=== PATIENT | female | born 1945 | race Asian ===

== ENCOUNTER → 2017-12-29 08:22 | Outpatient (CLI) | payer MEDICARE, OTHER, SELFPAY ==
--- NOTE | 2017-12-29 | DI.RAD.S_ITS ---
PROCEDURE: FL UPPER GI W AIR INDICATIONS: DYSPHAGIA/COUGH COMPARISON: None. FINDINGS: KUB: Preprocedural top lift nailer film demonstrates a normal bowel gas pattern. No suspicious abdominal calcifications. Visualized solid organ contours appear normal. Bony structures appear unremarkable. Esophagus: Esophageal mucosa is normal on air-contrast views. On single-contrast views, there is severely decreased esophageal peristalsis. No strictures, extrinsic mass effects, or diverticula. No hiatal hernia or elicited gastroesophageal reflux. Stomach: The stomach is normally distensible, with normal rugal fold thickness. No mucosal masses or ulcers. Pylorus and duodenal bulb appear normal in morphology. Duodenal folds are normal in thickness as well. IMPRESSION: Severe esophageal dysmotility Dictated by: Gordo Adkins M.D. on 12/29/2017 at 17:00 Approved by: Gordo Adkins M.D. on 12/29/2017 at 17:01
== END ==
PROVIDERS: PCP Family Medicine; Visit Provider Family Medicine
DX: K22.4 Dyskinesia of esophagus (principal); R05 Cough; R13.10 Dysphagia, unspecified
CPT/HCPCS: 74247

== ENCOUNTER → 2018-01-25 09:26 | Outpatient (CLI) | payer MEDICARE, OTHER, SELFPAY ==
--- NOTE | 2018-01-25 | DI.MG.S_ITS ---
BILATERAL DIGITAL SCREENING MAMMOGRAM 3D/2D WITH CAD: 01/25/2018 CLINICAL: Routine screening. Family history of breast cancer. Comparison is made to exams dated: 01/24/2017 mammogram, 01/18/2016 mammogram, and 01/15/2015 mammogram - [facility]. There are scattered fibroglandular elements in both breasts. Current study was also evaluated with a Computer Aided Detection (CAD) system. No significant masses, calcifications, or other findings are seen in either breast. There has been no significant interval change. IMPRESSION: NEGATIVE There is no mammographic evidence of malignancy. A 1 year screening mammogram is recommended. This exam was interpreted at Station ID: [id number]. NOTE: For mammograms, a report in lay terms will be sent to the patient. Approximately 15% of breast malignancies will not be visualized mammographically. In the management of a palpable breast mass, a negative mammogram must not discourage biopsy of a clinically suspicious lesion. Electronically Signed By: Lilly perez/ryan:01/25/2018 11:32:34 letter sent: Normal Exam ACR BI-RADS Category 1: Negative 3341F
== END ==
PROVIDERS: PCP Family Medicine; Visit Provider Family Medicine
DX: Z12.31 Encounter for screening mammogram for malignant neoplasm of breast (principal); Z80.3 Family history of malignant neoplasm of breast
CPT/HCPCS: 77063; 77067

== ENCOUNTER → 2018-11-16 12:05 | Outpatient (CLI) | payer MEDICARE, OTHER, SELFPAY ==
--- NOTE | 2018-11-16 | DI.RAD.S_ITS ---
PROCEDURE: XR FOOT LT MIN 3V INDICATIONS: Left foot pain (focal at 5th digit) TECHNIQUE: 3 views of the foot were acquired. COMPARISON: None. FINDINGS: Bones: No fractures or dislocations. No suspicious bony lesions. Soft tissues: No tibiotalar joint effusion. Achilles tendon appears normal. IMPRESSION: No trauma found. Source of pain is not seen. Dictated by: Jeffrey Israel M.D. on 11/16/2018 at 13:19 Approved by: Jeffrey Israel M.D. on 11/16/2018 at 13:19
== END ==
PROVIDERS: PCP Family Medicine; Visit Provider Family Medicine
DX: M79.672 Pain in left foot (principal)
CPT/HCPCS: 73630

== ENCOUNTER → 2019-01-29 09:00 | Outpatient (CLI) | payer MEDICARE, OTHER, SELFPAY ==
--- NOTE | 2019-01-29 | DI.MG.S_ITS ---
BILATERAL DIGITAL SCREENING MAMMOGRAM 3D/2D WITH CAD: 01/29/2019 CLINICAL: Routine screening. Family history of breast cancer. Comparison is made to exams dated: 01/25/2018 mammogram, 01/24/2017 mammogram, and 01/18/2016 mammogram - [facility]. There are scattered fibroglandular elements in both breasts. Current study was also evaluated with a Computer Aided Detection (CAD) system. No significant masses, calcifications, or other findings are seen in either breast. There has been no significant interval change. IMPRESSION: NEGATIVE There is no mammographic evidence of malignancy. A 1 year screening mammogram is recommended. This exam was interpreted at Station ID: [id number]. NOTE: For mammograms, a report in lay terms will be sent to the patient. Approximately 15% of breast malignancies will not be visualized mammographically. In the management of a palpable breast mass, a negative mammogram must not discourage biopsy of a clinically suspicious lesion. Electronically Signed By: Efrain sanon/ryan:01/29/2019 10:28:27 letter sent: Normal Exam ACR BI-RADS Category 1: Negative [id number]
== END ==
PROVIDERS: PCP Family Medicine; Visit Provider Family Medicine
DX: Z12.31 Encounter for screening mammogram for malignant neoplasm of breast (principal); Z80.3 Family history of malignant neoplasm of breast
CPT/HCPCS: 77063; 77067

== ENCOUNTER → 2019-04-18 11:16 | Outpatient (CLI) | payer MEDICARE, OTHER, SELFPAY | PROVIDERS: PCP Family Medicine; Visit Provider Family Medicine | DX: R20.2 Paresthesia of skin (principal); E11.43 Type 2 diabetes mellitus with diabetic autonomic (poly)neuropathy | CPT/HCPCS: 95885; 95886; 95909 ==

== ENCOUNTER → 2020-01-02 12:56 | Outpatient (CLI) | payer MEDICARE, OTHER, SELFPAY ==
[2020-01-02 15:20] LABS: Folate > 20.0 ng/mL (2.76-20.0); Vitamin B12 Reflex MMA if <400 936 pg/mL (239-931)
[2020-01-03 22:34] LABS: Thyroid Stimulating Hormone 1.36 uIU/mL (0.47-4.68)
[2020-01-06 15:36] LABS: Alpha-1-Globulin 0.2 g/dL (0.0-0.4); Alpha-2-Globulin 0.8 g/dL (0.4-1.0); Gamma Globulin 1.1 g/dL (0.4-1.8); Globulin Total 2.9 g/dL (2.2-3.9); Protein, Total 6.9 g/dL (6.0-8.5)
== END ==
PROVIDERS: PCP Family Medicine; Referring Provider Specialist; Visit Provider Specialist
DX: R20.0 Anesthesia of skin (principal)
CPT/HCPCS: 36415; 82607; 82746; 84155; 84165; 84443

== ENCOUNTER 2020-01-23 11:23 | Outpatient (CLI) | payer MEDICARE, OTHER, SELFPAY | END 2020-01-23 16:42 | disposition home or self-care (01) | LOC: PHYS 11:24 | PROVIDERS: PCP Family Medicine; Referring Provider Family Medicine; Visit Provider Family Medicine | DX: M79.643 Pain in unspecified hand (principal) | CPT/HCPCS: 95886; 95911 ==

== ENCOUNTER → 2020-03-03 11:11 | Outpatient (CLI) | payer MEDICARE, OTHER, SELFPAY ==
--- NOTE | 2020-03-03 11:35 | DI.MG.S_ITS ---
Patient Name: PACO TIMMONS date: 1945 Sex: F Attending Physician: Cristobal Indications: Date: 03/03/2020 11:28 At the request of: [facility] Procedure: MM screening mammo BI BILATERAL DIGITAL SCREENING MAMMOGRAM 3D/2D WITH CAD: 03/03/2020 CLINICAL: Routine screening. Family history of breast cancer. Comparison is made to exams dated: 01/29/2019 mammogram, 01/25/2018 mammogram, 01/24/2017 mammogram, 01/18/2016 mammogram, 01/15/2015 mammogram, and 01/14/2014 mammogram - [facility]. There are scattered fibroglandular elements in both breasts. Current study was also evaluated with a Computer Aided Detection (CAD) system. No significant masses, calcifications, or other findings are seen in either breast. There has been no significant interval change. IMPRESSION: NEGATIVE There is no mammographic evidence of malignancy. A 1 year screening mammogram is recommended. This exam was interpreted at Station ID: [id number]. NOTE: For mammograms, a report in lay terms will be sent to the patient. Approximately 15% of breast malignancies will not be visualized mammographically. In the management of a palpable breast mass, a negative mammogram must not discourage biopsy of a clinically suspicious lesion. Electronically Signed By: Tunde finley/ryna:03/03/2020 17:54:29 letter sent: Normal Exam ACR BI-RADS Category 1: Negative [id number]
== END ==
PROVIDERS: PCP Family Medicine; Referring Provider Family Medicine; Visit Provider Family Medicine
DX: Z12.31 Encounter for screening mammogram for malignant neoplasm of breast (principal); Z80.3 Family history of malignant neoplasm of breast
CPT/HCPCS: 77063; 77067

== ENCOUNTER → 2020-03-20 10:21 | Outpatient (CLI) | payer MEDICARE, OTHER, SELFPAY | PROVIDERS: PCP Family Medicine; Referring Provider Specialist; Visit Provider Specialist | DX: R56.9 Unspecified convulsions (principal) | CPT/HCPCS: 36415; 80175 ==

== ENCOUNTER → 2020-04-20 08:29 | Outpatient (CLI) | payer MEDICARE, OTHER, SELFPAY ==
[2020-04-23 12:08] LABS: Lamotrigine Lamictal 2.4 ug/mL (2.0-20.0)
== END ==
PROVIDERS: PCP Family Medicine; Referring Provider Specialist; Visit Provider Specialist
DX: R56.9 Unspecified convulsions (principal); R20.0 Anesthesia of skin; R20.2 Paresthesia of skin
CPT/HCPCS: 36415; 80175

== ENCOUNTER → 2020-05-18 08:49 | Outpatient (CLI) | payer MEDICARE, OTHER, SELFPAY ==
[2020-05-20 14:13] LABS: Lamotrigine Lamictal 3.8 ug/mL (2.0-20.0)
== END ==
PROVIDERS: PCP Family Medicine; Referring Provider Specialist; Visit Provider Specialist
DX: R56.9 Unspecified convulsions (principal)
CPT/HCPCS: 36415; 80175

== ENCOUNTER 2020-10-12 18:53 | Inpatient (IN) | payer MEDICARE, OTHER, SELFPAY ==
--- NOTE | 2020-10-12 18:57 | ED_ITS ---
HPI - Ear Problem General Chief complaint: Dizziness Stated complaint: UNABLE TO HEAR FROM RT EAR DIZZY Time Seen by Provider: 10/12/20 18:56 Source: patient Mode of arrival: Wheelchair Limitations: no limitations History of Present Illness HPI Narrative: 74-year-old female nonsmoker presents with family in the chief complaint of a vague dizziness that has been present for the past few days. She denies any blurred vision, trouble speech or obvious numbness, tingling or weakness of her extremities. She denies recent trauma or injury. She has had no fever or chills. She denies any head pain but does state that she feels a fullness in her ear that may be new or may have been there for quite some time she is unclear. She denies any recent travel, exposure to persons with COVID, change in medications or diet. She has had no chest pain or shortness of breath. She denies nausea, vomiting or diarrhea. She states that she is dizzy all the time though it seems to maybe get a bit worse when she is trying to walk. Related Data Home Medications Medication Instructions Recorded Confirmed Phenytoin Sodium, Extended 100 mg PO Q DAY #0 10/08/09 (Dilantimagan Ballard) Previous Rx's Medication Instructions Recorded cefuroxime axetil 500 mg PO BID #14 tab 10/12/20 meclizine 25 mg PO BID-TID PRN #14 tab 10/12/20 Allergies Allergy/AdvReac Type Severity Reaction Status Date / Time amoxicillin [From Augmentin] Allergy Verified 10/12/20 21:20 clavulanic acid Allergy Verified 10/12/20 21:20 [From Augmentin] ABX Allergy Unknown Uncoded 09/27/17 13:08 Review of Systems Constitutional Constitutional: Denies chills, Denies fatigue, Denies fever(s), Denies frequent falls, Denies lethargy and Denies weakness Eyes Eyes: Denies change in vision, Denies eye discharge, Denies irritation and Denies loss of vision ENT Ears, Nose, Mouth, and Throat: Denies change in voice, Reports dizziness, Denies neck pain, Denies sore throat and Denies throat swelling Cardiovascular Cardiovascular: Denies chest pain, Denies irregular heart rhythm, Denies lightheadedness, Denies palpitations, Denies dyspnea, Denies dyspnea on exertion and Denies orthopnea Respiratory Respiratory: Denies cough, Denies dyspnea, Denies dyspnea on exertion and Denies wheezing Gastrointestinal Gastrointestinal: Denies abdominal pain, Denies change in bowel habits, Denies diarrhea, Denies nausea and Denies vomiting Musculoskeletal Musculoskeletal: Denies neck pain and Denies numbness Integumentary/Breasts Skin/Breast: Denies pruritus, Denies erythema, Denies rash and Denies wounds Neurologic Neurologic: Denies behavioral changes, Denies confusion, Reports dizziness, Denies frequent falls, Denies loss of vision, Denies numbness and Denies weakness Psychiatric Psychiatric: Denies anxiety, Denies behavioral changes, Denies confusion, Denies depression, Denies homicidal ideation and Denies suicidal ideation Endocrine Endocrine: Denies fatigue, Denies flushing and Denies palpitations Hematologic/Lymphatic Hematologic/Lymphatic: Denies easy bruising Allergic/Immunologic Allergic/Immunologic: Denies urticaria, Denies throat swelling and Denies wheezing Patient History alcohol intake frequency: 0-2 drinks per day Substance Use Type: does not use Exam Narrative Exam Narrative: GENERAL: [74] year old patient appears stated age. Well- nourished, well-developed patient, in mild distress. HEAD: Atraumatic. Normocephalic. EYES: Pupils equal round and reactive. Extraocular motions intact. No scleral icterus. No injection or drainage. ENT: Nose without bleeding, purulent drainage. Throat without erythema, tonsillar hypertrophy or exudate. Airway patent. Tympanic membranes are clear bilaterally with no obvious effusion or swelling. No reproducible nystagmus NECK: Trachea midline. Non tender CARDIOVASCULAR: Regular rate and rhythm without murmurs, gallops, or rubs. RESPIRATORY: Clear to auscultation. Breath sounds equal bilaterally. No wheezes, rales, or rhonchi. GASTROINTESTINAL: Abdomen soft, non-tender, nondistended. EXTREMITIES: No edema or joint tenderness. BACK: Nontender without deformity or crepitance. No flank tenderness. NEURO: AOx3. SKIN: No rash or erythema of visible areas NIH Stroke Scale 1a. LOC: Patient is alert and keenly responsive (0) 1b. LOC Questions: Patient answers both LOC questions accurately (0) 1c. LOC Commands: Patient performs both tasks correctly (0) 2. Best Gaze: Normal (0) 3. Visual: No visual loss (0) 4. Facial palsy: Normal symmetrical movements (0) 5. Motor arm: No drift (0) 6. Motor leg: No drift (0) 7. Limb ataxia: Absent (0) 8. Sensory: Normal (0) 9. Best language: No aphasia; normal (0) 10. Dysarthria: Normal (0) 11. Extinction and inattention: No abnormality (0) NIHSS: 0 Initial Vital Signs Initial Vital Signs: Vital Signs Temperature 97.3 F L 10/12/20 19:05 Pulse Rate 88 10/12/20 19:05 Respiratory Rate 16 10/12/20 19:05 Blood Pressure 180/87 H 10/12/20 19:05 Pulse Oximetry 97 10/12/20 19:05 Course Orders Ordered: ED Orders 10/12/20 19:03 CT head/brain wo con Stat EKG-12 Lead Stat 10/12/20 19:05 Urinalysis and Microscopic Stat Urine Culture Stat 10/12/20 19:33 Complete Blood Count AUTO DIFF Stat Comprehensive Metabolic Panel Stat Prothrombin Time INR Stat TSH w/ Reflex to FT4 Stat Troponin & CK Cardiac Panel Stat 10/12/20 20:55 COVID19 - ADMIT ([employer] swab/PCR) Stat Gabapentin (Gabapentin 100 Mg Capsule) 200 mg PO BEDTIME VIVIANA Last Admin: 10/12/20 21:32 Dose: 200 mg Documented by: NATALIA Discontinued Medications Aspirin (Aspirin 81 Mg Chew Tab) 324 mg PO NOW ONE Stop: 10/12/20 21:08 Last Admin: 10/12/20 21:28 Dose: 324 mg Documented by: NATALIA Sodium Chloride (Normal Saline 0.9%) 1,000 mls @ 1,000 mls/hr IV BOLUS ONE Stop: 10/12/20 20:01 Last Admin: 10/12/20 19:42 Dose: 1,000 mls/hr Documented by: NATALIA Ceftriaxone Sodium/Dextrose (Rocephin) 1 gm in 50 mls @ 100 mls/hr IV NOW ONE Stop: 10/12/20 21:36 Last Admin: 10/12/20 21:25 Dose: 100 mls/hr Documented by: NATALIA Meclizine HCl (Meclizine Hcl 12.5 Mg Tablet) 50 mg PO NOW ONE Stop: 10/12/20 19:03 Last Admin: 10/12/20 19:42 Dose: 50 mg Documented by: NATALIA Vital Signs Vital signs: Vital Signs - 8 hr 10/12/20 19:05 10/12/20 20:08 Temperature 97.3 F L Pulse Rate 88 74 Respiratory Rate 16 Blood Pressure 180/87 H Pulse Oximetry 97 97 Medical Decision Making Lab Data Result diagrams: 10/12/20 19:33 10/12/20 19:33 Labs: Lab Results 10/12/20 10/12/20 10/12/20 Range/Units 19:05 19:33 19:33 WBC 7.0 (4.5-11.0) X10^3/uL RBC 4.43 (4.0-5.2) X10^6/uL Hgb 13.1 (12.0-16.0) g/dL Hct 39.0 (36-46) % MCV 88.0 (80-100) fL MCH 29.6 (26-34) PG MCHC 33.6 (30-36) % RDW 13.1 (11.6-14.8) % Plt Count 192 (150-400) X10^3/uL Neut % (Auto) 66.7 (50-75) % Lymph % (Auto) 23.5 L (25-40) % Rapides % (Auto) 7.0 (3-14) % Eos % (Auto) 2.0 (2-4) % Baso % (Auto) 0.8 (0-2) % Neut # (Auto) 4700 (0174-4373) /uL Lymph # (Auto) 1700 (8383-7670) /uL Rapides # (Auto) 500 (0-900) /uL Eos # (Auto) 100 (0-450) /uL Baso # (Auto) 100 (0-100) /uL PT 11.6 (10.1-12.7) SECONDS INR 1.0 (0.9-1.3) Sodium (137-145) mmol/L Potassium (3.4-5.1) mmol/L Chloride (98-107) mmol/L Carbon Dioxide (22-32) mmol/L BUN (7-17) mg/dL Creatinine (0.52-1.04) mg/dL Estimated GFR (>60) mL/min BUN/Creatinine Ratio (6-22) Glucose (80-110) mg/dL Calcium (8.4-10.2) mg/dL Total Bilirubin (0.2-1.3) mg/dL AST (14-36) IU/L ALT (<35) IU/L Alkaline Phosphatase (38-126) U/L Total Creatine Kinase (30-135) U/L CK-MB (CK-2) (<2.37) ng/mL CK-MB (CK-2) Rel Index (1.5-5.0) % Troponin I (0.01-0.034) ng/mL Total Protein (6.3-8.2) g/dL Albumin (3.5-5.0) g/dL Globulin (1.7-4.1) g/dL Albumin/Globulin Ratio (1.0-2.8) TSH (0.47-4.68) uIU/mL Urine Color Yellow Urine Appearance Clear Urine pH 7.0 (4.5-8.0) Ur Specific Wayne 1.010 (1.000-1.035) Urine Protein Negative (Negative) Urine Glucose (UA) Negative (Negative) g/dL Urine Ketones Negative (NEGATIVE) Urine Occult Blood Negative (Negative) Urine Nitrate Negative (Negative) Urine Bilirubin Negative (NEGATIVE) Urine Urobilinogen 0.2 (0.2) E.U./dL Ur Leukocyte Esterase Trace H (NEGATIVE) Urine RBC 0-1/hpf (0-5/HPF) Urine WBC 5-10/hpf H (0-5/HPF) Ur Squamous Epith Cells 1-5 /hpf (0-5/HPF) Ur Transition Epith Cell 1-5/hpf (0-5/HPF) Urine Bacteria Few (2-10) H (None) Ur Culture Indicated? Specimen cultured 10/12/20 10/12/20 Range/Units 19:33 19:33 WBC (4.5-11.0) X10^3/uL RBC (4.0-5.2) X10^6/uL Hgb (12.0-16.0) g/dL Hct (36-46) % MCV (80-100) fL MCH (26-34) PG MCHC (30-36) % RDW (11.6-14.8) % Plt Count (150-400) X10^3/uL Neut % (Auto) (50-75) % Lymph % (Auto) (25-40) % Rapides % (Auto) (3-14) % Eos % (Auto) (2-4) % Baso % (Auto) (0-2) % Neut # (Auto) (6044-5648) /uL Lymph # (Auto) (9893-9695) /uL Rapides # (Auto) (0-900) /uL Eos # (Auto) (0-450) /uL Baso # (Auto) (0-100) /uL PT (10.1-12.7) SECONDS INR (0.9-1.3) Sodium 141 (137-145) mmol/L Potassium 3.9 (3.4-5.1) mmol/L Chloride 105 (98-107) mmol/L Carbon Dioxide 26 (22-32) mmol/L BUN 16 (7-17) mg/dL Creatinine 0.85 (0.52-1.04) mg/dL Estimated GFR > 60.0 (>60) mL/min BUN/Creatinine Ratio 18.8 (6-22) Glucose 121 H (80-110) mg/dL Calcium 9.7 (8.4-10.2) mg/dL Total Bilirubin 0.3 (0.2-1.3) mg/dL AST 27 (14-36) IU/L ALT 21 (<35) IU/L Alkaline Phosphatase 63 (38-126) U/L Total Creatine Kinase 135 (30-135) U/L CK-MB (CK-2) 1.13 (<2.37) ng/mL CK-MB (CK-2) Rel Index 0.8 L (1.5-5.0) % Troponin I < 0.012 (0.01-0.034) ng/mL Total Protein 8.0 (6.3-8.2) g/dL Albumin 4.7 (3.5-5.0) g/dL Globulin 3.3 (1.7-4.1) g/dL Albumin/Globulin Ratio 1.4 (1.0-2.8) TSH 1.46 (0.47-4.68) uIU/mL Urine Color Urine Appearance Urine pH (4.5-8.0) Ur Specific Wayne (1.000-1.035) Urine Protein (Negative) Urine Glucose (UA) (Negative) g/dL Urine Ketones (NEGATIVE) Urine Occult Blood (Negative) Urine Nitrate (Negative) Urine Bilirubin (NEGATIVE) Urine Urobilinogen (0.2) E.U./dL Ur Leukocyte Esterase (NEGATIVE) Urine RBC (0-5/HPF) Urine WBC (0-5/HPF) Ur Squamous Epith Cells (0-5/HPF) Ur Transition Epith Cell (0-5/HPF) Urine Bacteria (None) Ur Culture Indicated? Point of Care Testing Glucose POC 116 Urine Dip Bedside Urine Glucose Negative Bedside Urine Bilirubin - Negative Bedside Urine Ketone - Negative Urine Specific Wayne 1.015 Bedside Urine Occult Blood - Negative Bedside Urine pH 6.5 Bedside Urine Protein - Negative Bedside Urine Urobilinogen - Negative Bedside Urine Nitrite - Negative Bedside Urine Leukocytes +/- 15 Esterase Point of care testing: Point of Care Testing Glucose POC 116 Urine Dip Bedside Urine Glucose Negative Bedside Urine Bilirubin - Negative Bedside Urine Ketone - Negative Urine Specific Wayne 1.015 Bedside Urine Occult Blood - Negative Bedside Urine pH 6.5 Bedside Urine Protein - Negative Bedside Urine Urobilinogen - Negative Bedside Urine Nitrite - Negative Bedside Urine Leukocytes +/- 15 Esterase MDM Narrative Medical decision making narrative: Patient still unsteady on her feet and dizzy after the above-stated therapies. She denies any recent trauma or fever. Exam is not classic for a peripheral vertigo as she does not have a reproducible dizziness, does not have any provoked nystagmus. No obvious abnormalities on ENT exam such as fluid or bulging of her tympanic membranes. There are no focal neurologic findings on her stroke scale and CT is unremarkable. Patient has leuks in her urine suggesting UTI but there is concern for possibility of a posterior circulation stroke and patient will require hospitalization for further characterization, valuation and stabilization. Discharge Plan Departure Patient Disposition: Admitted as Observation Clinical Impression: Vertigo, Acute UTI Admit Date/Time: 10/12/20 21:10 Admit Provider: [place]
--- NOTE | 2020-10-12 19:03 | DI.CT.S_ITS ---
PROCEDURE: CT HEAD/BRAIN WO CON INDICATIONS: dizzy for days, no injury TECHNIQUE: Noncontrast 4.5 mm thick angled axial sections acquired from the foramen magnum to the vertex, with coronal and sagittal reformats. For radiation dose reduction, the following was used: automated exposure control, adjustment of mA and/or kV according to patient size. COMPARISON: [facility], CT, HEAD WITHOUT CONTRAST, 05/27/2013, 11:51. FINDINGS: Image quality: Excellent. CSF spaces: Basal cisterns are patent. No extra-axial fluid collections. The ventricles are symmetric in size and shape. Brain: No intracranial bleeds or masses. There is cerebral volume loss for age, with resultant ventricular and sulcal prominence. There are periventricular and deep white matter chronic small vessel ischemic changes. There is intracranial internal carotid artery atherosclerosis. Skull and face: Calvarium and visualized facial bones appear intact, without suspicious lesions. Sinuses: Visualized sinuses and mastoids are clear. IMPRESSION: 1. CT head without acute intracranial abnormalities or acute calvarial fractures. 2. Age-related senescent changes and sequela of chronic small vessel ischemic disease. Dictated by: Efrain Koch M.D. on 10/12/2020 at 20:05 Approved by: Efrain Koch M.D. on 10/12/2020 at 20:06
[2020-10-12 19:05] VITALS: BP 180/87; PULSE 88; RESP 16; TEMP 36.3; O2SAT 97; BMI 30.1
[2020-10-12] MEDS: MECLIZINE HCL 12.5 MG TABLET 50 MG PO (19:42)
[2020-10-12] MEDS: SODIUM CHLORIDE 0.9% 1,000 ML 1000 ML IV (19:42)
[2020-10-12 19:46] LABS: Add Manual Diff / Slide Review NO; Basophils Absolute Auto 100 /uL (0-100); Basophils Percent Auto 0.8 % (0-2); Eosinophils Absolute Auto 100 /uL (0-450); Hemoglobin 13.1 g/dL (12.0-16.0); Lymphocytes Absolute Auto 1700 /uL (1100-4500); Lymphocytes Percent Auto 23.5 % (25-40); Mean Corpuscular HGB Conc 33.6 % (30-36); Mean Corpuscular Hemoglobin 29.6 PG (26-34); Monocytes Absolute Auto 500 /uL (0-900); Neutrophils Absolute Auto 4700 /uL (1500-7000); Neutrophils Percent Auto 66.7 % (50-75); Platelet Count 192 X10^3/uL (150-400); Red Blood Cell Count 4.43 X10^6/uL (4.0-5.2); Red Cell Distribution Width 13.1 % (11.6-14.8)
[2020-10-12 19:57] LABS: Appearance Urine UA CLEAR; Bilirubin Urine UA NEGATIVE (NEGATIVE); Color Urine UA YELLOW; Glucose Urine UA NEGATIVE (Negative); Ketones Urine UA NEGATIVE (NEGATIVE); Leukocyte Esterase Urine UA TRACE (NEGATIVE); Nitrite Urine UA NEGATIVE (Negative); Occult Blood Urine UA NEGATIVE (Negative); Protein Urine UA NEGATIVE (Negative); Urobilinogen Urine UA 0.2 E.U./dL (0.2)
[2020-10-12 20:05] LABS: Prothrombin Time 11.6 SECONDS (10.1-12.7)
[2020-10-12 20:07] LABS: Bacteria Urine Few (2-10); Culture Indicated Urine Specimen Cultured; RBC Urine 0-1/HPF (0-5/HPF); Squamous Epithelial Cell Urine 1-5 /HPF (0-5/HPF); Transitional Epi Cells Urine 1-5/HPF (0-5/HPF); WBC Urine 5-10/HPF (0-5/HPF)
[2020-10-12 20:08] VITALS: PULSE 74; O2SAT 97
[2020-10-12 20:10] LABS: Alanine Aminotransferase 21 IU/L (<35); Albumin 4.7 g/dL (3.5-5.0); Albumin Globulin Ratio 1.4 (1.0-2.8); Alkaline Phosphatase 63 U/L (38-126); Aspartate Aminotransferase 27 IU/L (14-36); BUN Creatinine Ratio 18.8 (6-22); Bilirubin Total 0.3 mg/dL (0.2-1.3); Blood Urea Nitrogen 16 mg/dL (7-17); Calcium 9.7 mg/dL (8.4-10.2); Carbon Dioxide 26 mmol/L (22-32); Chloride 105 mmol/L (98-107); Creatine Kinase 135 U/L (30-135); Estimated Glomerular Filt Rate > 60.0 mL/min (>60); Globulin 3.3 g/dL (1.7-4.1); Glucose 121 mg/dL (80-110); HEMOLYSIS < 15 (0-50); Potassium 3.9 mmol/L (3.4-5.1); Sodium 141 mmol/L (137-145)
[2020-10-12 20:21] LABS: Troponin I < 0.012 ng/mL (0.01-0.034)
[2020-10-12 20:25] LABS: CKMB % Relative Index 0.8 % (1.5-5.0); Creatine Kinase MB 1.13 ng/mL (<2.37)
[2020-10-12] MEDS: CEFTRIAXONE 1 GM/50 ML FROZ.PIGGY IV (21:25)
[2020-10-12] MEDS: ASPIRIN 81 MG CHEW TAB 324 MG PO (21:28)
[2020-10-12] MEDS: GABAPENTIN 100 MG CAPSULE 200 MG PO (21:32)
[2020-10-12 21:33] VITALS: BMI 26.9
[2020-10-12 21:53] LABS: TSH w/ Reflex to FT4 1.46 uIU/mL (0.47-4.68)
--- NOTE | 2020-10-12 22:06 | DI.MRI.S_ITS ---
PROCEDURE: MR STROKE Pre- and post-contrast brain MRI, non-contrast brain MR angiogram, pre- and postcontrast neck MR angiogram INDICATIONS: central dizziness TECHNIQUE: Brain: Noncontrast axial T1 spin echo, axial T2 fast spin echo, sagittal and axial FLAIR, coronal T2 fast spin echo, axial gradient echo, axial diffusion and ADC through the brain. After the administration of contrast, axial 3D VIBE of the cranial vasculature and brain. Brain MRA: Non-contrast 3-D time of flight MR angiogram, with multiple zusnxcs-onqupcnba-yapotqiakf (MIP) reformats performed. Neck MRA: Axial and sagittal TruFISP through the neck. Coronal dynamic MR angiogram during administration of contrast in the arterial and venous phases, with 3-dimenstional azlubkw-wzzfqhihu-izkdydhblx (MIP) reformats constructed from subtraction images. COMPARISON: [facility], CT, CT HEAD/BRAIN WO CON, 10/12/2020, 19:33. FINDINGS: Image quality: Excellent. BRAIN: CSF spaces: Ventricles are normal in size and shape. Basal cisterns are patent. No extra-axial fluid collections. Brain: No intracranial bleeds or mass effects. There is mild diffuse cerebral volume loss. Lee-white matter interface is normal. Diffusion weighted images show no acute ischemic insults. Brainstem appears normal. Normal intravascular flow voids are present. No abnormal intracranial enhancement. Skull and face: Calvarial marrow signal is normal. Orbits appear normal. Sinuses: Sinuses and mastoids are clear. BRAIN MR ANGIOGRAM: Anterior circulation: Intracranial internal carotid arteries are normal in size and enhancement. The flow within the paired anterior cerebral arteries is normal and symmetric. The flow within the middle cerebral arteries is normal and symmetric. The anterior communicating artery is seen. No stenoses, occlusions, or aneurysms. Posterior circulation: The visualized portions of the vertebral arteries demonstrate normal caliber, and join to form a normal appearing basilar artery. Near origins of the bilateral posterior cerebral arteries. The flow within the posterior cerebral arteries is normal and symmetric. No stenoses, occlusions, or aneurysms. NECK MR ANGIOGRAM: Carotids: Great vessels demonstrate a conventional anatomy as they arise from the aortic arch. The origins of the common carotid arteries appear patent. The calibers and courses of both common carotid arteries are normal. The bifurcation regions appear normal bilaterally. The internal carotid arteries demonstrate normal course and caliber. Posterior circulation: The origins of the vertebral arteries appear patent. More superior portions of both vertebral arteries demonstrate normal course and caliber, and join to form a normal appearing basilar artery. Miscellaneous: Subclavian arteries appear patent. Pre-contrast images through the neck show no soft tissue abnormalities. IMPRESSION: BRAIN MRI: 1. No acute process. No recent infarct. 2. Mild volume loss. BRAIN MR ANGIOGRAM: Negative cerebral MR angiography. NECK MR ANGIOGRAM: 1. No internal carotid artery stenosis bilaterally. 2. Patent bilateral vertebral arteries. Dictated by: Chica Duarte M.D. on 10/13/2020 at 9:45 Approved by: Chica Duarte M.D. on 10/13/2020 at 9:49
[2020-10-12 22:15] LABS: COVID19 - ADMIT (NP swab/PCR) Negative (Negative)
[2020-10-12 22:18] VITALS: BP 190/72; PULSE 82; RESP 18; TEMP 36.7; O2SAT 100
[2020-10-12] MEDS: INSULIN GLARGINE 100 UNIT/ML 3ML PEN 40 UNIT SUBCUT (22:42)
[2020-10-12] MEDS: SODIUM CHLORIDE 0.45% 1,000 ML 100 ML IV (22:46)
[2020-10-12] MEDS: lamoTRIgine 100 MG TABLET 50 MG PO (23:01)
[2020-10-12] MEDS: SIMVASTATIN 20 MG TABLET PO (23:01)
[2020-10-12] MEDS: PANTOPRAZOLE 20 MG TABLET PO (23:01)
[2020-10-13 00:02] VITALS: BP 133/74; PULSE 66; RESP 18; TEMP 36.4; O2SAT 97
[2020-10-13 05:01] VITALS: BP 151/74; PULSE 77; RESP 18; TEMP 36.5; O2SAT 97
[2020-10-13 05:33] LABS: Blood Urea Nitrogen 16 mg/dL (7-17); Calcium 8.8 mg/dL (8.4-10.2); Carbon Dioxide 27 mmol/L (22-32); Chloride 108 mmol/L (98-107); Estimated Glomerular Filt Rate > 60.0 mL/min (>60); Glucose 108 mg/dL (80-110); HEMOLYSIS < 15 (0-50); Sodium 141 mmol/L (137-145)
[2020-10-13 05:37] LABS: Add Manual Diff / Slide Review NO; Basophils Absolute Auto 0 /uL (0-100); Basophils Percent Auto 0.4 % (0-2); Eosinophils Absolute Auto 100 /uL (0-450); Eosinophils Percent Auto 2.1 % (2-4); Hematocrit 36.6 % (36-46); Hemoglobin 12.4 g/dL (12.0-16.0); Lymphocytes Absolute Auto 1500 /uL (1100-4500); Mean Corpuscular HGB Conc 33.8 % (30-36); Mean Corpuscular Hemoglobin 29.9 PG (26-34); Mean Corpuscular Volume 88.4 fL (80-100); Monocytes Absolute Auto 400 /uL (0-900); Monocytes Percent Auto 6.7 % (3-14); Neutrophils Absolute Auto 4600 /uL (1500-7000); Neutrophils Percent Auto 68.8 % (50-75); Platelet Count 173 X10^3/uL (150-400); Red Blood Cell Count 4.15 X10^6/uL (4.0-5.2); Red Cell Distribution Width 13.1 % (11.6-14.8); White Blood Cell Count 6.6 X10^3/uL (4.5-11.0)
--- NOTE | 2020-10-13 07:13 | DI.ECHO.S_ITS ---
:Reason For Study: TIA WORKUP : :Ordering Physician: WILLIAM, : :CARIE Performed By: Adriana Sheridan : :Referring: CARIE THOMAS : + + Interpretation Summary The left ventricle is normal in size and wall thickness. Left ventricular systolic function appears normal without focal wall motion abnormalities. The ejection fraction is estimated to be 60-65%. Diastolic parameters suggest probable normal left ventricular diastolic function and normal filling pressures. The right ventricle is normal in size and function. The right ventricular systolic pressure is estimated to be at least 25 mmHg based on an estimated right atrial pressure of 3 mm Hg. Both atria are normal in size. There is no significant valvular heart disease. The aortic root is normal size. No cardioembolic source for TIA. Procedure: A two-dimensional transthoracic echocardiogram with color flow and Doppler was performed. The study quality was technically adequate. There is no prior echocardiogram noted for this patient. The patient was in sinus rhythm with heart rates between 60-72 bpm during the exam. Left Ventricle: The left ventricle is normal in size and wall thickness. Left ventricular systolic function appears normal without focal wall motion abnormalities. The ejection fraction is estimated to be 60-65%. Diastolic parameters suggest probable normal left ventricular diastolic function and normal filling pressures. Right Ventricle: The right ventricle is normal in size and function. Atria: Both atria are normal in size. There is no Doppler evidence for an interatrial shunt. Mitral Valve: The mitral valve is normal in structure and function. There is mild mitral annular calcification. There is trace mitral regurgitation. Aortic Valve: The aortic valve is trileaflet. The aortic valve opens well. There is no aortic valve stenosis. No aortic regurgitation is present. Tricuspid Valve: The tricuspid valve is normal in structure and function. There is mild tricuspid regurgitation. The right ventricular systolic pressure is estimated to be at least 25 mmHg based on an estimated right atrial pressure of 3 mm Hg. Pulmonic Valve: The pulmonic valve leaflets are thin and pliable; valve motion is normal. There is no pulmonic valvular regurgitation. There is no significant valvular heart disease. Great Vessels: The aortic root is normal size. The dimensions of the ascending aorta are normal. The IVC is of normal diameter and collapses greater than 50% with a sniff. This suggests a low right atrial pressure of 3 mm Hg. Pericardium/ Pleura There is no pericardial effusion. There is no pleural effusion. MMode/2D Measurements & Calculations LVIDd: 4.0 cm LVOT diam: 2.0 cm LVIDs: 2.6 cm Ao root diam: 3.0 cm FS: 36.0 % asc Aorta Diam: 3.3 cm EPSS: 1.1 cm Ao Arch Diam (Prox Trans): 2.4 cm IVSd: 0.94 cm LVPWd: 1.0 cm LV dang. diameter/BSA (cm/m^2): 2.2 LV sys. diameter/BSA (cm/m^2): 1.4 LA A2 area: 14.9 cm2 RA long axis: 4.4 cm LA A4 area: 12.2 cm2 RA area: 12.2 cm2 LA length (vol): 4.9 cm RA vol: 28.7 ml LA vol: 31.3 ml RA : 15.9 ml/m2 LA vol index: 17.3 ml/m2 IVC diam: 1.6 cm RVD1 (basal): 3.3 cm TAPSE: 1.7 cm Doppler Measurements & Calculations Ao V2 max: 118.1 cm/sec LVOT Max Doc: 88.4 cm/sec Ao V2 mean: 79.1 cm/sec LV V1 max P.1 mmHg Ao max P.6 mmHg LV V1 VTI: 22.0 cm Ao mean P.9 mmHg CECILY(I,D): 2.6 cm2 Ao V2 VTI: 25.9 cm CECILY(V,D): 2.3 cm2 sev ratio: 0.85 CECILY indexed to BSA (cm^2/m^2): 1.4 MV E max doc: 87.2 cm/sec TR max doc: 231.8 cm/sec MV A max doc: 88.1 cm/sec TR max P.5 mmHg MV E/A: 0.99 PA V2 max: 81.6 cm/sec Med Peak E' Doc: 6.4 cm/sec PA V2 mean: 61.0 cm/sec E/E' med: 13.7 PA mean P.6 mmHg Lat Peak E' Doc: 8.5 cm/sec PA pr(Accel): 12.2 mmHg E/E' lat: 10.3 E/e' average: 12.0 MV dec time: 0.21 sec SV(LVOT): 67.5 ml Reading Physician:04:00 PM
[2020-10-13 07:48] VITALS: BP 153/76; PULSE 69; RESP 16; TEMP 36.3; O2SAT 99
--- NOTE | 2020-10-13 08:39 | PC.NURSE ---
Assess- Patient is alert and oriented x3. She is more steady on her feet this morning and less dizzy when getting up to the bathroom. No visual deficits noted, and patient is reading sentences correctly. She is able to lift both of her arms and legs up without any difficulty. Down to MRI now and patient will be heplocked.
[2020-10-13] MEDS: PANTOPRAZOLE 20 MG TABLET PO ×2 (09:23→21:08)
[2020-10-13] MEDS: lisinopriL 5 MG TABLET PO (09:23)
[2020-10-13] MEDS: MECLIZINE HCL 12.5 MG TABLET 25 MG PO (09:23)
[2020-10-13] MEDS: GABAPENTIN 100 MG CAPSULE 200 MG PO (09:24)
[2020-10-13] MEDS: GLIMEPIRIDE 2 MG TABLET 4 MG PO (09:24)
[2020-10-13] MEDS: lamoTRIgine 25 MG CHEW TABLET PO (09:58)
[2020-10-13] MEDS: BRIMONIDINE 0.15% OPHTH 5 ML 1 DROPS EYE-BOTH ×2 (09:58→21:10)
[2020-10-13 11:40] VITALS: BP 131/74; PULSE 66; RESP 16; TEMP 36.3; O2SAT 100
[2020-10-13] MEDS: INSULIN LISPRO 100 UNIT/ML 3ML VIAL SUBCUT (11:52)
--- NOTE | 2020-10-13 13:35 | P.HP_ITS ---
History of Present Illness History of Present Illness Date Patient Seen: 10/13/20 Time Patient Seen: 08:20 Date of Onset of Symptoms: 10/10/20 Chief complaint: UNABLE TO HEAR FROM RT EAR DIZZY Narrative: 74-year-old female with insulin-dependent diabetes who previously was a patient of Dr. Jain and is new to me. Patient presents to emergency department with complaints of dizziness that started on this past MondayOctober 06. It has progressed. Patient was seen emergency department CT scan was negative. Urine was suspicious for infection but patient had significant ataxia and unsteadiness with ambulation that we were unable to send her home. She was treated with meclizine with some minimal improvement. She has been so dizzy over the last few days that she has not been taking her medications. There has been no change in her health other than in beginning of August she was started on metformin 500 mg daily. She otherwise has been feeling well. Past medical history: 1. 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 Seizure disorder, followed by Dr. Coleman of Neurology 3. Small fiber neuropathy, followed by Dr. Coleman 4. Glaucoma 5. Bronchiectasis, sees pulmonology in [place] I believe 6. Anxiety 7. Osteopenia 8. Carpal tunnel syndrome 9. Wolfe's palsy 10. Hyperlipidemia Past surgical history: Unremarkable Family history: Father at age 92 unclear etiology Mother at 86 of unclear etiology A known history of siblings Social history Patient is a . She is originally from the [facility]. Slovak is a 2nd language. Patient lives in [facility] with 1 of her daughters. Another daughter is a nurse who lives in [place]. Patient had COVID vaccine x2, Pfizer Patient History Family & Social History Social History: household members children Prior Living Arrangements House Safety & Behavioral: Feels Safe in Current Yes Environment Been Physically Hurt or No Threatened By a Person Suicidal Ideation Description None Suicide Plan Description No Plan Tobacco & Substance use: Smoking Status Never smoker alcohol intake never alcohol intake frequency 0-2 drinks per day Substance Use Type does not use Meds Home Medications and Allergies Home Medications Medication Instructions Recorded Confirmed Type meclizine 25 mg PO BID-TID PRN #14 tab 10/12/20 Rx azithromycin [Zithromax] 250 mg PO 3XW 10/13/20 10/13/20 History brimonidine 1 drp EYE-BOTH BID 10/13/20 10/13/20 History cetirizine 10 mg PO DAILY 10/13/20 10/13/20 History fluticasone propion-salmeterol 2 puff INHALATION BID 10/13/20 10/13/20 History [Advair HFA] gabapentin [Neurontin] 200 mg PO BID 10/13/20 10/13/20 History glimepiride [Amaryl] 4 mg PO QACBREAK 10/13/20 10/13/20 History insulin aspart U-100 [Novolog 10 unit SUBCUT TID 10/13/20 10/13/20 History Flexpen U-100 Insulin] insulin glargine [Lantus Solostar 40 unit SUBCUT DAILY 10/13/20 10/13/20 History U-100 Insulin] lamotrigine [Lamictal] 25 mg PO DAILY 10/13/20 10/13/20 History latanoprost [Xalatan] 1 drp EYE-BOTH BEDTIME 10/13/20 10/13/20 History lisinopril [Zestril] 5 mg PO DAILY 10/13/20 10/13/20 History metformin [Glucophage] 500 mg PO DAILY 10/13/20 10/13/20 History omeprazole magnesium [Acid [employer] Public [employer] 40 mg PO BID 10/13/20 10/13/20 History (omeprazole)] simvastatin [Zocor] 20 mg PO BEDTIME 10/13/20 10/13/20 History Allergies Allergy/AdvReac Type Severity Reaction Status Date / Time amoxicillin [From Augmentin] Allergy Verified 10/12/20 21:20 clavulanic acid Allergy Verified 10/12/20 21:20 [From Augmentin] ABX Allergy Unknown Uncoded 09/27/17 13:08 Review of Systems Review of Systems Narrative: Get no change in cognition No fevers or chills No chest pain or lightheadedness or dizziness No dyspnea on exertion No PND orthopnea No rashes No change in bowels. No constipation or diarrhea No change in Wolfe's palsy symptom that have been present for 30 years ROS: Yes All systems reviewed with the patient and are negative except as otherwise documented Exam Vital Signs (past 8 hours): - 10/13/20 07:48 10/13/20 11:40 Temperature 97.4 F L 97.4 F L Pulse Rate 69 66 Respiratory Rate 16 16 Blood Pressure 153/76 H 131/74 Pulse Oximetry 99 100 Oxygen Delivery Method Room Air Oxygen Flow Rate 0 Narrative Exam Narrative: Afebrile vital signs are stable. Blood pressure initially elevated but has normalized HEENT: Is remarkable for twitching above right upper lobe left laterally. Patient with Wolfe's palsy on the right side with facial asymmetry and difficulty opening right eye completely and right-sided motor affected of the obicularisr ivory muscles Oropharynx unremarkable mucous membranes moist and pink cerumen right external auditory canal but no other abnormalities Neck is supple without adenopathy or thyromegaly. No jugular venous distention or bruits Chest: Clear to auscultation without wheezes rhonchi or crackles Cor: Regular rate and rhythm without a murmur Abdomen: Positive bowel sounds, soft, nontender, obese Extremities: No edema, pulses intact Skin no rashes Neurologic exam shows evidence of right-sided Wolfe's palsy causing facial asymmetry and right side droop with smile. Also strength right eyelid decreased. Hallpike maneuver negative but patient with some dizziness, vertigo when she sits up at bedside. Otherwise cranial nerves 2-12 are grossly intact Strength is symmetric bilateral upper and lower extremities and sensations intact to light touch Romberg is negative Some unsteadiness ataxia with standing Objective Labs Result Diagrams: 10/13/20 05:10 10/13/20 05:10 Labs: Laboratory Results - last 24 hr 10/12/20 10/12/20 10/12/20 19:05 19:33 19:33 WBC 7.0 RBC 4.43 Hgb 13.1 Hct 39.0 MCV 88.0 MCH 29.6 MCHC 33.6 RDW 13.1 Plt Count 192 Neut % (Auto) 66.7 Lymph % (Auto) 23.[address] [facility] % (Auto) 7.0 Eos % (Auto) 2.0 Baso % (Auto) 0.8 Neut # (Auto) 4700 Lymph # (Auto) 1700 [facility] # (Auto) 500 Eos # (Auto) 100 Baso # (Auto) 100 PT 11.6 INR 1.0 Sodium Potassium Chloride Carbon Dioxide BUN Creatinine Estimated GFR BUN/Creatinine Ratio Glucose Calcium Total Bilirubin AST ALT Alkaline Phosphatase Total Creatine Kinase CK-MB (CK-2) CK-MB (CK-2) Rel Index Troponin I Total Protein Albumin Globulin Albumin/Globulin Ratio TSH Urine Color Yellow Urine Appearance Clear Urine pH 7.0 Ur Specific [place] 1.010 Urine Protein Negative Urine Glucose (UA) Negative Urine Ketones Negative Urine Occult Blood Negative Urine Nitrate Negative Urine Bilirubin Negative Urine Urobilinogen 0.2 Ur Leukocyte Esterase Trace H Urine RBC 0-1/hpf Urine WBC 5-10/hpf H Ur Squamous Epith Cells 1-5 /hpf Ur Transition Epith Cell 1-5/hpf Urine Bacteria Few (2-10) H Ur Culture Indicated? Specimen cultured SARS-CoV-2 (PCR) 10/12/20 10/12/20 10/12/20 19:33 19:33 20:55 WBC RBC Hgb Hct MCV MCH MCHC RDW Plt Count Neut % (Auto) Lymph % (Auto) [facility] % (Auto) Eos % (Auto) Baso % (Auto) Neut # (Auto) Lymph # (Auto) [facility] # (Auto) Eos # (Auto) Baso # (Auto) PT INR Sodium 141 Potassium 3.9 Chloride 105 Carbon Dioxide 26 BUN 16 Creatinine 0.85 Estimated GFR > 60.0 BUN/Creatinine Ratio 18.8 Glucose 121 H Calcium 9.7 Total Bilirubin 0.3 AST 27 ALT 21 Alkaline Phosphatase 63 Total Creatine Kinase 135 CK-MB (CK-2) 1.13 CK-MB (CK-2) Rel Index 0.8 L Troponin I < 0.012 Total Protein 8.0 Albumin 4.7 Globulin 3.3 Albumin/Globulin Ratio 1.4 TSH 1.46 Urine Color Urine Appearance Urine pH Ur Specific [place] Urine Protein Urine Glucose (UA) Urine Ketones Urine Occult Blood Urine Nitrate Urine Bilirubin Urine Urobilinogen Ur Leukocyte Esterase Urine RBC Urine WBC Ur Squamous Epith Cells Ur Transition Epith Cell Urine Bacteria Ur Culture Indicated? SARS-CoV-2 (PCR) Negative 10/13/20 10/13/20 05:10 05:10 WBC 6.6 RBC 4.15 Hgb 12.4 Hct 36.6 MCV 88.4 MCH 29.9 MCHC 33.8 RDW 13.1 Plt Count 173 Neut % (Auto) 68.8 Lymph % (Auto) 22.[address] % (Auto) 6.7 Eos % (Auto) 2.1 Baso % (Auto) 0.4 Neut # (Auto) 4600 Lymph # (Auto) 1500 [facility] # (Auto) 400 Eos # (Auto) 100 Baso # (Auto) 0 PT INR Sodium 141 Potassium 4.0 Chloride 108 H Carbon Dioxide 27 BUN 16 Creatinine 0.89 Estimated GFR > 60.0 BUN/Creatinine Ratio 18.0 Glucose 108 Calcium 8.8 Total Bilirubin AST ALT Alkaline Phosphatase Total Creatine Kinase CK-MB (CK-2) CK-MB (CK-2) Rel Index Troponin I Total Protein Albumin Globulin Albumin/Globulin Ratio TSH Urine Color Urine Appearance Urine pH Ur Specific [place] Urine Protein Urine Glucose (UA) Urine Ketones Urine Occult Blood Urine Nitrate Urine Bilirubin Urine Urobilinogen Ur Leukocyte Esterase Urine RBC Urine WBC Ur Squamous Epith Cells Ur Transition Epith Cell Urine Bacteria Ur Culture Indicated? SARS-CoV-2 (PCR) Assessment & Plan Assessment & Plan narrative: 74-year-old female with severe dizziness and gait ataxia of unclear etiology with negative head CT in the ER admitted for further workup to rule out posterior side cerebellar CVA or cardiac etiology. Assessment 1. Dizziness. At this point echo was pending. Telemetry overnight did not show arrhythmia. MRI MRA did not show any evidence of vascular ab normality, CVA, intracranial abnormality. Patient is being treated for a UTI. I suspect given these negative tests that this represents a viral labyrinthitis but patient is currently still unstable and at risk for complication if we send her home. We will continue hospitalization for at least 24 hours for continued monitoring and physical therapy. We will continue with antibiotics but give ora l antibiotic starting today. We will continue meclizine as needed. The hope is that she will be more steady and improved condition tomorrow and will be able to discharge home with her daughter to [place]. Assessment 2. Type 2 diabetes on insulin with poor control Plan: Will continue her outpatient regimen. Will check sugars q.a.c. and q.h.s. and give additional insulin and adjust as indicated. This might be part of her problem but I think is secondary to her PT feeling so poorly that she developed more hyperglycemia more fluctuations in her blood sugars. She was having vomiting and difficulty eating. Assessment 3. Hypertension does not appear well controlled. She is only on lisinopril 5 mg daily. I will increase this. We will continue to monitor Assessment 4. Seizure disorder stable no acute issues Plan: Continue to monitor. Continue on same gabapentin and lamotrigine Assessment 5. 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 Bronchiectasis Plan: Continue outpatient azithromycin 250 mg 3 times a week and fluticasone and cetirizine Assessment 7. Hyperlipidemia Plan: Continue on simvastatin Assessment 8. GERD stable Plan: Continue omeprazole Assessment 9. Small fiber neuropathy Plan: Continue gabapentin Assessment 10. Glaucoma Plan: Continue glaucoma drops Code status is full code 65 minutes spent with patient Quality VTE Deep Vein Thrombosis/Pulmonary Embolism Present on Admission: No
--- NOTE | 2020-10-13 14:00 | PT.IIE ---
Physical Therapy Inpatient Evaluation/Re-Eval M1 PT/OT-IP Prior Functional Status Start: 10/13/20 15:34 Freq: NEEDED Status: Active Protocol: Document 10/13/20 14:00 AB (Rec: 10/13/20 15:52 AB [email or web address]) Medical Review Prior Functional Status Medical History Reviewed Yes Communication able to make needs known Mobility and Gait pt stated that she is independent with all mobilities and ambulation without AD Social History Household Members children Living Arrangements House Number of Floors (Floors) Two Floors Number of Stairs To Enter/Railing? 5 steps with R rail to enter 4 steps R rail to get to bedroom level Home Environment Standard Height Toilet,Tub/ Shower Additional Social History Comment pt lives with her daughter and can assist when needed stated that she has a regular be but HOB is inclined up M2 PT-IP Current Condition Start: 10/13/20 15:34 Freq: NEEDED Status: Active Protocol: Document 10/13/20 14:00 AB (Rec: 10/13/20 15:52 [facility] Physical Therapy Current Condition Current Condition Evaluation Date 10/13/20 Treatment Diagnosis vertigo; acute UTI; difficulty in walking Onset Date 10/12/20 Precautions Other Precautions falls M3 PT-IP Subjective Start: 10/13/20 15:34 Freq: NEEDED Status: Active Protocol: Document 10/13/20 14:00 AB (Rec: 10/13/20 15:52 AB [email or web address]) Subjective Physical Therapy Visit Type Type Initial Evaluation Visit Start Time 14:00 Visit Stop Time 14:45 Total Visit Minutes 45 Number of CEMENTER Visits 0 Physical Therapy Visit Comments Patient Comments pt is agreeable to do PT M4 PT-IP Mobility and Gait Start: 10/13/20 15:34 Freq: NEEDED Status: Active Protocol: Document 10/13/20 14:00 AB (Rec: 10/13/20 15:52 AB [email or web address]) PT-Bed Mobility Assessment Supine to Sit Supine to Sit Standby Assistance PT-Transfer Assessment Sit to and From Stand Sit to and from Stand Contact Guard Assistance Equipment Transfer Assistive Device None,Gait Belt Orthotic/Prosthetic Devices or Brace: No Transfers Transfer Destination Chair Transfer Technique ambulated Transfer Ability Level of Assist Minimal Assistance,1 Person Assistance,Use of Upper Extremities Comments Mobility Comments pt c/o slight dizzines but no lightheadedness or nausea. stated dizziness but no spinning sensation. BP: 141/ 76. completed supine to sit SBA. was able to sit on EOB SBA. continues to have slight dizziness but is stable. completed sit to stand CGA. ambulated in room without AD 20 ft min A with (+) LOB requiring min A for steadiness . educated on safety and use of FWW. completed ambulation using FWW CGA and cues ~ 25 ft . pt requested to use the toilet and ambulated using FWW CGA. pt was able to maintain standing using FWW for support while managing brief. ambulated towards the sink CGA using FWW. agreed to stay up on chair and ambulated towards the chair using FWW CGA. pt is slightly impulsive and cued to slow down. pt also stated that she feels weak. positioned on chair. call light and table placed within reach. BP sitting on chair: 161/82 daughter in room with pt. informed pt and daughter regarding mobility needs ans assistance and recommendation of using FWW at this time and 09/01 assist available due to unsteadiness and safety needs. DME facility list provided to daughter to acquire FWW. Gait Assessment Gait Gait Assistance Required: Contact Guard Assist,Minimum Assistance Distance (Feet) 25 Able to Maintain Weight Bearing Status Yes During Gait Assistive Devices Assistive Device None,Gait Belt,Front Wheeled Walker Orthotic/Prosthetic Devices or Brace: No Gait Deviations General Gait Pattern Ataxic Factors Limiting Gait Function Factors Limiting Gait Function Decreased Activity Tolerance, Decreased Strength Comments Gait Comments pls refer to mobility section for details PT-Balance Assessment Sitting Balance and Reactions Static Sitting Balance Ability Good Dynamic Sitting Balance Ability Good Standing Balance and Reactions Static Standing Balance Ability Fair Dynamic Standing Balance Ability Fair Device Used without AD M5 PT-IP Objective Assessments Start: 10/13/20 15:34 Freq: NEEDED Status: Active Protocol: Document 10/13/20 14:00 AB (Rec: 10/13/20 15:52 AB [id number]) Orientation Orientation/Cognition Level of Alertness Alert Orientation Name,Place,Situation Safety Awareness Decreased Safety Awareness Comments pt is able to answer questions and follow directions but requires increase time to respond Gross Range of Motion Lower Extremity ROM Assessment Within Functional Limits Strength Lower Extremity Strength Assessment Within Functional Limits Coordination Assessment Gross Coordination Gross Coordination WNL Sensation Assessment Sensation Sensation Description Numbness,Pain Comments Sensation Comments stated that she has neuropathy and has pain from the lower leg down to feet and B feet had numbness Muscle Tone Muscle Tone WNL Yes M6 PT-IP Treatment Start: 10/13/20 15:34 Freq: NEEDED Status: Active Protocol: Document 10/13/20 14:00 AB (Rec: 10/13/20 15:52 AB [email or web address]) Physical Therapy Treatment Education Education Provided Safety M7 PT-IP Assessment and Plan Start: 10/13/20 15:34 Freq: NEEDED Status: Active Protocol: Document 10/13/20 14:00 AB (Rec: 10/13/20 15:52 AB [email or web address]) PT Summary Assessment and Plan Potential Rehabilitation Potential Good Status of Condition at Evaluation Evolving Summary Impairments Pain,ROM,Strength,Balance, Coordination,Sensation,Tone, Cognition,Bed Mobility, Transfers,Gait,Activity Tolerance Assessment Summary pt requiring CGA with ambulation using FWW and min A without AD with (+) LOB. pt is unable to tolerate much activity at this time and stated that she feels weak. pt will need 24/7 assistance available at this time and will need HHPT. will continue to assess progress. Goals Bed Mobility Goal Independent Transfer Goal Independent,Front Wheeled Walker Gait Goal Independent,Front Wheel Walker Gait Distance 200 Other Goals ambulation without AD 200 SBA up/down 5 steps R rail SBA Days to Meet Goals 5 Frequency of Treatment Frequency Of Treatment Once a Day Treatment Plan Physical Therapy Treatment Plan Bed Mobility Training,Transfer Training,Gait Training, Therapeutic Exercise,Balance Retraining,Discharge Planning, Hot or Cold Pack,Neuromuscular Re-ed,Coordination Retraining Recommendations To Nursing Amount of Assist Needed 1 Person Assist Discharge Recommendations PT Discharge Recommendations Home with 24/7 Assist Available,Home Health Equipment Needed for Home Before FWW if not safe without AD Discharge Transportation Needs at Discharge Private Vehicle
[2020-10-13] MEDS: ENOXAPARIN 40 MG/0.4 ML SYRINGE SUBCUT (14:52)
--- NOTE | 2020-10-13 16:13 | CM.DANOTE ---
DCP/Assessment: Reviewed chart. Patient is a 74yr old female admitted to [facility] with dizziness. PCP is Dr. Mills. Primary payor is 1)Medicare 2)[employer]. Met with patient this afternoon explained CM/SW role. Patient alert and oriented, sitting in recliner at time of visit. Patient reports that she resides with family in [place] At this time d/c needs unknown. PT evaluation, MRI and ECHO pending. MOBILE PHONE SALESPERSON met briefly with patient's daughter/Narcisa, she reports that provider is planning to discharge her on 10-14-20 if stable. Daughter reports that family attempting to get patient a FWW for home use. If unable to obtain in community may need order? P: Current plan is for patient to d/c home with family when stable. Patient may need FWW and could benefit from OT evaluation at [facility] or as outpatient. Provider to determine if necessary during hospitalization. CM team to continue to follow for needs. Patient reports independence at baseline and has very good family support. QUETA Salazar Discharge Planning/Care Management CM Discharge Assessment Start: 10/13/20 16:09 Freq: Status: Active Protocol: Document 10/13/20 16:09 KJS (Rec: 10/13/20 16:12 KJS [id number]) Discharge Planning Assessment Assigned Railroader QUETA Salazar Contact Information Narcisa Garcia (daughter) # [phone] Advance Directives? No History Provided By Patient,Family Member,Medical Record Prior Living Arrangements House Household Members children Type of transporation used prior to Drives own vehicle admit Independent with ADL's Yes Is patient alert and oriented? Yes Caregiver for Another No Comment Daughter attempting to get patient a walker for home use. Barriers to Discharge No Comment Patient resides with family in [place]. Discharge Plan Home Transportation Arrangement Family to provide transport. Whiteboard Updated in Patient Room with Yes name and ext. # of Railroader Review Status In Process Next Review Type Continued Stay Review Document 10/13/20 16:13 KJS (Rec: 10/13/20 16:13 KJS [id number]) Discharge Planning Assessment Assigned Railroader QUETA Salazar Contact Information Narcisa Garcia (daughter) # [phone] Advance Directives? No History Provided By Patient,Family Member,Medical Record Prior Living Arrangements House Household Members children Type of transporation used prior to Drives own vehicle admit Independent with ADL's Yes Is patient alert and oriented? Yes Caregiver for Another No Comment Daughter attempting to get patient a walker for home use. Barriers to Discharge No Comment Patient resides with family in [place]. Discharge Plan Home Transportation Arrangement Family to provide transport. Whiteboard Updated in Patient Room with Yes name and ext. # of Railroader Review Status In Process Next Review Type Continued Stay Review
[2020-10-13] MEDS: METFORMIN HCL 500 MG TABLET PO (17:14)
[2020-10-13 17:45] VITALS: BP 130/89; PULSE 69; RESP 18; TEMP 36.8; O2SAT 99
[2020-10-13] MEDS: cefUROXime 250 MG TABLET 500 MG PO (21:09)
[2020-10-13] MEDS: SIMVASTATIN 20 MG TABLET PO (21:09)
[2020-10-13] MEDS: lamoTRIgine 100 MG TABLET 50 MG PO (21:18)
[2020-10-13] MEDS: INSULIN GLARGINE 100 UNIT/ML 3ML PEN 40 UNIT SUBCUT (21:25)
--- NOTE | 2020-10-13 22:11 | PC.NURSE ---
pt denied any dizziness this evening. denied any pain. voiding without difficulty. call light in reach. bed alarm active.
[2020-10-13 23:44] VITALS: BP 121/65; PULSE 65; RESP 16; TEMP 36.2; O2SAT 95
[2020-10-14 05:35] LABS: Add Manual Diff / Slide Review NO; Basophils Absolute Auto 0 /uL (0-100); Basophils Percent Auto 0.4 % (0-2); Eosinophils Absolute Auto 200 /uL (0-450); Eosinophils Percent Auto 2.6 % (2-4); Hematocrit 37.2 % (36-46); Hemoglobin 12.8 g/dL (12.0-16.0); Lymphocytes Absolute Auto 1300 /uL (1100-4500); Lymphocytes Percent Auto 22.7 % (25-40); Mean Corpuscular HGB Conc 34.3 % (30-36); Mean Corpuscular Hemoglobin 29.9 PG (26-34); Mean Corpuscular Volume 87.1 fL (80-100); Monocytes Absolute Auto 500 /uL (0-900); Monocytes Percent Auto 8.2 % (3-14); Neutrophils Absolute Auto 3800 /uL (1500-7000); Neutrophils Percent Auto 66.1 % (50-75); Platelet Count 177 X10^3/uL (150-400); Red Blood Cell Count 4.27 X10^6/uL (4.0-5.2); Red Cell Distribution Width 13.1 % (11.6-14.8); White Blood Cell Count 5.8 X10^3/uL (4.5-11.0)
[2020-10-14 05:40] LABS: Alanine Aminotransferase 18 IU/L (<35); Albumin 4.1 g/dL (3.5-5.0); Albumin Globulin Ratio 1.4 (1.0-2.8); Alkaline Phosphatase 54 U/L (38-126); Aspartate Aminotransferase 22 IU/L (14-36); BUN Creatinine Ratio 18.3 (6-22); Bilirubin Total 0.3 mg/dL (0.2-1.3); Blood Urea Nitrogen 19 mg/dL (7-17); Calcium 9.2 mg/dL (8.4-10.2); Carbon Dioxide 30 mmol/L (22-32); Chloride 105 mmol/L (98-107); Estimated Glomerular Filt Rate 52.1 mL/min (>60); Globulin 2.9 g/dL (1.7-4.1); Glucose 87 mg/dL (80-110); HEMOLYSIS < 15 (0-50); Sodium 141 mmol/L (137-145)
[2020-10-14 05:48] VITALS: BP 130/66; PULSE 65; RESP 16; TEMP 36.1; O2SAT 96
[2020-10-14 08:00] VITALS: BP 120/63; PULSE 62; RESP 15; TEMP 36.6; O2SAT 98
[2020-10-14 08:20] VITALS: BP 120/63; PULSE 62
[2020-10-14] MEDS: ENOXAPARIN 40 MG/0.4 ML SYRINGE SUBCUT (08:20)
[2020-10-14] MEDS: lisinopriL 5 MG TABLET PO (08:20)
[2020-10-14] MEDS: cefUROXime 250 MG TABLET 500 MG PO (08:20)
[2020-10-14] MEDS: PANTOPRAZOLE 20 MG TABLET PO (08:20)
[2020-10-14] MEDS: lamoTRIgine 25 MG CHEW TABLET PO (08:28)
[2020-10-14] MEDS: GLIMEPIRIDE 2 MG TABLET 4 MG PO (08:29)
[2020-10-14] MEDS: BRIMONIDINE 0.15% OPHTH 5 ML 1 DROPS EYE-BOTH (08:32)
[2020-10-14 08:33] VITALS: BP 120/63; PULSE 62
[2020-10-14] MEDS: lisinopriL 10 MG TABLET PO (08:33)
--- NOTE | 2020-10-14 09:58 | PT.IPTN ---
Current Diagnoses Labyrinthitis, unspecified ear (10/13/20) Physical Therapy Treatment Note M2 PT-IP Current Condition Start: 10/13/20 15:34 Freq: NEEDED Status: Active Protocol: Document 10/13/20 14:00 AB (Rec: 10/13/20 15:52 AB [id number]) Physical Therapy Current Condition Current Condition Evaluation Date 10/13/20 Treatment Diagnosis vertigo; acute UTI; difficulty in walking Onset Date 10/12/20 Precautions Other Precautions falls M3 PT-IP Subjective Start: 10/13/20 15:34 Freq: NEEDED Status: Active Protocol: Document 10/14/20 09:38 SP (Rec: 10/14/20 13:45 SP [id number]) Subjective Physical Therapy Visit Type Type Treatment Note Visit Start Time 09:38 Visit Stop Time 09:58 Total Visit Minutes 20 Notes Vital taken during tx: seated 110/69 HR 74 SaO2 97% on RA, standing 117/69 w/ HR 79, post activity 125/70 w/ HR 79. Number of MANAGER SOURCING Visits 1 Physical Therapy Visit Comments Patient Comments pt agreeable to working with therapy. M4 PT-IP Mobility and Gait Start: 10/13/20 15:34 Freq: NEEDED Status: Active Protocol: Document 10/14/20 09:38 SP (Rec: 10/14/20 13:45 SP [id number]) PT-Transfer Assessment Sit to and From Stand Sit to and from Stand Standby Assistance,Use of Upper Extremities Equipment Transfer Assistive Device None,Gait Belt Orthotic/Prosthetic Devices or Brace: No Transfers Transfer Destination Chair Transfer Technique ambulated using FWW SBA, no AD Min A. Transfer Ability Level of Assist Standby Assistance,1 Person Assistance,Use of Upper Extremities Comments Mobility Comments Pt was seated in chair when arrived. Assessed vitals see details above, no report of dizziness during am tx. Sit> stand sBA w/ use of fWW. Pt ambulated further distance gait usign fWW SBA, ascended / descended 6 stairs BUE on R HR and returned to room approx 514 ft. Assessed 10 ft gait without AD and pt unsteady requiring Min A, not at baseline. MANAGER SOURCING recommending referral for OT, will required HHPT and 24/7 assist available when medically cleared. Will continue to assess progress pm tx. Gait Assessment Gait Gait Assistance Required: Standby Assistance,1 Person Assist Distance (Feet) 514 Able to Maintain Weight Bearing Status Yes During Gait Assistive Devices Assistive Device None,Gait Belt,Front Wheeled Walker Orthotic/Prosthetic Devices or Brace: No Gait Deviations General Gait Pattern Antalgic,Decreased Stride Length,Decreased Feet Clearance Factors Limiting Gait Function Factors Limiting Gait Function Decreased Activity Tolerance, Decreased Strength,Poor Balance,Poor Safety Awareness Comments Gait Comments Gait stable using FWW SBA, receiprocal patterning room<> stairs and back, w/c follow but not required. Assessed short distance approx 10 ft gait in hallway no AD, required CG-15 % A unsteady and BLE almost scissor stepping. Pt agreed use of FWW at this time. Stair Climbing Assessment Evaluation Level of Assist On Stairs Contact Guard Assistance,1 Person Assistance Devices Stair Climbing Assistive Devices Right Railing Technique/Endurance Stair Climbing Direction Ascend and Descend Stair Climbing Technique Step to Step Number of Steps Climbed 3 Stair Climbing Set # Repetitions (reps) 2 Comments Stair Climbing Comments Ascend/descend 3 stairs BUE usign RHR CGA step to patterning. PT-Balance Assessment Sitting Balance and Reactions Static Sitting Balance Ability Good Dynamic Sitting Balance Ability Good Standing Balance and Reactions Static Standing Balance Ability Fair Dynamic Standing Balance Ability Fair Device Used FWW M5 PT-IP Objective Assessments Start: 10/13/20 15:34 Freq: NEEDED Status: Active Protocol: Document 10/13/20 14:00 AB (Rec: 10/13/20 15:52 AB [id number]) Orientation Orientation/Cognition Level of Alertness Alert Orientation Name,Place,Situation Safety Awareness Decreased Safety Awareness Comments pt is able to answer questions and follow directions but requires increase time to respond Gross Range of Motion Lower Extremity ROM Assessment Within Functional Limits Strength Lower Extremity Strength Assessment Within Functional Limits Coordination Assessment Gross Coordination Gross Coordination WNL Sensation Assessment Sensation Sensation Description Numbness,Pain Comments Sensation Comments stated that she has neuropathy and has pain from the lower leg down to feet and B feet had numbness Muscle Tone Muscle Tone WNL Yes M6 PT-IP Treatment Start: 10/13/20 15:34 Freq: NEEDED Status: Active Protocol: Document 10/14/20 09:38 SP (Rec: 10/14/20 13:45 SP [id number]) Physical Therapy Treatment Education Education Provided Safety M7 PT-IP Assessment and Plan Start: 10/13/20 15:34 Freq: NEEDED Status: Active Protocol: Document 10/14/20 09:38 SP (Rec: 10/14/20 13:45 SP [id number]) PT Summary Assessment and Plan Potential Rehabilitation Potential Good Status of Condition at Evaluation Evolving Summary Impairments Pain,ROM,Strength,Balance, Coordination,Sensation,Tone, Cognition,Bed Mobility, Transfers,Gait,Activity Tolerance Progress Towards Goals Progressing Toward Goals,Slow Progress due to Activity Tolerance Assessment Summary Pt requires sBA mobility use of FWW due to unsteady Min A without AD. CGA during stair mgt. MANAGER SOURCING recommending 24/7 assist available when medically cleared and OT referral at this time to assist in increase functional ADLs and functional mobility. Goals Bed Mobility Goal Independent Transfer Goal Independent,Front Wheeled Walker Gait Goal Independent,Front Wheel Walker Gait Distance 200 Other Goals ambulation without AD 200 SBA up/down 5 steps R rail SBA Days to Meet Goals 5 Frequency of Treatment Frequency Of Treatment Once a Day Treatment Plan Physical Therapy Treatment Plan Bed Mobility Training,Transfer Training,Gait Training, Therapeutic Exercise,Balance Retraining,Discharge Planning, Hot or Cold Pack,Neuromuscular Re-ed,Coordination Retraining Other Recommendations and Next Treatment Gait FWW/LRAD, bed mobility, Focus caregiver training. Recommendations To Nursing Amount of Assist Needed 1 Person Assist Discharge Recommendations PT Discharge Recommendations Home with 24/7 Assist Available,Home Health Other Discharge Recommendations Daughter is planning on acquiring FWW, DME paperwork given by PT last tx to assist her. Equipment Needed for Home Before FWW. Discharge Transportation Needs at Discharge Private Vehicle
[2020-10-14 11:12] VITALS: BP 128/72; PULSE 74; RESP 15; TEMP 36.5; O2SAT 97
[2020-10-14] MEDS: INSULIN LISPRO 100 UNIT/ML 3ML VIAL SUBCUT (11:51)
--- NOTE | 2020-10-14 12:58 | P.DS_ITS ---
History of Present Illness History of Present Illness Chief complaint: UNABLE TO HEAR FROM RT EAR DIZZY Narrative: 74-year-old female with insulin-dependent diabetes who previously was a patient of Dr. Jain and is new to me. Patient presents to emergency department with complaints of dizziness that started on this past MondayOctober 06. It has progressed. Patient was seen emergency department CT scan was negative. Urine was suspicious for infection but patient had significant ataxia and unsteadiness with ambulation that we were unable to send her home. She was treated with meclizine with some minimal improvement. She has been so dizzy over the last few days that she has not been taking her medications. There has been no change in her health other than in beginning of August she was started on metformin 500 mg daily. She otherwise has been feeling well. Past medical history: 1. 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 Seizure disorder, followed by Dr. Coleman of Neurology 3. Small fiber neuropathy, followed by Dr. Coleman 4. Glaucoma 5. Bronchiectasis, sees pulmonology in [place] I believe 6. Anxiety 7. Osteopenia 8. Carpal tunnel syndrome 9. Wolfe's palsy 10. Hyperlipidemia Past surgical history: Unremarkable Family history: Father at age 92 unclear etiology Mother at 86 of unclear etiology A known history of siblings Social history Patient is a . She is originally from the [facility]. Austrian is a 2nd language. Patient lives in [facility] with 1 of her daughters. Another daughter is a nurse who lives in [place]. Patient had COVID vaccine x2, Pfizer Discharge Providers Provider Date of admission: 10/13/20 14:32 Discharge Date: 10/14/20 Primary care physician: Apple Mills MD Consults: 10/13/20 11:04 Consult to Physical Therapy Evaluate & Treat Comment: Physician Instructions: Evaluate and Treat Discharge provider: Apple Mills MD Summary Hospital Course Discharge Diagnosis: Dizziness of unclear etiology, suspect labyrinthitis MRI MRA of head and neck negative Normal echo Normal CT scan No arrhythmia on telemetry Symptoms improved Diabetes type 2 on insulin Peripheral neuropathy Wolfe's palsy Hypertension Hospital Course: Patient admitted to the hospital for dizziness. Patient very unsteady on feet. Etiology was not determined but suspected after excluding other potential diagnoses that this is probably labyrinthitis. Patient improved. Patient did well with physical therapy and was discharged home with a walker with home health for physical therapy and meclizine to use as needed. Patient had telemetry while she was admitted and no a arrhythmias. Blood pressures initially high. Lisinopril was increased but patient developed cough with some vomiting and so lisinopril was stopped and she was started on losartan 25 mg daily. She was treated for suspected UTI better culture was negative so antibiotics were stopped. She received 2 doses of Ceftin and 1 dose of ceftriaxone. Her blood sugars were well controlled right in the hospital. She was discharged home with home health She will follow-up with me next week. I will refer her to Ear Nose Throat doct or Status at Discharge Cognitive/behavioral status at discharge: oriented Functional status at discharge: uses cane/walker Overall status at discharge: patient is progressing back to baseline Exam Vital Signs (past 8 hours): - 10/14/20 05:48 10/14/20 08:00 10/14/20 08:20 Temperature 97.0 F L 97.8 F Pulse Rate 65 62 62 Respiratory Rate 16 15 Blood Pressure 130/66 120/63 120/63 Pulse Oximetry 96 98 10/14/20 08:33 10/14/20 11:12 Temperature 97.7 F Pulse Rate 62 74 Respiratory Rate 15 Blood Pressure 120/63 128/72 Pulse Oximetry 97 Oxygen Delivery Method Room Air Oxygen Flow Rate 0 Narrative Exam Narrative: Afebrile vital signs are stable Asymmetry of face is unchanged from Wolfe's palsy Neck: Supple without adenopathy Chest: Clear to auscultation without wheezes rhonchi or crackles Cor: Regular rate and rhythm without murmur Abdomen: Positive bowel sounds, soft, nontender, nondistended Extremities: No edema, pulses intact Gait is more steady with walker she is stable. Neurologic exam nonfocal other than findings from Wolfe's palsy Objective Labs Result Diagrams: 10/14/20 05:15 10/14/20 05:15 Labs: Laboratory Results - last 24 hr 10/14/20 10/14/20 05:15 05:15 WBC 5.8 RBC 4.27 Hgb 12.8 Hct 37.2 MCV 87.1 MCH 29.9 MCHC 34.3 RDW 13.1 Plt Count 177 Neut % (Auto) 66.1 Lymph % (Auto) 22.7 L [place] % (Auto) 8.2 Eos % (Auto) 2.6 Baso % (Auto) 0.4 Neut # (Auto) 3800 Lymph # (Auto) 1300 [place] # (Auto) 500 Eos # (Auto) 200 Baso # (Auto) 0 Sodium 141 Potassium 4.0 Chloride 105 Carbon Dioxide 30 BUN 19 H Creatinine 1.04 Estimated GFR 52.1 L BUN/Creatinine Ratio 18.3 Glucose 87 Calcium 9.2 Total Bilirubin 0.3 AST 22 ALT 18 Alkaline Phosphatase 54 Total Protein 7.0 Albumin 4.1 Globulin 2.9 Albumin/Globulin Ratio 1.4 [facility], [facility] Social History household members: children Smoking Status: Never smoker alcohol intake: never Discharge Assessment & Plan Assessment and Plan Assessment: Dizziness of unclear etiology. Suspect labyrinthitis. Workup negative Type 2 diabetes on insulin, stable Hypertension stable Peripheral neuropathy stable Seizure disorder stable Plan of Treatment: Discharge to home on usual medications except we will stop lisinopril and start her on losartan 25 mg daily. We will send in a prescription to use meclizine as he needed and Zofran as needed. She will continue her same insulin as an outpatient. She will follow-up with me next week and I will refer her to Ear Nose Throat doctor. She will go home with physical therapy and home health. Discharge Plan Discharge Plan Patient Disposition: Home Health Service Discharge orders & Medications Prescriptions: New meclizine 25 mg tablet 25 mg PO BID-TID PRN (Reason: dizziness) Qty: 14 RF: 0 meclizine 12.5 mg Tablet 25 mg PO Q6HR PRN (Reason: Vertigo) Qty: 30 RF: 0 losartan 25 mg Tablet 25 mg PO DAILY Qty: 90 RF: 0 ondansetron 4 mg Tablet,Disintegrating 4 mg sublingual Q6HR PRN (Reason: Nausea) Qty: 30 RF: 0 Continued Advair HFA 230-21 mcg/actuation HFA aerosol inhaler 2 puff INHALATION BID RF: 0 azithromycin [Zithromax] 250 mg tablet 250 mg PO 3XW RF: 0 cetirizine 10 mg Tablet 10 mg PO DAILY RF: 0 gabapentin [Neurontin] 100 mg capsule 200 mg PO BID RF: 0 glimepiride [Amaryl] 4 mg tablet 4 mg PO QACBREAK RF: 0 lamotrigine [Lamictal] 25 mg tablet 25 mg PO DAILY RF: 0 Lantus Solostar U-100 Insulin 100 unit/mL (3 mL) insulin pen 40 unit SUBCUT DAILY RF: 0 latanoprost [Xalatan] 0.005 % drops 1 drp EYE-BOTH BEDTIME RF: 0 insulin aspart U-100 [Novolog Flexpen U-100 Insulin] 100 unit/mL (3 mL) insulin pen 10 unit SUBCUT TID RF: 0 omeprazole magnesium [Acid Industrial Engineering Intern (omeprazole)] 20 mg Capsule,Delayed Release(Dr/Ec) 40 mg PO BID RF: 0 metformin [Glucophage] 500 mg tablet 500 mg PO DAILY RF: 0 brimonidine 0.15 % drops 1 drp EYE-BOTH BID RF: 0 simvastatin [Zocor] 20 mg tablet 20 mg PO BEDTIME RF: 0 Discontinued lisinopril [Zestril] 5 mg tablet 5 mg PO DAILY RF: 0 Follow up/Referrals: Apple Mills MD [Primary Care Provider] - Discharge Data Primary Care Provider: Apple Mills VTE Deep Vein Thrombosis/Pulmonary Embolism Present on Admission: No
--- NOTE | 2020-10-14 13:32 | CM.DPC ---
DCP Cont: Patient is being discharged home with daughter. Dr. Mills is suggesting home health. Will have nursing, P.T, and O.T. Asked daughter and patient if they have any preferences on agencies. Stated, they have used [facility] before, but thinks that they are closing. [facility], and confirmed that they are closing November 17, and not accepting anymore patients. They are continuing with their palliative care and hospice. Patient and daughter have no other preference upon agencies. [place] is on weekly calender. Called [facility] and confirmed that they can accept patient, and faxed over referral. Ordered nursing, P.T, O.T. Face to face, orders, face sheet, H&P, P.T. note and DC Summary included. Let them know she is discharging today. P: Patient is discharging home today with [facility]. Kemi Perez RN/Spot Cleaner
--- NOTE | 2020-10-14 14:20 | PC.NURSE ---
Pt A&Ox3. Pt with BLE weakness. Denies dizziness today. Noted BP 120's /70's without drops with standing, while working with therapy. Patient denies Headache. She eats 100% of breakfast and tolerates well. At about 11 a.m. after working with therapy patient with nausea and spitting up clear sputum. Denies dizziness throughout the morning. Pt reports the nausea passes quicly but has a 2nd episode. MD notified. Pt able to tolerate lunch. MD at bedside evaluating patient and clears her for discharge. OT/PT recommending FWW and home health. Pt and daughter verbalize understanding of instructions, medications, and follow up appointment. Pt escorted with PRESCRIPTION EYEGLASS MAKER and daughter to private vehicle this afternoon via wheelchair with all of her belongings.
--- NOTE | 2020-10-16 19:25 | PC.NURSE ---
late entry: Iv fluid stopped at 21:46. Rocephin and Saline, both stopped.
== END 2020-10-14 14:25 | disposition home or self-care (01) | DRG 149 ==
LOC: ED 20:50 → AC 21:11
PROVIDERS: Admitting Provider Family Medicine; Emergency Provider Emergency Medicine; PCP Family Medicine; Referring Provider Emergency Medicine; Visit Provider Family Medicine
DX: H83.09 Labyrinthitis, unspecified ear (principal); G62.89 Other specified polyneuropathies; J47.9 Bronchiectasis, uncomplicated; Z79.4 Long term (current) use of insulin; G40.909 Epilepsy, unspecified, not intractable, without status epilepticus; E78.5 Hyperlipidemia, unspecified; E11.65 Type 2 diabetes mellitus with hyperglycemia; G51.0 Bell's palsy; K21.9 Gastro-esophageal reflux disease without esophagitis; H40.9 Unspecified glaucoma; Z20.822 Contact with and (suspected) exposure to COVID-19
CPT/HCPCS: 36415; 70450; 70548; 70553; 80048; 80053; 81001; 81003; 82550; 82553; 82962; 84443; 84484; 85025; 85610; 87086; 87635; 93005; 93306; 96361; 96365; 97116; 97161; 97530; 99284; C9803; G0378; J1650; J1815; J7050

== ENCOUNTER 2020-12-11 21:09 | Emergency (ER) | payer MEDICARE, OTHER, SELFPAY ==
[2020-12-11 21:18] VITALS: BP 225/104; PULSE 86; RESP 15; TEMP 36.6; O2SAT 99; BMI 26.9
--- NOTE | 2020-12-11 21:24 | DI.RAD.S_ITS ---
PROCEDURE: XR SHOULDER LT MIN 2V INDICATIONS: fall off stepstool TECHNIQUE: 3 views of the shoulder were acquired. COMPARISON: None. FINDINGS: Bones: No fractures or dislocations. No suspicious bony lesions. Visualized ribs appear intact. Soft tissues: No suspicious soft tissue calcifications. IMPRESSION: No visualized acute fracture or dislocation. However, if clinical concern and/or pain persist, short interval imaging followup in 7-10 days is recommended, as occult injury cannot be definitively excluded. Dictated by: Tiny Caldera M.D. on 12/11/2020 at 22:17 Approved by: Tiny Caldera M.D. on 12/11/2020 at 22:17
--- NOTE | 2020-12-11 21:25 | DI.RAD.S_ITS ---
PROCEDURE: XR RIBS LT MIN 3V W CXR1V INDICATIONS: fall TECHNIQUE: 3 views of the left ribs were acquired, along with a single view chest. COMPARISON: None. FINDINGS: Surgical changes and devices: None. Bones and chest wall: No fractures or dislocations. No suspicious bony lesions. Overlying soft tissues appear unremarkable. Lungs and pleura: No pleural effusions or pneumothorax. Lungs appear clear. Mediastinum: Mediastinal contours appear normal. Heart size is normal. IMPRESSION: No visualized acute fracture or dislocation. However, if clinical concern and/or pain persist, short interval imaging followup in 7-10 days is recommended, as occult injury cannot be definitively excluded. Dictated by: Tiny Caldera M.D. on 12/11/2020 at 22:16 Approved by: Tiny Caldera M.D. on 12/11/2020 at 22:16
== END 2020-12-11 23:32 | disposition left against medical advice (07) ==
PROVIDERS: Emergency Provider Emergency Medicine; PCP Family Medicine
DX: M25.512 Pain in left shoulder (principal); S50.312A Abrasion of left elbow, initial encounter; R07.81 Pleurodynia; W19.XXXA Unspecified fall, initial encounter
CPT/HCPCS: 71101; 73030; 99281

== ENCOUNTER 2020-12-26 07:53 | Emergency (ER) | payer MEDICARE, OTHER, SELFPAY ==
--- NOTE | 2020-12-26 | DI.RAD.S_ITS ---
PROCEDURE: XR LUMBAR SPINE 2-3V INDICATIONS: FALL TECHNIQUE: 2 views of the lumbar spine were acquired. COMPARISON: [facility], CR, XR HIP W PEL IF DONE RT 2V, 12/26/2020, 8:44. [facility], CR, XR RIBS LT MIN 3V W CXR1V, 12/26/2020, 8:44. [facility], ANABELL, L-SPINE 2-3 VIEWS, 05/16/2013, 11:00. FINDINGS: Bones: 5 nonrib-bearing, lumbar type vertebral bodies are seen. Mild T12 anterior wedge deformity is seen, which is stable compared to 2013. Mild disc space narrowing is seen at L1-L2. Throughout the lumbar spine, the disc heights are otherwise well preserved. Age-appropriate lower thoracic spine degenerative changes are seen. Lower lumbar spine facet arthropathy is seen. Soft tissues: Overlying bowel gas pattern is normal. No suspicious soft tissue calcifications. Atherosclerotic calcification is noted. IMPRESSION: Degenerative change, without an acute abnormality. Stable T12 anterior wedge deformity. If there is point tenderness (or other clinical suspicion for a fracture not seen on these images) please consider a dedicated CT for further evaluation. Dictated by: Deep Mercado M.D. on 12/26/2020 at 8:20 Approved by: Deep Mercado M.D. on 12/26/2020 at 8:21
[2020-12-26 08:05] VITALS: BP 175/80; PULSE 80; RESP 18; TEMP 36.9; O2SAT 99; BMI 28.3
--- NOTE | 2020-12-26 08:29 | ED.LOWEXIN ---
HPI - Extremity Injury (Lower) General Chief Complaint: Extremity Injury, Lower Stated Complaint: FELL AND HURT HIPS Time Seen by Provider: 12/26/20 08:21 Source: patient and family Mode of arrival: Family Vehicle Limitations: no limitations History of Present Illness HPI Narrative: Patient is a 75-year-old diabetes, vertigo, seizure disorder presenting with a fall this morning. She lives by herself it is unclear exactly how she fell she says that she stumbled backwards landing on her back. she does have contusion on her right rib and complaining of right iliac crest pain. Legs are of equal length. She is not sure if she hit her head but there is no obvious effusion she is not on any antiplatelet or anticoagulation medication. He denies any neck pain numbness tingling or weakness. She currently is denying any chest pain or palpitations. Related Data Home Medications Medication Instructions Recorded Confirmed azithromycin 250 mg tablet 250 mg PO 3XW 10/13/20 10/13/20 (Zithromax) brimonidine 0.15 % eye drops 1 drp EYE-BOTH BID 10/13/20 10/13/20 cetirizine 10 mg tablet 10 mg PO DAILY 10/13/20 10/13/20 fluticasone propionate 230 2 puff INHALATION BID 10/13/20 10/13/20 mcg-salmeterol 21 mcg/actuation HFA inhaler (Advair HFA) gabapentin 100 mg capsule 200 mg PO BID 10/13/20 10/13/20 (Neurontin) glimepiride 4 mg tablet (Amaryl) 4 mg PO QACBREAK 10/13/20 10/13/20 insulin aspart U-100 100 unit/mL 10 unit SUBCUT TID 10/13/20 10/13/20 (3 mL) subcutaneous pen (Novolog Flexpen U-100 Insulin aspart) insulin glargine 100 unit/mL (3 40 unit SUBCUT DAILY 10/13/20 10/13/20 mL) subcutaneous pen (Lantus Solostar U-100 Insulin) lamotrigine 25 mg tablet (Lamictal) 25 mg PO DAILY 10/13/20 10/13/20 latanoprost 0.005 % eye drops 1 drp EYE-BOTH BEDTIME 10/13/20 10/13/20 (Xalatan) metformin 500 mg tablet 500 mg PO DAILY 10/13/20 10/13/20 (Glucophage) omeprazole magnesium 20 mg 40 mg PO BID 10/13/20 10/13/20 capsule,delayed release (Acid Program Counselor (omeprazole)) simvastatin 20 mg tablet (Zocor) 20 mg PO BEDTIME 10/13/20 10/13/20 Previous Rx's Medication Instructions Recorded meclizine 25 mg tablet 25 mg PO BID-TID PRN #14 tab 10/12/20 losartan 25 mg tablet 25 mg PO DAILY #90 tab 10/14/20 meclizine 12.5 mg tablet 25 mg PO Q6HR PRN #30 tab 10/14/20 ondansetron 4 mg disintegrating 4 mg SUBLINGUAL Q6HR PRN #30 tab 10/14/20 tablet Allergies Allergy/AdvReac Type Severity Reaction Status Date / Time amoxicillin [From Augmentin] Allergy Verified 12/11/20 21:18 clavulanic acid Allergy Verified 12/11/20 21:18 [From Augmentin] ABX Allergy Unknown Uncoded 09/27/17 13:08 Review of Systems Review of Systems Narrative: GENERAL: Denies chills, fatigue, malaise, fever, sweats, travel HEENT: Denies sinus pain, ear pain, sore throat, difficulty swallowing, neck pain RESPIRATORY: Denies dyspnea, cough, wheezing, hemoptysis, sputum. CARDIOVASCULAR: Denies chest pain, palpitations, orthopnea, edema GASTROINTESTINAL: Denies nausea, vomiting, abdominal pain, diarrhea, constipation, melena. : Denies dysuria, frequency, incontinence, hematuria, urinary retention, flank pain. MUSCULOSKELETAL: Ribs back and hip pain SKIN: No rash, no erythema, no pruritus NEUROLOGIC: Denies weakness, dizziness, headache, numbness, change in speech, confusion PSYCHIATRIC: No concerning psychosocial issues. 12 point review of systems is negative except for those stated above and HPI Patient History Social History household members: children Smoking Status: Never smoker alcohol intake: never Smoking Status: Never smoker alcohol intake frequency: holidays/special occasions only Substance Use Type: does not use Exam Initial Vital Signs Initial Vital Signs: Vital Signs Temperature 98.4 F 12/26/20 08:05 Pulse Rate 80 12/26/20 08:05 Respiratory Rate 18 12/26/20 08:05 Blood Pressure 175/80 H 12/26/20 08:05 Pulse Oximetry 99 12/26/20 08:05 GENERAL: Alert pleasant 75-year-old female HEENT: Head atraumatic,EOMI, pupils reactive, face symmetric, moist mucous membranes NECK: No vertebral tenderness no step-off and full flexion extension and rotation CARDIOVASCULAR: Regular rate and rhythm without murmurs, rubs or gallops. RESPIRATORY: Breath sounds equal bilaterally, no wheezes rales or rhonchi. Contusion noted right posterior lower ribs. No paradoxical movement no respiratory distress ABDOMEN: Soft, nontender. Normoactive bowel sounds all 4 quadrants. No guarding or rebound. EXTREMITIES: Normal range of motion, no clubbing or edema. Neurovascularly intact Legs are of equal length is complaining of his right posterior iliac crest pain no contusion is seen. Able to move hip. NEUROLOGICAL: Alert and oriented x4. Engineering Design Manager strength equal bilaterally SKIN: Warm, dry, no laceration, no petechiae, no rashes or lesions. Course Orders Ordered: ED Orders 12/26/20 08:30 XR hip w pel if done RT 2V Stat EKG-12 Lead Stat 12/26/20 08:41 XR ribs LT min 3V w CXR1V Stat 12/26/20 08:45 Complete Blood Count AUTO DIFF Stat Comprehensive Metabolic Panel Stat Discontinued Medications Ketorolac Tromethamine (Ketorolac 30 Mg/Ml Vial) 15 mg IV NOW ONE Stop: 12/26/20 08:31 Last Admin: 12/26/20 09:16 Dose: Not Given Documented by: VENECIA Ketorolac Tromethamine (Ketorolac 30 Mg/Ml Vial) 30 mg IM NOW ONE Stop: 12/26/20 08:46 Last Admin: 12/26/20 09:10 Dose: 30 mg Documented by: VENECIA Vital Signs Vital signs: Vital Signs - 8 hr 12/26/20 08:05 Temperature 98.4 F Pulse Rate 80 Respiratory Rate 18 Blood Pressure 175/80 H Pulse Oximetry 99 MDM - Extremity Injury (Lower) Lab Data Result diagrams: 12/26/20 08:45 12/26/20 08:45 Labs: Lab Results 12/26/20 12/26/20 Range/Units 08:45 08:45 WBC 5.6 (4.5-11.0) X10^3/uL RBC 4.17 (4.0-5.2) X10^6/uL Hgb 12.5 (12.0-16.0) g/dL Hct 36.9 (36-46) % MCV 88.4 (80-100) fL MCH 29.9 (26-34) PG MCHC 33.8 (30-36) % RDW 13.2 (11.6-14.8) % Plt Count 155 (150-400) X10^3/uL Neut % (Auto) 74.5 (50-75) % Lymph % (Auto) 16.5 L (25-40) % [place] % (Auto) 4.5 (3-14) % Eos % (Auto) 2.2 (2-4) % Baso % (Auto) 2.3 H (0-2) % Neut # (Auto) 4200 (6673-9750) /uL Lymph # (Auto) 900 L (1737-3570) /uL [place] # (Auto) 300 (0-900) /uL Eos # (Auto) 100 (0-450) /uL Baso # (Auto) 100 (0-100) /uL Sodium 137 (137-145) mmol/L Potassium 4.9 (3.4-5.1) mmol/L Chloride 104 (98-107) mmol/L Carbon Dioxide 25 (22-32) mmol/L BUN 19 H (7-17) mg/dL Creatinine 0.82 (0.52-1.04) mg/dL Estimated GFR > 60.0 (>60) mL/min BUN/Creatinine Ratio 23.2 H (6-22) Glucose 254 H (80-110) mg/dL Calcium 9.5 (8.4-10.2) mg/dL Total Bilirubin 0.4 (0.2-1.3) mg/dL AST 25 (14-36) IU/L ALT 24 (<35) IU/L Alkaline Phosphatase 60 (38-126) U/L Total Protein 7.4 (6.3-8.2) g/dL Albumin 4.5 (3.5-5.0) g/dL Globulin 2.9 (1.7-4.1) g/dL Albumin/Globulin Ratio 1.6 (1.0-2.8) Imaging Data Extremity x-ray #1: Radiologist's Impression: PROCEDURE: XR LUMBAR SPINE 2-3V INDICATIONS: FALL TECHNIQUE: 2 views of the lumbar spine were acquired. COMPARISON: [facility], CR, XR HIP W PEL IF DONE RT 2V, 12/26/2020, 8:44. [facility], XR RIBS LT MIN 3V W CXR1V, 12/26/2020, 8:44. [facility], , L-SPINE 2-3 VIEWS, 05/16/2013, 11:00. FINDINGS: Bones: 5 nonrib-bearing, lumbar type vertebral bodies are seen. Mild T12 anterior wedge deformity is seen, which is stable compared to 2013. Mild disc space narrowing is seen at L1-L2. Throughout the lumbar spine, the disc heights are otherwise well preserved. Age-appropriate lower thoracic spine degenerative changes are seen. Lower lumbar spine facet arthropathy is seen. Soft tissues: Overlying bowel gas pattern is normal. No suspicious soft tissue calcifications. Atherosclerotic calcification is noted. IMPRESSION: Degenerative change, without an acute abnormality. Stable T12 anterior wedge deformity. If there is point tenderness (or other clinical suspicion for a fracture not seen on these images) please consider a dedicated CT for further evaluation. Dictated by: Deep Mercado M.D. on 12/26/2020 at 8:20 Approved by: Deep Mercado M.D. on 12/26/2020 at 8:21 Extremity x-ray #2: Radiologist's Impression: PROCEDURE: XR HIP W PEL IF DONE RT 2V INDICATIONS: fall TECHNIQUE: AP pelvis with lateral view(s) of the right hip(s). COMPARISON: [facility], CR, XR LUMBAR SPINE 2-3V, 12/26/2020, 8:54. [facility], XR RIBS LT MIN 3V W CXR1V, 12/26/2020, 8:44. FINDINGS: Bones: No fractures or dislocations. Pelvic ring appears intact. No suspicious bony lesions. There is mild superior joint space narrowing seen of both hips, with associated remodeling changes with subchondral sclerosis and osteophyte formation. Age-appropriate lower lumbar spine degenerative changes are noted. Soft tissues: The visualized bowel gas pattern is normal. No suspicious soft tissue calcifications. IMPRESSION: No displaced fracture can be seen. If there is point tenderness (or other clinical suspicion for a fracture not seen on these images) then a dedicated CT could be considered for further evaluation, if clinically appropriate. Dictated by: Deep Mercado M.D. on 12/26/2020 at 8:19 Approved by: Deep Mercado M.D. on 12/26/2020 at 8:20 Extremity x-ray #3: Radiologist's Impression: PROCEDURE: XR RIBS LT MIN 3V W CXR1V INDICATIONS: fall TECHNIQUE: 2 views of the left ribs were acquired, along with a single view chest. COMPARISON: [facility], CR, XR LUMBAR SPINE 2-3V, 12/26/2020, 8:54. [facility], CR, XR HIP W PEL IF DONE RT 2V, 12/26/2020, 8:44. [facility], CR, XR RIBS LT MIN 3V W CXR1V, 12/11/2020, 21:23. FINDINGS: Surgical changes and devices: None. Bones and chest wall: A marker is placed upon the area of clinical concern. Within this region, no displaced rib fracture or other significant rib abnormality can be seen. No rib fractures are seen elsewhere. No suspicious bony lesions. Age-appropriate bony degenerative changes are seen. Overlying soft tissues appear unremarkable. Lungs and pleura: No pleural effusions or pneumothorax. Lungs appear clear. Mediastinum: Mediastinal contours appear normal. Heart size is normal. IMPRESSION: No displaced fractures can be seen. No pneumothorax is seen. Dictated by: Deep Mercado M.D. on 12/26/2020 at 8:18 Approved by: Deep Mercado M.D. on 12/26/2020 at 8:18 ECG Data Interpretation: Normal sinus rhythm rate 77 p.r. interval 170 QRS 78 QTC 420 similar to previous EKG no ST changes or T-wave no ST changes no T-wave inversions MDM Narrative Medical decision making narrative: Patient's daughter will be staying with her. At this time there is no head injury. She has some mild contusions and bruises but no fractures. Blood work is overall reassuring. Discharge Plan Departure Patient Disposition: Home Clinical Impression: Fall, Contusion Instructions: Contusion Activity Restrictions/Additional Instructions: *You have been diagnosed with contusion, fall *What to do: at this time blood work is overall reassuring no broken bones are seen. increase activity as tolerated *Continue to take medications as directed Tylenol 650 mg every 4-6 hours if needed for pain *Follow up with your primary care provider in 2-3 days *Return to ER if you should have increasing dizziness lightheadedness, increasing pain, confusion [or] any new, worsening or concerning symptom Prescriptions: No Action meclizine 25 mg tablet 25 mg PO BID-TID PRN (Reason: dizziness) Qty: 14 RF: 0 Advair HFA 230-21 mcg/actuation HFA aerosol inhaler 2 puff INHALATION BID RF: 0 azithromycin [Zithromax] 250 mg tablet 250 mg PO 3XW RF: 0 cetirizine 10 mg Tablet 10 mg PO DAILY RF: 0 gabapentin [Neurontin] 100 mg capsule 200 mg PO BID RF: 0 glimepiride [Amaryl] 4 mg tablet 4 mg PO QACBREAK RF: 0 lamotrigine [Lamictal] 25 mg tablet 25 mg PO DAILY RF: 0 Lantus Solostar U-100 Insulin 100 unit/mL (3 mL) insulin pen 40 unit SUBCUT DAILY RF: 0 latanoprost [Xalatan] 0.005 % drops 1 drp EYE-BOTH BEDTIME RF: 0 insulin aspart U-100 [Novolog Flexpen U-100 Insulin] 100 unit/mL (3 mL) insulin pen 10 unit SUBCUT TID RF: 0 omeprazole magnesium [Acid Program Counselor (omeprazole)] 20 mg Capsule,Delayed Release(Dr/Ec) 40 mg PO BID RF: 0 metformin [Glucophage] 500 mg tablet 500 mg PO DAILY RF: 0 brimonidine 0.15 % drops 1 drp EYE-BOTH BID RF: 0 simvastatin [Zocor] 20 mg tablet 20 mg PO BEDTIME RF: 0 meclizine 12.5 mg Tablet 25 mg PO Q6HR PRN (Reason: Vertigo) Qty: 30 RF: 0 losartan 25 mg Tablet 25 mg PO DAILY Qty: 90 RF: 0 ondansetron 4 mg Tablet,Disintegrating 4 mg sublingual Q6HR PRN (Reason: Nausea) Qty: 30 RF: 0 Referrals: Apple Mills MD [Primary Care Provider] -
--- NOTE | 2020-12-26 08:41 | DI.RAD.S_ITS ---
PROCEDURE: XR RIBS LT MIN 3V W CXR1V INDICATIONS: fall TECHNIQUE: 2 views of the left ribs were acquired, along with a single view chest. COMPARISON: [facility], CR, XR LUMBAR SPINE 2-3V, 12/26/2020, 8:54. [facility], CR, XR HIP W PEL IF DONE RT 2V, 12/26/2020, 8:44. [facility], CR, XR RIBS LT MIN 3V W CXR1V, 12/11/2020, 21:23. FINDINGS: Surgical changes and devices: None. Bones and chest wall: A marker is placed upon the area of clinical concern. Within this region, no displaced rib fracture or other significant rib abnormality can be seen. No rib fractures are seen elsewhere. No suspicious bony lesions. Age-appropriate bony degenerative changes are seen. Overlying soft tissues appear unremarkable. Lungs and pleura: No pleural effusions or pneumothorax. Lungs appear clear. Mediastinum: Mediastinal contours appear normal. Heart size is normal. IMPRESSION: No displaced fractures can be seen. No pneumothorax is seen. Dictated by: Deep Mercado M.D. on 12/26/2020 at 8:18 Approved by: Deep Mercado M.D. on 12/26/2020 at 8:18
[2020-12-26 08:52] LABS: Add Manual Diff / Slide Review NO; Basophils Absolute Auto 100 /uL (0-100); Basophils Percent Auto 2.3 % (0-2); Eosinophils Absolute Auto 100 /uL (0-450); Eosinophils Percent Auto 2.2 % (2-4); Hematocrit 36.9 % (36-46); Hemoglobin 12.5 g/dL (12.0-16.0); Lymphocytes Absolute Auto 900 /uL (1100-4500); Lymphocytes Percent Auto 16.5 % (25-40); Mean Corpuscular HGB Conc 33.8 % (30-36); Mean Corpuscular Hemoglobin 29.9 PG (26-34); Mean Corpuscular Volume 88.4 fL (80-100); Monocytes Absolute Auto 300 /uL (0-900); Monocytes Percent Auto 4.5 % (3-14); Neutrophils Absolute Auto 4200 /uL (1500-7000); Neutrophils Percent Auto 74.5 % (50-75); Platelet Count 155 X10^3/uL (150-400); Red Blood Cell Count 4.17 X10^6/uL (4.0-5.2); Red Cell Distribution Width 13.2 % (11.6-14.8); White Blood Cell Count 5.6 X10^3/uL (4.5-11.0)
[2020-12-26 09:01] LABS: Alanine Aminotransferase 24 IU/L (<35); Albumin 4.5 g/dL (3.5-5.0); Albumin Globulin Ratio 1.6 (1.0-2.8); Alkaline Phosphatase 60 U/L (38-126); Aspartate Aminotransferase 25 IU/L (14-36); BUN Creatinine Ratio 23.2 (6-22); Bilirubin Total 0.4 mg/dL (0.2-1.3); Blood Urea Nitrogen 19 mg/dL (7-17); Calcium 9.5 mg/dL (8.4-10.2); Carbon Dioxide 25 mmol/L (22-32); Chloride 104 mmol/L (98-107); Estimated Glomerular Filt Rate > 60.0 mL/min (>60); Globulin 2.9 g/dL (1.7-4.1); Glucose 254 mg/dL (80-110); HEMOLYSIS < 15 (0-50); Potassium 4.9 mmol/L (3.4-5.1); Sodium 137 mmol/L (137-145); Total Protein 7.4 g/dL (6.3-8.2)
[2020-12-26] MEDS: KETOROLAC 30 MG/ML VIAL IM (09:10)
[2020-12-26 10:09] VITALS: BP 152/84; PULSE 75; RESP 16; O2SAT 100
== END 2020-12-26 10:11 | disposition home or self-care (01) ==
PROVIDERS: Emergency Provider Emergency Medicine; PCP Family Medicine
DX: S20.211A Contusion of right front wall of thorax, initial encounter (principal); W19.XXXA Unspecified fall, initial encounter
CPT/HCPCS: 36415; 71101; 72100; 73502; 80053; 85025; 93005; 93010; 96372; 99283; 99284; J1885

== ENCOUNTER → 2021-03-01 14:45 | Outpatient (CLI) | payer MEDICARE, OTHER, SELFPAY ==
--- NOTE | 2021-03-01 | DI.RAD.S_ITS ---
PROCEDURE: XR CERVICAL SPINE 2V OR 3V INDICATIONS: neck pain TECHNIQUE: Three view(s) of the cervical spine were acquired. COMPARISON: None. FINDINGS: Bones: No fractures or dislocations to the T1 level. Moderate to severe degenerative disc change at C5-6 with endplate spurring. There is uncovertebral joint hypertrophy at C5-6 and C6-7. There are prominent anterior endplate spurs at C4 through C7. The lateral masses of C1 appear intact on the odontoid view. No suspicious bony lesions. Soft tissues: No prevertebral soft tissue swelling. IMPRESSION: 1. Degenerative changes, most significant at the C5-6 level. Dictated by: Cheryl Cunningham M.D. on 03/01/2021 at 17:10 Approved by: Cehryl Cunningham M.D. on 03/01/2021 at 17:22
--- NOTE | 2021-03-01 | DI.RAD.S_ITS ---
PROCEDURE: XR LUMBAR SPINE 2-3V INDICATIONS: Radiculopathy TECHNIQUE: 3 views of the lumbar spine were acquired. COMPARISON: [facility], CR, XR LUMBAR SPINE 2-3V, 12/26/2020, 8:54. FINDINGS: T12 anterior wedge deformity is similar to 2013. Vertebral body heights otherwise maintained. Alignment is normal. Disc height loss in the lower lumbar spine is slightly progressed when compared with the comparison study, with associated degenerative endplate change and facet hypertrophy. This again produces probable moderate neural foraminal narrowing from L3-L4 through L5-S1. IMPRESSION: Degenerative changes in the lower lumbar spine producing what is thought to be moderate neural foraminal narrowing. Findings have progressed when compared with the prior study. Dictated by: Nilay Avendaño M.D. on 03/01/2021 at 16:13 Approved by: Nilay Avendaño M.D. on 03/01/2021 at 16:17
== END ==
PROVIDERS: PCP Family Medicine; Referring Provider Family Medicine; Visit Provider Family Medicine
DX: M47.26 Other spondylosis with radiculopathy, lumbar region (principal); M47.812 Spondylosis without myelopathy or radiculopathy, cervical region
CPT/HCPCS: 72040; 72100

== ENCOUNTER → 2021-03-05 17:40 | Outpatient (CLI) | payer MEDICARE, OTHER, SELFPAY ==
--- NOTE | 2021-03-05 | DI.MRI.S_ITS ---
PROCEDURE: MR SHOULDER LT WO CON INDICATIONS: PAIN IN LEFT SHOULDER TECHNIQUE: Noncontrast oblique coronal T2 fast spin echo with fat saturation, oblique sagittal T1 spin echo and T2 fast spin echo with fat saturation, axial T1 spin echo and T2 fast spin echo with fat saturation through the shoulder. COMPARISON: None. FINDINGS: Image quality: Excellent. Rotator cuff: There is full-thickness rupture of distal supraspinatus at its insertion on the humeral head with up to 2.6 cm medial retraction of torn tendon fibers to the level of acromion. Tendinosis and low-grade articular surface partial-thickness tear involving distal infraspinatus at its insertion on the humeral head is seen. Distal subscapularis tendinosis is noted. Sagittal images demonstrate mild supraspinatus muscle atrophy. Bones and bursae: No bone marrow contusions or fractures. Moderate acromioclavicular joint osteoarthritic changes are seen with downward osteophyte formation depressing the musculotendinous junction of supraspinatus. There is also suggestion of glenohumeral joint osteoarthritis. Moderate joint effusion and subacromial subdeltoid bursal fluid is seen, no definite intra-articular loose body. Capsule and soft tissues: There is signal abnormality and contour irregularity involving superior anterior labrum at 12 to 1 o'clock position. The long head of the biceps tendinosis is seen. The rotator interval appears normal, without fibrosis. The coracohumeral ligament is normal in thickness. IMPRESSION: 1. Full-thickness rupture of distal supraspinatus at its insertion on the humeral head with up to 2.6 cm medial retraction of torn tendon fibers to the level of acromion. Tendinosis and low-grade articular surface partial-thickness tear involving distal infraspinatus. Distal subscapularis tendinosis. Mild supraspinatus muscle atrophy. 2. 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 Moderate joint effusion and subacromial subdeltoid bursal fluid. 3. Finding is suggestive of superior anterior labral tear at 12 to 1 o'clock position. 4. Proximal intra-articular portion of long head of biceps tendinosis. Dictated by: Mayur Chapin M.D. on 03/08/2021 at 8:23 Approved by: Mayur Chapin M.D. on 03/08/2021 at 8:27
== END ==
PROVIDERS: PCP Family Medicine; Referring Provider Family Medicine; Visit Provider Family Medicine
DX: M75.102 Unspecified rotator cuff tear or rupture of left shoulder, not specified as traumatic (principal); M25.512 Pain in left shoulder; M19.012 Primary osteoarthritis, left shoulder
CPT/HCPCS: 73221

== ENCOUNTER 2021-03-12 08:15 | Outpatient (RCR) | payer MEDICARE, OTHER, SELFPAY ==
--- NOTE | 2021-01-21 16:41 | PT.OIE ---
Current Diagnoses Pain in right hip (01/21/21) Radiculopathy, lumbar region (01/21/21) Other synovitis and tenosynovitis, unspecified shoulder (01/21/21) Other abnormalities of gait and mobility (01/21/21) Repeated falls (01/21/21) Contusion of right back wall of thorax, initial encounter (01/21/21) Contusion of left shoulder, initial encounter (01/21/21) Visit Care Team Role Provider Type [place] MD Attending Provider Physician Primary Care Provider Referring Provider Specialty: [facility] Address: [address] [place] [address] [place], [facility] Email: [email or web address] Physical Therapy Initial Evaluation PT-OP-A Visit Information Start: 01/15/21 18:10 Freq: Status: Active Protocol: Document 01/21/21 09:03 LRN (Rec: 01/21/21 10:32 LRN [id number]) Out-Patient Physical Therapy Visit Information Visit Information Visit Type Initial Evaluation Visit Start Time 09:05 Visit Stop Time 10:15 Total Visit Minutes 70 Visit Number 1 Evaluation Information Evaluation Date 01/21/21 Precautions Precautions Pt reportedly on hold for bilateral carpal tunnel surgery until after current rehab program. Diabetes type II HBP controlled by medications Seizures 2 yrs ago (none for past 2 yrs) - controlled by medications. Arthritis of hands. PT-OP-B Current Condition Start: 01/15/21 18:10 Freq: Status: Active Protocol: Document 01/21/21 09:03 LRN (Rec: 01/21/21 10:32 LRN [id number]) Current Condition History of Current Condition Onset Date 1 month ago Current Complaints Back pain & L shoulder pain History of Current Condition Fell down from toilet x 2, not seizure related. Pt reports she just lost control of balance. First time landed on L elbow causing her L shoulder pain. 2nd time plopped down on the toilet hurting her back. She states her shoulder is hurting her the worst. R sided back pain is interrmittently when sitting too long (on standing) , at start of walking. Prior Treatments and Tests States X-rays taken for shoulder and back. X-ray results not available at this time. Future Testing and Treatments Planned Will plan on seeing referring physician for follow up visit when done with PT rehab program. Developmental History Developmental History Pt is L handed. Treatment Goals Patient/Caregiver Goals Pt goals: *Get rid of L shoulder pain, *Improve ability to dress without pain, *Able to move in bed without pain or not be woken at night due to pain (wakes 1x/night to use bathroom). *0-1/10 LB pain on standing and with first steps walking. Prior Functional Status Baseline Function- ADL's Independent Baseline Function- Mobility Independent Baseline Function- Gait Walked 3x/week for ~1 mile. Baseline Function- Other L LEG pain due to diabetes. Current Functional Impairments (Reported) Functional Limitations- ADL's Wakes 2x at night due to pain. Pain in LB and R hip when standing after prolonged sitting and with firt part of gait. Uses Salonpas pads to L shoulder & R LB to sleep at night. Functional Limitations- Mobility/Gait Not able to walk for exerise. Functional Limitations- Other No exercising. Personal Factors Other Personal Factors That May Effect Diabetes, Carpal tunnel Therapy/Recovery release of L & R hand on hold until after PT rehab, previous history of seizure with none for the past 2 yrs controlled by medications, controlled HBP, arthritis of hands. PT-OP-C Subjective Start: 01/15/21 18:10 Freq: Status: Active Protocol: Document 01/21/21 09:03 AMARIS (Rec: 01/21/21 10:32 LRN [id number]) Patient Questionnaires Lower Extremity Functional Scale LEFS Score Pt did not complete Oswestry Low Back Index Oswestry Score Pt did not complete Quick Dash- Upper Extremity Quick Dash UE Score Pt did not complete Other Questionnaire Name and Score Pt did not complete questionnaires. OP-PT Pain Assessment Pain Assessment Grid Paper Pain Assessment Grid Completed Yes Location Mostly R LB Pain Location Details R LB and upper hip Intensity 5 Scale Used Numeric (0 - 10) Description Aching,Throbbing Frequency Intermittent Pain Alleviating Factors Cold,Heat Other Pain Alleviating Factors Tylenol L shoulder Intensity 5 Scale Used Numeric (0 - 10) Description Aching,Sharp,Stabbing, Throbbing Frequency Constant Pain Aggravating Factors Changing Position,Activity, Exercise Other Pain Aggravating Factors Lifting hand Pain Alleviating Factors Medication Other Pain Alleviating Factors Tylenol PT-OP-J Posture/Palpation/Skin Start: 01/15/21 18:10 Freq: Status: Active Protocol: Document 01/21/21 09:03 LRN (Rec: 01/21/21 10:32 LRN [id number]) Posture Evaluation Position Standing Head/C-Spine Posture Forward Head T-Spine Posture Increased Kyphosis L-Spine Posture Increased Lordosis Pelvis Posture (L) PSIS Posterior Comments Posture Comments L shoulder - retracted, trunk - left SB, sacrum - L rotated. Increased sway on initial sit to stand. Palpation Assessment Location R neck Palpation Location R UT/Supraspinatus Palpation Findings Tenderness Sacrum Palpation Location R lateral border Palpation Findings Tenderness PT-OP-K Range of Motion Start: 01/15/21 18:10 Freq: Status: Active Protocol: Document 01/21/21 09:03 LRN (Rec: 01/21/21 10:32 LRN [id number]) Lumbar Spine Range of Motion Lumbar Spine Active Degrees Testing Position Standing Flexion 80 Extension 12 ROM Limitations Pain Comments Trunk flexion is with 55 deg's hip flexion Trunk extension is with 10 deg 's hip extension Shoulder Goniometric Range of Motion Shoulder Right Passive Shoulder ROM WFL Yes Testing Position Supine Flexion 162 Abduction 145 External Rotation at 90 degrees 90 Abduction Internal Rotation 90 Left Passive Shoulder ROM WFL No Testing Position Supine Flexion 100 Abduction 65 External Rotation at 45 degrees 0 Abduction Internal Rotation 22 Comments Pain with flexion PROM Right Active Shoulder ROM WFL Yes Testing Position Sitting Flexion 148 Extension 65 Abduction 168 External Rotation at 0 degrees Abduction 60 Internal Rotation Behind Back (text) T8 Left Active Shoulder ROM WFL No Testing Position Sitting Flexion 52 Extension 32 Abduction 47 External Rotation at 0 degrees Abduction 30 Internal Rotation Behind Back (text) Sacrum Hip Goniometric Range of Motion Hip Right Passive Testing Position Supine Straight Leg Raise 85 Internal Rotation 30 External Rotation 60 Left Passive Testing Position Supine Straight Leg Raise 85 Internal Rotation 30 External Rotation 60 PT-OP-L Special Tests Start: 01/15/21 18:10 Freq: Status: Active Protocol: Document 01/21/21 09:03 LRN (Rec: 01/21/21 10:32 LRN [id number]) Special Tests Shoulder Special Tests Elevation Impingement Test Results + left Comments Pain throughout the ROM with most increased pain at end- range flexion. PT-OP-M Strength Start: 01/15/21 18:10 Freq: Status: Active Protocol: Document 01/21/21 09:03 LRN (Rec: 01/21/21 10:32 LRN [id number]) Shoulder Strength Shoulder Manual Muscle Testing Right Comments Generally 5/5 Left Flexion 2- Poor- Extension 2 Poor Abduction (C5) 2- Poor- External Rotation 2- Poor- Internal Rotation 2 Poor Hip Strength Hip Manual Muscle Testing Right Flexion (L2) 5 Normal Abduction 5 Normal Adduction 5 Normal External Rotation 4+ Good+ Internal Rotation 5 Normal Left Flexion (L2) 5 Normal Abduction 5 Normal Adduction 5 Normal External Rotation 4+ Good+ Internal Rotation 5 Normal PT-OP-Q Treatments Start: 01/15/21 18:10 Freq: Status: Active Protocol: Document 01/21/21 09:03 LRN (Rec: 01/21/21 10:32 LRN [id number]) Therapeutic Exercises Sitting Exercises Scapular pinches Side bilateral Reps/Minutes 2' x 2 Comments Phys & v cuing and education needed Shoulder IR Side bilateral Reps/Minutes 2'x 2 Comments Phys & v cuing and education needed Shoulder ER Side bilateral Reps/Minutes 2' x 2 Comments Phys & v cuing and education needed Self-Care/Home Management Treatment Education Patient Education Home Exercise Program,Pain Management Other Education Discussed results of evaluation, goals and plan of care. Discussed use of cryotherapy for pain. Educated pt in use of other modalities if ice not available (ex-packs of corn or peas). Activities Self-Care/Home Management Activities Issued & reviewed HEP: Sitting: Active Shoulder ER/ IR & scapular pinches. Issued wristten I/S in use of ice to L shoulder for pain. PT-OP-T Assessment and Plan Start: 01/15/21 18:10 Freq: Status: Active Protocol: Document 01/21/21 09:03 LRN (Rec: 01/21/21 10:32 LRN [id number]) Physical Therapy Assessment Rehab Potential Rehabilitation Potential Excellent Evaluation Complexity Number of Personal Factors/Comorbidities 3 or More Number of Body Systems Impaired 4 or More Clinical Presentation at Evaluation Evolving Impairments Impairments Balance,Gait,Pain,Posture,ROM, Soft Tissue Mobility,Strength Goals Four Impairment Decreased L shoulder strength Impairment L shoulder strength is: Flex, AB, ER is 2-/5; Ext & IR is 2/5 Short Term Goal (STG) Improve L shoulder strength to no less than 3/5 STG Duration 03/05/21 Orthopedic Shoe Fitter Goal (LTG) Improve L shoulder strength (3 +-4/5) with pt will be able to move in bed without L shoulder pain or not be woken at night due to shoulder pain (wakes 1x/night to use bathroom). LTG Duration 04/20/21 Three Impairment Decreased L shoulder AROM Impairment Painfree AROM in deg's: L shldr: Flex is 100, AB is 65, ER (at 45 deg's AB) is 0, IR is 22. R shldr: Flex is 162, AB is 145, ER (at 90 deg's AB) is 90 , IR is 90. Short Term Goal (STG) Increase L shoulder AROM with pt able to dress without pain. STG Duration 03/05/21 [facility] Goal (LTG) L shoulder AROM with only end- range discomfort. LTG Duration 04/20/21 Two Impairment R LBP (5/10) hinders sit<> stand mobility and initial steps with gait Impairment Lumbar AROM: Flex 80 deg's with 55 deg's hip flexion. Extension is 12 deg's with 10 deg's hip extension. Short Term Goal (STG) Improve painfree lumbar trunk mobility STG Duration 02/19/21 [facility] Goal (LTG) Decrease LBP to 0-1/10 on standing and with first steps walking. LTG Duration 04/20/21 One Impairment Lacks appropriate self care HEP Short Term Goal (STG) Pt educated in sleeping positions to minimize L shoulder pain, and educated in self care pain management techniques. STG Duration 02/12/21 Orthopedic Shoe Fitter Goal (LTG) Pt will be independent with a self care ROM and strengthening HEP for the R LB /R hip and L shoulder. LTG Duration 04/20/21 Assessment Summary Assessment Pt has fair understanding of HEP and self care. Review was needed x2 of ex's after initial instructions, and review of use of modality x 2. Sometimes repeated directions appeared needed due to possible language difference. Pt presents with symptoms of soft tissue dysfunction of the R LB and L shoulder. Her L shoulder is her focus of rehabilitation due to her slow decrease in her back pain. She insists her L shoulder is the main problem. The pt also appears to have a mechanical dysfunction of the L shoulder, possibly due to decreased rotator cuff strength. Her L humeral head appears to have increased subacromial space, indicating drop of her humeral head out of the Glenoid cavity, again possibly due to rotator cuff atrophy from disuse. The pt did not tolerate other special testing on the L shoulder today; therefore will perform when pt can tolerate. The pt will benefit from skilled physical therapy to decrease soft tissue lumbar and L shoulder pain, and to improve strength and function, in order to achieve the above stated goals . Physical Therapy Plan Frequency and Duration Frequency of Treatment 1x/Week Plan of Care Start Date 01/21/21 Plan of Care End Date 04/20/21 Therapeutic Interventions Therapeutic Interventions Balance Training,Home Exercise Program,Manual Therapy, Neuromuscular Re-education, Patient/Caregiver Education, Self-Care/Home Management,Soft Tissue Mobilization,Taping, Therapeutic Activities, Therapeutic Exercises Modalities Cold Pack/Ice Massage,Electric Stimulation,Hot Packs, Ultrasound Next Visit Focus/Plan Next Note Type Treatment Note Next Visit Plan Review issued HEP. Start flexibility ex's of the low back and ROM of L shoulder ( Codman's, PROM, CKC flex/AB). Progress toward resisted L shoulder ER/IR. STM to L neck/R LB. End modalities ( MH/ES for pain managment). Pt education in self care HEP.
--- NOTE | 2021-01-21 16:43 | PT.OIE ---
Current Diagnoses Pain in right hip (01/21/21) Radiculopathy, lumbar region (01/21/21) Muscle weakness (generalized) (01/21/21) Other synovitis and tenosynovitis, unspecified shoulder (01/21/21) Other abnormalities of gait and mobility (01/21/21) Repeated falls (01/21/21) Contusion of right back wall of thorax, initial encounter (01/21/21) Contusion of left shoulder, initial encounter (01/21/21) Visit Care Team Role Provider Type [place] MD Attending Provider Physician Primary Care Provider Referring Provider Specialty: [facility] Address: [address] [place] [address], [facility] Email: [email or web address] Physical Therapy Initial Evaluation PT-OP-A Visit Information Start: 01/15/21 18:10 Freq: Status: Active Protocol: Document 01/21/21 09:03 LRN (Rec: 01/21/21 10:32 LRN [id number]) Out-Patient Physical Therapy Visit Information Visit Information Visit Type Initial Evaluation Visit Start Time 09:05 Visit Stop Time 10:15 Total Visit Minutes 70 Visit Number 1 Evaluation Information Evaluation Date 01/21/21 Precautions Precautions Pt reportedly on hold for bilateral carpal tunnel surgery until after current rehab program. Diabetes type II HBP controlled by medications Seizures 2 yrs ago (none for past 2 yrs) - controlled by medications. Arthritis of hands. PT-OP-B Current Condition Start: 01/15/21 18:10 Freq: Status: Active Protocol: Document 01/21/21 09:03 LRN (Rec: 01/21/21 10:32 LRN [id number]) Current Condition History of Current Condition Onset Date 1 month ago Current Complaints Back pain & L shoulder pain History of Current Condition Fell down from toilet x 2, not seizure related. Pt reports she just lost control of balance. First time landed on L elbow causing her L shoulder pain. 2nd time plopped down on the toilet hurting her back. She states her shoulder is hurting her the worst. R sided back pain is interrmittently when sitting too long (on standing) , at start of walking. Prior Treatments and Tests States X-rays taken for shoulder and back. X-ray results not available at this time. Future Testing and Treatments Planned Will plan on seeing referring physician for follow up visit when done with PT rehab program. Developmental History Developmental History Pt is L handed. Treatment Goals Patient/Caregiver Goals Pt goals: *Get rid of L shoulder pain, *Improve ability to dress without pain, *Able to move in bed without pain or not be woken at night due to pain (wakes 1x/night to use bathroom). *0-1/10 LB pain on standing and with first steps walking. Prior Functional Status Baseline Function- ADL's Independent Baseline Function- Mobility Independent Baseline Function- Gait Walked 3x/week for ~1 mile. Baseline Function- Other L LEG pain due to diabetes. Current Functional Impairments (Reported) Functional Limitations- ADL's Wakes 2x at night due to pain. Pain in LB and R hip when standing after prolonged sitting and with firt part of gait. Uses Salonpas pads to L shoulder & R LB to sleep at night. Functional Limitations- Mobility/Gait Not able to walk for exerise. Functional Limitations- Other No exercising. Personal Factors Other Personal Factors That May Effect Diabetes, Carpal tunnel Therapy/Recovery release of L & R hand on hold until after PT rehab, previous history of seizure with none for the past 2 yrs controlled by medications, controlled HBP, arthritis of hands. PT-OP-C Subjective Start: 01/15/21 18:10 Freq: Status: Active Protocol: Document 01/21/21 09:03 LRN (Rec: 01/21/21 10:32 LRN [id number]) Patient Questionnaires Lower Extremity Functional Scale LEFS Score Pt did not complete Oswestry Low Back Index Oswestry Score Pt did not complete Quick Dash- Upper Extremity Quick Dash UE Score Pt did not complete Other Questionnaire Name and Score Pt did not complete questionnaires. OP-PT Pain Assessment Pain Assessment Grid Paper Pain Assessment Grid Completed Yes Location Mostly R LB Pain Location Details R LB and upper hip Intensity 5 Scale Used Numeric (0 - 10) Description Aching,Throbbing Frequency Intermittent Pain Alleviating Factors Cold,Heat Other Pain Alleviating Factors Tylenol L shoulder Intensity 5 Scale Used Numeric (0 - 10) Description Aching,Sharp,Stabbing, Throbbing Frequency Constant Pain Aggravating Factors Changing Position,Activity, Exercise Other Pain Aggravating Factors Lifting hand Pain Alleviating Factors Medication Other Pain Alleviating Factors Tylenol PT-OP-J Posture/Palpation/Skin Start: 01/15/21 18:10 Freq: Status: Active Protocol: Document 01/21/21 09:03 LRN (Rec: 01/21/21 10:32 LRN [id number]) Posture Evaluation Position Standing Head/C-Spine Posture Forward Head T-Spine Posture Increased Kyphosis L-Spine Posture Increased Lordosis Pelvis Posture (L) PSIS Posterior Comments Posture Comments L shoulder - retracted, trunk - left SB, sacrum - L rotated. Increased sway on initial sit to stand. Palpation Assessment Location R neck Palpation Location R UT/Supraspinatus Palpation Findings Tenderness Sacrum Palpation Location R lateral border Palpation Findings Tenderness PT-OP-K Range of Motion Start: 01/15/21 18:10 Freq: Status: Active Protocol: Document 01/21/21 09:03 LRN (Rec: 01/21/21 10:32 LRN [id number]) Lumbar Spine Range of Motion Lumbar Spine Active Degrees Testing Position Standing Flexion 80 Extension 12 ROM Limitations Pain Comments Trunk flexion is with 55 deg's hip flexion Trunk extension is with 10 deg 's hip extension Shoulder Goniometric Range of Motion Shoulder Right Passive Shoulder ROM WFL Yes Testing Position Supine Flexion 162 Abduction 145 External Rotation at 90 degrees 90 Abduction Internal Rotation 90 Left Passive Shoulder ROM WFL No Testing Position Supine Flexion 100 Abduction 65 External Rotation at 45 degrees 0 Abduction Internal Rotation 22 Comments Pain with flexion PROM Right Active Shoulder ROM WFL Yes Testing Position Sitting Flexion 148 Extension 65 Abduction 168 External Rotation at 0 degrees Abduction 60 Internal Rotation Behind Back (text) T8 Left Active Shoulder ROM WFL No Testing Position Sitting Flexion 52 Extension 32 Abduction 47 External Rotation at 0 degrees Abduction 30 Internal Rotation Behind Back (text) Sacrum Hip Goniometric Range of Motion Hip Right Passive Testing Position Supine Straight Leg Raise 85 Internal Rotation 30 External Rotation 60 Left Passive Testing Position Supine Straight Leg Raise 85 Internal Rotation 30 External Rotation 60 PT-OP-L Special Tests Start: 01/15/21 18:10 Freq: Status: Active Protocol: Document 01/21/21 09:03 LRN (Rec: 01/21/21 10:32 LRN [id number]) Special Tests Shoulder Special Tests Elevation Impingement Test Results + left Comments Pain throughout the ROM with most increased pain at end- range flexion. PT-OP-M Strength Start: 01/15/21 18:10 Freq: Status: Active Protocol: Document 01/21/21 09:03 LRN (Rec: 01/21/21 10:32 LRN [id number]) Shoulder Strength Shoulder Manual Muscle Testing Right Comments Generally 5/5 Left Flexion 2- Poor- Extension 2 Poor Abduction (C5) 2- Poor- External Rotation 2- Poor- Internal Rotation 2 Poor Hip Strength Hip Manual Muscle Testing Right Flexion (L2) 5 Normal Abduction 5 Normal Adduction 5 Normal External Rotation 4+ Good+ Internal Rotation 5 Normal Left Flexion (L2) 5 Normal Abduction 5 Normal Adduction 5 Normal External Rotation 4+ Good+ Internal Rotation 5 Normal PT-OP-Q Treatments Start: 01/15/21 18:10 Freq: Status: Active Protocol: Document 01/21/21 09:03 LRN (Rec: 01/21/21 10:32 LRN [id number]) Therapeutic Exercises Sitting Exercises Scapular pinches Side bilateral Reps/Minutes 2' x 2 Comments Phys & v cuing and education needed Shoulder IR Side bilateral Reps/Minutes 2'x 2 Comments Phys & v cuing and education needed Shoulder ER Side bilateral Reps/Minutes 2' x 2 Comments Phys & v cuing and education needed Self-Care/Home Management Treatment Education Patient Education Home Exercise Program,Pain Management Other Education Discussed results of evaluation, goals and plan of care. Discussed use of cryotherapy for pain. Educated pt in use of other modalities if ice not available (ex-packs of corn or peas). Activities Self-Care/Home Management Activities Issued & reviewed HEP: Sitting: Active Shoulder ER/ IR & scapular pinches. Issued wristten I/S in use of ice to L shoulder for pain. PT-OP-T Assessment and Plan Start: 01/15/21 18:10 Freq: Status: Active Protocol: Document 01/21/21 09:03 LRN (Rec: 01/21/21 10:32 LRN [id number]) Physical Therapy Assessment Rehab Potential Rehabilitation Potential Excellent Evaluation Complexity Number of Personal Factors/Comorbidities 3 or More Number of Body Systems Impaired 4 or More Clinical Presentation at Evaluation Evolving Impairments Impairments Balance,Gait,Pain,Posture,ROM, Soft Tissue Mobility,Strength Goals Four Impairment Decreased L shoulder strength Impairment L shoulder strength is: Flex, AB, ER is 2-/5; Ext & IR is 2/5 Short Term Goal (STG) Improve L shoulder strength to no less than 3/5 STG Duration 03/05/21 [facility] Goal (LTG) Improve L shoulder strength (3 +-4/5) with pt will be able to move in bed without L shoulder pain or not be woken at night due to shoulder pain (wakes 1x/night to use bathroom). LTG Duration 04/20/21 Three Impairment Decreased L shoulder AROM Impairment Painfree AROM in deg's: L shldr: Flex is 100, AB is 65, ER (at 45 deg's AB) is 0, IR is 22. R shldr: Flex is 162, AB is 145, ER (at 90 deg's AB) is 90 , IR is 90. Short Term Goal (STG) Increase L shoulder AROM with pt able to dress without pain. STG Duration 03/05/21 [facility] Goal (LTG) L shoulder AROM with only end- range discomfort. LTG Duration 04/20/21 Two Impairment R LBP (5/10) hinders sit<> stand mobility and initial steps with gait Impairment Lumbar AROM: Flex 80 deg's with 55 deg's hip flexion. Extension is 12 deg's with 10 deg's hip extension. Short Term Goal (STG) Improve painfree lumbar trunk mobility STG Duration 02/19/21 [facility] Goal (LTG) Decrease LBP to 0-1/10 on standing and with first steps walking. LTG Duration 04/20/21 One Impairment Lacks appropriate self care HEP Short Term Goal (STG) Pt educated in sleeping positions to minimize L shoulder pain, and educated in self care pain management techniques. STG Duration 02/12/21 [facility] Goal (LTG) Pt will be independent with a self care ROM and strengthening HEP for the R LB /R hip and L shoulder. LTG Duration 04/20/21 Assessment Summary Assessment Pt has fair understanding of HEP and self care. Review was needed x2 of ex's after initial instructions, and review of use of modality x 2. Sometimes repeated directions appeared needed due to possible language difference. Pt presents with symptoms of soft tissue dysfunction of the R LB and L shoulder. Her L shoulder is her focus of rehabilitation due to her slow decrease in her back pain. She insists her L shoulder is the main problem. The pt also appears to have a mechanical dysfunction of the L shoulder, possibly due to decreased rotator cuff strength. Her L humeral head appears to have increased subacromial space, indicating drop of her humeral head out of the Glenoid cavity, again possibly due to rotator cuff atrophy from disuse. The pt did not tolerate other special testing on the L shoulder today; therefore will perform when pt can tolerate. The pt will benefit from skilled physical therapy to decrease soft tissue lumbar and L shoulder pain, and to improve strength and function, in order to achieve the above stated goals . Physical Therapy Plan Frequency and Duration Frequency of Treatment 1x/Week Plan of Care Start Date 01/21/21 Plan of Care End Date 04/20/21 Therapeutic Interventions Therapeutic Interventions Balance Training,Home Exercise Program,Manual Therapy, Neuromuscular Re-education, Patient/Caregiver Education, Self-Care/Home Management,Soft Tissue Mobilization,Taping, Therapeutic Activities, Therapeutic Exercises Modalities Cold Pack/Ice Massage,Electric Stimulation,Hot Packs, Ultrasound Next Visit Focus/Plan Next Note Type Treatment Note Next Visit Plan Review issued HEP. Start flexibility ex's of the low back and ROM of L shoulder ( Codman's, PROM, CKC flex/AB). Progress toward resisted L shoulder ER/IR. STM to L neck/R LB. End modalities ( MH/ES for pain managment). Pt education in self care HEP.
--- NOTE | 2021-01-25 16:39 | PT.OTN ---
Current Diagnoses Pain in right hip (01/25/21) Radiculopathy, lumbar region (01/25/21) Muscle weakness (generalized) (01/25/21) Other synovitis and tenosynovitis, unspecified shoulder (01/25/21) Other abnormalities of gait and mobility (01/25/21) Repeated falls (01/25/21) Contusion of right back wall of thorax, initial encounter (01/25/21) Contusion of left shoulder, initial encounter (01/25/21) Physical Therapy Treatment Note PT-OP-A Visit Information Start: 01/15/21 18:10 Freq: Status: Active Protocol: Document 01/25/21 09:04 LRN (Rec: 01/25/21 09:49 LRN [id number]) Out-Patient Physical Therapy Visit Information Visit Information Visit Type Treatment Note Visit Start Time 09:04 Visit Stop Time 09:46 Total Visit Minutes 42 Visit Number 2 Evaluation Information Evaluation Date 01/21/21 Precautions Precautions Pt reportedly on hold for bilateral carpal tunnel surgery until after current rehab program. Diabetes type II HBP controlled by medications Seizures 2 yrs ago (none for past 2 yrs) - controlled by medications. Arthritis of hands. PT-OP-B Current Condition Start: 01/15/21 18:10 Freq: Status: Active Protocol: Document 01/21/21 09:03 LRN (Rec: 01/21/21 10:32 LRN [id number]) Current Condition History of Current Condition Onset Date 1 month ago Current Complaints Back pain & L shoulder pain History of Current Condition Fell down from toilet x 2, not seizure related. Pt reports she just lost control of balance. First time landed on L elbow causing her L shoulder pain. 2nd time plopped down on the toilet hurting her back. She states her shoulder is hurting her the worst. R sided back pain is interrmittently when sitting too long (on standing) , at start of walking. Prior Treatments and Tests States X-rays taken for shoulder and back. X-ray results not available at this time. Future Testing and Treatments Planned Will plan on seeing referring physician for follow up visit when done with PT rehab program. Developmental History Developmental History Pt is L handed. Treatment Goals Patient/Caregiver Goals Pt goals: *Get rid of L shoulder pain, *Improve ability to dress without pain, *Able to move in bed without pain or not be woken at night due to pain (wakes 1x/night to use bathroom). *0-1/10 LB pain on standing and with first steps walking. Prior Functional Status Baseline Function- ADL's Independent Baseline Function- Mobility Independent Baseline Function- Gait Walked 3x/week for ~1 mile. Baseline Function- Other L LEG pain due to diabetes. Current Functional Impairments (Reported) Functional Limitations- ADL's Wakes 2x at night due to pain. Pain in LB and R hip when standing after prolonged sitting and with firt part of gait. Uses Salonpas pads to L shoulder & R LB to sleep at night. Functional Limitations- Mobility/Gait Not able to walk for exerise. Functional Limitations- Other No exercising. Personal Factors Other Personal Factors That May Effect Diabetes, Carpal tunnel Therapy/Recovery release of L & R hand on hold until after PT rehab, previous history of seizure with none for the past 2 yrs controlled by medications, controlled HBP, arthritis of hands. PT-OP-C Subjective Start: 01/15/21 18:10 Freq: Status: Active Protocol: Document 01/25/21 09:04 LRN (Rec: 01/25/21 09:49 LRN [id number]) OP-PT Subjective Patient Comments Patient Comments Did home ex's. States she is concerned she broke or dislocated something. Pain with movement. PT-OP-J Posture/Palpation/Skin Start: 01/15/21 18:10 Freq: Status: Active Protocol: Document 01/21/21 09:03 LRN (Rec: 01/21/21 10:32 LRN [id number]) Posture Evaluation Position Standing Head/C-Spine Posture Forward Head T-Spine Posture Increased Kyphosis L-Spine Posture Increased Lordosis Pelvis Posture (L) PSIS Posterior Comments Posture Comments L shoulder - retracted, trunk - left SB, sacrum - L rotated. Increased sway on initial sit to stand. Palpation Assessment Location R neck Palpation Location R UT/Supraspinatus Palpation Findings Tenderness Sacrum Palpation Location R lateral border Palpation Findings Tenderness PT-OP-K Range of Motion Start: 01/15/21 18:10 Freq: Status: Active Protocol: Document 01/21/21 09:03 LRN (Rec: 01/21/21 10:32 LRN [id number]) Lumbar Spine Range of Motion Lumbar Spine Active Degrees Testing Position Standing Flexion 80 Extension 12 ROM Limitations Pain Comments Trunk flexion is with 55 deg's hip flexion Trunk extension is with 10 deg 's hip extension Shoulder Goniometric Range of Motion Shoulder Right Passive Shoulder ROM WFL Yes Testing Position Supine Flexion 162 Abduction 145 External Rotation at 90 degrees 90 Abduction Internal Rotation 90 Left Passive Shoulder ROM WFL No Testing Position Supine Flexion 100 Abduction 65 External Rotation at 45 degrees 0 Abduction Internal Rotation 22 Comments Pain with flexion PROM Right Active Shoulder ROM WFL Yes Testing Position Sitting Flexion 148 Extension 65 Abduction 168 External Rotation at 0 degrees Abduction 60 Internal Rotation Behind Back (text) T8 Left Active Shoulder ROM WFL No Testing Position Sitting Flexion 52 Extension 32 Abduction 47 External Rotation at 0 degrees Abduction 30 Internal Rotation Behind Back (text) Sacrum Hip Goniometric Range of Motion Hip Right Passive Testing Position Supine Straight Leg Raise 85 Internal Rotation 30 External Rotation 60 Left Passive Testing Position Supine Straight Leg Raise 85 Internal Rotation 30 External Rotation 60 PT-OP-L Special Tests Start: 01/15/21 18:10 Freq: Status: Active Protocol: Document 01/21/21 09:03 LRN (Rec: 01/21/21 10:32 LRN [id number]) Special Tests Shoulder Special Tests Elevation Impingement Test Results + left Comments Pain throughout the ROM with most increased pain at end- range flexion. PT-OP-M Strength Start: 01/15/21 18:10 Freq: Status: Active Protocol: Document 01/21/21 09:03 LRN (Rec: 01/21/21 10:32 LRN [id number]) Shoulder Strength Shoulder Manual Muscle Testing Right Comments Generally 5/5 Left Flexion 2- Poor- Extension 2 Poor Abduction (C5) 2- Poor- External Rotation 2- Poor- Internal Rotation 2 Poor Hip Strength Hip Manual Muscle Testing Right Flexion (L2) 5 Normal Abduction 5 Normal Adduction 5 Normal External Rotation 4+ Good+ Internal Rotation 5 Normal Left Flexion (L2) 5 Normal Abduction 5 Normal Adduction 5 Normal External Rotation 4+ Good+ Internal Rotation 5 Normal PT-OP-Q Treatments Start: 01/15/21 18:10 Freq: Status: Active Protocol: Document 01/25/21 09:04 LRN (Rec: 01/25/21 09:49 LRN [id number]) Therapeutic Exercises Sitting Exercises T Ball stretch Sitting Exercise Name L shoulder flex stretch Side left Reps/Minutes 2' Comments Phy & v cuing to mind max tolerated stretch Overhead Francine Sitting Exercise Name L shoulder flex stretch Side left Comments Pt pardeep only 80 deg's flex stretch Scapular pinches Sitting Exercise Name Scapular pinches Side bilateral Reps/Minutes 2' x 3 Comments Phys & v cuing for not breath holding and limiting L shldr ER to avoid pain Shoulder IR Side left Reps/Minutes 15x Comments 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 [facility] Shoulder ER Side bilateral Reps/Minutes 15x Comments 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 [facility] Standing Exercises Codman Standing Exercise Name Codman's Side left L Shoulder Flex strengthening Standing Exercise Name Anastasia Shoulder Ext strengthening Side left Reps/Minutes 5 hold, 10x Shoulder Ext strengthening Standing Exercise Name Anastasia Shoulder Ext strengthening Side left Reps/Minutes 5 hold, 10x Shoulder AB strengthening Standing Exercise Name Anastasia Shoulder AB strengthening Side left Reps/Minutes 10 hold, 15x Manual Therapy Treatment Soft Tissue Mobilization L Supraspinatus Body Location L Supraspinatus Mobilization Type Strumming,Sustained Pressure Intensity/Depth Moderate Body Position Sidelying L UT Body Location L UT Mobilization Type Strumming,Sustained Pressure Intensity/Depth Moderate Body Position Sidelying Self-Care/Home Management Treatment Education Patient Education Home Exercise Program Other Education Discussed/educated pt in completion of functional questionnaire to be completed. Pt requests taking home to have DA help. Activities Self-Care/Home Management Activities Issued & reviewed HEP: Isometric L shoulder AB, Flex, Ext PT-OP-T Assessment and Plan Start: 01/15/21 18:10 Freq: Status: Active Protocol: Document 01/25/21 09:04 LRN (Rec: 01/25/21 09:49 LRN [id number]) Physical Therapy Assessment Goals Four Impairment Decreased L shoulder strength Impairment L shoulder strength is: Flex, AB, ER is 2-/5; Ext & IR is 2/5 Short Term Goal (STG) Improve L shoulder strength to no less than 3/5 STG Duration 03/05/21 [facility] Goal (LTG) Improve L shoulder strength (3 +-4/5) with pt will be able to move in bed without L shoulder pain or not be woken at night due to shoulder pain (wakes 1x/night to use bathroom). LTG Duration 04/20/21 Three Impairment Decreased L shoulder AROM Impairment Painfree AROM in deg's: L shldr: Flex is 100, AB is 65, ER (at 45 deg's AB) is 0, IR is 22. R shldr: Flex is 162, AB is 145, ER (at 90 deg's AB) is 90 , IR is 90. Short Term Goal (STG) Increase L shoulder AROM with pt able to dress without pain. STG Duration 03/05/21 [facility] Goal (LTG) L shoulder AROM with only end- range discomfort. LTG Duration 04/20/21 Two Impairment R LBP (5/10) hinders sit<> stand mobility and initial steps with gait Impairment Lumbar AROM: Flex 80 deg's with 55 deg's hip flexion. Extension is 12 deg's with 10 deg's hip extension. Short Term Goal (STG) Improve painfree lumbar trunk mobility STG Duration 02/19/21 [facility] Goal (LTG) Decrease LBP to 0-1/10 on standing and with first steps walking. LTG Duration 04/20/21 One Impairment Lacks appropriate self care HEP Short Term Goal (STG) Pt educated in sleeping positions to minimize L shoulder pain, and educated in self care pain management techniques. STG Duration 02/12/21 [facility] Goal (LTG) Pt will be independent with a self care ROM and strengthening HEP for the R LB /R hip and L shoulder. LTG Duration 04/20/21 Assessment Summary Assessment Pt had anxiety over her L shoulder hurting and concerned of fx, but anxiety lessened with discussion and start of ex's and HEP. Pt has much soft tissue tightness and dysfunction of the upper L shoulder, deltoid and periscapular region. She has visible decrease in strength of her L Deltoid and mild inferior drop of L humeral head at [facility]. Physical Therapy Plan Frequency and Duration Frequency of Treatment 1x/Week Plan of Care Start Date 01/21/21 Plan of Care End Date 04/20/21 Next Visit Focus/Plan Next Note Type Treatment Note Next Visit Plan Pt to return completed Questionnaire's: TOBI, UE QuickDASH. Educated in sleeping positions to minimize L shoulder pain, and educate in self care pain management techniques. Review issued HEP. Issue Nkechi's. Assess pt's first language. Assess Lumbar and C/S spine. Start flexibility ex's of the low back and ROM of L shoulder (Codman's, PROM, CKC flex/AB) . Progress toward resisted L shoulder ER/IR. STM to L neck/R LB. End modalities ( MH/ES for pain managment). Pt education in self care HEP.
--- NOTE | 2021-01-29 13:41 | PT.OTN ---
Current Diagnoses Pain in right hip (01/29/21) Radiculopathy, lumbar region (01/29/21) Muscle weakness (generalized) (01/29/21) Other synovitis and tenosynovitis, unspecified shoulder (01/29/21) Other abnormalities of gait and mobility (01/29/21) Repeated falls (01/29/21) Contusion of right back wall of thorax, initial encounter (01/29/21) Contusion of left shoulder, initial encounter (01/29/21) Physical Therapy Treatment Note PT-OP-A Visit Information Start: 01/15/21 18:10 Freq: Status: Active Protocol: Document 01/29/21 11:24 MA (Rec: 01/29/21 12:14 MA [id number]) Out-Patient Physical Therapy Visit Information Visit Information Visit Type Treatment Note Visit Start Time 11:20 Visit Stop Time 12:05 Total Visit Minutes 45 Visit Number 3 Number of RADIO ANTENNA INSTALLER Visits 1 PT-OP-B Current Condition Start: 01/15/21 18:10 Freq: Status: Active Protocol: Document 01/21/21 09:03 LRN (Rec: 01/21/21 10:32 LRN [id number]) Current Condition History of Current Condition Onset Date 1 month ago Current Complaints Back pain & L shoulder pain History of Current Condition Fell down from toilet x 2, not seizure related. Pt reports she just lost control of balance. First time landed on L elbow causing her L shoulder pain. 2nd time plopped down on the toilet hurting her back. She states her shoulder is hurting her the worst. R sided back pain is interrmittently when sitting too long (on standing) , at start of walking. Prior Treatments and Tests States X-rays taken for shoulder and back. X-ray results not available at this time. Future Testing and Treatments Planned Will plan on seeing referring physician for follow up visit when done with PT rehab program. Developmental History Developmental History Pt is L handed. Treatment Goals Patient/Caregiver Goals Pt goals: *Get rid of L shoulder pain, *Improve ability to dress without pain, *Able to move in bed without pain or not be woken at night due to pain (wakes 1x/night to use bathroom). *0-1/10 LB pain on standing and with first steps walking. Prior Functional Status Baseline Function- ADL's Independent Baseline Function- Mobility Independent Baseline Function- Gait Walked 3x/week for ~1 mile. Baseline Function- Other L LEG pain due to diabetes. Current Functional Impairments (Reported) Functional Limitations- ADL's Wakes 2x at night due to pain. Pain in LB and R hip when standing after prolonged sitting and with firt part of gait. Uses Salonpas pads to L shoulder & R LB to sleep at night. Functional Limitations- Mobility/Gait Not able to walk for exerise. Functional Limitations- Other No exercising. Personal Factors Other Personal Factors That May Effect Diabetes, Carpal tunnel Therapy/Recovery release of L & R hand on hold until after PT rehab, previous history of seizure with none for the past 2 yrs controlled by medications, controlled HBP, arthritis of hands. PT-OP-C Subjective Start: 01/15/21 18:10 Freq: Status: Active Protocol: Document 01/29/21 11:24 MA (Rec: 01/29/21 12:14 MA [id number]) OP-PT Subjective Patient Comments Patient Comments Pt states her shoulder is sore and she is worried about a bone sticking out PT-OP-J Posture/Palpation/Skin Start: 01/15/21 18:10 Freq: Status: Active Protocol: Document 01/21/21 09:03 LRN (Rec: 01/21/21 10:32 LRN [id number]) Posture Evaluation Position Standing Head/C-Spine Posture Forward Head T-Spine Posture Increased Kyphosis L-Spine Posture Increased Lordosis Pelvis Posture (L) PSIS Posterior Comments Posture Comments L shoulder - retracted, trunk - left SB, sacrum - L rotated. Increased sway on initial sit to stand. Palpation Assessment Location R neck Palpation Location R UT/Supraspinatus Palpation Findings Tenderness Sacrum Palpation Location R lateral border Palpation Findings Tenderness PT-OP-K Range of Motion Start: 01/15/21 18:10 Freq: Status: Active Protocol: Document 01/21/21 09:03 LRN (Rec: 01/21/21 10:32 LRN [id number]) Lumbar Spine Range of Motion Lumbar Spine Active Degrees Testing Position Standing Flexion 80 Extension 12 ROM Limitations Pain Comments Trunk flexion is with 55 deg's hip flexion Trunk extension is with 10 deg 's hip extension Shoulder Goniometric Range of Motion Shoulder Right Passive Shoulder ROM WFL Yes Testing Position Supine Flexion 162 Abduction 145 External Rotation at 90 degrees 90 Abduction Internal Rotation 90 Left Passive Shoulder ROM WFL No Testing Position Supine Flexion 100 Abduction 65 External Rotation at 45 degrees 0 Abduction Internal Rotation 22 Comments Pain with flexion PROM Right Active Shoulder ROM WFL Yes Testing Position Sitting Flexion 148 Extension 65 Abduction 168 External Rotation at 0 degrees Abduction 60 Internal Rotation Behind Back (text) T8 Left Active Shoulder ROM WFL No Testing Position Sitting Flexion 52 Extension 32 Abduction 47 External Rotation at 0 degrees Abduction 30 Internal Rotation Behind Back (text) Sacrum Hip Goniometric Range of Motion Hip Right Passive Testing Position Supine Straight Leg Raise 85 Internal Rotation 30 External Rotation 60 Left Passive Testing Position Supine Straight Leg Raise 85 Internal Rotation 30 External Rotation 60 PT-OP-L Special Tests Start: 01/15/21 18:10 Freq: Status: Active Protocol: Document 01/21/21 09:03 LRN (Rec: 01/21/21 10:32 LRN [id number]) Special Tests Shoulder Special Tests Elevation Impingement Test Results + left Comments Pain throughout the ROM with most increased pain at end- range flexion. PT-OP-M Strength Start: 01/15/21 18:10 Freq: Status: Active Protocol: Document 01/21/21 09:03 LRN (Rec: 01/21/21 10:32 LRN [id number]) Shoulder Strength Shoulder Manual Muscle Testing Right Comments Generally 5/5 Left Flexion 2- Poor- Extension 2 Poor Abduction (C5) 2- Poor- External Rotation 2- Poor- Internal Rotation 2 Poor Hip Strength Hip Manual Muscle Testing Right Flexion (L2) 5 Normal Abduction 5 Normal Adduction 5 Normal External Rotation 4+ Good+ Internal Rotation 5 Normal Left Flexion (L2) 5 Normal Abduction 5 Normal Adduction 5 Normal External Rotation 4+ Good+ Internal Rotation 5 Normal PT-OP-Q Treatments Start: 01/15/21 18:10 Freq: Status: Active Protocol: Document 01/29/21 11:24 MA (Rec: 01/29/21 12:14 MA [id number]) Therapeutic Exercises Supine Exercises LTR Side bilateral Reps/Minutes 10x Sitting Exercises Scapular pinches Sitting Exercise Name Scapular pinches Side bilateral Reps/Minutes 2' x 3 Comments Phys & v cuing for not breath holding and limiting L shldr ER to avoid pain Shoulder IR Side left Reps/Minutes x5 d/c due to pain today Comments online marketing director 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 at [facility] Shoulder ER Side bilateral Reps/Minutes x10 Comments online marketing director 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 at [facility] Standing Exercises Codman Standing Exercise Name Codman's Side left L Shoulder Flex strengthening Standing Exercise Name Anastasai Shoulder Ext strengthening Side left Reps/Minutes 5 hold, 10x Shoulder Ext strengthening Standing Exercise Name Anastasia Shoulder Ext strengthening Side left Reps/Minutes 5 hold, 10x Shoulder AB strengthening Standing Exercise Name Anastasia Shoulder AB strengthening Side left Reps/Minutes 10 hold, 15x Manual Therapy Treatment Soft Tissue Mobilization L Supraspinatus Body Location L Supraspinatus Mobilization Type Strumming,Sustained Pressure Intensity/Depth Moderate Body Position Sidelying L UT Body Location L UT & mid trap/rhomboids Mobilization Type Strumming,Sustained Pressure Intensity/Depth Moderate Body Position Sidelying Manual Techniques UT stretch Type Passive L UT stretch Body Position Supine Reps/Duration 2x 1' Self-Care/Home Management Treatment Education Patient Education Body Mechanics,Home Exercise Program,Pain Management, Posture Other Education Educated pt on shoulder mechanics and scapular winging since she is worried about the way her bone sticks out in the back. Reassured pt she has no broken bones according to xray. Added self-STM with tennis ball to L parascapular region. Discussed posture and how pt's posture can affect nerve pain down L arm. PT-OP-T Assessment and Plan Start: 01/15/21 18:10 Freq: Status: Active Protocol: Document 01/29/21 11:24 MA (Rec: 01/29/21 12:14 MA [id number]) Physical Therapy Assessment Goals Four Impairment Decreased L shoulder strength Impairment L shoulder strength is: Flex, AB, ER is 2-/5; Ext & IR is 2/5 Short Term Goal (STG) Improve L shoulder strength to no less than 3/5 STG Duration 03/05/21 Database Security Expert Goal (LTG) Improve L shoulder strength (3 +-4/5) with pt will be able to move in bed without L shoulder pain or not be woken at night due to shoulder pain (wakes 1x/night to use bathroom). LTG Duration 04/20/21 Three Impairment Decreased L shoulder AROM Impairment Painfree AROM in deg's: L shldr: Flex is 100, AB is 65, ER (at 45 deg's AB) is 0, IR is 22. R shldr: Flex is 162, AB is 145, ER (at 90 deg's AB) is 90 , IR is 90. Short Term Goal (STG) Increase L shoulder AROM with pt able to dress without pain. STG Duration 03/05/21 Database Security Expert Goal (LTG) L shoulder AROM with only end- range discomfort. LTG Duration 04/20/21 Two Impairment R LBP (5/10) hinders sit<> stand mobility and initial steps with gait Impairment Lumbar AROM: Flex 80 deg's with 55 deg's hip flexion. Extension is 12 deg's with 10 deg's hip extension. Short Term Goal (STG) Improve painfree lumbar trunk mobility STG Duration 02/19/21 Detention Goal (LTG) Decrease LBP to 0-1/10 on standing and with first steps walking. LTG Duration 04/20/21 One Impairment Lacks appropriate self care HEP Short Term Goal (STG) Pt educated in sleeping positions to minimize L shoulder pain, and educated in self care pain management techniques. STG Duration 02/12/21 Database Security Expert Goal (LTG) Pt will be independent with a self care ROM and strengthening HEP for the R LB /R hip and L shoulder. LTG Duration 04/20/21 Assessment Summary Assessment Pt is still concerned about possible broken bone with her shoulder sticking out. Educated pt on scapular winging and the role of the serratus mm. Pt had some nerve pain intially down LUE. Educated pt on posture and had pt retract scapula with pt having no more nerve pain with improved posture. Had pt perform self-STM against wall with tennis ball to parascapular region and added to HEP. Pt has pain with all active movements today; switched to isometric exercises with pt having less pain. Pt instructed to ice shoulder when she gets home for pain management and continue with codman's exercise. Physical Therapy Plan Frequency and Duration Frequency of Treatment 1x/Week Plan of Care Start Date 01/21/21 Plan of Care End Date 04/20/21 Therapeutic Interventions Therapeutic Interventions Balance Training,Home Exercise Program,Manual Therapy, Neuromuscular Re-education, Patient/Caregiver Education, Self-Care/Home Management,Soft Tissue Mobilization,Taping, Therapeutic Activities, Therapeutic Exercises Modalities Cold Pack/Ice Massage,Electric Stimulation,Hot Packs, Ultrasound Next Visit Focus/Plan Next Note Type Treatment Note Next Visit Plan Educated in sleeping positions to minimize L shoulder pain, and educate in self care pain management techniques. Review issued HEP. Issue Codman's. Assess pt's first language. Assess Lumbar and C/S spine. Start flexibility ex's of the low back and ROM of L shoulder (Codman's, PROM, CKC flex/AB) . Progress toward resisted L shoulder ER/IR. STM to L neck/R LB. End modalities ( MH/ES for pain managment). Pt education in self care HEP.
--- NOTE | 2021-02-02 11:19 | PT.OTN ---
Current Diagnoses Pain in right hip (02/02/21) Radiculopathy, lumbar region (02/02/21) Muscle weakness (generalized) (02/02/21) Other synovitis and tenosynovitis, unspecified shoulder (02/02/21) Other abnormalities of gait and mobility (02/02/21) Repeated falls (02/02/21) Contusion of right back wall of thorax, initial encounter (02/02/21) Contusion of left shoulder, initial encounter (02/02/21) Physical Therapy Treatment Note PT-OP-A Visit Information Start: 01/15/21 18:10 Freq: Status: Active Protocol: Document 02/02/21 10:19 MA (Rec: 02/02/21 11:19 MA [id number]) Out-Patient Physical Therapy Visit Information Visit Information Visit Type Treatment Note Visit Start Time 10:20 Visit Stop Time 11:20 Total Visit Minutes 60 Visit Number 4 Number of HEALTH DATA ANALYST Visits 2 Precautions Precautions Pt reportedly on hold for bilateral carpal tunnel surgery until after current rehab program. Diabetes type II HBP controlled by medications Seizures 2 yrs ago (none for past 2 yrs) - controlled by medications. Arthritis of hands. PT-OP-B Current Condition Start: 01/15/21 18:10 Freq: Status: Active Protocol: Document 01/21/21 09:03 LRN (Rec: 01/21/21 10:32 LRN [id number]) Current Condition History of Current Condition Onset Date 1 month ago Current Complaints Back pain & L shoulder pain History of Current Condition Fell down from toilet x 2, not seizure related. Pt reports she just lost control of balance. First time landed on L elbow causing her L shoulder pain. 2nd time plopped down on the toilet hurting her back. She states her shoulder is hurting her the worst. R sided back pain is interrmittently when sitting too long (on standing) , at start of walking. Prior Treatments and Tests States X-rays taken for shoulder and back. X-ray results not available at this time. Future Testing and Treatments Planned Will plan on seeing referring physician for follow up visit when done with PT rehab program. Developmental History Developmental History Pt is L handed. Treatment Goals Patient/Caregiver Goals Pt goals: *Get rid of L shoulder pain, *Improve ability to dress without pain, *Able to move in bed without pain or not be woken at night due to pain (wakes 1x/night to use bathroom). *0-1/10 LB pain on standing and with first steps walking. Prior Functional Status Baseline Function- ADL's Independent Baseline Function- Mobility Independent Baseline Function- Gait Walked 3x/week for ~1 mile. Baseline Function- Other L LEG pain due to diabetes. Current Functional Impairments (Reported) Functional Limitations- ADL's Wakes 2x at night due to pain. Pain in LB and R hip when standing after prolonged sitting and with firt part of gait. Uses Salonpas pads to L shoulder & R LB to sleep at night. Functional Limitations- Mobility/Gait Not able to walk for exerise. Functional Limitations- Other No exercising. Personal Factors Other Personal Factors That May Effect Diabetes, Carpal tunnel Therapy/Recovery release of L & R hand on hold until after PT rehab, previous history of seizure with none for the past 2 yrs controlled by medications, controlled HBP, arthritis of hands. PT-OP-C Subjective Start: 01/15/21 18:10 Freq: Status: Active Protocol: Document 02/02/21 10:19 MA (Rec: 02/02/21 11:19 MA [id number]) OP-PT Subjective Patient Comments Patient Comments Pt rolled out with ball on wall one day since last visit. Her L shoudler is still bothering her but her back is feeling fine. PT-OP-J Posture/Palpation/Skin Start: 01/15/21 18:10 Freq: Status: Active Protocol: Document 01/21/21 09:03 LRN (Rec: 01/21/21 10:32 LRN [id number]) Posture Evaluation Position Standing Head/C-Spine Posture Forward Head T-Spine Posture Increased Kyphosis L-Spine Posture Increased Lordosis Pelvis Posture (L) PSIS Posterior Comments Posture Comments L shoulder - retracted, trunk - left SB, sacrum - L rotated. Increased sway on initial sit to stand. Palpation Assessment Location R neck Palpation Location R UT/Supraspinatus Palpation Findings Tenderness Sacrum Palpation Location R lateral border Palpation Findings Tenderness PT-OP-K Range of Motion Start: 01/15/21 18:10 Freq: Status: Active Protocol: Document 01/21/21 09:03 LRN (Rec: 01/21/21 10:32 LRN [id number]) Lumbar Spine Range of Motion Lumbar Spine Active Degrees Testing Position Standing Flexion 80 Extension 12 ROM Limitations Pain Comments Trunk flexion is with 55 deg's hip flexion Trunk extension is with 10 deg 's hip extension Shoulder Goniometric Range of Motion Shoulder Right Passive Shoulder ROM WFL Yes Testing Position Supine Flexion 162 Abduction 145 External Rotation at 90 degrees 90 Abduction Internal Rotation 90 Left Passive Shoulder ROM WFL No Testing Position Supine Flexion 100 Abduction 65 External Rotation at 45 degrees 0 Abduction Internal Rotation 22 Comments Pain with flexion PROM Right Active Shoulder ROM WFL Yes Testing Position Sitting Flexion 148 Extension 65 Abduction 168 External Rotation at 0 degrees Abduction 60 Internal Rotation Behind Back (text) T8 Left Active Shoulder ROM WFL No Testing Position Sitting Flexion 52 Extension 32 Abduction 47 External Rotation at 0 degrees Abduction 30 Internal Rotation Behind Back (text) Sacrum Hip Goniometric Range of Motion Hip Right Passive Testing Position Supine Straight Leg Raise 85 Internal Rotation 30 External Rotation 60 Left Passive Testing Position Supine Straight Leg Raise 85 Internal Rotation 30 External Rotation 60 PT-OP-L Special Tests Start: 01/15/21 18:10 Freq: Status: Active Protocol: Document 01/21/21 09:03 LRN (Rec: 01/21/21 10:32 LRN [id number]) Special Tests Shoulder Special Tests Elevation Impingement Test Results + left Comments Pain throughout the ROM with most increased pain at end- range flexion. PT-OP-M Strength Start: 01/15/21 18:10 Freq: Status: Active Protocol: Document 01/21/21 09:03 LRN (Rec: 01/21/21 10:32 LRN [id number]) Shoulder Strength Shoulder Manual Muscle Testing Right Comments Generally 5/5 Left Flexion 2- Poor- Extension 2 Poor Abduction (C5) 2- Poor- External Rotation 2- Poor- Internal Rotation 2 Poor Hip Strength Hip Manual Muscle Testing Right Flexion (L2) 5 Normal Abduction 5 Normal Adduction 5 Normal External Rotation 4+ Good+ Internal Rotation 5 Normal Left Flexion (L2) 5 Normal Abduction 5 Normal Adduction 5 Normal External Rotation 4+ Good+ Internal Rotation 5 Normal PT-OP-Q Treatments Start: 01/15/21 18:10 Freq: Status: Active Protocol: Document 02/02/21 10:19 MA (Rec: 02/02/21 11:19 MA [id number]) Therapeutic Exercises Supine Exercises Pec Stretch Supine Exercise Name 90/90 Side bilateral Reps/Minutes 2' Comments PT holding pt's UE for comfort -could try pillow under arm next session Sitting Exercises Scapular pinches Sitting Exercise Name Scapular pinches Side bilateral Reps/Minutes 2' x 3 Comments Phys & v cuing for not breath holding and limiting L shldr ER to avoid pain Standing Exercises Codman Standing Exercise Name Codman's Side left L Shoulder Flex strengthening Standing Exercise Name Anastasia Shoulder Ext strengthening Side left Reps/Minutes 5 hold, 10x Shoulder Ext strengthening Standing Exercise Name Anastasia Shoulder Ext strengthening Side left Reps/Minutes 5 hold, 10x Shoulder AB strengthening Standing Exercise Name Anastasia Shoulder AB strengthening Side left Reps/Minutes 10 hold, 15x Manual Therapy Treatment Soft Tissue Mobilization L Supraspinatus Body Location L Supraspinatus Mobilization Type Strumming,Sustained Pressure Intensity/Depth Moderate Body Position Sidelying L UT Body Location L UT & mid trap/rhomboids, pecs Mobilization Type Strumming,Sustained Pressure Intensity/Depth Moderate Body Position Sidelying Self-Care/Home Management Treatment Education Patient Education Body Mechanics,Pain Management Other Education Educated pt in best sleeping position in SL with pillow between UEs for comfort. PT-OP-R Modalities Start: 01/15/21 18:10 Freq: Status: Active Protocol: Document 02/02/21 10:19 MA (Rec: 02/02/21 11:19 MA [id number]) Hot Pack/Cold Pack Treatment Cryocuff Location L shd Patient Position Supine Treatment Duration (minutes) 10 Patient Tolerance Good PT-OP-T Assessment and Plan Start: 01/15/21 18:10 Freq: Status: Active Protocol: Document 02/02/21 10:19 MA (Rec: 02/02/21 11:19 MA [id number]) Physical Therapy Assessment Goals Four Impairment Decreased L shoulder strength Impairment L shoulder strength is: Flex, AB, ER is 2-/5; Ext & IR is 2/5 Short Term Goal (STG) Improve L shoulder strength to no less than 3/5 STG Duration 03/05/21 Utility Service Worker Goal (LTG) Improve L shoulder strength (3 +-4/5) with pt will be able to move in bed without L shoulder pain or not be woken at night due to shoulder pain (wakes 1x/night to use bathroom). LTG Duration 04/20/21 Three Impairment Decreased L shoulder AROM Impairment Painfree AROM in deg's: L shldr: Flex is 100, AB is 65, ER (at 45 deg's AB) is 0, IR is 22. R shldr: Flex is 162, AB is 145, ER (at 90 deg's AB) is 90 , IR is 90. Short Term Goal (STG) Increase L shoulder AROM with pt able to dress without pain. STG Duration 03/05/21 Utility Service Worker Goal (LTG) L shoulder AROM with only end- range discomfort. LTG Duration 04/20/21 Two Impairment R LBP (5/10) hinders sit<> stand mobility and initial steps with gait Impairment Lumbar AROM: Flex 80 deg's with 55 deg's hip flexion. Extension is 12 deg's with 10 deg's hip extension. Short Term Goal (STG) Improve painfree lumbar trunk mobility STG Duration 02/19/21 Utility Service Worker Goal (LTG) Decrease LBP to 0-1/10 on standing and with first steps walking. LTG Duration 04/20/21 One Impairment Lacks appropriate self care HEP Short Term Goal (STG) Pt educated in sleeping positions to minimize L shoulder pain, and educated in self care pain management techniques. STG Duration 02/12/21 Jail Goal (LTG) Pt will be independent with a self care ROM and strengthening HEP for the R LB /R hip and L shoulder. LTG Duration 04/20/21 Assessment Summary Assessment Pt is tender to palpation around L scapula, biceps and pecs. She has not been doing isometric exercises properly at home and needs a quick review at end of session today . Will continue to review these exercises next session. She asks about a pec stretch her son showed her using the wall. Pt requires postural cues to do pec stretch in doorway properly. Performed a pec stretch in supine as well with LUE 90/90 with PT supporting pt's L arm for comfort. Kourtney struggles with scap retraction and needs manual assistance to ensure retraction or she will just pull elbows back extending LUE vs retracting shd. Ended today's session with cryocuff to L should for pain management. Encouraged pt to take her tylenol prior to pt appts to help with the pain vs after. Physical Therapy Plan Frequency and Duration Frequency of Treatment 1x/Week Plan of Care Start Date 01/21/21 Plan of Care End Date 04/20/21 Therapeutic Interventions Therapeutic Interventions Balance Training,Home Exercise Program,Manual Therapy, Neuromuscular Re-education, Patient/Caregiver Education, Self-Care/Home Management,Soft Tissue Mobilization,Taping, Therapeutic Activities, Therapeutic Exercises Modalities Cold Pack/Ice Massage,Electric Stimulation,Hot Packs, Ultrasound Next Visit Focus/Plan Next Note Type Treatment Note Next Visit Plan Continue working on scap retraction and isometric exercises against wall educate in self care pain management techniques. Review issued HEP. Issue Codman's. Assess pt's first language. Assess Lumbar and C/S spine. Start flexibility ex's of the low back and ROM of L shoulder (Codman's, PROM, CKC flex/AB) . Progress toward resisted L shoulder ER/IR. STM to L neck/R LB. End modalities ( MH/ES for pain managment). Pt education in self care HEP.
--- NOTE | 2021-02-05 13:08 | PT.OTN ---
Current Diagnoses Pain in right hip (02/05/21) Radiculopathy, lumbar region (02/05/21) Muscle weakness (generalized) (02/05/21) Other synovitis and tenosynovitis, unspecified shoulder (02/05/21) Other abnormalities of gait and mobility (02/05/21) Repeated falls (02/05/21) Contusion of right back wall of thorax, initial encounter (02/05/21) Contusion of left shoulder, initial encounter (02/05/21) Physical Therapy Treatment Note PT-OP-A Visit Information Start: 01/15/21 18:10 Freq: Status: Active Protocol: Document 02/05/21 11:10 MA (Rec: 02/05/21 13:01 MA [id number]) Out-Patient Physical Therapy Visit Information Visit Information Visit Type Treatment Note Visit Start Time 11:11 Visit Stop Time 12:00 Total Visit Minutes 49 Visit Number 5 Number of GANG INVESTIGATOR Visits 3 Precautions Precautions Pt reportedly on hold for bilateral carpal tunnel surgery until after current rehab program. Diabetes type II HBP controlled by medications Seizures 2 yrs ago (none for past 2 yrs) - controlled by medications. Arthritis of hands. PT-OP-B Current Condition Start: 01/15/21 18:10 Freq: Status: Active Protocol: Document 01/21/21 09:03 LRN (Rec: 01/21/21 10:32 LRN [id number]) Current Condition History of Current Condition Onset Date 1 month ago Current Complaints Back pain & L shoulder pain History of Current Condition Fell down from toilet x 2, not seizure related. Pt reports she just lost control of balance. First time landed on L elbow causing her L shoulder pain. 2nd time plopped down on the toilet hurting her back. She states her shoulder is hurting her the worst. R sided back pain is interrmittently when sitting too long (on standing) , at start of walking. Prior Treatments and Tests States X-rays taken for shoulder and back. X-ray results not available at this time. Future Testing and Treatments Planned Will plan on seeing referring physician for follow up visit when done with PT rehab program. Developmental History Developmental History Pt is L handed. Treatment Goals Patient/Caregiver Goals Pt goals: *Get rid of L shoulder pain, *Improve ability to dress without pain, *Able to move in bed without pain or not be woken at night due to pain (wakes 1x/night to use bathroom). *0-1/10 LB pain on standing and with first steps walking. Prior Functional Status Baseline Function- ADL's Independent Baseline Function- Mobility Independent Baseline Function- Gait Walked 3x/week for ~1 mile. Baseline Function- Other L LEG pain due to diabetes. Current Functional Impairments (Reported) Functional Limitations- ADL's Wakes 2x at night due to pain. Pain in LB and R hip when standing after prolonged sitting and with firt part of gait. Uses Salonpas pads to L shoulder & R LB to sleep at night. Functional Limitations- Mobility/Gait Not able to walk for exerise. Functional Limitations- Other No exercising. Personal Factors Other Personal Factors That May Effect Diabetes, Carpal tunnel Therapy/Recovery release of L & R hand on hold until after PT rehab, previous history of seizure with none for the past 2 yrs controlled by medications, controlled HBP, arthritis of hands. PT-OP-C Subjective Start: 01/15/21 18:10 Freq: Status: Active Protocol: Document 02/05/21 11:10 MA (Rec: 02/05/21 13:01 MA [id number]) OP-PT Subjective Patient Comments Patient Comments Pt feels her shoulder is still hurting and her L hip feels weak and hurts her Patient Questionnaires Lower Extremity Functional Scale LEFS Impairment 20 to 39% Impaired (Score 48- 62) Oswestry Low Back Index Oswestry Impairment 1 to 19% Impaired (Score 1-19) Quick Dash- Upper Extremity Quick Dash UE Impairment 20 to 39% Impaired (Score 20- 39) PT-OP-J Posture/Palpation/Skin Start: 01/15/21 18:10 Freq: Status: Active Protocol: Document 01/21/21 09:03 LRN (Rec: 01/21/21 10:32 LRN [id number]) Posture Evaluation Position Standing Head/C-Spine Posture Forward Head T-Spine Posture Increased Kyphosis L-Spine Posture Increased Lordosis Pelvis Posture (L) PSIS Posterior Comments Posture Comments L shoulder - retracted, trunk - left SB, sacrum - L rotated. Increased sway on initial sit to stand. Palpation Assessment Location R neck Palpation Location R UT/Supraspinatus Palpation Findings Tenderness Sacrum Palpation Location R lateral border Palpation Findings Tenderness PT-OP-K Range of Motion Start: 01/15/21 18:10 Freq: Status: Active Protocol: Document 01/21/21 09:03 LRN (Rec: 01/21/21 10:32 LRN [id number]) Lumbar Spine Range of Motion Lumbar Spine Active Degrees Testing Position Standing Flexion 80 Extension 12 ROM Limitations Pain Comments Trunk flexion is with 55 deg's hip flexion Trunk extension is with 10 deg 's hip extension Shoulder Goniometric Range of Motion Shoulder Right Passive Shoulder ROM WFL Yes Testing Position Supine Flexion 162 Abduction 145 External Rotation at 90 degrees 90 Abduction Internal Rotation 90 Left Passive Shoulder ROM WFL No Testing Position Supine Flexion 100 Abduction 65 External Rotation at 45 degrees 0 Abduction Internal Rotation 22 Comments Pain with flexion PROM Right Active Shoulder ROM WFL Yes Testing Position Sitting Flexion 148 Extension 65 Abduction 168 External Rotation at 0 degrees Abduction 60 Internal Rotation Behind Back (text) T8 Left Active Shoulder ROM WFL No Testing Position Sitting Flexion 52 Extension 32 Abduction 47 External Rotation at 0 degrees Abduction 30 Internal Rotation Behind Back (text) Sacrum Hip Goniometric Range of Motion Hip Right Passive Testing Position Supine Straight Leg Raise 85 Internal Rotation 30 External Rotation 60 Left Passive Testing Position Supine Straight Leg Raise 85 Internal Rotation 30 External Rotation 60 PT-OP-L Special Tests Start: 01/15/21 18:10 Freq: Status: Active Protocol: Document 01/21/21 09:03 LRN (Rec: 01/21/21 10:32 LRN [id number]) Special Tests Shoulder Special Tests Elevation Impingement Test Results + left Comments Pain throughout the ROM with most increased pain at end- range flexion. PT-OP-M Strength Start: 01/15/21 18:10 Freq: Status: Active Protocol: Document 01/21/21 09:03 LRN (Rec: 01/21/21 10:32 LRN [id number]) Shoulder Strength Shoulder Manual Muscle Testing Right Comments Generally 5/5 Left Flexion 2- Poor- Extension 2 Poor Abduction (C5) 2- Poor- External Rotation 2- Poor- Internal Rotation 2 Poor Hip Strength Hip Manual Muscle Testing Right Flexion (L2) 5 Normal Abduction 5 Normal Adduction 5 Normal External Rotation 4+ Good+ Internal Rotation 5 Normal Left Flexion (L2) 5 Normal Abduction 5 Normal Adduction 5 Normal External Rotation 4+ Good+ Internal Rotation 5 Normal PT-OP-Q Treatments Start: 01/15/21 18:10 Freq: Status: Active Protocol: Document 02/05/21 11:10 MA (Rec: 02/05/21 13:01 MA [id number]) Therapeutic Exercises Supine Exercises ER Supine Exercise Name AROM pain free range Side left Reps/Minutes x5 Sitting Exercises Scapular pinches Sitting Exercise Name Scapular pinches Side bilateral Reps/Minutes 2' x 3 Comments Phys & v cuing for not breath holding and limiting L shldr ER to avoid pain Manual Therapy Treatment Soft Tissue Mobilization L Glutes Body Location L glute max and med L Supraspinatus Body Location L Supraspinatus & anterior/med delt Mobilization Type Strumming,Sustained Pressure Intensity/Depth Moderate Body Position Sidelying Self-Care/Home Management Treatment Education Patient Education Home Exercise Program,Pain Management,Posture Other Education Used shoulder model to explain rotator cuff and possibility of tear causing pt's pain. Explained goal to strengthen mms around shoulder to improve pt's posture and pain. Pulled out model of spine/hips with nerve roots to show pt how nerves run thorugh the body and can radiate down LE when muscles are tight in the hip. Added supine prifiromis/glute stretch to HEP along with self -STM using hard ball against wall to L glute. PT-OP-R Modalities Start: 01/15/21 18:10 Freq: Status: Active Protocol: Document 02/05/21 11:10 MA (Rec: 02/05/21 13:01 MA [id number]) Hot Pack/Cold Pack Treatment Hot Pack Location L Shoulder Patient Position Supine Treatment Duration (minutes) 15 Patient Tolerance Good PT-OP-T Assessment and Plan Start: 01/15/21 18:10 Freq: Status: Active Protocol: Document 02/05/21 11:10 MA (Rec: 02/05/21 13:01 MA [id number]) Physical Therapy Assessment Goals Four Impairment Decreased L shoulder strength Impairment L shoulder strength is: Flex, AB, ER is 2-/5; Ext & IR is 2/5 Short Term Goal (STG) Improve L shoulder strength to no less than 3/5 STG Duration 03/05/21 [employer] Goal (LTG) Improve L shoulder strength (3 +-4/5) with pt will be able to move in bed without L shoulder pain or not be woken at night due to shoulder pain (wakes 1x/night to use bathroom). LTG Duration 04/20/21 Three Impairment Decreased L shoulder AROM Impairment Painfree AROM in deg's: L shldr: Flex is 100, AB is 65, ER (at 45 deg's AB) is 0, IR is 22. R shldr: Flex is 162, AB is 145, ER (at 90 deg's AB) is 90 , IR is 90. Short Term Goal (STG) Increase L shoulder AROM with pt able to dress without pain. STG Duration 03/05/21 [employer] Goal (LTG) L shoulder AROM with only end- range discomfort. LTG Duration 04/20/21 Two Impairment R LBP (5/10) hinders sit<> stand mobility and initial steps with gait Impairment Lumbar AROM: Flex 80 deg's with 55 deg's hip flexion. Extension is 12 deg's with 10 deg's hip extension. Short Term Goal (STG) Improve painfree lumbar trunk mobility STG Duration 02/19/21 Long-Term Goal (LTG) Decrease LBP to 0-1/10 on standing and with first steps walking. LTG Duration 04/20/21 One Impairment Lacks appropriate self care HEP Short Term Goal (STG) Pt educated in sleeping positions to minimize L shoulder pain, and educated in self care pain management techniques. STG Duration 02/12/21 Long-Term Goal (LTG) Pt will be independent with a self care ROM and strengthening HEP for the R LB /R hip and L shoulder. LTG Duration 04/20/21 Assessment Summary Assessment Pt states her nerve pain has come back radiating down LLE. She is tender to palpation along L iliac crest and over mm belly of L glute max. Worked on pt's glute while on heat for L shoulder. Added glute/piriformis stretch in supine to HEP. Spent time educating pt on shoulder pain and LE nerve pain using models of hip/spine and shoulder. Worked on scaular retraction with pt's LUE supported on armrest of chair with pillow to decrease pain by approximating joint. Encouraged pt to continue working on scap retraction for improved posture and to decrease pain. Pt's son has encouraged her to use lacrosse ball at home to roll out glute. Had pt try on wall today at end of session with good results. Pt will add this to HEP. Pt finished questionnaires LEFS, Oswestry, and quick dash this session due to pt previously not completing all questions when asked to take home. Physical Therapy Plan Frequency and Duration Frequency of Treatment 1x/Week Plan of Care Start Date 01/21/21 Plan of Care End Date 04/20/21 Therapeutic Interventions Therapeutic Interventions Balance Training,Home Exercise Program,Manual Therapy, Neuromuscular Re-education, Patient/Caregiver Education, Self-Care/Home Management,Soft Tissue Mobilization,Taping, Therapeutic Activities, Therapeutic Exercises Modalities Cold Pack/Ice Massage,Electric Stimulation,Hot Packs, Ultrasound Next Visit Focus/Plan Next Note Type Treatment Note Next Visit Plan Continue working on scap retraction and isometric exercises against wall educate in self care pain management techniques. Review issued HEP. Issue Codman's. Assess pt's first language. Assess Lumbar and C/S spine. Start flexibility ex's of the low back and ROM of L shoulder (Codman's, PROM, CKC flex/AB) . Progress toward resisted L shoulder ER/IR. STM to L neck/R LB. End modalities ( MH/ES for pain managment). Pt education in self care HEP.
--- NOTE | 2021-02-08 18:13 | PT.OTN ---
Current Diagnoses Pain in right hip (02/08/21) Radiculopathy, lumbar region (02/08/21) Muscle weakness (generalized) (02/08/21) Other synovitis and tenosynovitis, unspecified shoulder (02/08/21) Other abnormalities of gait and mobility (02/08/21) Repeated falls (02/08/21) Contusion of right back wall of thorax, initial encounter (02/08/21) Contusion of left shoulder, initial encounter (02/08/21) Physical Therapy Treatment Note PT-OP-A Visit Information Start: 01/15/21 18:10 Freq: Status: Active Protocol: Document 02/08/21 10:36 LRN (Rec: 02/08/21 11:52 LRN [id number]) Out-Patient Physical Therapy Visit Information Visit Information Visit Type Progress Note Visit Start Time 10:36 Visit Stop Time 11:20 Total Visit Minutes 46 Visit Number 6 Evaluation Information Evaluation Date 01/21/21 Precautions Precautions Pt reportedly on hold for bilateral carpal tunnel surgery until after current rehab program. Diabetes type II HBP controlled by medications Seizures 2 yrs ago (none for past 2 yrs) - controlled by medications. Arthritis of hands. PT-OP-B Current Condition Start: 01/15/21 18:10 Freq: Status: Active Protocol: Document 01/21/21 09:03 LRN (Rec: 01/21/21 10:32 LRN [id number]) Current Condition History of Current Condition Onset Date 1 month ago Current Complaints Back pain & L shoulder pain History of Current Condition Fell down from toilet x 2, not seizure related. Pt reports she just lost control of balance. First time landed on L elbow causing her L shoulder pain. 2nd time plopped down on the toilet hurting her back. She states her shoulder is hurting her the worst. R sided back pain is interrmittently when sitting too long (on standing) , at start of walking. Prior Treatments and Tests States X-rays taken for shoulder and back. X-ray results not available at this time. Future Testing and Treatments Planned Will plan on seeing referring physician for follow up visit when done with PT rehab program. Developmental History Developmental History Pt is L handed. Treatment Goals Patient/Caregiver Goals Pt goals: *Get rid of L shoulder pain, *Improve ability to dress without pain, *Able to move in bed without pain or not be woken at night due to pain (wakes 1x/night to use bathroom). *0-1/10 LB pain on standing and with first steps walking. Prior Functional Status Baseline Function- ADL's Independent Baseline Function- Mobility Independent Baseline Function- Gait Walked 3x/week for ~1 mile. Baseline Function- Other L LEG pain due to diabetes. Current Functional Impairments (Reported) Functional Limitations- ADL's Wakes 2x at night due to pain. Pain in LB and R hip when standing after prolonged sitting and with firt part of gait. Uses Salonpas pads to L shoulder & R LB to sleep at night. Functional Limitations- Mobility/Gait Not able to walk for exerise. Functional Limitations- Other No exercising. Personal Factors Other Personal Factors That May Effect Diabetes, Carpal tunnel Therapy/Recovery release of L & R hand on hold until after PT rehab, previous history of seizure with none for the past 2 yrs controlled by medications, controlled HBP, arthritis of hands. PT-OP-C Subjective Start: 01/15/21 18:10 Freq: Status: Active Protocol: Document 02/08/21 10:36 LRN (Rec: 02/08/21 11:52 LRN [id number]) OP-PT Subjective Patient Comments Patient Comments States she always feels better at end of therapy, and prefers manual therapy first. Pt states her [place]. PT-OP-J Posture/Palpation/Skin Start: 01/15/21 18:10 Freq: Status: Active Protocol: Document 01/21/21 09:03 LRN (Rec: 01/21/21 10:32 LRN [id number]) Posture Evaluation Position Standing Head/C-Spine Posture Forward Head T-Spine Posture Increased Kyphosis L-Spine Posture Increased Lordosis Pelvis Posture (L) PSIS Posterior Comments Posture Comments L shoulder - retracted, trunk - left SB, sacrum - L rotated. Increased sway on initial sit to stand. Palpation Assessment Location R neck Palpation Location R UT/Supraspinatus Palpation Findings Tenderness Sacrum Palpation Location R lateral border Palpation Findings Tenderness PT-OP-K Range of Motion Start: 01/15/21 18:10 Freq: Status: Active Protocol: Document 02/08/21 10:36 LRN (Rec: 02/08/21 11:52 LRN [id number]) Shoulder Goniometric Range of Motion Shoulder Left Passive Shoulder ROM WFL No Testing Position Supine Flexion 150 Abduction 90 External Rotation at 90 degrees 70 Abduction External Rotation at 45 degrees 45 Abduction Internal Rotation 50 Comments Pt c/o much pain in getting to stretch positions, but relieves when returning to neutral. PT-OP-L Special Tests Start: 01/15/21 18:10 Freq: Status: Active Protocol: Document 01/21/21 09:03 LRN (Rec: 01/21/21 10:32 LRN [id number]) Special Tests Shoulder Special Tests Elevation Impingement Test Results + left Comments Pain throughout the ROM with most increased pain at end- range flexion. PT-OP-M Strength Start: 01/15/21 18:10 Freq: Status: Active Protocol: Document 01/21/21 09:03 LRN (Rec: 01/21/21 10:32 LRN [id number]) Shoulder Strength Shoulder Manual Muscle Testing Right Comments Generally 5/5 Left Flexion 2- Poor- Extension 2 Poor Abduction (C5) 2- Poor- External Rotation 2- Poor- Internal Rotation 2 Poor Hip Strength Hip Manual Muscle Testing Right Flexion (L2) 5 Normal Abduction 5 Normal Adduction 5 Normal External Rotation 4+ Good+ Internal Rotation 5 Normal Left Flexion (L2) 5 Normal Abduction 5 Normal Adduction 5 Normal External Rotation 4+ Good+ Internal Rotation 5 Normal PT-OP-Q Treatments Start: 01/15/21 18:10 Freq: Status: Active Protocol: Document 02/08/21 10:36 LRN (Rec: 02/08/21 11:52 LRN [id number]) Therapeutic Exercises Supine Exercises L shldr IR Supine Exercise Name PROM Side left Equipment Used MH to back & L shoulder Reps/Minutes 5' Comments Oscillation to L shoulder during stretch L shldr AB Supine Exercise Name PROM & AAROM Side left Equipment Used MH to back & L shoulder Reps/Minutes 6' Comments Oscillation to L shoulder during stretch PROM L shoulder Supine Exercise Name Flex Side left Equipment Used MH to back & L shoulder Reps/Minutes 5' Comments Oscillation to L shoulder during stretch ER Supine Exercise Name Cane PROM ex Side left Equipment Used MH to back & L shoulder Reps/Minutes 7' Comments Oscillation to L shoulder during stretch Standing Exercises Codman Standing Exercise Name Codman's Side left Reps/Minutes 3' Comments Pt needed V cuing and showing pt how to do ex Manual Therapy Treatment Soft Tissue Mobilization L Supraspinatus Body Location L Supraspinatus Mobilization Type Sustained Pressure Intensity/Depth Moderate Body Position Hooklying Comments Minimal change in ms tone. MH to back & L shoulder L UT Body Location L UT Mobilization Type Trigger Point Release Intensity/Depth Moderate Body Position Hooklying Comments Decrease muscle tone after treatment. MH to back & L shoulder Manual Techniques PROM L shoulder Type PROM (flex, ER, IR, AB) Body Location L shoulder Body Position Supine Reps/Duration 10' Comments Much vibration given to L shoulder during PROM ROM stretch. Round foam roll under L elbow during PROM to place arm in slight flex. Arm in various positions of AB. Self-Care/Home Management Treatment Activities Self-Care/Home Management Activities Reviewed self care of Ball at L GM for Trp treatment for pain. PT-OP-R Modalities Start: 01/15/21 18:10 Freq: Status: Active Protocol: Document 02/08/21 10:36 LRN (Rec: 02/08/21 17:44 LRN [id number]) Hot Pack/Cold Pack Treatment Cold Pack Location L shoulder at end of treatment Patient Position Hooklying Treatment Duration (minutes) 10 Comments Bolster under knees, L arm in ~45 deg's AB. Hot Pack Location Back & intermittently L shoulder Patient Position Supine Treatment Duration (minutes) 46 Comments Pt on MHP to back during duration of treatment and intermittently on L shoulder. Bolster under knees. PT-OP-T Assessment and Plan Start: 01/15/21 18:10 Freq: Status: Active Protocol: Document 02/08/21 10:36 LRN (Rec: 02/08/21 11:52 LRN [id number]) Physical Therapy Assessment Rehab Potential Rehabilitation Potential Excellent Evaluation Complexity Number of Personal Factors/Comorbidities 3 or More Number of Body Systems Impaired 4 or More Clinical Presentation at Evaluation Evolving Impairments Impairments Balance,Gait,Pain,Posture,ROM, Soft Tissue Mobility,Strength Goals Four Impairment Decreased L shoulder strength Impairment L shoulder strength is: Flex, AB, ER is 2-/5; Ext & IR is 2/5 Short Term Goal (STG) Improve L shoulder strength to no less than 3/5 STG Duration 03/05/21 [facility] Goal (LTG) Improve L shoulder strength (3 +-4/5) with pt will be able to move in bed without L shoulder pain or not be woken at night due to shoulder pain (wakes 1x/night to use bathroom). LTG Duration 04/20/21 Three Impairment Decreased L shoulder AROM Impairment Painfree AROM in deg's: L shldr: Flex is 100, AB is 65, ER (at 45 deg's AB) is 0, IR is 22. R shldr: Flex is 162, AB is 145, ER (at 90 deg's AB) is 90 , IR is 90. Short Term Goal (STG) Increase L shoulder AROM with pt able to dress without pain. (02/08/21: L shldr (in deg's): Flex 150, AB 90, ER 45 (at 45 deg's AB), 70 (@ 90 deg's AB) IR 50 (shoulder 90 deg's AB ). STG Duration 03/05/21 (02/08/21: Progressing) [facility] Goal (LTG) L shoulder AROM with only end- range discomfort. LTG Duration 04/20/21 Two Impairment R LBP (5/10) hinders sit<> stand mobility and initial steps with gait Impairment Lumbar AROM: Flex 80 deg's with 55 deg's hip flexion. Extension is 12 deg's with 10 deg's hip extension. Short Term Goal (STG) Improve painfree lumbar trunk mobility STG Duration 02/19/21 [facility] Goal (LTG) Decrease LBP to 0-1/10 on standing and with first steps walking. LTG Duration 04/20/21 One Impairment Lacks appropriate self care HEP Short Term Goal (STG) Pt educated in sleeping positions to minimize L shoulder pain, and educated in self care pain management techniques. STG Duration 02/12/21 [employer] Goal (LTG) Pt will be independent with a self care ROM and strengthening HEP for the R LB /R hip and L shoulder. LTG Duration 04/20/21 Progress Towards Goals Progress Comments Much improved L shoulder PROM. Assessment Summary Assessment Defer use of EStim due to seizure history. Pt demonstrates much improved PROM of L shoulder in all motions. Pt has pain at L shoulder joint and deltoid during movement and stretches, but appears to dissapate once AROM and stretching is stopped. Pt is very guarded ( vs frozen) with her L shoulder but is able to perform Codman 's now without pain. She is ready to start strengthening/ stabilizing ex's; therefore increase therapy to 2x/week. Lumbar assessment in next 1-2 visits. Physical Therapy Plan Frequency and Duration Frequency of Treatment 2x/Week Plan of Care Start Date 01/21/21 Plan of Care End Date 04/20/21 Therapeutic Interventions Therapeutic Interventions Balance Training,Home Exercise Program,Manual Therapy, Neuromuscular Re-education, Patient/Caregiver Education, Self-Care/Home Management,Soft Tissue Mobilization,Taping, Therapeutic Activities, Therapeutic Exercises Modalities Cold Pack/Ice Massage,Hot Packs,Ultrasound Next Visit Focus/Plan Next Note Type Treatment Note Next Visit Plan Continue working on scap retraction and progress strengthening of RC, review finger wall climbing for active shoulder flex, and progress active strengthening (try gravity resisted ex's). educate in self care pain management techniques. Issue Codman's. Assess Lumbar and C/S spine. Start flexibility ex's of the low back and ROM of L shoulder (Codman's, PROM, CKC flex/AB) . Progress toward resisted L shoulder ER/IR. STM to L neck/R LB. Pt education in self care HEP.
--- NOTE | 2021-02-12 14:44 | PT.OTN ---
Current Diagnoses Pain in right hip (02/12/21) Radiculopathy, lumbar region (02/12/21) Muscle weakness (generalized) (02/12/21) Other synovitis and tenosynovitis, unspecified shoulder (02/12/21) Other abnormalities of gait and mobility (02/12/21) Repeated falls (02/12/21) Contusion of right back wall of thorax, initial encounter (02/12/21) Contusion of left shoulder, initial encounter (02/12/21) Physical Therapy Treatment Note PT-OP-A Visit Information Start: 01/15/21 18:10 Freq: Status: Active Protocol: Document 02/12/21 09:52 MA (Rec: 02/12/21 10:35 MA [id number]) Out-Patient Physical Therapy Visit Information Visit Information Visit Type Treatment Note Visit Start Time 09:45 Visit Stop Time 10:45 Total Visit Minutes 60 Visit Number 7 Number of WATER PROOFER Visits 1 Precautions Precautions Pt reportedly on hold for bilateral carpal tunnel surgery until after current rehab program. Diabetes type II HBP controlled by medications Seizures 2 yrs ago (none for past 2 yrs) - controlled by medications. Arthritis of hands. PT-OP-B Current Condition Start: 01/15/21 18:10 Freq: Status: Active Protocol: Document 01/21/21 09:03 LRN (Rec: 01/21/21 10:32 LRN [id number]) Current Condition History of Current Condition Onset Date 1 month ago Current Complaints Back pain & L shoulder pain History of Current Condition Fell down from toilet x 2, not seizure related. Pt reports she just lost control of balance. First time landed on L elbow causing her L shoulder pain. 2nd time plopped down on the toilet hurting her back. She states her shoulder is hurting her the worst. R sided back pain is interrmittently when sitting too long (on standing) , at start of walking. Prior Treatments and Tests States X-rays taken for shoulder and back. X-ray results not available at this time. Future Testing and Treatments Planned Will plan on seeing referring physician for follow up visit when done with PT rehab program. Developmental History Developmental History Pt is L handed. Treatment Goals Patient/Caregiver Goals Pt goals: *Get rid of L shoulder pain, *Improve ability to dress without pain, *Able to move in bed without pain or not be woken at night due to pain (wakes 1x/night to use bathroom). *0-1/10 LB pain on standing and with first steps walking. Prior Functional Status Baseline Function- ADL's Independent Baseline Function- Mobility Independent Baseline Function- Gait Walked 3x/week for ~1 mile. Baseline Function- Other L LEG pain due to diabetes. Current Functional Impairments (Reported) Functional Limitations- ADL's Wakes 2x at night due to pain. Pain in LB and R hip when standing after prolonged sitting and with firt part of gait. Uses Salonpas pads to L shoulder & R LB to sleep at night. Functional Limitations- Mobility/Gait Not able to walk for exerise. Functional Limitations- Other No exercising. Personal Factors Other Personal Factors That May Effect Diabetes, Carpal tunnel Therapy/Recovery release of L & R hand on hold until after PT rehab, previous history of seizure with none for the past 2 yrs controlled by medications, controlled HBP, arthritis of hands. PT-OP-C Subjective Start: 01/15/21 18:10 Freq: Status: Active Protocol: Document 02/12/21 09:52 MA (Rec: 02/12/21 10:35 MA [id number]) OP-PT Subjective Patient Comments Patient Comments Pt had pain last night and had to take tylenol at 4:30 AM PT-OP-J Posture/Palpation/Skin Start: 01/15/21 18:10 Freq: Status: Active Protocol: Document 01/21/21 09:03 LRN (Rec: 01/21/21 10:32 LRN [id number]) Posture Evaluation Position Standing Head/C-Spine Posture Forward Head T-Spine Posture Increased Kyphosis L-Spine Posture Increased Lordosis Pelvis Posture (L) PSIS Posterior Comments Posture Comments L shoulder - retracted, trunk - left SB, sacrum - L rotated. Increased sway on initial sit to stand. Palpation Assessment Location R neck Palpation Location R UT/Supraspinatus Palpation Findings Tenderness Sacrum Palpation Location R lateral border Palpation Findings Tenderness PT-OP-K Range of Motion Start: 01/15/21 18:10 Freq: Status: Active Protocol: Document 02/08/21 10:36 LRN (Rec: 02/08/21 11:52 LRN [id number]) Shoulder Goniometric Range of Motion Shoulder Left Passive Shoulder ROM WFL No Testing Position Supine Flexion 150 Abduction 90 External Rotation at 90 degrees 70 Abduction External Rotation at 45 degrees 45 Abduction Internal Rotation 50 Comments Pt c/o much pain in getting to stretch positions, but relieves when returning to neutral. PT-OP-L Special Tests Start: 01/15/21 18:10 Freq: Status: Active Protocol: Document 01/21/21 09:03 LRN (Rec: 01/21/21 10:32 LRN [id number]) Special Tests Shoulder Special Tests Elevation Impingement Test Results + left Comments Pain throughout the ROM with most increased pain at end- range flexion. PT-OP-M Strength Start: 01/15/21 18:10 Freq: Status: Active Protocol: Document 01/21/21 09:03 LRN (Rec: 01/21/21 10:32 LRN [id number]) Shoulder Strength Shoulder Manual Muscle Testing Right Comments Generally 5/5 Left Flexion 2- Poor- Extension 2 Poor Abduction (C5) 2- Poor- External Rotation 2- Poor- Internal Rotation 2 Poor Hip Strength Hip Manual Muscle Testing Right Flexion (L2) 5 Normal Abduction 5 Normal Adduction 5 Normal External Rotation 4+ Good+ Internal Rotation 5 Normal Left Flexion (L2) 5 Normal Abduction 5 Normal Adduction 5 Normal External Rotation 4+ Good+ Internal Rotation 5 Normal PT-OP-Q Treatments Start: 01/15/21 18:10 Freq: Status: Active Protocol: Document 02/12/21 09:52 MA (Rec: 02/12/21 10:35 MA [id number]) Therapeutic Exercises Sitting Exercises Scapular pinches Sitting Exercise Name Scapular pinches Side bilateral Reps/Minutes 2' x 3 Comments Phys & v cuing for not breath holding and limiting L shldr ER to avoid pain Standing Exercises Wall walks Standing Exercise Name flexion Side left Reps/Minutes 3' Comments d/c due to pain today Codman Standing Exercise Name Codman's Side left Reps/Minutes 3' Comments Pt needed V cuing and showing pt how to do ex Therapeutic Activity Therapeutic Activity Posture Comments in mirror working on scap retraction without excessive spinal extension Manual Therapy Treatment Soft Tissue Mobilization L Glutes Body Location L glute med L Supraspinatus Body Location L Supraspinatus Mobilization Type Sustained Pressure Intensity/Depth Moderate Body Position Hooklying Comments Minimal change in ms tone. MH to back & L shoulder L UT Body Location L UT Mobilization Type Trigger Point Release Intensity/Depth Moderate Body Position Hooklying Comments Decrease muscle tone after treatment. MH to back & L shoulder Manual Techniques PROM L shoulder Type PROM (flex, ER, IR, AB) Body Location L shoulder Body Position Supine Reps/Duration 10' Comments Much vibration given to L shoulder during PROM ROM stretch. Round foam roll under L elbow during PROM to place arm in slight flex. Arm in various positions of AB. PT-OP-R Modalities Start: 01/15/21 18:10 Freq: Status: Active Protocol: Document 02/12/21 09:52 MA (Rec: 02/12/21 10:35 MA [id number]) Hot Pack/Cold Pack Treatment Hot Pack Location L shoulder Patient Position Supine Treatment Duration (minutes) 15 Comments Pt on MHP to shoulder at end of treatment and intermittently on L shoulder. Bolster under knees. PT-OP-T Assessment and Plan Start: 01/15/21 18:10 Freq: Status: Active Protocol: Document 02/12/21 09:52 MA (Rec: 02/12/21 10:35 MA [id number]) Physical Therapy Assessment Goals Four Impairment Decreased L shoulder strength Impairment L shoulder strength is: Flex, AB, ER is 2-/5; Ext & IR is 2/5 Short Term Goal (STG) Improve L shoulder strength to no less than 3/5 STG Duration 03/05/21 Radio Host Goal (LTG) Improve L shoulder strength (3 +-4/5) with pt will be able to move in bed without L shoulder pain or not be woken at night due to shoulder pain (wakes 1x/night to use bathroom). LTG Duration 04/20/21 Three Impairment Decreased L shoulder AROM Impairment Painfree AROM in deg's: L shldr: Flex is 100, AB is 65, ER (at 45 deg's AB) is 0, IR is 22. R shldr: Flex is 162, AB is 145, ER (at 90 deg's AB) is 90 , IR is 90. Short Term Goal (STG) Increase L shoulder AROM with pt able to dress without pain. (02/08/21: L shldr (in deg's): Flex 150, AB 90, ER 45 (at 45 deg's AB), 70 (@ 90 deg's AB) IR 50 (shoulder 90 deg's AB ). STG Duration 03/05/21 (02/08/21: Progressing) Radio Host Goal (LTG) L shoulder AROM with only end- range discomfort. LTG Duration 04/20/21 Two Impairment R LBP (5/10) hinders sit<> stand mobility and initial steps with gait Impairment Lumbar AROM: Flex 80 deg's with 55 deg's hip flexion. Extension is 12 deg's with 10 deg's hip extension. Short Term Goal (STG) Improve painfree lumbar trunk mobility STG Duration 02/19/21 Alf Goal (LTG) Decrease LBP to 0-1/10 on standing and with first steps walking. LTG Duration 04/20/21 One Impairment Lacks appropriate self care HEP Short Term Goal (STG) Pt educated in sleeping positions to minimize L shoulder pain, and educated in self care pain management techniques. STG Duration 02/12/21 Radio Host Goal (LTG) Pt will be independent with a self care ROM and strengthening HEP for the R LB /R hip and L shoulder. LTG Duration 04/20/21 Assessment Summary Assessment Kourtney has increased pain during PROM shd ABD today but has very little pain during PROM flexion and ER/IR. She requires cues during wall walks and scap retraction exercises to avoid spinal extension. Had pt watch herself in mirror for better understanding of posture during scap retraction to avoid spinal extension with pt showing improved posture when she can watch in mirror. Physical Therapy Plan Frequency and Duration Frequency of Treatment 2x/Week Plan of Care Start Date 01/21/21 Plan of Care End Date 04/20/21 Therapeutic Interventions Therapeutic Interventions Balance Training,Home Exercise Program,Manual Therapy, Neuromuscular Re-education, Patient/Caregiver Education, Self-Care/Home Management,Soft Tissue Mobilization,Taping, Therapeutic Activities, Therapeutic Exercises Modalities Cold Pack/Ice Massage,Hot Packs,Ultrasound Next Visit Focus/Plan Next Note Type Treatment Note Next Visit Plan Continue working on scap retraction in mirror and progress strengthening of RC, review finger wall climbing for active shoulder flex, and progress active strengthening (try gravity resisted ex's). educate in self care pain management techniques. Issue Codman's. Assess Lumbar and C/S spine. Start flexibility ex's of the low back and ROM of L shoulder (Codman's, PROM, CKC flex/AB) . Progress toward resisted L shoulder ER/IR. STM to L neck/R LB. Pt education in self care HEP.
--- NOTE | 2021-02-15 12:33 | PT.OTN ---
Current Diagnoses Pain in right hip (02/15/21) Radiculopathy, lumbar region (02/15/21) Muscle weakness (generalized) (02/15/21) Other synovitis and tenosynovitis, unspecified shoulder (02/15/21) Other abnormalities of gait and mobility (02/15/21) Repeated falls (02/15/21) Contusion of right back wall of thorax, initial encounter (02/15/21) Contusion of left shoulder, initial encounter (02/15/21) Physical Therapy Treatment Note PT-OP-A Visit Information Start: 01/15/21 18:10 Freq: Status: Active Protocol: Document 02/15/21 08:15 LRN (Rec: 02/15/21 09:06 LRN [id number]) Out-Patient Physical Therapy Visit Information Visit Information Visit Type Treatment Note Visit Start Time 08:15 Visit Stop Time 09:07 Total Visit Minutes 52 Visit Number 8 Evaluation Information Evaluation Date 01/21/21 Precautions Precautions Pt reportedly on hold for bilateral carpal tunnel surgery until after current rehab program. Diabetes type II HBP controlled by medications Seizures 2 yrs ago (none for past 2 yrs) - controlled by medications. Arthritis of hands. PT-OP-B Current Condition Start: 01/15/21 18:10 Freq: Status: Active Protocol: Document 01/21/21 09:03 LRN (Rec: 01/21/21 10:32 LRN [id number]) Current Condition History of Current Condition Onset Date 1 month ago Current Complaints Back pain & L shoulder pain History of Current Condition Fell down from toilet x 2, not seizure related. Pt reports she just lost control of balance. First time landed on L elbow causing her L shoulder pain. 2nd time plopped down on the toilet hurting her back. She states her shoulder is hurting her the worst. R sided back pain is interrmittently when sitting too long (on standing) , at start of walking. Prior Treatments and Tests States X-rays taken for shoulder and back. X-ray results not available at this time. Future Testing and Treatments Planned Will plan on seeing referring physician for follow up visit when done with PT rehab program. Developmental History Developmental History Pt is L handed. Treatment Goals Patient/Caregiver Goals Pt goals: *Get rid of L shoulder pain, *Improve ability to dress without pain, *Able to move in bed without pain or not be woken at night due to pain (wakes 1x/night to use bathroom). *0-1/10 LB pain on standing and with first steps walking. Prior Functional Status Baseline Function- ADL's Independent Baseline Function- Mobility Independent Baseline Function- Gait Walked 3x/week for ~1 mile. Baseline Function- Other L LEG pain due to diabetes. Current Functional Impairments (Reported) Functional Limitations- ADL's Wakes 2x at night due to pain. Pain in LB and R hip when standing after prolonged sitting and with firt part of gait. Uses Salonpas pads to L shoulder & R LB to sleep at night. Functional Limitations- Mobility/Gait Not able to walk for exerise. Functional Limitations- Other No exercising. Personal Factors Other Personal Factors That May Effect Diabetes, Carpal tunnel Therapy/Recovery release of L & R hand on hold until after PT rehab, previous history of seizure with none for the past 2 yrs controlled by medications, controlled HBP, arthritis of hands. PT-OP-C Subjective Start: 01/15/21 18:10 Freq: Status: Active Protocol: Document 02/15/21 08:15 LRN (Rec: 02/15/21 09:06 LRN [id number]) OP-PT Subjective Patient Comments Patient Comments Tninks she may have more movement but it is sore every time she moves. PT-OP-J Posture/Palpation/Skin Start: 01/15/21 18:10 Freq: Status: Active Protocol: Document 01/21/21 09:03 LRN (Rec: 01/21/21 10:32 LRN [id number]) Posture Evaluation Position Standing Head/C-Spine Posture Forward Head T-Spine Posture Increased Kyphosis L-Spine Posture Increased Lordosis Pelvis Posture (L) PSIS Posterior Comments Posture Comments L shoulder - retracted, trunk - left SB, sacrum - L rotated. Increased sway on initial sit to stand. Palpation Assessment Location R neck Palpation Location R UT/Supraspinatus Palpation Findings Tenderness Sacrum Palpation Location R lateral border Palpation Findings Tenderness PT-OP-K Range of Motion Start: 01/15/21 18:10 Freq: Status: Active Protocol: Document 02/15/21 08:15 LRN (Rec: 02/15/21 09:06 LRN [id number]) Cervical Spine Range of Motion Cervical Spine Active Degrees Testing Position Sitting Flexion 40 Extension 38 Rotation Left 58 Rotation Right 55 Lateral Flexion Left 20 Lateral Flexion Right 20 Shoulder Goniometric Range of Motion Shoulder Left Passive Shoulder ROM WFL No Testing Position Supine Flexion 75 Abduction 45 External Rotation at 45 degrees 45 Abduction Internal Rotation 50 Right Active External Rotation at 0 degrees Abduction 35 Internal Rotation Behind Back (text) T8 Left Active Shoulder ROM WFL No Testing Position Sitting Flexion 22 Extension 40 Abduction 35 External Rotation at 0 degrees Abduction 35 Internal Rotation Behind Back (text) Mid sacrum PT-OP-L Special Tests Start: 01/15/21 18:10 Freq: Status: Active Protocol: Document 01/21/21 09:03 LRN (Rec: 01/21/21 10:32 LRN [id number]) Special Tests Shoulder Special Tests Elevation Impingement Test Results + left Comments Pain throughout the ROM with most increased pain at end- range flexion. PT-OP-M Strength Start: 01/15/21 18:10 Freq: Status: Active Protocol: Document 01/21/21 09:03 LRN (Rec: 01/21/21 10:32 LRN [id number]) Shoulder Strength Shoulder Manual Muscle Testing Right Comments Generally 5/5 Left Flexion 2- Poor- Extension 2 Poor Abduction (C5) 2- Poor- External Rotation 2- Poor- Internal Rotation 2 Poor Hip Strength Hip Manual Muscle Testing Right Flexion (L2) 5 Normal Abduction 5 Normal Adduction 5 Normal External Rotation 4+ Good+ Internal Rotation 5 Normal Left Flexion (L2) 5 Normal Abduction 5 Normal Adduction 5 Normal External Rotation 4+ Good+ Internal Rotation 5 Normal PT-OP-Q Treatments Start: 01/15/21 18:10 Freq: Status: Active Protocol: Document 02/15/21 08:15 LRN (Rec: 02/15/21 09:06 LRN [id number]) Therapeutic Exercises Supine Exercises C/S Rot Side bilateral Reps/Minutes 3' PROM L shoulder Supine Exercise Name Flex, AB, ER, IR Side left Reps/Minutes 7' Comments Oscillation to L shoulder during stretch Sitting Exercises C/S rot stretch Side bilateral Reps/Minutes 2' C/S SB stretch Side bilateral Reps/Minutes 3' Manual Therapy Treatment Soft Tissue Mobilization L Supraspinatus Body Location L Supraspinatus Mobilization Type Sustained Pressure Intensity/Depth Moderate Body Position Hooklying Comments Minimal change in ms tone. MH to back & L shoulder L UT Body Location L UT Mobilization Type Trigger Point Release Intensity/Depth Moderate Body Position Hooklying Comments Decrease muscle tone after treatment. MH to back & L shoulder Self-Care/Home Management Treatment Education Patient Education Home Exercise Program Activities Self-Care/Home Management Activities Issued & reviewed HEP: Neck SB stretch PT-OP-R Modalities Start: 01/15/21 18:10 Freq: Status: Active Protocol: Document 02/15/21 08:15 LRN (Rec: 02/15/21 12:32 LRN [id number]) Hot Pack/Cold Pack Treatment Cold Pack Location L shoulder Patient Position Hooklying Treatment Duration (minutes) 10 Patient Tolerance Good PT-OP-T Assessment and Plan Start: 01/15/21 18:10 Freq: Status: Active Protocol: Document 02/15/21 08:15 LRN (Rec: 02/15/21 09:06 LRN [id number]) Physical Therapy Assessment Goals Four Impairment Decreased L shoulder strength Impairment L shoulder strength is: Flex, AB, ER is 2-/5; Ext & IR is 2/5 Short Term Goal (STG) Improve L shoulder strength to no less than 3/5 STG Duration 03/05/21 Intermediate Goal (LTG) Improve L shoulder strength (3 +-4/5) with pt will be able to move in bed without L shoulder pain or not be woken at night due to shoulder pain (wakes 1x/night to use bathroom). LTG Duration 04/20/21 Three Impairment Decreased L shoulder AROM Impairment Painfree AROM in deg's: L shldr: Flex is 100, AB is 65, ER (at 45 deg's AB) is 0, IR is 22. R shldr: Flex is 162, AB is 145, ER (at 90 deg's AB) is 90 , IR is 90. Short Term Goal (STG) Increase L shoulder AROM with pt able to dress without pain. (02/08/21: L shldr (in deg's): Flex 150, AB 90, ER 45 (at 45 deg's AB), 70 (@ 90 deg's AB) IR 50 (shoulder 90 deg's AB ). STG Duration 03/05/21 (02/08/21: Progressing) [employer] Goal (LTG) L shoulder AROM with only end- range discomfort. LTG Duration 04/20/21 Two Impairment R LBP (5/10) hinders sit<> stand mobility and initial steps with gait Impairment Lumbar AROM: Flex 80 deg's with 55 deg's hip flexion. Extension is 12 deg's with 10 deg's hip extension. Short Term Goal (STG) Improve painfree lumbar trunk mobility STG Duration 02/19/21 [employer] Goal (LTG) Decrease LBP to 0-1/10 on standing and with first steps walking. LTG Duration 04/20/21 One Impairment Lacks appropriate self care HEP Short Term Goal (STG) Pt educated in sleeping positions to minimize L shoulder pain, and educated in self care pain management techniques. STG Duration 02/12/21 Intermediate Goal (LTG) Pt will be independent with a self care ROM and strengthening HEP for the R LB /R hip and L shoulder. LTG Duration 04/20/21 Assessment Summary Assessment Soft tissue flare up due to activities of housecleaning and garden work. Decreased tolerance to L shoulder mobilization or exercise. STM /Trp treatment to L UT/ Supraspinatus ilicitied UE pain to fingertips. Physical Therapy Plan Frequency and Duration Frequency of Treatment 2x/Week Plan of Care Start Date 01/21/21 Plan of Care End Date 04/20/21 Next Visit Focus/Plan Next Note Type Treatment Note Next Visit Plan Progress back to ROM/ strengthening when pain decreases. Scap retraction in mirror and progress strengthening of RC, review finger wall climbing for active shoulder flex, and progress active strengthening (try gravity resisted ex's). educate in self care pain management techniques. Issue Codman's. Assess Lumbar spine. Start flexibility ex's of the low back and ROM of L shoulder (Codman's, PROM, CKC flex/AB) . Progress toward resisted L shoulder ER/IR. STM to L neck/R LB. Pt education in self care HEP.
--- NOTE | 2021-02-19 12:24 | PT.OTN ---
Current Diagnoses Pain in right hip (02/19/21) Radiculopathy, lumbar region (02/19/21) Muscle weakness (generalized) (02/19/21) Other synovitis and tenosynovitis, unspecified shoulder (02/19/21) Other abnormalities of gait and mobility (02/19/21) Repeated falls (02/19/21) Contusion of right back wall of thorax, initial encounter (02/19/21) Contusion of left shoulder, initial encounter (02/19/21) Physical Therapy Treatment Note PT-OP-A Visit Information Start: 01/15/21 18:10 Freq: Status: Active Protocol: Document 02/19/21 08:15 LRN (Rec: 02/19/21 09:03 LRN [id number]) Out-Patient Physical Therapy Visit Information Visit Information Visit Type Progress Note Visit Start Time 08:15 Visit Stop Time 09:00 Total Visit Minutes 45 Visit Number 9 Evaluation Information Evaluation Date 01/21/21 Precautions Precautions Pt reportedly on hold for bilateral carpal tunnel surgery until after current rehab program. Diabetes type II HBP controlled by medications Seizures 2 yrs ago (none for past 2 yrs) - controlled by medications. Arthritis of hands. PT-OP-B Current Condition Start: 01/15/21 18:10 Freq: Status: Active Protocol: Document 01/21/21 09:03 LRN (Rec: 01/21/21 10:32 LRN [id number]) Current Condition History of Current Condition Onset Date 1 month ago Current Complaints Back pain & L shoulder pain History of Current Condition Fell down from toilet x 2, not seizure related. Pt reports she just lost control of balance. First time landed on L elbow causing her L shoulder pain. 2nd time plopped down on the toilet hurting her back. She states her shoulder is hurting her the worst. R sided back pain is interrmittently when sitting too long (on standing) , at start of walking. Prior Treatments and Tests States X-rays taken for shoulder and back. X-ray results not available at this time. Future Testing and Treatments Planned Will plan on seeing referring physician for follow up visit when done with PT rehab program. Developmental History Developmental History Pt is L handed. Treatment Goals Patient/Caregiver Goals Pt goals: *Get rid of L shoulder pain, *Improve ability to dress without pain, *Able to move in bed without pain or not be woken at night due to pain (wakes 1x/night to use bathroom). *0-1/10 LB pain on standing and with first steps walking. Prior Functional Status Baseline Function- ADL's Independent Baseline Function- Mobility Independent Baseline Function- Gait Walked 3x/week for ~1 mile. Baseline Function- Other L LEG pain due to diabetes. Current Functional Impairments (Reported) Functional Limitations- ADL's Wakes 2x at night due to pain. Pain in LB and R hip when standing after prolonged sitting and with firt part of gait. Uses Salonpas pads to L shoulder & R LB to sleep at night. Functional Limitations- Mobility/Gait Not able to walk for exerise. Functional Limitations- Other No exercising. Personal Factors Other Personal Factors That May Effect Diabetes, Carpal tunnel Therapy/Recovery release of L & R hand on hold until after PT rehab, previous history of seizure with none for the past 2 yrs controlled by medications, controlled HBP, arthritis of hands. PT-OP-C Subjective Start: 01/15/21 18:10 Freq: Status: Active Protocol: Document 02/19/21 08:15 LRN (Rec: 02/19/21 09:03 LRN [id number]) OP-PT Subjective Patient Comments Patient Comments Has rested her arm for the past 3 days and still has same amount of soreness. When laying down on the floor. States she is going to see referring physician 03/01/21. PT-OP-J Posture/Palpation/Skin Start: 01/15/21 18:10 Freq: Status: Active Protocol: Document 01/21/21 09:03 LRN (Rec: 01/21/21 10:32 LRN [id number]) Posture Evaluation Position Standing Head/C-Spine Posture Forward Head T-Spine Posture Increased Kyphosis L-Spine Posture Increased Lordosis Pelvis Posture (L) PSIS Posterior Comments Posture Comments L shoulder - retracted, trunk - left SB, sacrum - L rotated. Increased sway on initial sit to stand. Palpation Assessment Location R neck Palpation Location R UT/Supraspinatus Palpation Findings Tenderness Sacrum Palpation Location R lateral border Palpation Findings Tenderness PT-OP-K Range of Motion Start: 01/15/21 18:10 Freq: Status: Active Protocol: Document 02/19/21 08:15 LRN (Rec: 02/19/21 09:03 LRN [id number]) Shoulder Goniometric Range of Motion Shoulder Left Passive Shoulder ROM WFL No Testing Position Supine Flexion 110 Abduction 70 External Rotation at 45 degrees 45 Abduction PT-OP-L Special Tests Start: 01/15/21 18:10 Freq: Status: Active Protocol: Document 01/21/21 09:03 LRN (Rec: 01/21/21 10:32 LRN [id number]) Special Tests Shoulder Special Tests Elevation Impingement Test Results + left Comments Pain throughout the ROM with most increased pain at end- range flexion. PT-OP-M Strength Start: 01/15/21 18:10 Freq: Status: Active Protocol: Document 01/21/21 09:03 LRN (Rec: 01/21/21 10:32 LRN [id number]) Shoulder Strength Shoulder Manual Muscle Testing Right Comments Generally 5/5 Left Flexion 2- Poor- Extension 2 Poor Abduction (C5) 2- Poor- External Rotation 2- Poor- Internal Rotation 2 Poor Hip Strength Hip Manual Muscle Testing Right Flexion (L2) 5 Normal Abduction 5 Normal Adduction 5 Normal External Rotation 4+ Good+ Internal Rotation 5 Normal Left Flexion (L2) 5 Normal Abduction 5 Normal Adduction 5 Normal External Rotation 4+ Good+ Internal Rotation 5 Normal PT-OP-Q Treatments Start: 01/15/21 18:10 Freq: Status: Active Protocol: Document 02/19/21 08:15 LRN (Rec: 02/19/21 09:03 LRN [id number]) Therapeutic Exercises Supine Exercises C/S Rot Side left Reps/Minutes 3' L shldr IR Supine Exercise Name AAROM & ARROM Side left Resistance 1# Reps/Minutes 10x L shldr AB Supine Exercise Name AAROM Side left Reps/Minutes 3' PROM L shoulder Supine Exercise Name Flex, AB, ER, IR Side left Reps/Minutes 10' Comments Oscillation to L shoulder & approximation during stretch ER Supine Exercise Name AAROM & ARROM Side left Resistance 1# Reps/Minutes 10x Sitting Exercises C/S SB stretch Side bilateral Reps/Minutes 4' Scapular pinches Sitting Exercise Name Scapular pinches Side bilateral Reps/Minutes 2' x 3 Comments Phys & v cuing for not breath holding and limiting L shldr ER to avoid pain Manual Therapy Treatment Soft Tissue Mobilization L Supraspinatus Body Location L Supraspinatus Mobilization Type Sustained Pressure Intensity/Depth Moderate Body Position Hooklying Comments Decrease ms tone after treatment. MH to neck L UT Body Location L UT Mobilization Type Trigger Point Release Body Position Hooklying Comments Decrease muscle tone after treatment. MH to neck. Joint Mobilizations 1st rib Joint 1st rib Direction Depression Grade II Body Position Supine Reps/Duration 3' Manual Traction Cervical Details Manual C tx Body Position Supine Reps/Duration 3' Comments No change with tingling in L hand or shoulder pain. Self-Care/Home Management Treatment Education Other Education Discussed POC. Pt to hold therapy (03/01/21 appt) until after seeing referring physician and to notify PT if continuation is needed or if she will be referred to othropedic physician. Activities Self-Care/Home Management Activities Issued & reviewed HEP: Cervical stretch: AROM of rot and SB. PT-OP-R Modalities Start: 01/15/21 18:10 Freq: Status: Active Protocol: Document 02/19/21 08:15 LRN (Rec: 02/19/21 09:03 LRN [id number]) Hot Pack/Cold Pack Treatment Hot Pack Location L shoulder, neck Patient Position Supine Comments Duration of time is during supine exercises PT-OP-T Assessment and Plan Start: 01/15/21 18:10 Freq: Status: Active Protocol: Document 02/19/21 08:15 LRN (Rec: 02/19/21 09:03 LRN [id number]) Physical Therapy Assessment Rehab Potential Rehabilitation Potential Excellent Evaluation Complexity Number of Personal Factors/Comorbidities 3 or More Number of Body Systems Impaired 4 or More Clinical Presentation at Evaluation Evolving Impairments Impairments Balance,Gait,Pain,Posture,ROM, Soft Tissue Mobility,Strength Goals Four Impairment Decreased L shoulder strength Impairment L shoulder strength is: Flex, AB, ER is 2-/5; Ext & IR is 2/5 Short Term Goal (STG) Improve L shoulder strength to no less than 3/5 STG Duration 03/05/21 Sap Basis Goal (LTG) Improve L shoulder strength (3 +-4/5) with pt will be able to move in bed without L shoulder pain or not be woken at night due to shoulder pain (wakes 1x/night to use bathroom). LTG Duration 04/20/21 Three Impairment Decreased L shoulder AROM Impairment Painfree AROM in deg's: L shldr: Flex is 100, AB is 65, ER (at 45 deg's AB) is 0, IR is 22. R shldr: Flex is 162, AB is 145, ER (at 90 deg's AB) is 90 , IR is 90. Short Term Goal (STG) Increase L shoulder AROM with pt able to dress without pain. (02/08/21: L shldr (in deg's): Flex 150, AB 90, ER 45 (at 45 deg's AB), 70 (@ 90 deg's AB) IR 50 (shoulder 90 deg's AB ). (02/19/21: AROM: Pt indicates too painful to move arm. PROM : L shldr (in deg's): Flex 110, AB 70, ER 45 (at 45 deg' s AB)). STG Duration 03/05/21 (02/08/21: Improved, worsened on 02/18/21 after yardworking) Sap Basis Goal (LTG) L shoulder AROM with only end- range discomfort. LTG Duration 04/20/21 Two Impairment R LBP (5/10) hinders sit<> stand mobility and initial steps with gait Impairment Lumbar AROM: Flex 80 deg's with 55 deg's hip flexion. Extension is 12 deg's with 10 deg's hip extension. Short Term Goal (STG) Improve painfree lumbar trunk mobility STG Duration 02/19/21 Sap Basis Goal (LTG) Decrease LBP to 0-1/10 on standing and with first steps walking. LTG Duration 04/20/21 One Impairment Lacks appropriate self care HEP Short Term Goal (STG) Pt educated in sleeping positions to minimize L shoulder pain, and educated in self care pain management techniques. STG Duration 02/12/21 Long-Term Goal (LTG) Pt will be independent with a self care ROM and strengthening HEP for the R LB /R hip and L shoulder. LTG Duration 04/20/21 Progress Towards Goals Progress Towards Goals Slow Progress due to Activity Tolerance Assessment Summary Assessment Pt is very guarded with L shoulder movement with noted pain with movement. She has made some progress in ROM, but no progress in strengthening. Approximation at the L shoulder & stabilization of anterior GHJ helps decrease pain. No change in pain w/cervical tx. Pt needs recheck on her R LB pain. Symptoms initially appeared pain due to soft tissue dysfunction. May proceed with manual and ex treatment for her R LB pain ( precaution of pt seizures limiting use of modalities). Physical Therapy Plan Frequency and Duration Frequency of Treatment 2x/Week Plan of Care Start Date 01/21/21 Plan of Care End Date 04/20/21 Therapeutic Interventions Therapeutic Interventions Balance Training,Home Exercise Program,Manual Therapy, Neuromuscular Re-education, Patient/Caregiver Education, Self-Care/Home Management,Soft Tissue Mobilization,Taping, Therapeutic Activities, Therapeutic Exercises Modalities Cold Pack/Ice Massage,Hot Packs Other Referrals/Consults Referrals/Consults Recommended Pt has had variable tolerance to L shoulder ROM due to pain complaints; therefore recommend further medical testing to rule out internal derangement of the L shoulder. Next Visit Focus/Plan Next Note Type Treatment Note Next Visit Plan Pt to see MD 03/01/21 with PN sent today. If pt returns before seeing MD, cont with gentle L shoulder ROM, Scap retraction in mirror and progress strengthening of RC, review finger wall climbing for active shoulder flex, and progress active strengthening (if tolerated, can try gravity resisted ex's). educate in self care pain management techniques. Issue Codman's. Assess Lumbar spine, start therapy for the low back if not able to do shoulder therapy. Start flexibility ex's of the low back and ROM of L shoulder (Codman's, PROM, CKC flex/AB) . Progress toward resisted L shoulder ER/IR. STM to L neck/R LB. Pt education in self care HEP. (Note: No EStim due to seizure history).
--- NOTE | 2021-02-24 10:18 | PT.OTN ---
Current Diagnoses Pain in right hip (02/24/21) Radiculopathy, lumbar region (02/24/21) Muscle weakness (generalized) (02/24/21) Other synovitis and tenosynovitis, unspecified shoulder (02/24/21) Other abnormalities of gait and mobility (02/24/21) Repeated falls (02/24/21) Contusion of right back wall of thorax, initial encounter (02/24/21) Contusion of left shoulder, initial encounter (02/24/21) Physical Therapy Treatment Note PT-OP-A Visit Information Start: 01/15/21 18:10 Freq: Status: Active Protocol: Document 02/24/21 09:20 MA (Rec: 02/24/21 10:17 MA [id number]) Out-Patient Physical Therapy Visit Information Visit Information Visit Type Treatment Note Visit Start Time 09:23 Visit Stop Time 10:15 Total Visit Minutes 52 Visit Number 10 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 Pt reports she just lost control of balance. First time landed on L elbow causing her L shoulder pain. 2nd time plopped down on the toilet hurting her back. She states her shoulder is hurting her the worst. R sided back pain is interrmittently when sitting too long (on standing) , at start of walking. Prior Treatments and Tests States X-rays taken for shoulder and back. X-ray results not available at this time. Future Testing and Treatments Planned Will plan on seeing referring physician for follow up visit when done with PT rehab program. Developmental History Developmental History Pt is L handed. Treatment Goals Patient/Caregiver Goals Pt goals: *Get rid of L shoulder pain, *Improve ability to dress without pain, *Able to move in bed without pain or not be woken at night due to pain (wakes 1x/night to use bathroom). *0-1/10 LB pain on standing and with first steps walking. Prior Functional Status Baseline Function- ADL's Independent Baseline Function- Mobility Independent Baseline Function- Gait Walked 3x/week for ~1 mile. Baseline Function- Other L LEG pain due to diabetes. Current Functional Impairments (Reported) Functional Limitations- ADL's Wakes 2x at night due to pain. Pain in LB and R hip when standing after prolonged sitting and with firt part of gait. Uses Salonpas pads to L shoulder & R LB to sleep at night. Functional Limitations- Mobility/Gait Not able to walk for exerise. Functional Limitations- Other No exercising. Personal Factors Other Personal Factors That May Effect Diabetes, Carpal tunnel Therapy/Recovery release of L & R hand on hold until after PT rehab, previous history of seizure with none for the past 2 yrs controlled by medications, controlled HBP, arthritis of hands. PT-OP-C Subjective Start: 01/15/21 18:10 Freq: Status: Active Protocol: Document 02/24/21 09:20 MA (Rec: 02/24/21 10:18 MA [id number]) OP-PT Subjective Patient Comments Patient Comments Pt continues to have L shd pain that keeps her up at night. She has appt scheduled with MD on 03/01 Patient Reported Progress Same PT-OP-J Posture/Palpation/Skin Start: 01/15/21 18:10 Freq: Status: Active Protocol: Document 01/21/21 09:03 LRN (Rec: 01/21/21 10:32 LRN [id number]) Posture Evaluation Position Standing Head/C-Spine Posture Forward Head T-Spine Posture Increased Kyphosis L-Spine Posture Increased Lordosis Pelvis Posture (L) PSIS Posterior Comments Posture Comments L shoulder - retracted, trunk - left SB, sacrum - L rotated. Increased sway on initial sit to stand. Palpation Assessment Location R neck Palpation Location R UT/Supraspinatus Palpation Findings Tenderness Sacrum Palpation Location R lateral border Palpation Findings Tenderness PT-OP-K Range of Motion Start: 01/15/21 18:10 Freq: Status: Active Protocol: Document 02/19/21 08:15 LRN (Rec: 02/19/21 09:03 LRN [id number]) Shoulder Goniometric Range of Motion Shoulder Left Passive Shoulder ROM WFL No Testing Position Supine Flexion 110 Abduction 70 External Rotation at 45 degrees 45 Abduction PT-OP-L Special Tests Start: 01/15/21 18:10 Freq: Status: Active Protocol: Document 01/21/21 09:03 LRN (Rec: 01/21/21 10:32 LRN [id number]) Special Tests Shoulder Special Tests Elevation Impingement Test Results + left Comments Pain throughout the ROM with most increased pain at end- range flexion. PT-OP-M Strength Start: 01/15/21 18:10 Freq: Status: Active Protocol: Document 01/21/21 09:03 LRN (Rec: 01/21/21 10:32 LRN [id number]) Shoulder Strength Shoulder Manual Muscle Testing Right Comments Generally 5/5 Left Flexion 2- Poor- Extension 2 Poor Abduction (C5) 2- Poor- External Rotation 2- Poor- Internal Rotation 2 Poor Hip Strength Hip Manual Muscle Testing Right Flexion (L2) 5 Normal Abduction 5 Normal Adduction 5 Normal External Rotation 4+ Good+ Internal Rotation 5 Normal Left Flexion (L2) 5 Normal Abduction 5 Normal Adduction 5 Normal External Rotation 4+ Good+ Internal Rotation 5 Normal PT-OP-Q Treatments Start: 01/15/21 18:10 Freq: Status: Active Protocol: Document 02/24/21 09:20 MA (Rec: 02/24/21 10:17 MA [id number]) Therapeutic Exercises Supine Exercises Flexion Supine Exercise Name AAROM with wand to 90 degrees flex Side bilateral Equipment Used wand PROM L shoulder Supine Exercise Name Flex, AB, ER, IR Side left Reps/Minutes 10' Comments Oscillation to L shoulder & approximation during stretch ER Supine Exercise Name AAROM Side left Resistance wand Reps/Minutes 10x Sitting Exercises Scapular pinches Sitting Exercise Name Scapular pinches Side bilateral Reps/Minutes 2' x 3 Comments Phys & v cuing for not breath holding and limiting L shldr ER to avoid pain Shoulder IR Sitting Exercise Name AAROM with wand Side left Reps/Minutes x8 Comments 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 MH to neck L UT Body Location L UT Mobilization Type Trigger Point Release Body Position Hooklying Comments Decrease muscle tone after treatment. MH to neck. Self-Care/Home Management Treatment Education Other Education Discussed difference between x -ray that pt already had taken and MRI requested. Pt now understands the difference between the two and the importance of getting her MRI results to know if anything is torn in her shd. Pt to cx appt on Monday PT-OP-R Modalities Start: 01/15/21 18:10 Freq: Status: Active Protocol: Document 02/24/21 09:20 MA (Rec: 02/24/21 10:17 MA [id number]) Hot Pack/Cold Pack Treatment Hot Pack Location L shoulder, neck Patient Position Supine Comments at end of session today PT-OP-T Assessment and Plan Start: 01/15/21 18:10 Freq: Status: Active Protocol: Document 02/24/21 09:20 MA (Rec: 02/24/21 10:17 MA [id number]) Physical Therapy Assessment Goals Four Impairment Decreased L shoulder strength Impairment L shoulder strength is: Flex, AB, ER is 2-/5; Ext & IR is 2/5 Short Term Goal (STG) Improve L shoulder strength to no less than 3/5 STG Duration 03/05/21 E Learning Manager Goal (LTG) Improve L shoulder strength (3 +-4/5) with pt will be able to move in bed without L shoulder pain or not be woken at night due to shoulder pain (wakes 1x/night to use bathroom). LTG Duration 04/20/21 Three Impairment Decreased L shoulder AROM Impairment Painfree AROM in deg's: L shldr: Flex is 100, AB is 65, ER (at 45 deg's AB) is 0, IR is 22. R shldr: Flex is 162, AB is 145, ER (at 90 deg's AB) is 90 , IR is 90. Short Term Goal (STG) Increase L shoulder AROM with pt able to dress without pain. (02/08/21: L shldr (in deg's): Flex 150, AB 90, ER 45 (at 45 deg's AB), 70 (@ 90 deg's AB) IR 50 (shoulder 90 deg's AB ). (02/19/21: AROM: Pt indicates too painful to move arm. PROM : L shldr (in deg's): Flex 110, AB 70, ER 45 (at 45 deg' s AB)). STG Duration 03/05/21 (02/08/21: Improved, worsened on 02/18/21 after yardworking) Mcfp Goal (LTG) L shoulder AROM with only end- range discomfort. LTG Duration 04/20/21 Two Impairment R LBP (5/10) hinders sit<> stand mobility and initial steps with gait Impairment Lumbar AROM: Flex 80 deg's with 55 deg's hip flexion. Extension is 12 deg's with 10 deg's hip extension. Short Term Goal (STG) Improve painfree lumbar trunk mobility STG Duration 02/19/21 E Learning Manager Goal (LTG) Decrease LBP to 0-1/10 on standing and with first steps walking. LTG Duration 04/20/21 One Impairment Lacks appropriate self care HEP Short Term Goal (STG) Pt educated in sleeping positions to minimize L shoulder pain, and educated in self care pain management techniques. STG Duration 02/12/21 Mcfp Goal (LTG) Pt will be independent with a self care ROM and strengthening HEP for the R LB /R hip and L shoulder. LTG Duration 04/20/21 Assessment Summary Assessment Pt has difficulty relaxing today during PROM movements. She has less pain with scap retraction exercise when assisted for GHJ approximation . She is able to IR and ER with less pain when given a towel roll to bring pt to neutral shd abduction. Discussed with pt difference between MRI and xray imaging. Due to pt's slow progress and continuing L shd pain, pt will cancel all PT appts until imaging complete. Physical Therapy Plan Frequency and Duration Frequency of Treatment 2x/Week Plan of Care Start Date 01/21/21 Plan of Care End Date 04/20/21 Therapeutic Interventions Therapeutic Interventions Balance Training,Home Exercise Program,Manual Therapy, Neuromuscular Re-education, Patient/Caregiver Education, Self-Care/Home Management,Soft Tissue Mobilization,Taping, Therapeutic Activities, Therapeutic Exercises Modalities Cold Pack/Ice Massage,Hot Packs Other Referrals/Consults Referrals/Consults Recommended Pt has had variable tolerance to L shoulder ROM due to pain complaints; therefore recommend further medical testing to rule out internal derangement of the L shoulder. Next Visit Focus/Plan Next Note Type Treatment Note Next Visit Plan Pt to see MD 03/01/21 with PN sent today. If pt returns before seeing MD, cont with gentle L shoulder ROM, Scap retraction in mirror and progress strengthening of RC, review finger wall climbing for active shoulder flex, and progress active strengthening (if tolerated, can try gravity resisted ex's). educate in self care pain management techniques. Issue Codman's. Assess Lumbar spine, start therapy for the low back if not able to do shoulder therapy. Start flexibility ex's of the low back and ROM of L shoulder (Codman's, PROM, CKC flex/AB) . Progress toward resisted L shoulder ER/IR. STM to L neck/R LB. Pt education in self care HEP. (Note: No EStim due to seizure history).
--- NOTE | 2021-03-02 17:20 | PT-OP ANOTE ---
Msg received requesting call back. Per telephone conversation the pt and daughter report she had a neck, back and shoulder xrays and does not know if she is to continue PT or not. Daughter states she will contact referring physician to see if she should continue therapy and will send message with pt if she is to continue or discharge.
--- NOTE | 2021-03-05 12:14 | PT-OP ANOTE ---
Per telephone conversation with pt's daughter Myrna, she states Dr. Mills would like pt to continue with therapy. The pt is scheduled for MRI of neck/shoulder today at 5:30p and her next PT appt is first pt on Monday03/08/21. PT recommendation is to hold PT until MRI results obtained to determine direction of plan of care. Myrna agreeable and will speak to pt regarding plan.
--- NOTE | 2021-03-05 17:19 | PT.OTN ---
Current Diagnoses Pain in right hip (03/05/21) Radiculopathy, lumbar region (03/05/21) Muscle weakness (generalized) (03/05/21) Other synovitis and tenosynovitis, unspecified shoulder (03/05/21) Other abnormalities of gait and mobility (03/05/21) Repeated falls (03/05/21) Contusion of right back wall of thorax, initial encounter (03/05/21) Contusion of left shoulder, initial encounter (03/05/21) Physical Therapy Treatment Note PT-OP-A Visit Information Start: 01/15/21 18:10 Freq: Status: Active Protocol: Document 03/05/21 08:17 LRN (Rec: 03/05/21 09:06 LRN [id number]) Out-Patient Physical Therapy Visit Information Visit Information Visit Type Treatment Note Visit Note 2 after PN Visit Start Time 08:17 Visit Stop Time 09:15 Total Visit Minutes 58 Visit Number 11 Evaluation Information Evaluation Date 01/21/21 Precautions Precautions Pt reportedly on hold for bilateral carpal tunnel surgery until after current rehab program. Diabetes type II HBP controlled by medications Seizures 2 yrs ago (none for past 2 yrs) - controlled by medications. Arthritis of hands. PT-OP-B Current Condition Start: 01/15/21 18:10 Freq: Status: Active Protocol: Document 01/21/21 09:03 LRN (Rec: 01/21/21 10:32 LRN [id number]) Current Condition History of Current Condition Onset Date 1 month ago Current Complaints Back pain & L shoulder pain History of Current Condition Fell down from toilet x 2, not seizure related. Pt reports she just lost control of balance. First time landed on L elbow causing her L shoulder pain. 2nd time plopped down on the toilet hurting her back. She states her shoulder is hurting her the worst. R sided back pain is interrmittently when sitting too long (on standing) , at start of walking. Prior Treatments and Tests States X-rays taken for shoulder and back. X-ray results not available at this time. Future Testing and Treatments Planned Will plan on seeing referring physician for follow up visit when done with PT rehab program. Developmental History Developmental History Pt is L handed. Treatment Goals Patient/Caregiver Goals Pt goals: *Get rid of L shoulder pain, *Improve ability to dress without pain, *Able to move in bed without pain or not be woken at night due to pain (wakes 1x/night to use bathroom). *0-1/10 LB pain on standing and with first steps walking. Prior Functional Status Baseline Function- ADL's Independent Baseline Function- Mobility Independent Baseline Function- Gait Walked 3x/week for ~1 mile. Baseline Function- Other L LEG pain due to diabetes. Current Functional Impairments (Reported) Functional Limitations- ADL's Wakes 2x at night due to pain. Pain in LB and R hip when standing after prolonged sitting and with firt part of gait. Uses Salonpas pads to L shoulder & R LB to sleep at night. Functional Limitations- Mobility/Gait Not able to walk for exerise. Functional Limitations- Other No exercising. Personal Factors Other Personal Factors That May Effect Diabetes, Carpal tunnel Therapy/Recovery release of L & R hand on hold until after PT rehab, previous history of seizure with none for the past 2 yrs controlled by medications, controlled HBP, arthritis of hands. PT-OP-C Subjective Start: 01/15/21 18:10 Freq: Status: Active Protocol: Document 03/05/21 08:17 LRN (Rec: 03/05/21 09:06 LRN [id number]) OP-PT Subjective Patient Comments Patient Comments Having MRI this evening, requests PT call and speak to daughter regarding plan of care. Pt reports L shoulder pain is 3/10 mostly at posterior neck , upper shoulder and lateral shoulder (sometimes down arm). States she took a muscle relaxor today (was 3/10 before med), now pain is 3/10. Sometimes has L leg pain, but not today. Pain was in the L hip after doing the ball on the wall exercise. Pt feels her low back doesn't bother her much, just occasionally. PT-OP-J Posture/Palpation/Skin Start: 01/15/21 18:10 Freq: Status: Active Protocol: Document 01/21/21 09:03 LRN (Rec: 01/21/21 10:32 LRN [id number]) Posture Evaluation Position Standing Head/C-Spine Posture Forward Head T-Spine Posture Increased Kyphosis L-Spine Posture Increased Lordosis Pelvis Posture (L) PSIS Posterior Comments Posture Comments L shoulder - retracted, trunk - left SB, sacrum - L rotated. Increased sway on initial sit to stand. Palpation Assessment Location R neck Palpation Location R UT/Supraspinatus Palpation Findings Tenderness Sacrum Palpation Location R lateral border Palpation Findings Tenderness PT-OP-K Range of Motion Start: 01/15/21 18:10 Freq: Status: Active Protocol: Document 03/05/21 08:17 LRN (Rec: 03/05/21 09:06 LRN [id number]) Lumbar Spine Range of Motion Lumbar Spine Active Degrees Comments Flex is 65/50 Ext is 20/10 Shoulder Goniometric Range of Motion Shoulder Right Passive Shoulder ROM WFL Yes Testing Position Supine Flexion 162 Abduction 145 External Rotation at 90 degrees 90 Abduction Internal Rotation 90 Left Passive Shoulder ROM WFL No Testing Position Supine Flexion 125 Abduction 70 External Rotation at 45 degrees 60 Abduction Comments IR at 45 deg's AB is 70 deg's. Right Active Shoulder ROM WFL Yes Testing Position Sitting Flexion 145 Extension 50 Abduction 170 External Rotation at 0 degrees Abduction 35 Internal Rotation Behind Back (text) T8 Left Active Shoulder ROM WFL No Testing Position Sitting Flexion 50 Extension 43 Abduction 45 External Rotation at 0 degrees Abduction 38 Internal Rotation Behind Back (text) L5 Hip Goniometric Range of Motion Hip Right Passive Hip ROM WFL Yes Testing Position Supine Straight Leg Raise 80 Internal Rotation 30 Left Passive Hip ROM WFL No Testing Position Supine Straight Leg Raise 45 Internal Rotation 30 PT-OP-L Special Tests Start: 01/15/21 18:10 Freq: Status: Active Protocol: Document 03/05/21 08:17 LRN (Rec: 03/05/21 09:06 LRN [id number]) Special Tests Lumbar Spine Special Tests Straight Leg Raise Test Results Left is + at 45 deg's, Right is - at 85 deg's. PT-OP-M Strength Start: 01/15/21 18:10 Freq: Status: Active Protocol: Document 01/21/21 09:03 LRN (Rec: 01/21/21 10:32 LRN [id number]) Shoulder Strength Shoulder Manual Muscle Testing Right Comments Generally 5/5 Left Flexion 2- Poor- Extension 2 Poor Abduction (C5) 2- Poor- External Rotation 2- Poor- Internal Rotation 2 Poor Hip Strength Hip Manual Muscle Testing Right Flexion (L2) 5 Normal Abduction 5 Normal Adduction 5 Normal External Rotation 4+ Good+ Internal Rotation 5 Normal Left Flexion (L2) 5 Normal Abduction 5 Normal Adduction 5 Normal External Rotation 4+ Good+ Internal Rotation 5 Normal PT-OP-Q Treatments Start: 01/15/21 18:10 Freq: Status: Active Protocol: Document 03/05/21 08:17 LRN (Rec: 03/05/21 17:06 LRN [id number]) Therapeutic Exercises Supine Exercises Hip IR stretch Supine Exercise Name Hip IR stretch Side bilateral Comments ROM taken PSLR/Hamstring stretch Supine Exercise Name Hamstring stretch Side bilateral Comments PSLR ROM taken PROM L shoulder Supine Exercise Name Flex, AB, ER, IR Side bilateral Reps/Minutes 8' Comments ROM taken, Oscillation to L shoulder & approximation during stretch Sitting Exercises Shoulder AROM Sitting Exercise Name Flex, Ext Reaching behind back Comments ROM taken C/S rot stretch Sitting Exercise Name C/S rotation Side bilateral Reps/Minutes 10x each C/S SB stretch Sitting Exercise Name C/S SB stretch Side bilateral Reps/Minutes 10x each Shoulder IR Sitting Exercise Name AROM Side bilateral Reps/Minutes 2-3x Comments ROM taken Shoulder ER Sitting Exercise Name AROM Side bilateral Reps/Minutes 2-3x Comments ROM taken Standing Exercises Trunk AROM Standing Exercise Name Trunk AROM Reps/Minutes 4' Comments ROM taken Manual Therapy Treatment Manual Traction Cervical Details Manual C tx Body Position Supine Reps/Duration 8' Comments No change with shoulder pain. Self-Care/Home Management Treatment Education Other Education Discussed pt's plan of care ( POC) and tried to explain possible changes to POC. Extended time for discussion due to pt's difficulty in understanding. Ended discussion with pt requesting I discuss with her daughter. PT-OP-R Modalities Start: 01/15/21 18:10 Freq: Status: Active Protocol: Document 03/05/21 08:17 LRN (Rec: 03/05/21 17:07 LRN [id number]) Hot Pack/Cold Pack Treatment Hot Pack Location Back/neck Patient Position Supine Comments at end of session today PT-OP-T Assessment and Plan Start: 01/15/21 18:10 Freq: Status: Active Protocol: Document 03/05/21 08:17 LRN (Rec: 03/05/21 09:06 LRN [id number]) Physical Therapy Assessment Goals Four Impairment Decreased L shoulder strength Impairment L shoulder strength is: Flex, AB, ER is 2-/5; Ext & IR is 2/5 Short Term Goal (STG) Improve L shoulder strength to no less than 3/5 STG Duration 03/05/21 Halfway Goal (LTG) Improve L shoulder strength (3 +-4/5) with pt will be able to move in bed without L shoulder pain or not be woken at night due to shoulder pain (wakes 1x/night to use bathroom). LTG Duration 04/20/21 Three Impairment Decreased L shoulder AROM Impairment Painfree AROM in deg's: L shldr: Flex is 100, AB is 65, ER (at 45 deg's AB) is 0, IR is 22. R shldr: Flex is 162, AB is 145, ER (at 90 deg's AB) is 90 , IR is 90. Short Term Goal (STG) Increase L shoulder AROM with pt able to dress without pain. (02/08/21: L shldr (in deg's): Flex 150, AB 90, ER 45 (at 45 deg's AB), 70 (@ 90 deg's AB) IR 50 (shoulder 90 deg's AB ). (02/19/21: AROM: Pt indicates too painful to move arm. PROM : L shldr (in deg's): Flex 110, AB 70, ER 45 (at 45 deg' s AB)). STG Duration 03/05/21 (02/08/21: Improved, worsened on 02/18/21 after yardworking) Halfway Goal (LTG) L shoulder AROM with only end- range discomfort. LTG Duration 04/20/21 Two Impairment R LBP (5/10) hinders sit<> stand mobility and initial steps with gait Impairment Lumbar AROM: Flex 80 deg's with 55 deg's hip flexion. Extension is 12 deg's with 10 deg's hip extension. Short Term Goal (STG) Improve painfree lumbar trunk mobility STG Duration 02/19/21 Hip Hop Artist Goal (LTG) Decrease LBP to 0-1/10 on standing and with first steps walking. LTG Duration 04/20/21 One Impairment Lacks appropriate self care HEP Short Term Goal (STG) Pt educated in sleeping positions to minimize L shoulder pain, and educated in self care pain management techniques. STG Duration 02/12/21 Hip Hop Artist Goal (LTG) Pt will be independent with a self care ROM and strengthening HEP for the R LB /R hip and L shoulder. LTG Duration 04/20/21 Assessment Summary Assessment Pt presents with improved L shoulder PROM (~5 deg's) and no improvement with AROM. Her trunk mobility is worse overall, with positive PSLR on the left. Will wait for MRI report before continuing PT. Physical Therapy Plan Frequency and Duration Frequency of Treatment 2x/Week Plan of Care Start Date 01/21/21 Plan of Care End Date 04/20/21 Other Referrals/Consults Referrals/Consults Recommended MRI for L shoulder. Next Visit Focus/Plan Next Note Type Treatment Note Next Visit Plan Hold PT Monday (03/08/21) until MRI results. Resume as appropriate based on results of MRI.
--- NOTE | 2021-03-12 10:20 | PT.OTN ---
Current Diagnoses Pain in right hip (03/12/21) Radiculopathy, lumbar region (03/12/21) Muscle weakness (generalized) (03/12/21) Other synovitis and tenosynovitis, unspecified shoulder (03/12/21) Other abnormalities of gait and mobility (03/12/21) Repeated falls (03/12/21) Contusion of right back wall of thorax, initial encounter (03/12/21) Contusion of left shoulder, initial encounter (03/12/21) Physical Therapy Treatment Note PT-OP-A Visit Information Start: 01/15/21 18:10 Freq: Status: Active Protocol: Document 03/12/21 08:12 LRN (Rec: 03/12/21 09:04 LRN [id number]) Out-Patient Physical Therapy Visit Information Visit Information Visit Type Treatment Note Visit Note 3 after PN MRI 03/05/21 Visit Start Time 08:15 Visit Stop Time 09:10 Total Visit Minutes 55 Visit Number 12 Evaluation Information Evaluation Date 01/21/21 Precautions Precautions MRI results of 03/05/21 (Full thickness rupture of distal Supraspinatus, partial thickness tear distal infraspinatus, antieror labral tear, distal subsacpularis & biceps tendinosis). Pt reportedly on hold for bilateral carpal tunnel surgery until after current rehab program. Diabetes type II HBP controlled by medications Seizures 2 yrs ago (none for past 2 yrs) - controlled by medications. Arthritis of hands. PT-OP-B Current Condition Start: 01/15/21 18:10 Freq: Status: Active Protocol: Document 01/21/21 09:03 LRN (Rec: 01/21/21 10:32 LRN [id number]) Current Condition History of Current Condition Onset Date 1 month ago Current Complaints Back pain & L shoulder pain History of Current Condition Fell down from toilet x 2, not seizure related. Pt reports she just lost control of balance. First time landed on L elbow causing her L shoulder pain. 2nd time plopped down on the toilet hurting her back. She states her shoulder is hurting her the worst. R sided back pain is interrmittently when sitting too long (on standing) , at start of walking. Prior Treatments and Tests States X-rays taken for shoulder and back. X-ray results not available at this time. Future Testing and Treatments Planned Will plan on seeing referring physician for follow up visit when done with PT rehab program. Developmental History Developmental History Pt is L handed. Treatment Goals Patient/Caregiver Goals Pt goals: *Get rid of L shoulder pain, *Improve ability to dress without pain, *Able to move in bed without pain or not be woken at night due to pain (wakes 1x/night to use bathroom). *0-1/10 LB pain on standing and with first steps walking. Prior Functional Status Baseline Function- ADL's Independent Baseline Function- Mobility Independent Baseline Function- Gait Walked 3x/week for ~1 mile. Baseline Function- Other L LEG pain due to diabetes. Current Functional Impairments (Reported) Functional Limitations- ADL's Wakes 2x at night due to pain. Pain in LB and R hip when standing after prolonged sitting and with firt part of gait. Uses Salonpas pads to L shoulder & R LB to sleep at night. Functional Limitations- Mobility/Gait Not able to walk for exerise. Functional Limitations- Other No exercising. Personal Factors Other Personal Factors That May Effect Diabetes, Carpal tunnel Therapy/Recovery release of L & R hand on hold until after PT rehab, previous history of seizure with none for the past 2 yrs controlled by medications, controlled HBP, arthritis of hands. PT-OP-C Subjective Start: 01/15/21 18:10 Freq: Status: Active Protocol: Document 03/12/21 08:12 LRN (Rec: 03/12/21 09:04 LRN [id number]) OP-PT Subjective Patient Comments Patient Comments MRI done 1 week ago and is having another one done tomorrow. L hip pain rated 3/ 10 after sitting for prolonged time and with first steps. PT-OP-J Posture/Palpation/Skin Start: 01/15/21 18:10 Freq: Status: Active Protocol: Document 01/21/21 09:03 LRN (Rec: 01/21/21 10:32 LRN [id number]) Posture Evaluation Position Standing Head/C-Spine Posture Forward Head T-Spine Posture Increased Kyphosis L-Spine Posture Increased Lordosis Pelvis Posture (L) PSIS Posterior Comments Posture Comments L shoulder - retracted, trunk - left SB, sacrum - L rotated. Increased sway on initial sit to stand. Palpation Assessment Location R neck Palpation Location R UT/Supraspinatus Palpation Findings Tenderness Sacrum Palpation Location R lateral border Palpation Findings Tenderness PT-OP-K Range of Motion Start: 01/15/21 18:10 Freq: Status: Active Protocol: Document 03/05/21 08:17 LRN (Rec: 03/05/21 09:06 LRN [id number]) Lumbar Spine Range of Motion Lumbar Spine Active Degrees Comments Flex is 65/50 Ext is 20/10 Shoulder Goniometric Range of Motion Shoulder Right Passive Shoulder ROM WFL Yes Testing Position Supine Flexion 162 Abduction 145 External Rotation at 90 degrees 90 Abduction Internal Rotation 90 Left Passive Shoulder ROM WFL No Testing Position Supine Flexion 125 Abduction 70 External Rotation at 45 degrees 60 Abduction Comments IR at 45 deg's AB is 70 deg's. Right Active Shoulder ROM WFL Yes Testing Position Sitting Flexion 145 Extension 50 Abduction 170 External Rotation at 0 degrees Abduction 35 Internal Rotation Behind Back (text) T8 Left Active Shoulder ROM WFL No Testing Position Sitting Flexion 50 Extension 43 Abduction 45 External Rotation at 0 degrees Abduction 38 Internal Rotation Behind Back (text) L5 Hip Goniometric Range of Motion Hip Right Passive Hip ROM WFL Yes Testing Position Supine Straight Leg Raise 80 Internal Rotation 30 Left Passive Hip ROM WFL No Testing Position Supine Straight Leg Raise 45 Internal Rotation 30 PT-OP-L Special Tests Start: 01/15/21 18:10 Freq: Status: Active Protocol: Document 03/05/21 08:17 LRN (Rec: 03/05/21 09:06 LRN [id number]) Special Tests Lumbar Spine Special Tests Straight Leg Raise Test Results Left is + at 45 deg's, Right is - at 85 deg's. PT-OP-M Strength Start: 01/15/21 18:10 Freq: Status: Active Protocol: Document 01/21/21 09:03 LRN (Rec: 01/21/21 10:32 LRN [id number]) Shoulder Strength Shoulder Manual Muscle Testing Right Comments Generally 5/5 Left Flexion 2- Poor- Extension 2 Poor Abduction (C5) 2- Poor- External Rotation 2- Poor- Internal Rotation 2 Poor Hip Strength Hip Manual Muscle Testing Right Flexion (L2) 5 Normal Abduction 5 Normal Adduction 5 Normal External Rotation 4+ Good+ Internal Rotation 5 Normal Left Flexion (L2) 5 Normal Abduction 5 Normal Adduction 5 Normal External Rotation 4+ Good+ Internal Rotation 5 Normal PT-OP-Q Treatments Start: 01/15/21 18:10 Freq: Status: Active Protocol: Document 03/12/21 08:12 LRN (Rec: 03/12/21 09:04 LRN [id number]) Therapeutic Exercises Supine Exercises Lateral Hip stretch Supine Exercise Name Lateral Hip stretch Side left Comments Phys & v cuing needed to prevent trunk rot Hip IR stretch Supine Exercise Name Assisted Piriformis stretch Side left Comments Phys & v cuing to relax leg before stretch to avoid anterior hip pain PSLR/Hamstring stretch Supine Exercise Name Assisted Hamstring stretch Side bilateral Comments PSLR ROM taken LTR Supine Exercise Name LTR Side bilateral Sitting Exercises Scapular pinches Sitting Exercise Name Scapular pinches Side bilateral Reps/Minutes 3' Comments verbal cuing of review and proper performance (not extending arms) Standing Exercises Trunk AROM Standing Exercise Name Trunk AROM stretching Side bilateral Reps/Minutes 8' Comments AROM taken Manual Therapy Treatment Soft Tissue Mobilization L Glutes Body Location L Gluts/TFL/IT Band Mobilization Type Strumming Intensity/Depth Moderate Body Position Sidelying Self-Care/Home Management Treatment Education Patient Education Home Exercise Program Activities Self-Care/Home Management Activities Re-issued HEP of last set, bigger pictures. Review of what pt has been doing during prolonged sitting and discussed and instructed pt to do sitting L hip and trunk rot ex's also prolonged sitting and discussed stopping using ball to press into L hip and explanation of why. PT-OP-R Modalities Start: 01/15/21 18:10 Freq: Status: Active Protocol: Document 03/12/21 08:12 LRN (Rec: 03/12/21 09:04 LRN [id number]) Hot Pack/Cold Pack Treatment Hot Pack Location L shdr Patient Position Supine Treatment Duration (minutes) 10 Patient Tolerance Good PT-OP-T Assessment and Plan Start: 01/15/21 18:10 Freq: Status: Active Protocol: Document 03/12/21 08:12 LRN (Rec: 03/12/21 09:04 LRN [id number]) Physical Therapy Assessment Goals Four Impairment Decreased L shoulder strength Impairment L shoulder strength is: Flex, AB, ER is 2-/5; Ext & IR is 2/5 Short Term Goal (STG) Improve L shoulder strength to no less than 3/5 STG Duration 03/05/21 Senior Care Goal (LTG) Improve L shoulder strength (3 +-4/5) with pt will be able to move in bed without L shoulder pain or not be woken at night due to shoulder pain (wakes 1x/night to use bathroom). LTG Duration 04/20/21 Three Impairment Decreased L shoulder AROM Impairment Painfree AROM in deg's: L shldr: Flex is 100, AB is 65, ER (at 45 deg's AB) is 0, IR is 22. R shldr: Flex is 162, AB is 145, ER (at 90 deg's AB) is 90 , IR is 90. Short Term Goal (STG) Increase L shoulder AROM with pt able to dress without pain. (02/08/21: L shldr (in deg's): Flex 150, AB 90, ER 45 (at 45 deg's AB), 70 (@ 90 deg's AB) IR 50 (shoulder 90 deg's AB ). (02/19/21: AROM: Pt indicates too painful to move arm. PROM : L shldr (in deg's): Flex 110, AB 70, ER 45 (at 45 deg' s AB)). STG Duration 03/05/21 (02/08/21: Improved, worsened on 02/18/21 after yardworking) Director Of Publications Goal (LTG) L shoulder AROM with only end- range discomfort. LTG Duration 04/20/21 Two Impairment R LBP (5/10) hinders sit<> stand mobility and initial steps with gait Impairment Lumbar AROM: Flex 80 deg's with 55 deg's hip flexion. Extension is 12 deg's with 10 deg's hip extension. Short Term Goal (STG) Improve painfree lumbar trunk mobility. (03/12/21: Flex 90 deg's with 58 deg's hip flexion. Extension is 15 deg's with 3 deg's hip extension). STG Duration 02/19/21 Director Of Publications Goal (LTG) Decrease LBP to 0-1/10 on standing and with first steps walking. LTG Duration 04/20/21 One Impairment Lacks appropriate self care HEP Short Term Goal (STG) Pt educated in sleeping positions to minimize L shoulder pain, and educated in self care pain management techniques. STG Duration 02/12/21 Director Of Publications Goal (LTG) Pt will be independent with a self care ROM and strengthening HEP for the R LB /R hip and L shoulder. LTG Duration 04/20/21 Assessment Summary Assessment Results of MRI 03/05/21 show: Full thickness rupture Supraspinatus, partial thickness tear istal infraspinatus, distal subsacpularis tendinosis. Pt needs orthopedic assessment for her L shoulder; therefore holding shoulder rehabilitation until further medical intervention is obtained. Pt's L sciatic pain and decreased trunk mobility has improved significantly. She has normal painfree trunk mobility. Her L hip pain is now only after prolonged sitting, and may be being irritated by use of sustained pressure with a ball (meant for soft tissue trigger point treatment). Pt needs time for doing L hip ex's during prolonged sitting to see if she can manage her pain. Physical Therapy Plan Frequency and Duration Frequency of Treatment 2x/Week Plan of Care Start Date 01/21/21 Plan of Care End Date 04/20/21 Next Visit Focus/Plan Next Note Type Treatment Note Next Visit Plan In 2 weeks, recheck L hip pain for being present after prolonged sitting, using hip ex to manage her pain. Try manual lumbar traction or L hip traction to relieve medial greater trochanter pain if present. Hold L shoulder rehab due to MRI results of (Full thickness rupture of distal Supraspinatus, partial thickness tear distal infraspinatus, antieror labral tear, distal subsacpularis & biceps tendinosis).
--- NOTE | 2021-03-12 10:21 | PT-OP ANOTE ---
Pt to be seen in 2 weeks for recheck on L sciatic pain, all appts between there are to be canceled per physical therapist.
--- NOTE | 2021-03-29 17:35 | PT-OP ANOTE ---
Cancelled due to double booked appointments. Pt cancelled next visit due to having ortho appt
--- NOTE | 2021-04-05 08:53 | PT-OP ANOTE ---
Per telephone conversation with pt and her daughter (pt asked that therapist speak to daughter for details of care plan), pt is planning on surgery to repair 2 RC tears, 1 large, 1 small, hoping in 2 weeks. DA states orthopedic physician told her not to do therapy. Surgery not yet scheduled. Daughter (DA) advised pt will be discharged from PT, per orthopedic recommendation and DA advised pt will need a new referral to return to physical therapy post surgery. TRUONG understands.
--- NOTE | 2021-04-05 09:07 | PT.OPDS ---
Current Diagnoses Pain in right hip (03/12/21) Radiculopathy, lumbar region (03/12/21) Muscle weakness (generalized) (03/12/21) Other synovitis and tenosynovitis, unspecified shoulder (03/12/21) Other abnormalities of gait and mobility (03/12/21) Repeated falls (03/12/21) Contusion of right back wall of thorax, initial encounter (03/12/21) Contusion of left shoulder, initial encounter (03/12/21) Visit Care Team Role Provider Type [place] MD Attending Provider Physician Primary Care Provider Referring Provider Specialty: [facility] Address: [address] [place] [address], [facility] [place] [place], [facility] Email: [email or web address] Visit Number Visit Number 12 Discharge Summary PT-OP-B Current Condition Start: 01/15/21 18:10 Freq: Status: Active Protocol: Document 01/21/21 09:03 LRN (Rec: 01/21/21 10:32 LRN [id number]) Current Condition History of Current Condition Onset Date 1 month ago Current Complaints Back pain & L shoulder pain History of Current Condition Fell down from toilet x 2, not seizure related. Pt reports she just lost control of balance. First time landed on L elbow causing her L shoulder pain. 2nd time plopped down on the toilet hurting her back. She states her shoulder is hurting her the worst. R sided back pain is interrmittently when sitting too long (on standing) , at start of walking. Prior Treatments and Tests States X-rays taken for shoulder and back. X-ray results not available at this time. Future Testing and Treatments Planned Will plan on seeing referring physician for follow up visit when done with PT rehab program. Developmental History Developmental History Pt is L handed. Treatment Goals Patient/Caregiver Goals Pt goals: *Get rid of L shoulder pain, *Improve ability to dress without pain, *Able to move in bed without pain or not be woken at night due to pain (wakes 1x/night to use bathroom). *0-1/10 LB pain on standing and with first steps walking. Prior Functional Status Baseline Function- ADL's Independent Baseline Function- Mobility Independent Baseline Function- Gait Walked 3x/week for ~1 mile. Baseline Function- Other L LEG pain due to diabetes. Current Functional Impairments (Reported) Functional Limitations- ADL's Wakes 2x at night due to pain. Pain in LB and R hip when standing after prolonged sitting and with firt part of gait. Uses Salonpas pads to L shoulder & R LB to sleep at night. Functional Limitations- Mobility/Gait Not able to walk for exerise. Functional Limitations- Other No exercising. Personal Factors Other Personal Factors That May Effect Diabetes, Carpal tunnel Therapy/Recovery release of L & R hand on hold until after PT rehab, previous history of seizure with none for the past 2 yrs controlled by medications, controlled HBP, arthritis of hands. PT-OP-C Subjective Start: 01/15/21 18:10 Freq: Status: Active Protocol: Document 03/12/21 08:12 LRN (Rec: 03/12/21 09:04 LRN [id number]) OP-PT Subjective Patient Comments Patient Comments MRI done 1 week ago and is having another one done tomorrow. L hip pain rated 3/ 10 after sitting for prolonged time and with first steps. PT-OP-J Posture/Palpation/Skin Start: 01/15/21 18:10 Freq: Status: Active Protocol: Document 01/21/21 09:03 LRN (Rec: 01/21/21 10:32 LRN [id number]) Posture Evaluation Position Standing Head/C-Spine Posture Forward Head T-Spine Posture Increased Kyphosis L-Spine Posture Increased Lordosis Pelvis Posture (L) PSIS Posterior Comments Posture Comments L shoulder - retracted, trunk - left SB, sacrum - L rotated. Increased sway on initial sit to stand. Palpation Assessment Location R neck Palpation Location R UT/Supraspinatus Palpation Findings Tenderness Sacrum Palpation Location R lateral border Palpation Findings Tenderness PT-OP-K Range of Motion Start: 01/15/21 18:10 Freq: Status: Active Protocol: Document 03/05/21 08:17 LRN (Rec: 03/05/21 09:06 LRN [id number]) Lumbar Spine Range of Motion Lumbar Spine Active Degrees Comments Flex is 65/50 Ext is 20/10 Shoulder Goniometric Range of Motion Shoulder Right Passive Shoulder ROM WFL Yes Testing Position Supine Flexion 162 Abduction 145 External Rotation at 90 degrees 90 Abduction Internal Rotation 90 Left Passive Shoulder ROM WFL No Testing Position Supine Flexion 125 Abduction 70 External Rotation at 45 degrees 60 Abduction Comments IR at 45 deg's AB is 70 deg's. Right Active Shoulder ROM WFL Yes Testing Position Sitting Flexion 145 Extension 50 Abduction 170 External Rotation at 0 degrees Abduction 35 Internal Rotation Behind Back (text) T8 Left Active Shoulder ROM WFL No Testing Position Sitting Flexion 50 Extension 43 Abduction 45 External Rotation at 0 degrees Abduction 38 Internal Rotation Behind Back (text) L5 Hip Goniometric Range of Motion Hip Right Passive Hip ROM WFL Yes Testing Position Supine Straight Leg Raise 80 Internal Rotation 30 Left Passive Hip ROM WFL No Testing Position Supine Straight Leg Raise 45 Internal Rotation 30 PT-OP-L Special Tests Start: 01/15/21 18:10 Freq: Status: Active Protocol: Document 03/05/21 08:17 LRN (Rec: 03/05/21 09:06 LRN [id number]) Special Tests Lumbar Spine Special Tests Straight Leg Raise Test Results Left is + at 45 deg's, Right is - at 85 deg's. PT-OP-M Strength Start: 01/15/21 18:10 Freq: Status: Active Protocol: Document 01/21/21 09:03 LRN (Rec: 01/21/21 10:32 LRN [id number]) Shoulder Strength Shoulder Manual Muscle Testing Right Comments Generally 5/5 Left Flexion 2- Poor- Extension 2 Poor Abduction (C5) 2- Poor- External Rotation 2- Poor- Internal Rotation 2 Poor Hip Strength Hip Manual Muscle Testing Right Flexion (L2) 5 Normal Abduction 5 Normal Adduction 5 Normal External Rotation 4+ Good+ Internal Rotation 5 Normal Left Flexion (L2) 5 Normal Abduction 5 Normal Adduction 5 Normal External Rotation 4+ Good+ Internal Rotation 5 Normal PT-OP-T Assessment and Plan Start: 01/15/21 18:10 Freq: Status: Active Protocol: Document 04/05/21 08:56 LRN (Rec: 04/05/21 09:01 LRN [id number]) Physical Therapy Assessment Goals Four Impairment Decreased L shoulder strength Impairment L shoulder strength is: Flex, AB, ER is 2-/5; Ext & IR is 2/5 Short Term Goal (STG) Improve L shoulder strength to no less than 3/5 STG Duration 03/05/21 GOAL NOT MET Automotive Product Specialist Goal (LTG) Improve L shoulder strength (3 +-4/5) with pt will be able to move in bed without L shoulder pain or not be woken at night due to shoulder pain (wakes 1x/night to use bathroom). LTG Duration 04/20/21 GOAL NOT MET Three Impairment Decreased L shoulder AROM Impairment Painfree AROM in deg's: L shldr: Flex is 100, AB is 65, ER (at 45 deg's AB) is 0, IR is 22. R shldr: Flex is 162, AB is 145, ER (at 90 deg's AB) is 90 , IR is 90. Short Term Goal (STG) Increase L shoulder AROM with pt able to dress without pain. (02/08/21: L shldr (in deg's): Flex 150, AB 90, ER 45 (at 45 deg's AB), 70 (@ 90 deg's AB) IR 50 (shoulder 90 deg's AB ). (02/19/21: AROM: Pt indicates too painful to move arm. PROM : L shldr (in deg's): Flex 110, AB 70, ER 45 (at 45 deg' s AB)). STG Duration 03/05/21 (02/08/21: Improved, worsened on 02/18/21 after yardworking) Prison Goal (LTG) L shoulder AROM with only end- range discomfort. LTG Duration 04/20/21 GOAL NOT MET Two Impairment R LBP (5/10) hinders sit<> stand mobility and initial steps with gait Impairment Lumbar AROM: Flex 80 deg's with 55 deg's hip flexion. Extension is 12 deg's with 10 deg's hip extension. Short Term Goal (STG) Improve painfree lumbar trunk mobility. (03/12/21: Flex 90 deg's with 58 deg's hip flexion. Extension is 15 deg's with 3 deg's hip extension). STG Duration 02/19/21 (03/05/21: MET GOAL) Automotive Product Specialist Goal (LTG) Decrease LBP to 0-1/10 on standing and with first steps walking. LTG Duration 04/20/21 (03/05/21: MET GOAL) One Impairment Lacks appropriate self care HEP Short Term Goal (STG) Pt educated in sleeping positions to minimize L shoulder pain, and educated in self care pain management techniques. STG Duration 02/12/21 GOAL NOT MET Prison Goal (LTG) Pt will be independent with a self care ROM and strengthening HEP for the R LB /R hip and L shoulder. LTG Duration 04/20/21 GOAL NOT MET Assessment Summary Assessment Pt was last seen 03/12/21 and per MRI of 03/05/21, found to have a RC tear. Pt is planning on having surgery and will be scheduling it today. Pt understands she will be discharged from therapy today and will need a new referral to return to therapy after surgery. Overall, on the pt's last attended visit, her L sciatic pain and decreased trunk mobility overall improved significantly. She had normal painfree trunk mobility. Her L hip pain was only after prolonged sitting, and may be being irritated by use of sustained pressure with a ball (meant for soft tissue trigger point treatment). Pt needs time for doing L hip ex 's during prolonged sitting to see if she can manage her pain. Pt did not achieve goals associated to her L shoulder. Physical Therapy Plan Discharge Physical Therapy Discharge Reasons Change in Medical Status Discharge Comments Pt being discharged due to orthopedic physician did not want pt to continue therapy. Pt planning on being scheduled for RC surgery today. Thank you for your referral.
== END 2021-07-20 09:53 ==
LOC: PHYS 08:15
PROVIDERS: PCP Family Medicine; Referring Provider Family Medicine; Visit Provider Family Medicine
DX: M54.16 Radiculopathy, lumbar region (principal); M25.551 Pain in right hip; M65.819 Other synovitis and tenosynovitis, unspecified shoulder; R26.89 Other abnormalities of gait and mobility; R29.6 Repeated falls; S40.012A Contusion of left shoulder, initial encounter; S20.221A Contusion of right back wall of thorax, initial encounter; M62.81 Muscle weakness (generalized)
CPT/HCPCS: 97110; 97140; 97162; 97530; 97535

== ENCOUNTER → 2021-03-13 11:34 | Outpatient (CLI) | payer MEDICARE, OTHER, SELFPAY ==
--- NOTE | 2021-03-13 | DI.MRI.S_ITS ---
PROCEDURE: MR LUMBAR SPINE WO CON INDICATIONS: Radiculopathy, lumbar region TECHNIQUE: Noncontrast sagittal T1 spin echo and T2 fast echo, sagittal STIR, axial T1 and T2 fast spin echo through the lumbar spine. In cases with scoliosis, additional coronal T2 fast spin echo may be performed. COMPARISON: [facility], [place], XR LUMBAR SPINE 2-3V, 03/01/2021, 14:53. FINDINGS: Image quality: Excellent. Alignment and Curvature: There is normal bony alignment. Bone Marrow: Marrow is of normal overall signal. No acute vertebral body compression fractures. Spinal Cord: Conus medullaris terminates at the L1 level. Visualized cord demonstrates normal signal and size. Paraspinous Soft Tissues: No paravertebral masses. T12-L1: Disc bulge. Facet hypertrophy. No canal stenosis or foraminal stenosis. L1-L2: Disc bulge. Mild facet hypertrophy. No canal stenosis or foraminal stenosis. L2-L3: Disc bulge. Facet and ligament hypertrophy. Borderline canal stenosis. No significant foraminal stenosis. L3-L4: Moderately large diffuse disc bulge. Facet hypertrophy. Moderate to severe canal stenosis. No significant foraminal stenosis. L4-L5: Disc bulge. Prominent facet and ligament hypertrophy. Moderate to severe canal stenosis. Moderate right foraminal stenosis with mild flattening deformity on the exiting right L4 nerve root. Mild to moderate left foraminal stenosis. L5-S1: Disc bulge. Facet hypertrophy. Mild canal stenosis. Mild bilateral foraminal stenosis. IMPRESSION: 1. Diffuse degenerative change. 2. Canal stenosis is moderate to severe at L3-L4, moderate to severe at L4-L5, and mild at L5-S1. 3. Multilevel facet arthropathy. 4. Multilevel foraminal narrowing as described above. Dictated by: Clint Horton M.D. on 03/13/2021 at 18:27 Approved by: Clint Horton M.D. on 03/13/2021 at 18:31
== END ==
PROVIDERS: PCP Family Medicine; Referring Provider Family Medicine; Visit Provider Family Medicine
DX: M54.16 Radiculopathy, lumbar region (principal); M48.061 Spinal stenosis, lumbar region without neurogenic claudication; M47.816 Spondylosis without myelopathy or radiculopathy, lumbar region
CPT/HCPCS: 72148

== ENCOUNTER → 2021-03-26 07:43 | Outpatient (CLI) | payer MEDICARE, OTHER, SELFPAY ==
--- NOTE | 2021-03-26 | DI.RAD.S_ITS ---
PROCEDURE: XR CHEST 2V INDICATIONS: Bronchiectasis without acute exacerbation TECHNIQUE: 2 views of the chest were acquired. COMPARISON: None. FINDINGS: Surgical changes and devices: None. Lungs and pleura: Lungs are clear. No pleural effusions or pneumothorax. Mediastinum: Mediastinal contours are normal. Heart size is normal. Bones and chest wall: No suspicious bony abnormalities. Soft tissues appear unremarkable. IMPRESSION: No acute cardiopulmonary process demonstrated radiographically. Dictated by: Nilay Avendaño M.D. on 03/26/2021 at 10:34 Approved by: Nilay Avendaño M.D. on 03/26/2021 at 10:39
--- NOTE | 2021-03-26 | DI.MG.S_ITS ---
BILATERAL DIGITAL SCREENING MAMMOGRAM 3D/2D WITH CAD: 03/26/2021 CLINICAL: Routine screening. Family history of breast cancer. Comparison is made to exams dated: 03/03/2020 mammogram, 01/29/2019 mammogram, and 01/25/2018 mammogram - [facility]. There are scattered fibroglandular elements in both breasts. Current study was also evaluated with a Computer Aided Detection (CAD) system. No significant masses, calcifications, or other findings are seen in either breast. There has been no significant interval change. IMPRESSION: NEGATIVE There is no mammographic evidence of malignancy. A 1 year screening mammogram is recommended. This exam was interpreted at Station ID: [id number]. NOTE: For mammograms, a report in lay terms will be sent to the patient. Approximately 15% of breast malignancies will not be visualized mammographically. In the management of a palpable breast mass, a negative mammogram must not discourage biopsy of a clinically suspicious lesion. Electronically Signed By: Jose euceda/ryan:03/26/2021 12:16:11 letter sent: Normal Exam ACR BI-RADS Category 1: Negative [id number]
== END ==
PROVIDERS: PCP Family Medicine; Referring Provider Internal Medicine Pulmonary Disease; Visit Provider Family Medicine
DX: Z12.31 Encounter for screening mammogram for malignant neoplasm of breast (principal); Z80.3 Family history of malignant neoplasm of breast; J47.9 Bronchiectasis, uncomplicated
CPT/HCPCS: 71046; 77063; 77067

== ENCOUNTER → 2021-04-01 14:09 | Outpatient (CLI) | payer MEDICARE, OTHER, SELFPAY | PROVIDERS: PCP Family Medicine; Referring Provider Family Medicine; Visit Provider Family Medicine | DX: M54.16 Radiculopathy, lumbar region (principal); R20.2 Paresthesia of skin | CPT/HCPCS: 95886; 95910 ==

== ENCOUNTER → 2021-04-26 12:23 | Outpatient (CLI) | payer MEDICARE, OTHER, SELFPAY | PROVIDERS: PCP Family Medicine; Referring Provider Family Medicine; Visit Provider Family Medicine | DX: Z78.0 Asymptomatic menopausal state (principal); M85.851 Other specified disorders of bone density and structure, right thigh; E11.9 Type 2 diabetes mellitus without complications | CPT/HCPCS: 77080 ==

== ENCOUNTER → 2022-03-31 14:50 | Outpatient (CLI) | payer MEDICARE, OTHER, SELFPAY ==
--- NOTE | 2022-03-31 14:51 | DI.MG.S_ITS ---
BILATERAL DIGITAL SCREENING MAMMOGRAM 3D/2D WITH CAD: 03/31/2022 CLINICAL: Routine screening. Family history of breast cancer. Comparison is made to exams dated: 03/26/2021 mammogram, 03/03/2020 mammogram, and 01/29/2019 mammogram - [facility]. There are scattered areas of fibroglandular density in both breasts (category b / 25%-50% glandular tissue). Current study was also evaluated with a Computer Aided Detection (CAD) system. No significant masses, calcifications, or other findings are seen in either breast. There has been no significant interval change. IMPRESSION: NEGATIVE There is no mammographic evidence of malignancy. A 1 year screening mammogram is recommended. Based on the Tyrer Cuzick model (a risk assessment model) the patient's lifetime risk is 2.6% and her 10 year risk is 2.3%. According to the ACR, ACS, and NCCN guidelines, an annual breast MRI exam along with mammogram is recommended if the patient's lifetime risk is 20% or greater. This exam was interpreted at Station ID: [id number]. NOTE: For mammograms, a report in lay terms will be sent to the patient. Approximately 15% of breast malignancies will not be visualized mammographically. In the management of a palpable breast mass, a negative mammogram must not discourage biopsy of a clinically suspicious lesion. Electronically Signed By: Cheryl olguin/ryan:04/01/2022 10:19:21 letter sent: Normal Exam ACR BI-RADS Category 1: Negative [id number]
== END ==
PROVIDERS: Family Provider Family Medicine; PCP Family Medicine; Referring Provider Family Medicine; Visit Provider Family Medicine
DX: Z12.31 Encounter for screening mammogram for malignant neoplasm of breast (principal); Z80.3 Family history of malignant neoplasm of breast
CPT/HCPCS: 77063; 77067

== ENCOUNTER 2022-04-13 13:45 | Outpatient (RCR) | payer MEDICARE, OTHER, SELFPAY ==
--- NOTE | 2021-09-14 17:36 | PT.OIE ---
Current Diagnoses Muscle weakness (generalized) (09/14/21) Impingement syndrome of left shoulder (09/14/21) Strain of muscle(s) and tendon(s) of the rotator cuff of left shoulder, subsequent encounter (09/14/21) Visit Care Team Role Provider Type [place] MD Family Provider Physician Primary Care Provider Specialty: Family Practice Address: [facility] [place] [facility] [place], [address], [place], [address] Email: [email or web address] Seamus Mariano MD Attending Provider Non-Staff Referring Provider Specialty: Orthopedic Surgery Address: [address] [place] [address], [address], [place], [address] Email: Physical Therapy Initial Evaluation PT-OP-A Visit Information Start: 09/06/21 18:39 Freq: Status: Active Protocol: Document 09/14/21 09:48 LRN (Rec: 09/14/21 12:41 LRN [id number]) Out-Patient Physical Therapy Visit Information Visit Information Visit Type Initial Evaluation Visit Start Time 09:48 Visit Stop Time 10:30 Total Visit Minutes 42 Visit Number 1 Evaluation Information Evaluation Date 09/14/21 Precautions Precautions Vertigo, diabetes type II monitoring patch on L posterolateral brachium, controlled high blood pressure controlled by meds, Osteopenia, seizures controlled by meds, fall history (last incident 03/09), neuropathy of feet. PT-OP-B Current Condition Start: 09/06/21 18:39 Freq: Status: Active Protocol: Document 09/14/21 09:48 LRN (Rec: 09/14/21 12:41 LRN [id number]) Current Condition History of Current Condition Onset Date 04/29/21 Current Complaints L shoulder hurts and aches at night. History of Current Condition Pt reports s/p L RC and biceps repair 04/29/21 (post op ~19. 5 weeks). Was given ex's post op and is doing it sometimes . Pain in the back ( bilaterally) and hands ( bilaterally). Rehab protocol received (see referral). Prior Treatments and Tests Post op L shoulder exercises. Future Testing and Treatments Planned F/u with referring physician 2 -3 months after PT referral. Post op protocol issued (see referral information). Treatment Goals Patient/Caregiver Goals Pt goal is to become painfree in back and L shoulder, less pain on waking in morning, less pain dressing, improve L shoulder mobility. Prior Functional Status Baseline Function- ADL's Modified Independent Baseline Function- Mobility Modified Independent Baseline Function- Other L shoulder: AROM: too painful to move arm. PROM (in deg's): Flex 110, AB 70, ER 45 (at 45 deg's AB)) R shldr AROM: Flex is 162, AB is 145, ER (at 90 deg's AB) is 90, IR is 90. L shoulder strength is: Flex, AB, ER is 2-/5; Ext & IR is 2/5 Current Functional Impairments (Reported) Functional Limitations- ADL's L arm: can lift lift a bag of groceries with elbow, can dress with pain at L shoulder, can reach only to shoulder height without difficulty. Not able to personal hygiene ( spritz anal region) with L UE. Personal Factors Other Personal Factors That May Effect Vertigo, diabetes type II Therapy/Recovery monitoring patch on L posterolateral brachium, Osteopenia, seizures controlled by meds, fall history (last incident 03/09), neuropathy of feet. PT-OP-C Subjective Start: 09/06/21 18:39 Freq: Status: Active Protocol: Document 09/14/21 09:48 LRN (Rec: 09/14/21 12:41 LRN [id number]) Patient Questionnaires Quick Dash- Upper Extremity Quick Dash UE Score 47.7 Quick Dash UE Impairment 40 to 59% Impaired (Score 40- 59) OP-PT Pain Assessment Pain Assessment Grid Paper Pain Assessment Grid Completed Yes Location Hands Pain Location Details Kat surface of hands Intensity 8 Scale Used Numeric (0 - 10) L shoulder and upper back Pain Location Details Posterior L shoulder and upper back Intensity 8 Scale Used Numeric (0 - 10) PT-OP-E Functional Tests Start: 09/06/21 18:39 Freq: Status: Active Protocol: Document 09/14/21 09:48 LRN (Rec: 09/14/21 12:41 N [id number]) Functional Tests Apley's Scratch Test Action 1- Left anterior R shoulder Action 1- Right Posterior L spine of scapula Action 2- Left L ear Action 2- Right T2 Action 3- Left Lateral L hip Action 3- Right T9 PT-OP-J Posture/Palpation/Skin Start: 09/06/21 18:39 Freq: Status: Active Protocol: Document 09/14/21 09:48 LRN (Rec: 09/14/21 12:41 LRN [id number]) Posture Evaluation Position Standing Head/C-Spine Posture Forward Head T-Spine Posture Increased Kyphosis Shoulder Posture (L) Elevated Comments Posture Comments Sway back, atrophy of L shoulder and arm. Palpation Assessment Location Neck and L UT Palpation Location Neck and L upper shoulder Palpation Findings Soft Tissue Tightness,Muscle Guarding,Tenderness PT-OP-K Range of Motion Start: 09/06/21 18:39 Freq: Status: Active Protocol: Document 09/14/21 09:48 LRN (Rec: 09/14/21 12:41 LRN [id number]) Cervical Spine Range of Motion Cervical Spine Active Degrees Testing Position Sitting Flexion 85 Extension 35 Rotation Left 50 Rotation Right 50 Lateral Flexion Left 30 Lateral Flexion Right 20 ROM Limitations Soft Tissue Tightness,Pain Shoulder Goniometric Range of Motion Shoulder Left Passive Testing Position Supine Flexion 90 Right Active Shoulder ROM WFL No Flexion 142 Extension 65 Abduction 133 External Rotation at 0 degrees Abduction 68 Comments AB in scapular plane is 180 Left Active Shoulder ROM WFL No Testing Position Sitting Flexion 87 Extension 32 Abduction 52 External Rotation at 0 degrees Abduction 32 PT-OP-M Strength Start: 09/06/21 18:39 Freq: Status: Active Protocol: Document 09/14/21 09:48 LRN (Rec: 09/14/21 12:41 LRN [id number]) Cervical Spine Strength Cervical Spine Manual Muscle Testing Flexion (C1-2) 5 Normal Extension 5 Normal Lateral Flexion Left (C3) 4+ Good+ Lateral Flexion Right (C3) 5 Normal Comments Pain in L UT near spine with MMT of Left Lateral flexion. Shoulder Strength Shoulder Manual Muscle Testing Right External Rotation 4 Good Comments Generally 5/5 except as indicated above Left Comments Deferred due to recent RC/ Biceps surgery. Pt was not able to fully move her L UE against gravity; therefore strength assessed at 2+/5. PT-OP-Q Treatments Start: 09/06/21 18:39 Freq: Status: Active Protocol: Document 09/14/21 09:48 LRN (Rec: 09/14/21 12:41 LRN [id number]) Self-Care/Home Management Treatment Education Patient Education Home Exercise Program Other Education Discussed results of evaluation, goals, and plan of care (POC). Pt agreeable to goals and POC. Activities Self-Care/Home Management Activities HEP issued & reviewed of: active assisted (with opposite hand or I/S use of care) L shoulder stretch in flex and active ER (windshield wipe) in supine. PT-OP-T Assessment and Plan Start: 09/06/21 18:39 Freq: Status: Active Protocol: Document 09/14/21 09:48 LRN (Rec: 09/14/21 12:41 LRN [id number]) Physical Therapy Assessment Rehab Potential Rehabilitation Potential Good Evaluation Complexity Number of Personal Factors/Comorbidities 3 or More Number of Body Systems Impaired 4 or More Clinical Presentation at Evaluation Evolving Impairments Impairments Activity Tolerance,Pain, Posture,ROM,Soft Tissue Mobility,Strength Goals One Impairment Pt lacks appropriate L shoulder self care HEP Short Term Goal (STG) Pt will be educated in pain management techniques for self care. STG Duration 09/17/21 Tapper Hand Goal (LTG) Pt will be independent with self care HEP for L shoulder ROM and strengthening. LTG Duration 12/13/21 Four Impairment Decreased L UE functional use Impairment Initial UE QuickDASH score 47. 7 (40-59% imipaired) Short Term Goal (STG) Pt will be able to perform personal hygiene (spritz anal region) with L UE. STG Duration 10/29/21 Tapper Hand Goal (LTG) Improve L UE function per UE QuickDASH score of 1-19 (1-19% impaired) LTG Duration 12/13/21 Three Impairment Improve L shoulder mobility. Impairment Sitting L shoulder painfree AROM: Flex 87 deg's, Ext 32 deg's, AB 52 deg's, ER (0 deg' s AB) 32 deg's, reaching behind back-lateral L hip, reaching behind head-L ear, reaching across opposite shoulder-anterior R shoulder. [Sitting R shoulder AROM: Flex 142 deg's, Ext 65 deg'sm, AB 133 deg's ER (0 deg's AB) 68 deg's, reaching behind back - T9, reaching behind head - T2, reaching across opposite shoulder-posterior spine of opp scapula]. Short Term Goal (STG) Improve L shoulder mobility to 75% of normal mobility compared to the R shoulder. STG Duration 10/29/21 Tapper Hand Goal (LTG) Improve L shoulder mobility with pain no greater than 1/10 dressing. LTG Duration 12/13/21 Two Impairment L shoulder and upper back pain rated 9/10 limiting function and sleep. Short Term Goal (STG) Pt will be educated in sleep positions to minimize L shoulder and upper back pain and decrease shoulder pain to no greater than 5-6/10. STG Duration 10/29/21 Tapper Hand Goal (LTG) Decrease L shoulder and upper back pain 1/10 first in the morning and at rest for less pain with sleeping. LTG Duration 12/13/21 Assessment Summary Assessment Pt is a 75 yo female who is status post L shoulder arthroscopic massive rotator cuff repair. Pt indicates surgery included L Biceps repair, but not mentioned in referring physician note. Clarification of surgery requested at his office ([phone]). Pt presents with L shoulder pain interfering with her ability sleep, limited L shoulder mobility hindering her functional ability of ADLs and decreased L shoulder strength hindering her overall function. The pt is adamant for achieving a goal of being painfree and returning to function; therefore her rehabilitation may take longer to achieve the pt's expected goals. The pt will benefit from skilled physical therapy for pt education, training, self care HEP, therapeutic exercise, manual therapy, and modalities to promote return to prior level of function or pt's acceptable return to function. Physical Therapy Plan Frequency and Duration Frequency of Treatment 2x/Week Plan of Care Start Date 09/14/21 Plan of Care End Date 12/13/21 Therapeutic Interventions Therapeutic Interventions Aquatic Therapy,Home Exercise Program,Joint Mobilizations, Manual Therapy,Patient/ Caregiver Education,Self-Care/ Home Management,Soft Tissue Mobilization,Taping, Therapeutic Activities, Therapeutic Exercises Modalities Cold Pack/Ice Massage,Electric Stimulation,Hot Packs, Ultrasound Next Visit Focus/Plan Next Note Type Treatment Note Next Visit Plan POC per MD rehab protocol. Educ: pain management, sleeping positioning for comfort, posture (sit/stand). Discuss precautions and rehab protocol (avoid lifting, pushing, pulling, carrying with arms outstretched). Manual therapy: L shoulder/arm and upperback. Therapeutic ex: Scapular stab, L shoulder: PROM, AROM and self care HEP. Strengthening of L wrist, hand . Will address elbow after confirmation if repair performed. Modalities for pain and edema control as needed.
--- NOTE | 2021-09-14 17:36 | PT.OPPOC ---
Physical, Occupational & Speech Therapy At [facility] Current Diagnoses Muscle weakness (generalized) (09/14/21) Impingement syndrome of left shoulder (09/14/21) Strain of muscle(s) and tendon(s) of the rotator cuff of left shoulder, subsequent encounter (09/14/21) Visit Care Team Role Provider Type [place] MD Family Provider Physician Primary Care Provider Specialty: Family Practice Address: [address] [place] [address], [place], [address] Email: [email or web address] Seamus Mariano MD Attending Provider Non-Staff Referring Provider Specialty: Orthopedic Surgery Address: [address] [place] [address], [address], [place], [address] Email: Plan Of Care PT-OP-T Assessment and Plan Start: 09/06/21 18:39 Freq: Status: Active Protocol: Document 09/14/21 09:48 LRN (Rec: 09/14/21 12:41 LRN [id number]) Physical Therapy Assessment Rehab Potential Rehabilitation Potential Good Evaluation Complexity Number of Personal Factors/Comorbidities 3 or More Number of Body Systems Impaired 4 or More Clinical Presentation at Evaluation Evolving Impairments Impairments Activity Tolerance,Pain, Posture,ROM,Soft Tissue Mobility,Strength Goals One Impairment Pt lacks appropriate L shoulder self care HEP Short Term Goal (STG) Pt will be educated in pain management techniques for self care. STG Duration 09/17/21 Fdc Goal (LTG) Pt will be independent with self care HEP for L shoulder ROM and strengthening. LTG Duration 12/13/21 Four Impairment Decreased L UE functional use Impairment Initial UE QuickDASH score 47. 7 (40-59% imipaired) Short Term Goal (STG) Pt will be able to perform personal hygiene (spritz anal region) with L UE. STG Duration 10/29/21 Foundation Director Goal (LTG) Improve L UE function per UE QuickDASH score of 1-19 (1-19% impaired) LTG Duration 12/13/21 Three Impairment Improve L shoulder mobility. Impairment Sitting L shoulder painfree AROM: Flex 87 deg's, Ext 32 deg's, AB 52 deg's, ER (0 deg' s AB) 32 deg's, reaching behind back-lateral L hip, reaching behind head-L ear, reaching across opposite shoulder-anterior R shoulder. [Sitting R shoulder AROM: Flex 142 deg's, Ext 65 deg'sm, AB 133 deg's ER (0 deg's AB) 68 deg's, reaching behind back - T9, reaching behind head - T2, reaching across opposite shoulder-posterior spine of opp scapula]. Short Term Goal (STG) Improve L shoulder mobility to 75% of normal mobility compared to the R shoulder. STG Duration 10/29/21 Foundation Director Goal (LTG) Improve L shoulder mobility with pain no greater than 1/10 dressing. LTG Duration 12/13/21 Two Impairment L shoulder and upper back pain rated 9/10 limiting function and sleep. Short Term Goal (STG) Pt will be educated in sleep positions to minimize L shoulder and upper back pain and decrease shoulder pain to no greater than 5-6/10. STG Duration 10/29/21 Foundation Director Goal (LTG) Decrease L shoulder and upper back pain 1/10 first in the morning and at rest for less pain with sleeping. LTG Duration 12/13/21 Assessment Summary Assessment Pt is a 75 yo female who is status post L shoulder arthroscopic massive rotator cuff repair. Pt indicates surgery included L Biceps repair, but not mentioned in referring physician note. Clarification of surgery requested at his office ([phone]). Pt presents with L shoulder pain interferring with her ability sleep, limited L shoulder mobility hindering her functional ability of ADLs and decreased L shoulder strength hindering her overall function. The pt is adamant for achieving a goal of being painfree and returning to function; therefore her rehabilitation may take longer to achieve the pt's expected goals. The pt will benefit from skilled physical therapy for pt education, training, self care HEP, therapeutic exercise, manual therapy, and modalities to promote return to prior level of function or pt's acceptable return to function. Physical Therapy Plan Frequency and Duration Frequency of Treatment 2x/Week Plan of Care Start Date 09/14/21 Plan of Care End Date 12/13/21 Therapeutic Interventions Therapeutic Interventions Aquatic Therapy,Home Exercise Program,Joint Mobilizations, Manual Therapy,Patient/ Caregiver Education,Self-Care/ Home Management,Soft Tissue Mobilization,Taping, Therapeutic Activities, Therapeutic Exercises Modalities Cold Pack/Ice Massage,Electric Stimulation,Hot Packs, Ultrasound Next Visit Focus/Plan Next Note Type Treatment Note Next Visit Plan POC per MD rehab protocol. Educ: pain management, sleeping positioning for comfort, posture (sit/stand). Discuss precautions and rehab protocol (avoid lifting, pushing, pulling, carrying with arms outstretched). Manual therapy: L shoulder/arm and upperback. Therapeutic ex: Scapular stab, L shoulder: PROM, AROM and self care HEP. Strengthening of L wrist, hand . Will address elbow after confirmation if repair performed. Modalities for pain and edema control as needed. Plan of Care Dates Plan of Care Start Date 09/14/21 Plan of Care End Date 12/13/21 Electronically Signed by: Lilly Wellington, PT 09/14/21 [id number] Please Sign and Return: I have reviewed this Plan of Care and certify that the skilled therapy services above are required to meet the patient?s needs. Physician Signature Date Printed Name and Credentials Clinical Instructor Signature Printed Name and Credentials
--- NOTE | 2021-09-16 11:06 | PT-OP ANOTE ---
Msg received from date 09/15/[address] Mariano regarding Kourtney Garrison. Pt had biceps tenotomy and there should be no concern of her jocelin muscle in biceps area.
--- NOTE | 2021-09-17 17:30 | PT.OTN ---
Current Diagnoses Muscle weakness (generalized) (09/17/21) Impingement syndrome of left shoulder (09/17/21) Strain of muscle(s) and tendon(s) of the rotator cuff of left shoulder, subsequent encounter (09/17/21) Physical Therapy Treatment Note PT-OP-A Visit Information Start: 09/06/21 18:39 Freq: Status: Active Protocol: Document 09/17/21 09:53 LRN (Rec: 09/17/21 10:38 LRN [id number]) Out-Patient Physical Therapy Visit Information Visit Information Visit Type Treatment Note Visit Note 09/16/21: Msg received Dr. Garner that pt had biceps tenotomy and there should be no concern of her jocelin muscle in biceps area. Visit Start Time 09:53 Visit Stop Time 10:33 Total Visit Minutes 40 Visit Number 2 Evaluation Information Evaluation Date 09/14/21 Precautions Precautions Vertigo, diabetes type II monitoring patch on L posterolateral brachium, controlled high blood pressure controlled by meds, Osteopenia, seizures controlled by meds, fall history (last incident 03/09), neuropathy of feet. PT-OP-B Current Condition Start: 09/06/21 18:39 Freq: Status: Active Protocol: Document 09/14/21 09:48 LRN (Rec: 09/14/21 12:41 LRN [id number]) Current Condition History of Current Condition Onset Date 04/29/21 Current Complaints L shoulder hurts and aches at night. History of Current Condition Pt reports s/p L RC and biceps repair 04/29/21 (post op ~19. 5 weeks). Was given ex's post op and is doing it sometimes . Pain in the back ( bilaterally) and hands ( bilaterally). Rehab protocol received (see referral). Prior Treatments and Tests Post op L shoulder exercises. Future Testing and Treatments Planned F/u with referring physician 2 -3 months after PT referral. Post op protocol issued (see referral information). Treatment Goals Patient/Caregiver Goals Pt goal is to become painfree in back and L shoulder, less pain on waking in morning, less pain dressing, improve L shoulder mobility. Prior Functional Status Baseline Function- ADL's Modified Independent Baseline Function- Mobility Modified Independent Baseline Function- Other L shoulder: AROM: too painful to move arm. PROM (in deg's): Flex 110, AB 70, ER 45 (at 45 deg's AB)) R shldr AROM: Flex is 162, AB is 145, ER (at 90 deg's AB) is 90, IR is 90. L shoulder strength is: Flex, AB, ER is 2-/5; Ext & IR is 2/5 Current Functional Impairments (Reported) Functional Limitations- ADL's L arm: can lift lift a bag of groceries with elbow, can dress with pain at L shoulder, can reach only to shoulder height without difficulty. Not able to personal hygiene ( spritz anal region) with L UE. Personal Factors Other Personal Factors That May Effect Vertigo, diabetes type II Therapy/Recovery monitoring patch on L posterolateral brachium, Osteopenia, seizures controlled by meds, fall history (last incident 03/09), neuropathy of feet. PT-OP-C Subjective Start: 09/06/21 18:39 Freq: Status: Active Protocol: Document 09/17/21 09:53 LRN (Rec: 09/17/21 17:19 LRN [id number]) OP-PT Subjective Patient Comments Patient Comments Pt complains of pain in L shoulder, aching. States she has been carrying things greater than 1# and has not been keeping things close to her body. She indicates she has been using a cord for strengthening that was given to her after surgery. Pt indicates she has been lifting her arm overhead and doing active ER. Pt questions continued therapy in [place] and would like to have therapy closer to her home. She will check on other therapy places closer to home. Pt requesting pictures and handouts of a home exercise program. PT-OP-E Functional Tests Start: 09/06/21 18:39 Freq: Status: Active Protocol: Document 09/14/21 09:48 LRN (Rec: 09/14/21 12:41 LRN [id number]) Functional Tests Apley's Scratch Test Action 1- Left anterior R shoulder Action 1- Right Posterior L spine of scapula Action 2- Left L ear Action 2- Right T2 Action 3- Left Lateral L hip Action 3- Right T9 PT-OP-J Posture/Palpation/Skin Start: 09/06/21 18:39 Freq: Status: Active Protocol: Document 09/14/21 09:48 LRN (Rec: 09/14/21 12:41 LRN [id number]) Posture Evaluation Position Standing Head/C-Spine Posture Forward Head T-Spine Posture Increased Kyphosis Shoulder Posture (L) Elevated Comments Posture Comments Sway back, atrophy of L shoulder and arm. Palpation Assessment Location Neck and L UT Palpation Location Neck and L upper shoulder Palpation Findings Soft Tissue Tightness,Muscle Guarding,Tenderness PT-OP-K Range of Motion Start: 09/06/21 18:39 Freq: Status: Active Protocol: Document 09/14/21 09:48 LRN (Rec: 09/14/21 12:41 LRN [id number]) Cervical Spine Range of Motion Cervical Spine Active Degrees Testing Position Sitting Flexion 85 Extension 35 Rotation Left 50 Rotation Right 50 Lateral Flexion Left 30 Lateral Flexion Right 20 ROM Limitations Soft Tissue Tightness,Pain Shoulder Goniometric Range of Motion Shoulder Left Passive Testing Position Supine Flexion 90 Right Active Shoulder ROM WFL No Flexion 142 Extension 65 Abduction 133 External Rotation at 0 degrees Abduction 68 Comments AB in scapular plane is 180 Left Active Shoulder ROM WFL No Testing Position Sitting Flexion 87 Extension 32 Abduction 52 External Rotation at 0 degrees Abduction 32 PT-OP-M Strength Start: 09/06/21 18:39 Freq: Status: Active Protocol: Document 09/14/21 09:48 LRN (Rec: 09/14/21 12:41 LRN [id number]) Cervical Spine Strength Cervical Spine Manual Muscle Testing Flexion (C1-2) 5 Normal Extension 5 Normal Lateral Flexion Left (C3) 4+ Good+ Lateral Flexion Right (C3) 5 Normal Comments Pain in L UT near spine with MMT of Left Lateral flexion. Shoulder Strength Shoulder Manual Muscle Testing Right External Rotation 4 Good Comments Generally 5/5 except as indicated above Left Comments Deferred due to recent RC/ Biceps surgery. Pt was not able to fully move her L UE against gravity; therefore strength assessed at 2+/5. PT-OP-Q Treatments Start: 09/06/21 18:39 Freq: Status: Active Protocol: Document 09/17/21 09:53 LRN (Rec: 09/17/21 17:19 LRN [id number]) Therapeutic Exercises Sitting Exercises Elbow flex/ext Sitting Exercise Name AROM Side left Reps/Minutes 30x Comments phys & v cuing to keep elbow at side. Wrist flex/Ext Sitting Exercise Name AROM Side left Reps/Minutes 30x Comments phys & v cuing to keep arm at side. L shoulder Active ER Sitting Exercise Name 0 deg's AB, active shoulder ER /IR Side left Comments phys & v cuing to keep elbow 0 deg's AB L shoulder flex Sitting Exercise Name Stretch with arm on table sliding forward Side left Reps/Minutes 4' Comments much phy & v cuing for proper positioning, understanding questionable L shoulder ER Sitting Exercise Name Stretch with forearm on table Side left Reps/Minutes 4' Comments much phy & v cuing for proper positioning, understanding questionable Self-Care/Home Management Treatment Education Patient Education Home Exercise Program,Pain Management Other Education Pt educated in pain management technique for use of ice and elevation of arm to minimize the ache and pain at her shoulder and arm. I/S pt to use protective covering on her skin before using ice and discussed time of use of ice based on thickness of covering on skin. Discussed switching her therapy to a physical therapy clinic closer to home. Recommended [facility] with print out of clinic issued. Discussed she would need to take her treatment protocol if switching clinics. Reviewed her treatment protocol of precautions with lifting, pushing, pulling and carrying objects with limit of 5# over and 1# away from body over the 6wk to 4 month time. Activities Self-Care/Home Management Activities Issued & reviewed HEP: Active wrist flex/ext; Active elbow flex/ext; AAROM: shoulder flex & ER (table support: sliding arm forward and stretching into ER), active shoulder ER/ IR with forearm on table. PT-OP-T Assessment and Plan Start: 09/06/21 18:39 Freq: Status: Active Protocol: Document 09/17/21 09:53 LRN (Rec: 09/17/21 17:19 LRN [id number]) Physical Therapy Assessment Goals One Impairment Pt lacks appropriate L shoulder self care HEP Short Term Goal (STG) Pt will be educated in pain management techniques for self care. STG Duration 09/17/21 (09/17/21: MET GOAL) Cardio Tech Goal (LTG) Pt will be independent with self care HEP for L shoulder ROM and strengthening. (09/17/21: HEP: AAROM shldr flex, ER, AROM shdr ER, AROM: Wrist/Elbow for flex/ext) LTG Duration 12/13/21 (09/17/21: Progressed ) Four Impairment Decreased L UE functional use Impairment Initial UE QuickDASH score 47. 7 (40-59% imipaired) Short Term Goal (STG) Pt will be able to perform personal hygiene (spritz anal region) with L UE. STG Duration 10/29/21 Cardio Tech Goal (LTG) Improve L UE function per UE QuickDASH score of 1-19 (1-19% impaired) LTG Duration 12/13/21 Three Impairment Improve L shoulder mobility. Impairment Sitting L shoulder painfree AROM: Flex 87 deg's, Ext 32 deg's, AB 52 deg's, ER (0 deg' s AB) 32 deg's, reaching behind back-lateral L hip, reaching behind head-L ear, reaching across opposite shoulder-anterior R shoulder. [Sitting R shoulder AROM: Flex 142 deg's, Ext 65 deg'sm, AB 133 deg's ER (0 deg's AB) 68 deg's, reaching behind back - T9, reaching behind head - T2, reaching across opposite shoulder-posterior spine of opp scapula]. Short Term Goal (STG) Improve L shoulder mobility to 75% of normal mobility compared to the R shoulder. STG Duration 10/29/21 Cardio Tech Goal (LTG) Improve L shoulder mobility with pain no greater than 1/10 dressing. LTG Duration 12/13/21 Two Impairment L shoulder and upper back pain rated 9/10 limiting function and sleep. Short Term Goal (STG) Pt will be educated in sleep positions to minimize L shoulder and upper back pain and decrease shoulder pain to no greater than 5-6/10. STG Duration 10/29/21 Cardio Tech Goal (LTG) Decrease L shoulder and upper back pain 1/10 first in the morning and at rest for less pain with sleeping. LTG Duration 12/13/21 Progress Towards Goals Progress Comments Progressed HEP & I/S pt in self care pain management. Assessment Summary Assessment It appears the pt has been too aggressive with her L shoulder and has been doing too much as well as using weights > than limited by her protocol and is the reason for her increased L shoulder pain . Pt very demanding for self are handouts. She was upset over her drive for therapy and is seeking therapy closer to home but did not want to discharge until she could find a clinic closer to home. Physical Therapy Plan Frequency and Duration Frequency of Treatment 2x/Week Plan of Care Start Date 09/14/21 Plan of Care End Date 12/13/21 Next Visit Focus/Plan Next Note Type Treatment Note Next Visit Plan POC per MD rehab protocol. Educ: sleeping positioning for comfort, posture (sit/stand). Review precautions and rehab protocol (avoid lifting, pushing, pulling, carrying with arms outstretched, wgt restrictions). Therapeutic ex: Scapular stab, L shoulder: PROM, AROM and self care HEP. STM: L shoulder/arm and upperback. Strengthening of L wrist, hand . Will address elbow after confirmation if repair performed. Modalities for pain and edema.
--- NOTE | 2021-09-20 10:51 | PT.OTN ---
Current Diagnoses Muscle weakness (generalized) (09/20/21) Impingement syndrome of left shoulder (09/20/21) Strain of muscle(s) and tendon(s) of the rotator cuff of left shoulder, subsequent encounter (09/20/21) Physical Therapy Treatment Note PT-OP-A Visit Information Start: 09/06/21 18:39 Freq: Status: Active Protocol: Document 09/20/21 09:49 LRN (Rec: 09/20/21 10:49 LRN [id number]) Out-Patient Physical Therapy Visit Information Visit Information Visit Type Treatment Note Visit Start Time 09:50 Visit Stop Time 10:38 Total Visit Minutes 48 Visit Number 3 Evaluation Information Evaluation Date 09/14/21 Precautions Precautions Vertigo, diabetes type II monitoring patch on L posterolateral brachium, controlled high blood pressure controlled by meds, Osteopenia, seizures controlled by meds, fall history (last incident 03/09), neuropathy of feet. PT-OP-B Current Condition Start: 09/06/21 18:39 Freq: Status: Active Protocol: Document 09/14/21 09:48 LRN (Rec: 09/14/21 12:41 LRN [id number]) Current Condition History of Current Condition Onset Date 04/29/21 Current Complaints L shoulder hurts and aches at night. History of Current Condition Pt reports s/p L RC and biceps repair 04/29/21 (post op ~19. 5 weeks). Was given ex's post op and is doing it sometimes . Pain in the back ( bilaterally) and hands ( bilaterally). Rehab protocol received (see referral). Prior Treatments and Tests Post op L shoulder exercises. Future Testing and Treatments Planned F/u with referring physician 2 -3 months after PT referral. Post op protocol issued (see referral information). Treatment Goals Patient/Caregiver Goals Pt goal is to become painfree in back and L shoulder, less pain on waking in morning, less pain dressing, improve L shoulder mobility. Prior Functional Status Baseline Function- ADL's Modified Independent Baseline Function- Mobility Modified Independent Baseline Function- Other L shoulder: AROM: too painful to move arm. PROM (in deg's): Flex 110, AB 70, ER 45 (at 45 deg's AB)) R shldr AROM: Flex is 162, AB is 145, ER (at 90 deg's AB) is 90, IR is 90. L shoulder strength is: Flex, AB, ER is 2-/5; Ext & IR is 2/5 Current Functional Impairments (Reported) Functional Limitations- ADL's L arm: can lift lift a bag of groceries with elbow, can dress with pain at L shoulder, can reach only to shoulder height without difficulty. Not able to personal hygiene ( spritz anal region) with L UE. Personal Factors Other Personal Factors That May Effect Vertigo, diabetes type II Therapy/Recovery monitoring patch on L posterolateral brachium, Osteopenia, seizures controlled by meds, fall history (last incident 03/09), neuropathy of feet. PT-OP-C Subjective Start: 09/06/21 18:39 Freq: Status: Active Protocol: Document 09/20/21 09:49 LRN (Rec: 09/20/21 10:49 LRN [id number]) OP-PT Subjective Patient Comments Patient Comments Has been doing ex's daily. PT-OP-E Functional Tests Start: 09/06/21 18:39 Freq: Status: Active Protocol: Document 09/14/21 09:48 LRN (Rec: 09/14/21 12:41 LRN [id number]) Functional Tests Apley's Scratch Test Action 1- Left anterior R shoulder Action 1- Right Posterior L spine of scapula Action 2- Left L ear Action 2- Right T2 Action 3- Left Lateral L hip Action 3- Right T9 PT-OP-J Posture/Palpation/Skin Start: 09/06/21 18:39 Freq: Status: Active Protocol: Document 09/14/21 09:48 LRN (Rec: 09/14/21 12:41 LRN [id number]) Posture Evaluation Position Standing Head/C-Spine Posture Forward Head T-Spine Posture Increased Kyphosis Shoulder Posture (L) Elevated Comments Posture Comments Sway back, atrophy of L shoulder and arm. Palpation Assessment Location Neck and L UT Palpation Location Neck and L upper shoulder Palpation Findings Soft Tissue Tightness,Muscle Guarding,Tenderness PT-OP-K Range of Motion Start: 09/06/21 18:39 Freq: Status: Active Protocol: Document 09/20/21 09:49 LRN (Rec: 09/20/21 10:49 LRN [id number]) Shoulder Goniometric Range of Motion Shoulder Right Passive Shoulder ROM WFL Yes Testing Position Supine Flexion 153 Abduction 180 External Rotation at 90 degrees 88 Abduction External Rotation at 45 degrees 75 Abduction External Rotation at 0 degrees Abduction 53 Left Passive Shoulder ROM WFL No Testing Position Supine Flexion 111 External Rotation at 90 degrees 5 Abduction External Rotation at 45 degrees 30 Abduction External Rotation at 0 degrees Abduction 25 Right Active Shoulder ROM WFL Yes PT-OP-M Strength Start: 09/06/21 18:39 Freq: Status: Active Protocol: Document 09/14/21 09:48 LRN (Rec: 09/14/21 12:41 LRN [id number]) Cervical Spine Strength Cervical Spine Manual Muscle Testing Flexion (C1-2) 5 Normal Extension 5 Normal Lateral Flexion Left (C3) 4+ Good+ Lateral Flexion Right (C3) 5 Normal Comments Pain in L UT near spine with MMT of Left Lateral flexion. Shoulder Strength Shoulder Manual Muscle Testing Right External Rotation 4 Good Comments Generally 5/5 except as indicated above Left Comments Deferred due to recent RC/ Biceps surgery. Pt was not able to fully move her L UE against gravity; therefore strength assessed at 2+/5. PT-OP-Q Treatments Start: 09/06/21 18:39 Freq: Status: Active Protocol: Document 09/20/21 09:49 LRN (Rec: 09/20/21 10:49 LRN [id number]) Therapeutic Exercises Supine Exercises L shoulder AAROM Supine Exercise Name AAROM flex, ER; AROM flex ER ( see above ex) Comments AROM taken (see ex above) L shoulder ER stretch Supine Exercise Name 0, 45, 90 deg's ER AAROM stretch Side left Reps/Minutes 20-30 H x 10 each position Comments AB (deg's): 0 is 0-20 deg's, 45 is 30 deg's, 90 is 2-20 deg 's L shoulder Flex stretch Supine Exercise Name L shoulder passive stretch Side left Reps/Minutes 3' Comments flex 111 deg's Sitting Exercises Scapular pionches Sitting Exercise Name Scapular pinches Side bilateral Reps/Minutes 5 H x 10 Comments phys cuing to scapula, pt counts very slow, more like 10 Elbow flex/ext Sitting Exercise Name Elbow flex - supine Side left Equipment Used 1# Reps/Minutes 15x Comments phys cuing for proper motion Wrist flex/Ext Sitting Exercise Name Flex/EXt - supine Side left Equipment Used 1# Reps/Minutes 15x Comments phys cuing for proper motion L shoulder Active ER Sitting Exercise Name HEP handout Verbal review L shoulder flex Sitting Exercise Name HEP handout Verbal review Self-Care/Home Management Treatment Education Other Education Reviewed wgt lifting precaution of L arm <1# away from body and <5# arm against body. PT-OP-R Modalities Start: 09/06/21 18:39 Freq: Status: Active Protocol: Document 09/20/21 09:49 LRN (Rec: 09/20/21 10:49 LRN [id number]) Hot Pack/Cold Pack Treatment Hot Pack Location L shoulder/Back Patient Position Supine Comments Pt on MH during ex's PT-OP-T Assessment and Plan Start: 09/06/21 18:39 Freq: Status: Active Protocol: Document 09/20/21 09:49 LRN (Rec: 09/20/21 10:49 LRN [id number]) Physical Therapy Assessment Goals One Impairment Pt lacks appropriate L shoulder self care HEP Short Term Goal (STG) Pt will be educated in pain management techniques for self care. STG Duration 09/17/21 (09/17/21: MET GOAL) Care Home Goal (LTG) Pt will be independent with self care HEP for L shoulder ROM and strengthening. (09/17/21: HEP: AAROM shldr flex, ER, AROM shdr ER, AROM: Wrist/Elbow for flex/ext) LTG Duration 12/13/21 (09/17/21: Progressed ) Four Impairment Decreased L UE functional use Impairment Initial UE QuickDASH score 47. 7 (40-59% imipaired) Short Term Goal (STG) Pt will be able to perform personal hygiene (spritz anal region) with L UE. STG Duration 10/29/21 [employer] Lead Goal (LTG) Improve L UE function per UE QuickDASH score of 1-19 (1-19% impaired) LTG Duration 12/13/21 Three Impairment Improve L shoulder mobility. Impairment Sitting L shoulder painfree AROM: Flex 87 deg's, Ext 32 deg's, AB 52 deg's, ER (0 deg' s AB) 32 deg's, reaching behind back-lateral L hip, reaching behind head-L ear, reaching across opposite shoulder-anterior R shoulder. [Sitting R shoulder AROM: Flex 142 deg's, Ext 65 deg'sm, AB 133 deg's ER (0 deg's AB) 68 deg's, reaching behind back - T9, reaching behind head - T2, reaching across opposite shoulder-posterior spine of opp scapula]. Short Term Goal (STG) Improve L shoulder mobility to 75% of normal mobility compared to the R shoulder. STG Duration 10/29/21 [employer] Lead Goal (LTG) Improve L shoulder mobility with pain no greater than 1/10 dressing. LTG Duration 12/13/21 Two Impairment L shoulder and upper back pain rated 9/10 limiting function and sleep. Short Term Goal (STG) Pt will be educated in sleep positions to minimize L shoulder and upper back pain and decrease shoulder pain to no greater than 5-6/10. STG Duration 10/29/21 Care Home Goal (LTG) Decrease L shoulder and upper back pain 1/10 first in the morning and at rest for less pain with sleeping. LTG Duration 12/13/21 Assessment Summary Assessment Pt tolerated ex without complaints of pain. Pt appeared surprised with 1# wgt limit of lifting away from body. Pt noted she is carrying groceries. Physical Therapy Plan Frequency and Duration Frequency of Treatment 2x/Week Plan of Care Start Date 09/14/21 Plan of Care End Date 12/13/21 Next Visit Focus/Plan Next Note Type Treatment Note Next Visit Plan POC: MD rehab protocol. Educ: sleeping positioning for comfort, posture (sit/stand). Review scap pinches, & precautions and rehab protocol (avoid lifting, pushing, pulling, carrying with arms outstretched, wgt restrictions ). Therapeutic ex: Scapular stab, L shoulder: PROM, AROM and self care HEP. STM: L shoulder/arm and upperback. Strengthening of L wrist, hand , elbow. Modalities for pain and edema as needed. Pt most time chosing to ice at home.
--- NOTE | 2021-09-23 18:00 | PT.OTN ---
Current Diagnoses Muscle weakness (generalized) (09/23/21) Impingement syndrome of left shoulder (09/23/21) Strain of muscle(s) and tendon(s) of the rotator cuff of left shoulder, subsequent encounter (09/23/21) Physical Therapy Treatment Note PT-OP-A Visit Information Start: 09/06/21 18:39 Freq: Status: Active Protocol: Document 09/23/21 08:14 LRN (Rec: 09/23/21 10:37 LRN [id number]) Out-Patient Physical Therapy Visit Information Visit Information Visit Type Treatment Note Visit Start Time 09:49 Visit Stop Time 10:35 Total Visit Minutes 46 Visit Number 4 Evaluation Information Evaluation Date 09/14/21 Precautions Precautions Vertigo, diabetes type II monitoring patch on L posterolateral brachium, controlled high blood pressure controlled by meds, Osteopenia, seizures controlled by meds, fall history (last incident 03/09), neuropathy of feet. PT-OP-B Current Condition Start: 09/06/21 18:39 Freq: Status: Active Protocol: Document 09/14/21 09:48 LRN (Rec: 09/14/21 12:41 LRN [id number]) Current Condition History of Current Condition Onset Date 04/29/21 Current Complaints L shoulder hurts and aches at night. History of Current Condition Pt reports s/p L RC and biceps repair 04/29/21 (post op ~19. 5 weeks). Was given ex's post op and is doing it sometimes . Pain in the back ( bilaterally) and hands ( bilaterally). Rehab protocol received (see referral). Prior Treatments and Tests Post op L shoulder exercises. Future Testing and Treatments Planned F/u with referring physician 2 -3 months after PT referral. Post op protocol issued (see referral information). Treatment Goals Patient/Caregiver Goals Pt goal is to become painfree in back and L shoulder, less pain on waking in morning, less pain dressing, improve L shoulder mobility. Prior Functional Status Baseline Function- ADL's Modified Independent Baseline Function- Mobility Modified Independent Baseline Function- Other L shoulder: AROM: too painful to move arm. PROM (in deg's): Flex 110, AB 70, ER 45 (at 45 deg's AB)) R shldr AROM: Flex is 162, AB is 145, ER (at 90 deg's AB) is 90, IR is 90. L shoulder strength is: Flex, AB, ER is 2-/5; Ext & IR is 2/5 Current Functional Impairments (Reported) Functional Limitations- ADL's L arm: can lift lift a bag of groceries with elbow, can dress with pain at L shoulder, can reach only to shoulder height without difficulty. Not able to personal hygiene ( spritz anal region) with L UE. Personal Factors Other Personal Factors That May Effect Vertigo, diabetes type II Therapy/Recovery monitoring patch on L posterolateral brachium, Osteopenia, seizures controlled by meds, fall history (last incident 03/09), neuropathy of feet. PT-OP-C Subjective Start: 09/06/21 18:39 Freq: Status: Active Protocol: Document 09/23/21 08:14 LRN (Rec: 09/23/21 10:37 LRN [id number]) OP-PT Subjective Patient Comments Patient Comments Doing the exercises. PT-OP-E Functional Tests Start: 09/06/21 18:39 Freq: Status: Active Protocol: Document 09/14/21 09:48 LRN (Rec: 09/14/21 12:41 LRN [id number]) Functional Tests Apley's Scratch Test Action 1- Left anterior R shoulder Action 1- Right Posterior L spine of scapula Action 2- Left L ear Action 2- Right T2 Action 3- Left Lateral L hip Action 3- Right T9 PT-OP-J Posture/Palpation/Skin Start: 09/06/21 18:39 Freq: Status: Active Protocol: Document 09/14/21 09:48 LRN (Rec: 09/14/21 12:41 LRN [id number]) Posture Evaluation Position Standing Head/C-Spine Posture Forward Head T-Spine Posture Increased Kyphosis Shoulder Posture (L) Elevated Comments Posture Comments Sway back, atrophy of L shoulder and arm. Palpation Assessment Location Neck and L UT Palpation Location Neck and L upper shoulder Palpation Findings Soft Tissue Tightness,Muscle Guarding,Tenderness PT-OP-K Range of Motion Start: 09/06/21 18:39 Freq: Status: Active Protocol: Document 09/23/21 08:14 LRN (Rec: 09/23/21 10:37 LRN [id number]) Shoulder Goniometric Range of Motion Shoulder Left Passive Shoulder ROM WFL No Testing Position Supine Flexion 115 PT-OP-M Strength Start: 09/06/21 18:39 Freq: Status: Active Protocol: Document 09/14/21 09:48 LRN (Rec: 09/14/21 12:41 LRN [id number]) Cervical Spine Strength Cervical Spine Manual Muscle Testing Flexion (C1-2) 5 Normal Extension 5 Normal Lateral Flexion Left (C3) 4+ Good+ Lateral Flexion Right (C3) 5 Normal Comments Pain in L UT near spine with MMT of Left Lateral flexion. Shoulder Strength Shoulder Manual Muscle Testing Right External Rotation 4 Good Comments Generally 5/5 except as indicated above Left Comments Deferred due to recent RC/ Biceps surgery. Pt was not able to fully move her L UE against gravity; therefore strength assessed at 2+/5. PT-OP-Q Treatments Start: 09/06/21 18:39 Freq: Status: Active Protocol: Document 09/23/21 08:14 LRN (Rec: 09/23/21 10:37 LRN [id number]) Therapeutic Exercises Supine Exercises Rotation stretch Supine Exercise Name Arms to ceiling, and moving cane in rotation Side bilateral Reps/Minutes 3' Comments Extra time to determine max stretch & proper positioning. L shoulder AAROM Supine Exercise Name AAROM flex, ER; AROM flex ER ( see above ex) Equipment Used Cane Reps/Minutes 12' Comments AROM taken (see ex above) L shoulder ER stretch Supine Exercise Name 0, 45, 90 deg's ER AAROM stretch Side left Equipment Used Cane Reps/Minutes 20-30 H x 10 each position Comments AB (deg's): 0 is 0-20 deg's, 45 is 30 deg's, 90 is 2-20 deg 's L shoulder Flex stretch Supine Exercise Name L shoulder passive stretch Side left Reps/Minutes 3' Comments flex 115 deg's Self-Care/Home Management Treatment Education Patient Education Home Exercise Program Activities Self-Care/Home Management Activities Issued & reviewed HEP: Shoulder ER stretch with cane with shoulder at 90 deg's AB, & shoulder IR/ER rot in supine with hands to ceiling, rotating cane. PT-OP-R Modalities Start: 09/06/21 18:39 Freq: Status: Active Protocol: Document 09/23/21 08:14 LRN (Rec: 09/23/21 10:37 LRN [id number]) Hot Pack/Cold Pack Treatment Hot Pack Location L shoulder/Back Patient Position Supine Comments Pt on MH during ex's PT-OP-T Assessment and Plan Start: 09/06/21 18:39 Freq: Status: Active Protocol: Document 09/23/21 08:14 LRN (Rec: 09/23/21 10:37 LRN [id number]) Physical Therapy Assessment Goals One Impairment Pt lacks appropriate L shoulder self care HEP Short Term Goal (STG) Pt will be educated in pain management techniques for self care. STG Duration 09/17/21 (09/17/21: MET GOAL) Sports Instructor Goal (LTG) Pt will be independent with self care HEP for L shoulder ROM and strengthening. (09/17/21: HEP: AAROM shldr flex, ER, AROM shdr ER, AROM: Wrist/Elbow for flex/ext) (09/23/21: HEP: AROM shldr #$ marissa supine 2/cane & AROM shld rot marissa supine w/cane). LTG Duration 12/13/21 (09/23/21: Progressed ) Four Impairment Decreased L UE functional use Impairment Initial UE QuickDASH score 47. 7 (40-59% imipaired) Short Term Goal (STG) Pt will be able to perform personal hygiene (spritz anal region) with L UE. STG Duration 10/29/21 Sports Instructor Goal (LTG) Improve L UE function per UE QuickDASH score of 1-19 (1-19% impaired) LTG Duration 12/13/21 Three Impairment Improve L shoulder mobility. Impairment Sitting L shoulder painfree AROM: Flex 87 deg's, Ext 32 deg's, AB 52 deg's, ER (0 deg' s AB) 32 deg's, reaching behind back-lateral L hip, reaching behind head-L ear, reaching across opposite shoulder-anterior R shoulder. [Sitting R shoulder AROM: Flex 142 deg's, Ext 65 deg'sm, AB 133 deg's ER (0 deg's AB) 68 deg's, reaching behind back - T9, reaching behind head - T2, reaching across opposite shoulder-posterior spine of opp scapula]. Short Term Goal (STG) Improve L shoulder mobility to 75% of normal mobility compared to the R shoulder. STG Duration 10/29/21 Sports Instructor Goal (LTG) Improve L shoulder mobility with pain no greater than 1/10 dressing. LTG Duration 12/13/21 Two Impairment L shoulder and upper back pain rated 9/10 limiting function and sleep. Short Term Goal (STG) Pt will be educated in sleep positions to minimize L shoulder and upper back pain and decrease shoulder pain to no greater than 5-6/10. STG Duration 10/29/21 Sports Instructor Goal (LTG) Decrease L shoulder and upper back pain 1/10 first in the morning and at rest for less pain with sleeping. LTG Duration 12/13/21 Progress Towards Goals Progress Comments Progressed HEP Assessment Summary Assessment Improved passive L shoulder flex from 111 to 115 deg's. Pt has c/o L neck shoulder & upper back pain that decreased mildly after STM. Pt needs further postural training and scapular stab ex's. Physical Therapy Plan Frequency and Duration Frequency of Treatment 2x/Week Plan of Care Start Date 09/14/21 Plan of Care End Date 12/13/21 Next Visit Focus/Plan Next Note Type Treatment Note Next Visit Plan POC: MD rehab protocol. Educ: sleeping positioning for comfort, posture (sit/stand). Review scap pinches, & precautions and rehab protocol (avoid lifting, pushing, pulling, carrying with arms outstretched, wgt restrictions ). Therapeutic ex: SCAPULAR STAB EX'S, L shoulder: PROM, AROM and self care HEP. STM: L shoulder/arm and upperback. Strengthening of L wrist, hand , elbow. Modalities for pain and edema as needed. Pt most time chosing to ice at home.
--- NOTE | 2021-09-27 17:39 | PT.OTN ---
Current Diagnoses Muscle weakness (generalized) (09/27/21) Impingement syndrome of left shoulder (09/27/21) Strain of muscle(s) and tendon(s) of the rotator cuff of left shoulder, subsequent encounter (09/27/21) Physical Therapy Treatment Note PT-OP-A Visit Information Start: 09/06/21 18:39 Freq: Status: Active Protocol: Document 09/27/21 09:48 LRN (Rec: 09/27/21 10:35 LRN [id number]) Out-Patient Physical Therapy Visit Information Visit Information Visit Type Treatment Note Visit Start Time 09:48 Visit Stop Time 10:30 Total Visit Minutes 42 Visit Number 5 Evaluation Information Evaluation Date 09/14/21 Precautions Precautions Vertigo, diabetes type II monitoring patch on L posterolateral brachium, controlled high blood pressure controlled by meds, Osteopenia, seizures controlled by meds, fall history (last incident 03/09), neuropathy of feet. PT-OP-B Current Condition Start: 09/06/21 18:39 Freq: Status: Active Protocol: Document 09/14/21 09:48 LRN (Rec: 09/14/21 12:41 LRN [id number]) Current Condition History of Current Condition Onset Date 04/29/21 Current Complaints L shoulder hurts and aches at night. History of Current Condition Pt reports s/p L RC and biceps repair 04/29/21 (post op ~19. 5 weeks). Was given ex's post op and is doing it sometimes . Pain in the back ( bilaterally) and hands ( bilaterally). Rehab protocol received (see referral). Prior Treatments and Tests Post op L shoulder exercises. Future Testing and Treatments Planned F/u with referring physician 2 -3 months after PT referral. Post op protocol issued (see referral information). Treatment Goals Patient/Caregiver Goals Pt goal is to become painfree in back and L shoulder, less pain on waking in morning, less pain dressing, improve L shoulder mobility. Prior Functional Status Baseline Function- ADL's Modified Independent Baseline Function- Mobility Modified Independent Baseline Function- Other L shoulder: AROM: too painful to move arm. PROM (in deg's): Flex 110, AB 70, ER 45 (at 45 deg's AB)) R shldr AROM: Flex is 162, AB is 145, ER (at 90 deg's AB) is 90, IR is 90. L shoulder strength is: Flex, AB, ER is 2-/5; Ext & IR is 2/5 Current Functional Impairments (Reported) Functional Limitations- ADL's L arm: can lift lift a bag of groceries with elbow, can dress with pain at L shoulder, can reach only to shoulder height without difficulty. Not able to personal hygiene ( spritz anal region) with L UE. Personal Factors Other Personal Factors That May Effect Vertigo, diabetes type II Therapy/Recovery monitoring patch on L posterolateral brachium, Osteopenia, seizures controlled by meds, fall history (last incident 03/09), neuropathy of feet. PT-OP-C Subjective Start: 09/06/21 18:39 Freq: Status: Active Protocol: Document 09/27/21 09:48 LRN (Rec: 09/27/21 10:35 LRN [id number]) OP-PT Subjective Patient Comments Patient Comments Pain currently 10, during the night 710 can't be ignored. PT-OP-E Functional Tests Start: 09/06/21 18:39 Freq: Status: Active Protocol: Document 09/14/21 09:48 LRN (Rec: 09/14/21 12:41 LRN [id number]) Functional Tests Apley's Scratch Test Action 1- Left anterior R shoulder Action 1- Right Posterior L spine of scapula Action 2- Left L ear Action 2- Right T2 Action 3- Left Lateral L hip Action 3- Right T9 PT-OP-J Posture/Palpation/Skin Start: 09/06/21 18:39 Freq: Status: Active Protocol: Document 09/14/21 09:48 LRN (Rec: 09/14/21 12:41 LRN [id number]) Posture Evaluation Position Standing Head/C-Spine Posture Forward Head T-Spine Posture Increased Kyphosis Shoulder Posture (L) Elevated Comments Posture Comments Sway back, atrophy of L shoulder and arm. Palpation Assessment Location Neck and L UT Palpation Location Neck and L upper shoulder Palpation Findings Soft Tissue Tightness,Muscle Guarding,Tenderness PT-OP-K Range of Motion Start: 09/06/21 18:39 Freq: Status: Active Protocol: Document 09/23/21 08:14 LRN (Rec: 09/23/21 10:37 LRN [id number]) Shoulder Goniometric Range of Motion Shoulder Left Passive Shoulder ROM WFL No Testing Position Supine Flexion 115 PT-OP-M Strength Start: 09/06/21 18:39 Freq: Status: Active Protocol: Document 09/14/21 09:48 LRN (Rec: 09/14/21 12:41 LRN [id number]) Cervical Spine Strength Cervical Spine Manual Muscle Testing Flexion (C1-2) 5 Normal Extension 5 Normal Lateral Flexion Left (C3) 4+ Good+ Lateral Flexion Right (C3) 5 Normal Comments Pain in L UT near spine with MMT of Left Lateral flexion. Shoulder Strength Shoulder Manual Muscle Testing Right External Rotation 4 Good Comments Generally 5/5 except as indicated above Left Comments Deferred due to recent RC/ Biceps surgery. Pt was not able to fully move her L UE against gravity; therefore strength assessed at 2+/5. PT-OP-Q Treatments Start: 09/06/21 18:39 Freq: Status: Active Protocol: Document 09/27/21 09:48 LRN (Rec: 09/27/21 10:35 LRN [id number]) Therapeutic Exercises Supine Exercises L shoulder AB Supine Exercise Name Passive AB to 90 deg's stretch Side left L shoulder IR stretch Supine Exercise Name Passive IR stretch Side left Reps/Minutes 3' L shoulder ER stretch Supine Exercise Name 0, 45, 90 deg's ER AAROM stretch Side left Equipment Used Cane Reps/Minutes 20-30 H x 10 each position Comments AB (deg's): 0 is 0-20 deg's, 45 is 30 deg's, 90 is 2-20 deg 's L shoulder Flex stretch Supine Exercise Name L shoulder passive stretch Side left Reps/Minutes 3' Comments flex 115 deg's Sitting Exercises L shoulder AB Sitting Exercise Name Shoulder AB stretch - moving arm laterally on plinth Side left Equipment Used plinth Reps/Minutes 60 stretch: 4' Comments Xtra time to teach pt proper position to not stretch into pain L shoulder flex Sitting Exercise Name Shoulder flex stretch - arm fwd on plinth Side left Equipment Used plinth Reps/Minutes 60 stretch: 3' Standing Exercises Shoulder IR Standing Exercise Name IR stretch with towel Side left Equipment Used towel Reps/Minutes 4' Comments Xtra time to teach pt proper position: move hand to sacrum vs up lat trunk Manual Therapy Treatment Soft Tissue Mobilization L Supraspinatus Body Location L Supraspinatus Intensity/Depth Moderate Comments Decrease ms tone after treatment. MH to neck L UT Body Location L UT Comments Decrease muscle tone after treatment. MH to neck. Self-Care/Home Management Treatment Education Patient Education Home Exercise Program Other Education Reviewed sleep position of hugging a pillow to minimize L shoulder pain at night. Activities Self-Care/Home Management Activities Issued & reviewed HEP: passive shoulder AB stretch with arm on table and leaning; Passive shoulder IR with towel. PT-OP-R Modalities Start: 09/06/21 18:39 Freq: Status: Active Protocol: Document 09/27/21 09:48 LRN (Rec: 09/27/21 10:35 LRN [id number]) Hot Pack/Cold Pack Treatment Hot Pack Location L shoulder/Back Patient Position Supine Treatment Duration (minutes) 28 Comments Pt on MH during supine ex's PT-OP-T Assessment and Plan Start: 09/06/21 18:39 Freq: Status: Active Protocol: Document 09/27/21 09:48 LRN (Rec: 09/27/21 10:35 LRN [id number]) Physical Therapy Assessment Goals One Impairment Pt lacks appropriate L shoulder self care HEP Short Term Goal (STG) Pt will be educated in pain management techniques for self care. STG Duration 09/17/21 (09/17/21: MET GOAL) Quality Assurance Manager Goal (LTG) Pt will be independent with self care HEP for L shoulder ROM and strengthening. (09/17/21: HEP: AAROM shldr flex, ER, AROM shdr ER, AROM: Wrist/Elbow for flex/ext) (09/23/21: HEP: AROM shldr #$ marissa supine 2/cane & AROM shld rot marissa supine w/cane). LTG Duration 12/13/21 (09/23/21: Progressed ) Four Impairment Decreased L UE functional use Impairment Initial UE QuickDASH score 47. 7 (40-59% imipaired) Short Term Goal (STG) Pt will be able to perform personal hygiene (spritz anal region) with L UE. STG Duration 10/29/21 Quality Assurance Manager Goal (LTG) Improve L UE function per UE QuickDASH score of 1-19 (1-19% impaired) LTG Duration 12/13/21 Three Impairment Improve L shoulder mobility. Impairment Sitting L shoulder painfree AROM: Flex 87 deg's, Ext 32 deg's, AB 52 deg's, ER (0 deg' s AB) 32 deg's, reaching behind back-lateral L hip, reaching behind head-L ear, reaching across opposite shoulder-anterior R shoulder. [Sitting R shoulder AROM: Flex 142 deg's, Ext 65 deg'sm, AB 133 deg's ER (0 deg's AB) 68 deg's, reaching behind back - T9, reaching behind head - T2, reaching across opposite shoulder-posterior spine of opp scapula]. Short Term Goal (STG) Improve L shoulder mobility to 75% of normal mobility compared to the R shoulder. STG Duration 10/29/21 Quality Assurance Manager Goal (LTG) Improve L shoulder mobility with pain no greater than 1/10 dressing. LTG Duration 12/13/21 Two Impairment L shoulder and upper back pain rated 9/10 limiting function and sleep. Short Term Goal (STG) Pt will be educated in sleep positions to minimize L shoulder and upper back pain and decrease shoulder pain to no greater than 5-6/10. STG Duration 10/29/21 (09/27/21: Partially met goal, Pt educated in sleep positions) Quality Assurance Manager Goal (LTG) Decrease L shoulder and upper back pain 1/10 first in the morning and at rest for less pain with sleeping. LTG Duration 12/13/21 Progress Towards Goals Progress Comments Progressed HEP Assessment Summary Assessment Pt is almost 4 months post op; therefore timeframe advanced for MD protocol. Pt is allowed to begin strengthening although she is still quite restricted in her L shoulder mobility. Pt needs scapular stabilizing and is allowed to lift 1# away from body (5# close to body), progressing over 3 months to lifting 5# away and 10# close until 4 months po, then 10# away/20# close to body. Physical Therapy Plan Frequency and Duration Frequency of Treatment 2x/Week Plan of Care Start Date 09/14/21 Plan of Care End Date 12/13/21 Next Visit Focus/Plan Next Note Type Treatment Note Next Visit Plan POC: MD rehab protocol. Educ: sleeping positioning for comfort, posture (sit/stand). Cont scap pinches, & review protocol: scapular stabilizing and is allowed to lift 1# away from body (5# close to body), progressing over 3 months to lifting 5# away and 10# close until 4 months po, then 10# away/20# close to body. Therapeutic ex: SCAPULAR STAB EX'S, L shoulder: PROM, AROM and self care HEP. STM: L shoulder/arm and upperback. Strengthening of L wrist, hand , elbow. Modalities for pain and edema as needed. Pt most time chosing to ice at home.
--- NOTE | 2021-09-30 11:07 | PT.OTN ---
Current Diagnoses Muscle weakness (generalized) (09/30/21) Impingement syndrome of left shoulder (09/30/21) Strain of muscle(s) and tendon(s) of the rotator cuff of left shoulder, subsequent encounter (09/30/21) Physical Therapy Treatment Note PT-OP-A Visit Information Start: 09/06/21 18:39 Freq: Status: Active Protocol: Document 09/30/21 09:46 LRN (Rec: 09/30/21 11:06 LRN [id number]) Out-Patient Physical Therapy Visit Information Visit Information Visit Type Treatment Note Visit Start Time 09:47 Visit Stop Time 10:35 Total Visit Minutes 48 Visit Number 6 Evaluation Information Evaluation Date 09/14/21 Precautions Precautions Vertigo, diabetes type II monitoring patch on L posterolateral brachium, controlled high blood pressure controlled by meds, Osteopenia, seizures controlled by meds, fall history (last incident 03/09), neuropathy of feet. PT-OP-B Current Condition Start: 09/06/21 18:39 Freq: Status: Active Protocol: Document 09/14/21 09:48 LRN (Rec: 09/14/21 12:41 LRN [id number]) Current Condition History of Current Condition Onset Date 04/29/21 Current Complaints L shoulder hurts and aches at night. History of Current Condition Pt reports s/p L RC and biceps repair 04/29/21 (post op ~19. 5 weeks). Was given ex's post op and is doing it sometimes . Pain in the back ( bilaterally) and hands ( bilaterally). Rehab protocol received (see referral). Prior Treatments and Tests Post op L shoulder exercises. Future Testing and Treatments Planned F/u with referring physician 2 -3 months after PT referral. Post op protocol issued (see referral information). Treatment Goals Patient/Caregiver Goals Pt goal is to become painfree in back and L shoulder, less pain on waking in morning, less pain dressing, improve L shoulder mobility. Prior Functional Status Baseline Function- ADL's Modified Independent Baseline Function- Mobility Modified Independent Baseline Function- Other L shoulder: AROM: too painful to move arm. PROM (in deg's): Flex 110, AB 70, ER 45 (at 45 deg's AB)) R shldr AROM: Flex is 162, AB is 145, ER (at 90 deg's AB) is 90, IR is 90. L shoulder strength is: Flex, AB, ER is 2-/5; Ext & IR is 2/5 Current Functional Impairments (Reported) Functional Limitations- ADL's L arm: can lift lift a bag of groceries with elbow, can dress with pain at L shoulder, can reach only to shoulder height without difficulty. Not able to personal hygiene ( spritz anal region) with L UE. Personal Factors Other Personal Factors That May Effect Vertigo, diabetes type II Therapy/Recovery monitoring patch on L posterolateral brachium, Osteopenia, seizures controlled by meds, fall history (last incident 03/09), neuropathy of feet. PT-OP-C Subjective Start: 09/06/21 18:39 Freq: Status: Active Protocol: Document 09/30/21 09:46 LRN (Rec: 09/30/21 11:06 LRN [id number]) OP-PT Subjective Patient Comments Patient Comments Hurts nighttime. Pt gave verbal permission to speak with daughter Kelsey Macedo regarding home care. PT-OP-E Functional Tests Start: 09/06/21 18:39 Freq: Status: Active Protocol: Document 09/14/21 09:48 LRN (Rec: 09/14/21 12:41 LRN [id number]) Functional Tests Apley's Scratch Test Action 1- Left anterior R shoulder Action 1- Right Posterior L spine of scapula Action 2- Left L ear Action 2- Right T2 Action 3- Left Lateral L hip Action 3- Right T9 PT-OP-J Posture/Palpation/Skin Start: 09/06/21 18:39 Freq: Status: Active Protocol: Document 09/14/21 09:48 LRN (Rec: 09/14/21 12:41 LRN [id number]) Posture Evaluation Position Standing Head/C-Spine Posture Forward Head T-Spine Posture Increased Kyphosis Shoulder Posture (L) Elevated Comments Posture Comments Sway back, atrophy of L shoulder and arm. Palpation Assessment Location Neck and L UT Palpation Location Neck and L upper shoulder Palpation Findings Soft Tissue Tightness,Muscle Guarding,Tenderness PT-OP-K Range of Motion Start: 09/06/21 18:39 Freq: Status: Active Protocol: Document 09/30/21 09:46 LRN (Rec: 09/30/21 11:06 LRN [id number]) Shoulder Goniometric Range of Motion Shoulder Left Passive Shoulder ROM WFL No Testing Position Supine Flexion 118 External Rotation at 90 degrees 47 Abduction Comments L shoulder AAROM sitting 100 deg's. PT-OP-M Strength Start: 09/06/21 18:39 Freq: Status: Active Protocol: Document 09/14/21 09:48 LRN (Rec: 09/14/21 12:41 LRN [id number]) Cervical Spine Strength Cervical Spine Manual Muscle Testing Flexion (C1-2) 5 Normal Extension 5 Normal Lateral Flexion Left (C3) 4+ Good+ Lateral Flexion Right (C3) 5 Normal Comments Pain in L UT near spine with MMT of Left Lateral flexion. Shoulder Strength Shoulder Manual Muscle Testing Right External Rotation 4 Good Comments Generally 5/5 except as indicated above Left Comments Deferred due to recent RC/ Biceps surgery. Pt was not able to fully move her L UE against gravity; therefore strength assessed at 2+/5. PT-OP-Q Treatments Start: 09/06/21 18:39 Freq: Status: Active Protocol: Document 09/30/21 09:46 LRN (Rec: 09/30/21 11:06 LRN [id number]) Cardio Equipment Upper Body Ergometer (UBE) Duration (Minutes) 5 RPM 100 Seat Position 7 Height 4.5 Other Cued for stretch, not ex to L shldr Therapeutic Exercises Supine Exercises L shoulder AB Supine Exercise Name PROM, AAROM, AROM L shoulder AB Side left Reps/Minutes 10' L shoulder IR stretch Supine Exercise Name PROM IR stretch Side left Reps/Minutes 4' Rotation stretch Supine Exercise Name Arms to ceiling, and moving cane in rotation Side bilateral Reps/Minutes 3' Comments Extra time to determine max stretch & proper positioning. L shoulder ER stretch Supine Exercise Name 0, 45, 90 deg's ER AAROM stretch Side left Equipment Used Cane Reps/Minutes 20-30 H x 10 each position Comments AB (deg's): 0 is 0-20 deg's, 45 is 30 deg's, 90 is 2-20 deg 's L shoulder Flex stretch Supine Exercise Name L shoulder passive stretch Side left Reps/Minutes 3' Comments flex 115 deg's Standing Exercises Shoulder IR Standing Exercise Name Verbal review of IR stretch w/ goal of hand at LB Side left Self-Care/Home Management Treatment Education Patient Education Home Exercise Program Activities Self-Care/Home Management Activities Issued & reviewed HEP: Wand ROM ex's for L shoulder: Supine ER, horiz AB/AD, AB; Standing: ER, Ext, AB. Extra time taken to discuss ex's already performed to continue at home, but hold on ex's not performed today and it will be reviewed next visit. PT-OP-R Modalities Start: 09/06/21 18:39 Freq: Status: Active Protocol: Document 09/30/21 09:46 LRN (Rec: 09/30/21 11:06 LRN [id number]) Hot Pack/Cold Pack Treatment Cold Pack Comments Pt issued disposable take home ice pack for L shoulder. PT-OP-T Assessment and Plan Start: 09/06/21 18:39 Freq: Status: Active Protocol: Document 09/30/21 09:46 LRN (Rec: 09/30/21 11:06 LRN [id number]) Physical Therapy Assessment Goals One Impairment Pt lacks appropriate L shoulder self care HEP Short Term Goal (STG) Pt will be educated in pain management techniques for self care. STG Duration 09/17/21 (09/17/21: MET GOAL) Fdc Goal (LTG) Pt will be independent with self care HEP for L shoulder ROM and strengthening. (09/17/21: HEP: AAROM shldr flex, ER, AROM shdr ER, AROM: Wrist/Elbow for flex/ext) (09/23/21: HEP: AROM shldr #$ marissa supine 2/cane & AROM shld rot marissa supine w/cane). LTG Duration 12/13/21 (09/23/21: Progressed ) Four Impairment Decreased L UE functional use Impairment Initial UE QuickDASH score 47. 7 (40-59% imipaired) Short Term Goal (STG) Pt will be able to perform personal hygiene (spritz anal region) with L UE. STG Duration 10/29/21 Fdc Goal (LTG) Improve L UE function per UE QuickDASH score of 1-19 (1-19% impaired) LTG Duration 12/13/21 Three Impairment Improve L shoulder mobility. Impairment Sitting L shoulder painfree AROM: Flex 87 deg's, Ext 32 deg's, AB 52 deg's, ER (0 deg' s AB) 32 deg's, reaching behind back-lateral L hip, reaching behind head-L ear, reaching across opposite shoulder-anterior R shoulder. [Sitting R shoulder AROM: Flex 142 deg's, Ext 65 deg'sm, AB 133 deg's ER (0 deg's AB) 68 deg's, reaching behind back - T9, reaching behind head - T2, reaching across opposite shoulder-posterior spine of opp scapula]. Short Term Goal (STG) Improve L shoulder mobility to 75% of normal mobility compared to the R shoulder. STG Duration 10/29/21 Fdc Goal (LTG) Improve L shoulder mobility with pain no greater than 1/10 dressing. LTG Duration 12/13/21 Two Impairment L shoulder and upper back pain rated 9/10 limiting function and sleep. Short Term Goal (STG) Pt will be educated in sleep positions to minimize L shoulder and upper back pain and decrease shoulder pain to no greater than 5-6/10. STG Duration 10/29/21 (09/27/21: Partially met goal, Pt educated in sleep positions) Broadcast Operations Manager Goal (LTG) Decrease L shoulder and upper back pain 1/10 first in the morning and at rest for less pain with sleeping. LTG Duration 12/13/21 Progress Towards Goals Progress Comments L shoulder ROM improved. Flex 115 to 118 deg's. ER sup @ 90 deg's AB: 5 to 47 deg's. Assessment Summary Assessment Pt has fair tolerance to ex with increase in stretching to L shoulder. Pt chose to ice in the car due to another appt . Pt PROM improved for ER & Flex. Physical Therapy Plan Frequency and Duration Frequency of Treatment 2x/Week Plan of Care Start Date 09/14/21 Plan of Care End Date 12/13/21 Next Visit Focus/Plan Next Note Type Treatment Note Next Visit Plan POC: rehab protocol. Educ: sleeping positioning for comfort, posture (sit/stand). Cont scap pinches, & review protocol: scapular stabilizing and is allowed to lift 1# away from body (5# close to body), progressing over 3 months to lifting 5# away and 10# close until 4 months po, then 10# away/20# close to body. Therapeutic ex: SCAPULAR STAB EX'S, L shoulder: PROM, AROM and self care HEP. STM: L shoulder/arm and upperback. Strengthening of L wrist, hand , elbow. Modalities for pain and edema as needed. Pt most time chosing to ice at home.
--- NOTE | 2021-10-04 17:34 | PT.OTN ---
Current Diagnoses Muscle weakness (generalized) (10/04/21) Impingement syndrome of left shoulder (10/04/21) Strain of muscle(s) and tendon(s) of the rotator cuff of left shoulder, subsequent encounter (10/04/21) Physical Therapy Treatment Note PT-OP-A Visit Information Start: 09/06/21 18:39 Freq: Status: Active Protocol: Document 10/04/21 09:51 LRN (Rec: 10/04/21 10:37 LRN [id number]) Out-Patient Physical Therapy Visit Information Visit Information Visit Type Treatment Note Visit Start Time 09:51 Visit Stop Time 10:36 Total Visit Minutes 45 Visit Number 7 Evaluation Information Evaluation Date 09/14/21 Precautions Precautions Vertigo, diabetes type II monitoring patch on L posterolateral brachium, controlled high blood pressure controlled by meds, Osteopenia, seizures controlled by meds, fall history (last incident 03/09), neuropathy of feet. PT-OP-B Current Condition Start: 09/06/21 18:39 Freq: Status: Active Protocol: Document 09/14/21 09:48 LRN (Rec: 09/14/21 12:41 LRN [id number]) Current Condition History of Current Condition Onset Date 04/29/21 Current Complaints L shoulder hurts and aches at night. History of Current Condition Pt reports s/p L RC and biceps repair 04/29/21 (post op ~19. 5 weeks). Was given ex's post op and is doing it sometimes . Pain in the back ( bilaterally) and hands ( bilaterally). Rehab protocol received (see referral). Prior Treatments and Tests Post op L shoulder exercises. Future Testing and Treatments Planned F/u with referring physician 2 -3 months after PT referral. Post op protocol issued (see referral information). Treatment Goals Patient/Caregiver Goals Pt goal is to become painfree in back and L shoulder, less pain on waking in morning, less pain dressing, improve L shoulder mobility. Prior Functional Status Baseline Function- ADL's Modified Independent Baseline Function- Mobility Modified Independent Baseline Function- Other L shoulder: AROM: too painful to move arm. PROM (in deg's): Flex 110, AB 70, ER 45 (at 45 deg's AB)) R shldr AROM: Flex is 162, AB is 145, ER (at 90 deg's AB) is 90, IR is 90. L shoulder strength is: Flex, AB, ER is 2-/5; Ext & IR is 2/5 Current Functional Impairments (Reported) Functional Limitations- ADL's L arm: can lift lift a bag of groceries with elbow, can dress with pain at L shoulder, can reach only to shoulder height without difficulty. Not able to personal hygiene ( spritz anal region) with L UE. Personal Factors Other Personal Factors That May Effect Vertigo, diabetes type II Therapy/Recovery monitoring patch on L posterolateral brachium, Osteopenia, seizures controlled by meds, fall history (last incident 03/09), neuropathy of feet. PT-OP-C Subjective Start: 09/06/21 18:39 Freq: Status: Active Protocol: Document 10/04/21 09:51 LRN (Rec: 10/04/21 10:37 LRN [id number]) OP-PT Subjective Patient Comments Patient Comments States she has most pain at night. Did not ex because she was travelling. PT-OP-E Functional Tests Start: 09/06/21 18:39 Freq: Status: Active Protocol: Document 09/14/21 09:48 LRN (Rec: 09/14/21 12:41 LRN [id number]) Functional Tests Apley's Scratch Test Action 1- Left anterior R shoulder Action 1- Right Posterior L spine of scapula Action 2- Left L ear Action 2- Right T2 Action 3- Left Lateral L hip Action 3- Right T9 PT-OP-J Posture/Palpation/Skin Start: 09/06/21 18:39 Freq: Status: Active Protocol: Document 09/14/21 09:48 LRN (Rec: 09/14/21 12:41 LRN [id number]) Posture Evaluation Position Standing Head/C-Spine Posture Forward Head T-Spine Posture Increased Kyphosis Shoulder Posture (L) Elevated Comments Posture Comments Sway back, atrophy of L shoulder and arm. Palpation Assessment Location Neck and L UT Palpation Location Neck and L upper shoulder Palpation Findings Soft Tissue Tightness,Muscle Guarding,Tenderness PT-OP-K Range of Motion Start: 09/06/21 18:39 Freq: Status: Active Protocol: Document 09/30/21 09:46 LRN (Rec: 09/30/21 11:06 LRN [id number]) Shoulder Goniometric Range of Motion Shoulder Left Passive Shoulder ROM WFL No Testing Position Supine Flexion 118 External Rotation at 90 degrees 47 Abduction Comments L shoulder AAROM sitting 100 deg's. PT-OP-M Strength Start: 09/06/21 18:39 Freq: Status: Active Protocol: Document 09/14/21 09:48 LRN (Rec: 09/14/21 12:41 LRN [id number]) Cervical Spine Strength Cervical Spine Manual Muscle Testing Flexion (C1-2) 5 Normal Extension 5 Normal Lateral Flexion Left (C3) 4+ Good+ Lateral Flexion Right (C3) 5 Normal Comments Pain in L UT near spine with MMT of Left Lateral flexion. Shoulder Strength Shoulder Manual Muscle Testing Right External Rotation 4 Good Comments Generally 5/5 except as indicated above Left Comments Deferred due to recent RC/ Biceps surgery. Pt was not able to fully move her L UE against gravity; therefore strength assessed at 2+/5. PT-OP-Q Treatments Start: 09/06/21 18:39 Freq: Status: Active Protocol: Document 10/04/21 09:51 LRN (Rec: 10/04/21 10:37 LRN [id number]) Cardio Equipment Upper Body Ergometer (UBE) Duration (Minutes) 6 RPM 100 Seat Position 7 Height 5.0 Other Cued for stretch, not ex to L shldr Therapeutic Exercises Supine Exercises Codman Supine Exercise Name Codman between stretch ex's Reps/Minutes 2' Scapular pinches after chest stretch Supine Exercise Name Scapular pinches Side bilateral Reps/Minutes 15x Comments Poor strength noted Chest stretch Supine Exercise Name OPen chest stretch position ( arms out to sides) Reps/Minutes 3' Sitting Exercises L shoulder AB Sitting Exercise Name Shoulder AB stretch - moving arm laterally on plinth, f/b active AB Side left Equipment Used plinth Reps/Minutes 60 stretch: 4' Comments phys assist to keep L shldr back Standing Exercises Shoulder Ext Standing Exercise Name Scap retract/shldr ext Side left Equipment Used 1# & cane Reps/Minutes 5' Comments Phys & v cuing to move scap in retract/depression & no back arch Scapular squeezes Standing Exercise Name Scap squeeze Side bilateral Reps/Minutes 15x Comments Much phy & v cuing to retract & depress scap Shoulder IR Standing Exercise Name Review of IR stretch w/towel and with cane. Side left Reps/Minutes 12' Comments Stretch across low back > towel over shoulder & behind back stretch Self-Care/Home Management Treatment Education Patient Education Home Exercise Program Other Education Reviewed previously issued HEP of cane ex for IR/AD stretch, AB & ER stretch in supine & standing. Reviewed protocol for max weight resistance limit for L shoulder (5# max away from body, 10# close to body, scap strengthening) Activities Self-Care/Home Management Activities Issued & reviwed HEP: Scapular retractions, Row & scapular retractw/mini shldr ext, without the elastic band. Pt I/S to use low tension with elastic band. PT-OP-R Modalities Start: 09/06/21 18:39 Freq: Status: Active Protocol: Document 09/30/21 09:46 LRN (Rec: 09/30/21 11:06 LRN [id number]) Hot Pack/Cold Pack Treatment Cold Pack Comments Pt issued disposable take home ice pack for L shoulder. PT-OP-T Assessment and Plan Start: 09/06/21 18:39 Freq: Status: Active Protocol: Document 10/04/21 09:51 LRN (Rec: 10/04/21 10:37 LRN [id number]) Physical Therapy Assessment Goals One Impairment Pt lacks appropriate L shoulder self care HEP Short Term Goal (STG) Pt will be educated in pain management techniques for self care. STG Duration 09/17/21 (09/17/21: MET GOAL) Care Home Goal (LTG) Pt will be independent with self care HEP for L shoulder ROM and strengthening. (09/17/21: HEP: AAROM shldr flex, ER, AROM shdr ER, AROM: Wrist/Elbow for flex/ext) (09/23/21: HEP: AROM shldr #$ marissa supine 2/cane & AROM shld rot marissa supine w/cane). LTG Duration 12/13/21 (09/23/21: Progressed ) Four Impairment Decreased L UE functional use Impairment Initial UE QuickDASH score 47. 7 (40-59% imipaired) Short Term Goal (STG) Pt will be able to perform personal hygiene (spritz anal region) with L UE. STG Duration 10/29/21 Care Home Goal (LTG) Improve L UE function per UE QuickDASH score of 1-19 (1-19% impaired) LTG Duration 12/13/21 Three Impairment Improve L shoulder mobility. Impairment Sitting L shoulder painfree AROM: Flex 87 deg's, Ext 32 deg's, AB 52 deg's, ER (0 deg' s AB) 32 deg's, reaching behind back-lateral L hip, reaching behind head-L ear, reaching across opposite shoulder-anterior R shoulder. [Sitting R shoulder AROM: Flex 142 deg's, Ext 65 deg'sm, AB 133 deg's ER (0 deg's AB) 68 deg's, reaching behind back - T9, reaching behind head - T2, reaching across opposite shoulder-posterior spine of opp scapula]. Short Term Goal (STG) Improve L shoulder mobility to 75% of normal mobility compared to the R shoulder. STG Duration 10/29/21 Care Home Goal (LTG) Improve L shoulder mobility with pain no greater than 1/10 dressing. LTG Duration 12/13/21 Two Impairment L shoulder and upper back pain rated 9/10 limiting function and sleep. Short Term Goal (STG) Pt will be educated in sleep positions to minimize L shoulder and upper back pain and decrease shoulder pain to no greater than 5-6/10. STG Duration 10/29/21 (09/27/21: Partially met goal, Pt educated in sleep positions) Care Home Goal (LTG) Decrease L shoulder and upper back pain 1/10 first in the morning and at rest for less pain with sleeping. LTG Duration 12/13/21 Assessment Summary Assessment Pt having muscle and positional pain at nighttime. She has poor L shoulder posturing. Her IR/ER mobility is very restricted, causing much pain during stretching. MH is helpful. STM may be helpful. Physical Therapy Plan Frequency and Duration Frequency of Treatment 2x/Week Plan of Care Start Date 09/14/21 Plan of Care End Date 12/13/21 Next Visit Focus/Plan Next Note Type Treatment Note Next Visit Plan POC: rehab protocol at 4-6 months post op. (pt surgery ). Educ: sleeping positioning for comfort, posture (sit/stand). Try ending with STM. scapular stabilizing and is allowed to lift 1# away from body (5# close to body), Starting 08/27/21, until 4 months po, lifting 5# away and 10# close, gentle RC progression starting Anastasia IR/ ER & deltoid strengthening; 4- 6 months: 10# away/20# close to body. 6-9 months: aeorbic ex & start ligiht weights for RTC strengthening. Therapeutic ex: SCAPULAR STAB EX'S, L shoulder: PROM, AROM and self care HEP. STM: L shoulder/arm and upperback. Strengthening of L wrist, hand , elbow. Modalities for pain and edema as needed. Pt most time chosing to ice at home.
--- NOTE | 2021-10-08 13:17 | PT.OTN ---
Current Diagnoses Muscle weakness (generalized) (10/08/21) Impingement syndrome of left shoulder (10/08/21) Strain of muscle(s) and tendon(s) of the rotator cuff of left shoulder, subsequent encounter (10/08/21) Physical Therapy Treatment Note PT-OP-A Visit Information Start: 09/06/21 18:39 Freq: Status: Active Protocol: Document 10/08/21 09:46 LRN (Rec: 10/08/21 10:32 LRN [id number]) Out-Patient Physical Therapy Visit Information Visit Information Visit Type Treatment Note Visit Start Time 09:46 Visit Stop Time 10:28 Total Visit Minutes 42 Visit Number 8 Evaluation Information Evaluation Date 09/14/21 Precautions Precautions Vertigo, diabetes type II monitoring patch on L posterolateral brachium, controlled high blood pressure controlled by meds, Osteopenia, seizures controlled by meds, fall history (last incident 03/09), neuropathy of feet. PT-OP-B Current Condition Start: 09/06/21 18:39 Freq: Status: Active Protocol: Document 09/14/21 09:48 LRN (Rec: 09/14/21 12:41 LRN [id number]) Current Condition History of Current Condition Onset Date 04/29/21 Current Complaints L shoulder hurts and aches at night. History of Current Condition Pt reports s/p L RC and biceps repair 04/29/21 (post op ~19. 5 weeks). Was given ex's post op and is doing it sometimes . Pain in the back ( bilaterally) and hands ( bilaterally). Rehab protocol received (see referral). Prior Treatments and Tests Post op L shoulder exercises. Future Testing and Treatments Planned F/u with referring physician 2 -3 months after PT referral. Post op protocol issued (see referral information). Treatment Goals Patient/Caregiver Goals Pt goal is to become painfree in back and L shoulder, less pain on waking in morning, less pain dressing, improve L shoulder mobility. Prior Functional Status Baseline Function- ADL's Modified Independent Baseline Function- Mobility Modified Independent Baseline Function- Other L shoulder: AROM: too painful to move arm. PROM (in deg's): Flex 110, AB 70, ER 45 (at 45 deg's AB)) R shldr AROM: Flex is 162, AB is 145, ER (at 90 deg's AB) is 90, IR is 90. L shoulder strength is: Flex, AB, ER is 2-/5; Ext & IR is 2/5 Current Functional Impairments (Reported) Functional Limitations- ADL's L arm: can lift lift a bag of groceries with elbow, can dress with pain at L shoulder, can reach only to shoulder height without difficulty. Not able to personal hygiene ( spritz anal region) with L UE. Personal Factors Other Personal Factors That May Effect Vertigo, diabetes type II Therapy/Recovery monitoring patch on L posterolateral brachium, Osteopenia, seizures controlled by meds, fall history (last incident 03/09), neuropathy of feet. PT-OP-C Subjective Start: 09/06/21 18:39 Freq: Status: Active Protocol: Document 10/08/21 09:46 LRN (Rec: 10/08/21 10:32 LRN [id number]) OP-PT Subjective Patient Comments Patient Comments States she has a lot of pain in L shoulder at night and with exercise. Sometimes shoulder hurts reaching for things on the table. PT-OP-E Functional Tests Start: 09/06/21 18:39 Freq: Status: Active Protocol: Document 09/14/21 09:48 LRN (Rec: 09/14/21 12:41 LRN [id number]) Functional Tests Apley's Scratch Test Action 1- Left anterior R shoulder Action 1- Right Posterior L spine of scapula Action 2- Left L ear Action 2- Right T2 Action 3- Left Lateral L hip Action 3- Right T9 PT-OP-J Posture/Palpation/Skin Start: 09/06/21 18:39 Freq: Status: Active Protocol: Document 09/14/21 09:48 LRN (Rec: 09/14/21 12:41 LRN [id number]) Posture Evaluation Position Standing Head/C-Spine Posture Forward Head T-Spine Posture Increased Kyphosis Shoulder Posture (L) Elevated Comments Posture Comments Sway back, atrophy of L shoulder and arm. Palpation Assessment Location Neck and L UT Palpation Location Neck and L upper shoulder Palpation Findings Soft Tissue Tightness,Muscle Guarding,Tenderness PT-OP-K Range of Motion Start: 09/06/21 18:39 Freq: Status: Active Protocol: Document 10/08/21 09:46 LRN (Rec: 10/08/21 10:32 LRN [id number]) Shoulder Goniometric Range of Motion Shoulder Right Active Testing Position Supine Flexion 120 PT-OP-M Strength Start: 09/06/21 18:39 Freq: Status: Active Protocol: Document 09/14/21 09:48 LRN (Rec: 09/14/21 12:41 LRN [id number]) Cervical Spine Strength Cervical Spine Manual Muscle Testing Flexion (C1-2) 5 Normal Extension 5 Normal Lateral Flexion Left (C3) 4+ Good+ Lateral Flexion Right (C3) 5 Normal Comments Pain in L UT near spine with MMT of Left Lateral flexion. Shoulder Strength Shoulder Manual Muscle Testing Right External Rotation 4 Good Comments Generally 5/5 except as indicated above Left Comments Deferred due to recent RC/ Biceps surgery. Pt was not able to fully move her L UE against gravity; therefore strength assessed at 2+/5. PT-OP-Q Treatments Start: 09/06/21 18:39 Freq: Status: Active Protocol: Document 10/08/21 09:46 LRN (Rec: 10/08/21 10:32 LRN [id number]) Cardio Equipment Upper Body Ergometer (UBE) Duration (Minutes) 8 RPM 90 Seat Position 7 Height 4.5 Other Cued for stretch, not ex to L shldr Therapeutic Exercises Supine Exercises L shoulder AB Supine Exercise Name PROM, AAROM, AROM L shoulder AB Side left Reps/Minutes 10' L shoulder IR stretch Supine Exercise Name PROM IR stretch Side left Reps/Minutes 4' L shoulder Flex stretch Supine Exercise Name L shoulder passive stretch Side left Reps/Minutes 3' Comments flex 115 deg's Standing Exercises Shoulder AD behind back Standing Exercise Name Shoulder AD behind back Side left Equipment Used towel Reps/Minutes 3' Comments Phys assist to get hands in appropriate position for a stretch Codman's Standing Exercise Name Codman's after ex and standing stretches Side left Reps/Minutes 5' Comments Much phys and & v cuing to relax and swing arm vs lifting Shoulder IR Standing Exercise Name Review of IR stretch w/towel and with cane. Side left Equipment Used towel Reps/Minutes 3' Comments Phys assist to get pt in proper position for stretch Self-Care/Home Management Treatment Education Other Education Discussed and reviewed STG of improving L shoulder mobility. Discussed how her lack of mobility can cause pain with ADLs and sleeping at night. PT-OP-R Modalities Start: 09/06/21 18:39 Freq: Status: Active Protocol: Document 09/30/21 09:46 LRN (Rec: 09/30/21 11:06 LRN [id number]) Hot Pack/Cold Pack Treatment Cold Pack Comments Pt issued disposable take home ice pack for L shoulder. PT-OP-T Assessment and Plan Start: 09/06/21 18:39 Freq: Status: Active Protocol: Document 10/08/21 09:46 LRN (Rec: 10/08/21 10:32 LRN [id number]) Physical Therapy Assessment Goals One Impairment Pt lacks appropriate L shoulder self care HEP Short Term Goal (STG) Pt will be educated in pain management techniques for self care. STG Duration 09/17/21 (09/17/21: MET GOAL) Travel Assistant Goal (LTG) Pt will be independent with self care HEP for L shoulder ROM and strengthening. (09/17/21: HEP: AAROM shldr flex, ER, AROM shdr ER, AROM: Wrist/Elbow for flex/ext) (09/23/21: HEP: AROM shldr #$ marissa supine 2/cane & AROM shld rot marissa supine w/cane). LTG Duration 12/13/21 (09/23/21: Progressed ) Four Impairment Decreased L UE functional use Impairment Initial UE QuickDASH score 47. 7 (40-59% imipaired) Short Term Goal (STG) Pt will be able to perform personal hygiene (spritz anal region) with L UE. STG Duration 10/29/21 Travel Assistant Goal (LTG) Improve L UE function per UE QuickDASH score of 1-19 (1-19% impaired) LTG Duration 12/13/21 Three Impairment Improve L shoulder mobility. Impairment Sitting L shoulder painfree AROM: Flex 87 deg's, Ext 32 deg's, AB 52 deg's, ER (0 deg' s AB) 32 deg's, reaching behind back-lateral L hip, reaching behind head-L ear, reaching across opposite shoulder-anterior R shoulder. [Sitting R shoulder AROM: Flex 142 deg's, Ext 65 deg'sm, , reaching behind back - T9, reaching behind head - T2, reaching across opposite shoulder-posterior spine of opp scapula]. Short Term Goal (STG) Improve L shoulder mobility to 75% of normal mobility compared to the R shoulder (75 % of R shoulder sitting AROM: flex 106 deg's, ext 48 deg's, AB 99 deg's, ER (0 deg's AB) 51 deg's). (10/08/21: Flex is 120 deg's supine) STG Duration 10/29/21 [facility] Goal (LTG) Improve L shoulder mobility with pain no greater than 1/10 dressing. LTG Duration 12/13/21 Two Impairment L shoulder and upper back pain rated 9/10 limiting function and sleep. Short Term Goal (STG) Pt will be educated in sleep positions to minimize L shoulder and upper back pain and decrease shoulder pain to no greater than 5-6/10. STG Duration 10/29/21 (09/27/21: Partially met goal, Pt educated in sleep positions) [facility] Goal (LTG) Decrease L shoulder and upper back pain 1/10 first in the morning and at rest for less pain with sleeping. LTG Duration 12/13/21 Assessment Summary Assessment Pt stiff today; therefore probably not doing enough stretching. Pt appears to be doing more home activities of cooking, cleaning, etc..., rather than focusing on shoulder mobiltiy ex's. Pt strongly encouraged today to do more ROM ex's at home. She appears to understand. Pt L shoulder pain at nighttime may be related to her physical use of the L shoulder with activities during the day. Not able to do STM due to focus on ROM ex today. Physical Therapy Plan Frequency and Duration Frequency of Treatment 2x/Week Plan of Care Start Date 09/14/21 Plan of Care End Date 12/13/21 Next Visit Focus/Plan Next Note Type Treatment Note Next Visit Plan POC: rehab protocol at 4-6 months post op. (pt surgery ). Educ: sleeping positioning for comfort, posture (sit/stand). Try ending with STM. scapular stabilizing and is allowed to lift 1# away from body (5# close to body), Starting 08/27/21, until 4 months po, lifting 5# away and 10# close, gentle RC progression starting Anastasia IR/ ER & deltoid strengthening; 4- 6 months: 10# away/20# close to body. 6-9 months: aeorbic ex & start ligiht weights for RTC strengthening. Therapeutic ex: SCAPULAR STAB EX'S, L shoulder: PROM, AROM and self care HEP. STM: L shoulder/arm and upperback. Strengthening of L wrist, hand , elbow. Modalities for pain and edema as needed. Pt most time chosing to ice at home.
--- NOTE | 2021-10-11 12:41 | PT.OTN ---
Current Diagnoses Muscle weakness (generalized) (10/11/21) Impingement syndrome of left shoulder (10/11/21) Strain of muscle(s) and tendon(s) of the rotator cuff of left shoulder, subsequent encounter (10/11/21) Physical Therapy Treatment Note PT-OP-A Visit Information Start: 09/06/21 18:39 Freq: Status: Active Protocol: Document 10/11/21 09:49 LRN (Rec: 10/11/21 12:39 LRN [id number]) Out-Patient Physical Therapy Visit Information Visit Information Visit Type Treatment Note Visit Start Time 09:49 Visit Stop Time 10:30 Total Visit Minutes 41 Visit Number 9 Evaluation Information Evaluation Date 09/14/21 Precautions Precautions Vertigo, diabetes type II monitoring patch on L posterolateral brachium, controlled high blood pressure controlled by meds, Osteopenia, seizures controlled by meds, fall history (last incident 03/09), neuropathy of feet. PT-OP-B Current Condition Start: 09/06/21 18:39 Freq: Status: Active Protocol: Document 09/14/21 09:48 LRN (Rec: 09/14/21 12:41 LRN [id number]) Current Condition History of Current Condition Onset Date 04/29/21 Current Complaints L shoulder hurts and aches at night. History of Current Condition Pt reports s/p L RC and biceps repair 04/29/21 (post op ~19. 5 weeks). Was given ex's post op and is doing it sometimes . Pain in the back ( bilaterally) and hands ( bilaterally). Rehab protocol received (see referral). Prior Treatments and Tests Post op L shoulder exercises. Future Testing and Treatments Planned F/u with referring physician 2 -3 months after PT referral. Post op protocol issued (see referral information). Treatment Goals Patient/Caregiver Goals Pt goal is to become painfree in back and L shoulder, less pain on waking in morning, less pain dressing, improve L shoulder mobility. Prior Functional Status Baseline Function- ADL's Modified Independent Baseline Function- Mobility Modified Independent Baseline Function- Other L shoulder: AROM: too painful to move arm. PROM (in deg's): Flex 110, AB 70, ER 45 (at 45 deg's AB)) R shldr AROM: Flex is 162, AB is 145, ER (at 90 deg's AB) is 90, IR is 90. L shoulder strength is: Flex, AB, ER is 2-/5; Ext & IR is 2/5 Current Functional Impairments (Reported) Functional Limitations- ADL's L arm: can lift lift a bag of groceries with elbow, can dress with pain at L shoulder, can reach only to shoulder height without difficulty. Not able to personal hygiene ( spritz anal region) with L UE. Personal Factors Other Personal Factors That May Effect Vertigo, diabetes type II Therapy/Recovery monitoring patch on L posterolateral brachium, Osteopenia, seizures controlled by meds, fall history (last incident 03/09), neuropathy of feet. PT-OP-C Subjective Start: 09/06/21 18:39 Freq: Status: Active Protocol: Document 10/11/21 09:49 LRN (Rec: 10/11/21 12:39 LRN [id number]) OP-PT Subjective Patient Comments Patient Comments Pt concerned of scheduling changes. Nighttime sleeping, can't lie on L side. States she did a lot of stretching today. PT-OP-E Functional Tests Start: 09/06/21 18:39 Freq: Status: Active Protocol: Document 10/11/21 09:49 LRN (Rec: 10/11/21 12:39 LRN [id number]) Functional Tests Apley's Scratch Test Action 3- Left Sacrum PT-OP-J Posture/Palpation/Skin Start: 09/06/21 18:39 Freq: Status: Active Protocol: Document 09/14/21 09:48 LRN (Rec: 09/14/21 12:41 LRN [id number]) Posture Evaluation Position Standing Head/C-Spine Posture Forward Head T-Spine Posture Increased Kyphosis Shoulder Posture (L) Elevated Comments Posture Comments Sway back, atrophy of L shoulder and arm. Palpation Assessment Location Neck and L UT Palpation Location Neck and L upper shoulder Palpation Findings Soft Tissue Tightness,Muscle Guarding,Tenderness PT-OP-K Range of Motion Start: 09/06/21 18:39 Freq: Status: Active Protocol: Document 10/11/21 09:49 LRN (Rec: 10/11/21 12:39 LRN [id number]) Shoulder Goniometric Range of Motion Shoulder Right Passive Testing Position Supine Flexion 153 Horizontal Adduction 114 Left Passive Shoulder ROM WFL No Testing Position Supine Flexion 145 Abduction 90 Horizontal Adduction 90 External Rotation at 90 degrees 47 Abduction Right Active Shoulder ROM WFL Yes Testing Position Supine Flexion 142 Extension 65 Abduction 133 External Rotation at 0 degrees Abduction 68 Comments AB in scapular plane is 180 Left Active Shoulder ROM WFL No Testing Position Sitting Flexion 125 PT-OP-M Strength Start: 09/06/21 18:39 Freq: Status: Active Protocol: Document 09/14/21 09:48 LRN (Rec: 09/14/21 12:41 LRN [id number]) Cervical Spine Strength Cervical Spine Manual Muscle Testing Flexion (C1-2) 5 Normal Extension 5 Normal Lateral Flexion Left (C3) 4+ Good+ Lateral Flexion Right (C3) 5 Normal Comments Pain in L UT near spine with MMT of Left Lateral flexion. Shoulder Strength Shoulder Manual Muscle Testing Right External Rotation 4 Good Comments Generally 5/5 except as indicated above Left Comments Deferred due to recent RC/ Biceps surgery. Pt was not able to fully move her L UE against gravity; therefore strength assessed at 2+/5. PT-OP-Q Treatments Start: 09/06/21 18:39 Freq: Status: Active Protocol: Document 10/11/21 09:49 LRN (Rec: 10/11/21 12:39 LRN [id number]) Cardio Equipment Upper Body Ergometer (UBE) Duration (Minutes) 9 RPM 90 Seat Position 7 Height 5 Other Cued for stretch, not ex to L shldr Therapeutic Exercises Supine Exercises Scapular pinches after chest stretch Supine Exercise Name Scapular pinches Side bilateral Reps/Minutes 15x Comments Poor strength noted L shoulder AB Supine Exercise Name PROM f/b AAROM Side left Reps/Minutes 4' Comments ROM taken L shoulder IR stretch Supine Exercise Name PROM IR stretch Side left Reps/Minutes 4' L shoulder ER stretch Supine Exercise Name 90 deg's ER AAROM stretch Side left Equipment Used Cane & manual Reps/Minutes 20-30 H x 10 each position Comments AROM is 45 deg's L shoulder Flex stretch Supine Exercise Name L shoulder passive stretch Side left Reps/Minutes 4' Comments flexv AROM taken 125 deg's Sitting Exercises L shoulder flex Sitting Exercise Name AROM Side left Comments AROM taken Standing Exercises Shoulder AD behind back Standing Exercise Name Shoulder AD behind back, f/b AA AD x 10 Side left Equipment Used towel Reps/Minutes 4' Comments Phys assist to get hands in appropriate position for a stretch Shoulder Ext Standing Exercise Name Scap retract/shldr ext w/toes on [place] Side left Equipment Used Lev 1 TB Reps/Minutes 2' Comments Phys & v cuing to move scap in retract/depression & no back arch Scapular squeezes Standing Exercise Name Scap squeeze Side bilateral Reps/Minutes 30x Comments Much phy & v cuing to retract & depress scap Shoulder IR Standing Exercise Name Review of IR stretch w/towel f /b AAROM. Side left Equipment Used towel Reps/Minutes 4' Comments Phys assist to get pt in proper position for stretch Other Exercises Postural training Other Exercise Name Posture training against wall Reps/Minutes 5' Comments Much phys & v cuing required. Pt not able to place head on wall due to kyp PT-OP-R Modalities Start: 09/06/21 18:39 Freq: Status: Active Protocol: Document 09/30/21 09:46 LRN (Rec: 09/30/21 11:06 LRN [id number]) Hot Pack/Cold Pack Treatment Cold Pack Comments Pt issued disposable take home ice pack for L shoulder. PT-OP-T Assessment and Plan Start: 09/06/21 18:39 Freq: Status: Active Protocol: Document 10/11/21 09:49 LRN (Rec: 10/11/21 12:39 LRN [id number]) Physical Therapy Assessment Goals One Impairment Pt lacks appropriate L shoulder self care HEP Short Term Goal (STG) Pt will be educated in pain management techniques for self care. STG Duration 09/17/21 (09/17/21: MET GOAL) Senior Living Goal (LTG) Pt will be independent with self care HEP for L shoulder ROM and strengthening. (09/17/21: HEP: AAROM shldr flex, ER, AROM shdr ER, AROM: Wrist/Elbow for flex/ext) (09/23/21: HEP: AROM shldr #$ marissa supine 2/cane & AROM shld rot marissa supine w/cane). LTG Duration 12/13/21 (09/23/21: Progressed ) Four Impairment Decreased L UE functional use Impairment Initial UE QuickDASH score 47. 7 (40-59% imipaired) Short Term Goal (STG) Pt will be able to perform personal hygiene (spritz anal region) with L UE. STG Duration 10/29/21 Senior Living Goal (LTG) Improve L UE function per UE QuickDASH score of 1-19 (1-19% impaired) LTG Duration 12/13/21 Three Impairment Improve L shoulder mobility. Impairment Sitting L shoulder painfree AROM: Flex 87 deg's, Ext 32 deg's, AB 52 deg's, ER (0 deg' s AB) 32 deg's, reaching behind back-lateral L hip, reaching behind head-L ear, reaching across opposite shoulder-anterior R shoulder. [Sitting R shoulder AROM: Flex 142 deg's, Ext 65 deg'sm, , reaching behind back - T9, reaching behind head - T2, reaching across opposite shoulder-posterior spine of opp scapula]. Short Term Goal (STG) Improve L shoulder mobility to 75% of normal mobility compared to the R shoulder (75 % of R shoulder sitting AROM ( sitting): flex 106 deg's, ext 48 deg's, AB 99 deg's, ER (0 deg's AB) is 51 deg's). (10/08/21: Flex is 120 deg's supine) (10/11/21: Sup Flex is 125 deg 's) STG Duration 10/29/21 (10/11/21: Progressing) Senior Living Goal (LTG) Improve L shoulder mobility with pain no greater than 1/10 dressing. LTG Duration 12/13/21 Two Impairment L shoulder and upper back pain rated 9/10 limiting function and sleep. Short Term Goal (STG) Pt will be educated in sleep positions to minimize L shoulder and upper back pain and decrease shoulder pain to no greater than 5-6/10. STG Duration 10/29/21 (09/27/21: Partially met goal, Pt educated in sleep positions) Senior Living Goal (LTG) Decrease L shoulder and upper back pain 1/10 first in the morning and at rest for less pain with sleeping. LTG Duration 12/13/21 Assessment Summary Assessment Pt sitting L shoulder flex has improved from 120 to 125 deg' s since last session. ER is the same. IR improved from her hand at the lateral border of sacrum to sacrum. Pt demonstrates very poor posture and has difficulty presenting with sway back when exercising, much cuing is needed. Physical Therapy Plan Frequency and Duration Frequency of Treatment 2x/Week Plan of Care Start Date 09/14/21 Plan of Care End Date 12/13/21 Next Visit Focus/Plan Next Note Type Progress Note Next Visit Plan POC: rehab protocol at 4-6 months post op. (pt surgery ). Educ: sleeping positioning for comfort, Posture: cont posture training (sit & stand). Exer: scapular stabilizing and is allowed to lift 1# away from body (5# close to body), Starting 08/27/21, until 4 months po, lifting 5# away and 10# close, gentle RC progression starting Anastasia IR/ ER & deltoid strengthening; 4- 6 months: 10# away/20# close to body. 6-9 months: aeorbic ex & start ligiht weights for RTC strengthening. Therapeutic ex: SCAPULAR STAB EX'S, L shoulder: PROM, AROM and self care HEP. End with STM as needed. STM: L shoulder/arm and upperback. Strengthening of L wrist, hand , elbow. Modalities for pain and edema as needed. Pt most time chosing to ice at home.
--- NOTE | 2021-10-14 14:53 | PT.OTN ---
Current Diagnoses Muscle weakness (generalized) (10/14/21) Impingement syndrome of left shoulder (10/14/21) Strain of muscle(s) and tendon(s) of the rotator cuff of left shoulder, subsequent encounter (10/14/21) Physical Therapy Treatment Note PT-OP-A Visit Information Start: 09/06/21 18:39 Freq: Status: Active Protocol: Document 10/14/21 09:48 LRN (Rec: 10/14/21 10:37 LRN [id number]) Out-Patient Physical Therapy Visit Information Visit Information Visit Type Progress Note Visit Start Time 09:48 Visit Stop Time 10:35 Total Visit Minutes 47 Visit Number 10 Evaluation Information Evaluation Date 09/14/21 Precautions Precautions Vertigo, diabetes type II monitoring patch on L posterolateral brachium, controlled high blood pressure controlled by meds, Osteopenia, seizures controlled by meds, fall history (last incident 03/09), neuropathy of feet. PT-OP-B Current Condition Start: 09/06/21 18:39 Freq: Status: Active Protocol: Document 09/14/21 09:48 LRN (Rec: 09/14/21 12:41 LRN [id number]) Current Condition History of Current Condition Onset Date 04/29/21 Current Complaints L shoulder hurts and aches at night. History of Current Condition Pt reports s/p L RC and biceps repair 04/29/21 (post op ~19. 5 weeks). Was given ex's post op and is doing it sometimes . Pain in the back ( bilaterally) and hands ( bilaterally). Rehab protocol received (see referral). Prior Treatments and Tests Post op L shoulder exercises. Future Testing and Treatments Planned F/u with referring physician 2 -3 months after PT referral. Post op protocol issued (see referral information). Treatment Goals Patient/Caregiver Goals Pt goal is to become painfree in back and L shoulder, less pain on waking in morning, less pain dressing, improve L shoulder mobility. Prior Functional Status Baseline Function- ADL's Modified Independent Baseline Function- Mobility Modified Independent Baseline Function- Other L shoulder: AROM: too painful to move arm. PROM (in deg's): Flex 110, AB 70, ER 45 (at 45 deg's AB)) R shldr AROM: Flex is 162, AB is 145, ER (at 90 deg's AB) is 90, IR is 90. L shoulder strength is: Flex, AB, ER is 2-/5; Ext & IR is 2/5 Current Functional Impairments (Reported) Functional Limitations- ADL's L arm: can lift lift a bag of groceries with elbow, can dress with pain at L shoulder, can reach only to shoulder height without difficulty. Not able to personal hygiene ( spritz anal region) with L UE. Personal Factors Other Personal Factors That May Effect Vertigo, diabetes type II Therapy/Recovery monitoring patch on L posterolateral brachium, Osteopenia, seizures controlled by meds, fall history (last incident 03/09), neuropathy of feet. PT-OP-C Subjective Start: 09/06/21 18:39 Freq: Status: Active Protocol: Document 10/14/21 09:48 LRN (Rec: 10/14/21 10:37 LRN [id number]) OP-PT Subjective Patient Comments Patient Comments States pain sleeping at night. States used UBE at base. PT-OP-E Functional Tests Start: 09/06/21 18:39 Freq: Status: Active Protocol: Document 10/14/21 09:48 LRN (Rec: 10/14/21 10:37 LRN [id number]) Functional Tests Apley's Scratch Test Action 1- Left Opposite shoulder at anterior acromion Action 1- Right Below opposite spine of scapula Action 2- Left C6 Action 2- Right T2 Action 3- Left L lateral border of sacrum Action 3- Right L1 PT-OP-J Posture/Palpation/Skin Start: 09/06/21 18:39 Freq: Status: Active Protocol: Document 09/14/21 09:48 LRN (Rec: 09/14/21 12:41 LRN [id number]) Posture Evaluation Position Standing Head/C-Spine Posture Forward Head T-Spine Posture Increased Kyphosis Shoulder Posture (L) Elevated Comments Posture Comments Sway back, atrophy of L shoulder and arm. Palpation Assessment Location Neck and L UT Palpation Location Neck and L upper shoulder Palpation Findings Soft Tissue Tightness,Muscle Guarding,Tenderness PT-OP-K Range of Motion Start: 09/06/21 18:39 Freq: Status: Active Protocol: Document 10/14/21 09:48 LRN (Rec: 10/14/21 10:37 LRN [id number]) Shoulder Goniometric Range of Motion Shoulder Right Passive Testing Position Supine Flexion 153 Horizontal Adduction 125 Comments Horiz AD is in sitting Left Passive Shoulder ROM WFL No Testing Position Supine Flexion 145 Abduction 90 Horizontal Adduction 88 External Rotation at 90 degrees 47 Abduction Comments Horiz AD is in sitting Right Active Shoulder ROM WFL Yes Testing Position Supine Flexion 142 Extension 65 Abduction 133 External Rotation at 0 degrees Abduction 68 Comments AB in scapular plane is 180 Left Active Shoulder ROM WFL No Testing Position Sitting Flexion 125 External Rotation at 0 degrees Abduction 40 PT-OP-M Strength Start: 09/06/21 18:39 Freq: Status: Active Protocol: Document 09/14/21 09:48 LRN (Rec: 09/14/21 12:41 LRN [id number]) Cervical Spine Strength Cervical Spine Manual Muscle Testing Flexion (C1-2) 5 Normal Extension 5 Normal Lateral Flexion Left (C3) 4+ Good+ Lateral Flexion Right (C3) 5 Normal Comments Pain in L UT near spine with MMT of Left Lateral flexion. Shoulder Strength Shoulder Manual Muscle Testing Right External Rotation 4 Good Comments Generally 5/5 except as indicated above Left Comments Deferred due to recent RC/ Biceps surgery. Pt was not able to fully move her L UE against gravity; therefore strength assessed at 2+/5. PT-OP-Q Treatments Start: 09/06/21 18:39 Freq: Status: Active Protocol: Document 10/14/21 09:48 LRN (Rec: 10/14/21 10:37 LRN [id number]) Cardio Equipment Upper Body Ergometer (UBE) Duration (Minutes) 8 RPM 90 Seat Position 7 Height 5.5 Other Cued for stretch, not ex to L shldr Therapeutic Exercises Standing Exercises Shoulder AD behind back Standing Exercise Name Shoulder AD behind back, f/b AA AD x 10 Side left Equipment Used towel Reps/Minutes 4' Comments Phys assist to get hands in appropriate position for a stretch Codman's Standing Exercise Name Codman's Reps/Minutes after each stretching Comments Pt needed much phys & v cuing each time. Shoulder IR Standing Exercise Name Review of IR stretch w/towel f /b AAROM. Side left Equipment Used towel Reps/Minutes 15' Comments Phys assist to get pt in proper position for stretch Self-Care/Home Management Treatment Education Patient Education Home Exercise Program Activities Self-Care/Home Management Activities I/S pt in self L shoulder horiz AD stretch. PT-OP-R Modalities Start: 09/06/21 18:39 Freq: Status: Active Protocol: Document 09/30/21 09:46 LRN (Rec: 09/30/21 11:06 LRN [id number]) Hot Pack/Cold Pack Treatment Cold Pack Comments Pt issued disposable take home ice pack for L shoulder. PT-OP-T Assessment and Plan Start: 09/06/21 18:39 Freq: Status: Active Protocol: Document 10/14/21 09:48 LRN (Rec: 10/14/21 10:37 LRN [id number]) Physical Therapy Assessment Goals One Impairment Pt lacks appropriate L shoulder self care HEP Short Term Goal (STG) Pt will be educated in pain management techniques for self care. STG Duration 09/17/21 (09/17/21: MET GOAL) Custodial Goal (LTG) Pt will be independent with self care HEP for L shoulder ROM and strengthening. (09/17/21: HEP: AAROM shldr flex, ER, AROM shdr ER, AROM: Wrist/Elbow for flex/ext) (09/23/21: HEP: AROM shldr #$ marissa supine 2/cane & AROM shld rot marissa supine w/cane). (09/27/21: HEP - AAROM shldr AB slide on table, IR towel stretch) (09/30/21: HEP - Cane for sup: ER, horiz AB/AD, AB; Standing cane shldr ER, Ext, AB, IR, AD behind back stretch). (10/14/21: I/S pt in sitting shldr horiz AD stretch) LTG Duration 12/13/21 (10/14/21: Progressed) Four Impairment Decreased L UE functional use Impairment Initial UE QuickDASH score 47. 7 (40-59% imipaired) Short Term Goal (STG) Pt will be able to perform personal hygiene (spritz anal region) with L UE. STG Duration 10/29/21 Custodial Goal (LTG) Improve L UE function per UE QuickDASH score of 1-19 (1-19% impaired) LTG Duration 12/13/21 Three Impairment Improve L shoulder mobility. Impairment Sitting L shoulder painfree AROM: Flex 87 deg's, Ext 32 deg's, AB 52 deg's, ER (0 deg' s AB) 32 deg's, reaching behind back-lateral L hip, reaching behind head-L ear, reaching across opposite shoulder-anterior R shoulder. [Sitting R shoulder AROM: Flex 142 deg's, Ext 65 deg'sm, , reaching behind back - T9, reaching behind head - T2, reaching across opposite shoulder-posterior spine of opp scapula]. Short Term Goal (STG) Improve L shoulder mobility to 75% of normal mobility compared to the R shoulder (75 % of R shoulder sitting AROM ( sitting): flex 106 deg's, ext 48 deg's, AB 99 deg's, ER (0 deg's AB) is 51 deg's). (10/08/21: Flex is 120 deg's supine) (10/11/21: Sup Flex is 125 deg 's) STG Duration 10/29/21 (10/11/21: Progressing) Custodial Goal (LTG) Improve L shoulder mobility with pain no greater than 1/10 dressing. LTG Duration 12/13/21 Two Impairment L shoulder and upper back pain rated 9/10 limiting function and sleep. Short Term Goal (STG) Pt will be educated in sleep positions to minimize L shoulder and upper back pain and decrease shoulder pain to no greater than 5-6/10. STG Duration 10/29/21 (09/27/21: Partially met goal, Pt educated in sleep positions) Custodial Goal (LTG) Decrease L shoulder and upper back pain 1/10 first in the morning and at rest for less pain with sleeping. LTG Duration 12/13/21 Assessment Summary Assessment Pt has improved overall in her L shoulder mobility, although is not progressing with her IR mobility as hoped. She has much pain with stretching and may not be stretching as often as recommended. Pt has complained of how hard it is to stretch, and made comments that the reason she is coming to therapy is to get better, not expecting to work so hard at home. The pt needs phys & v cuing each time she attends therapy for the same ex's, demonstrating poor follow through with instructions. The pt is anxious to do more strengthening, but due to her poor L shoulder mobility I am hesitant to turn the focus on strengthening due to her forgetting about mobility and turning her focus to strengthening. The pt would benefit from further physical therapy to improve her L shoulder mobility and then functional strength. She does not demonstrate a capsular pattern for frozen shoulder. Physical Therapy Plan Frequency and Duration Frequency of Treatment 2x/Week Plan of Care Start Date 09/14/21 Plan of Care End Date 12/13/21 Next Visit Focus/Plan Next Note Type Progress Note Next Visit Plan POC: rehab protocol at 4-6 months post op. (pt surgery ). ROM: Check sitting and supine . Educ: sleeping positioning for comfort, Posture: cont posture training (sit & stand). Exer: scapular stabilizing and is allowed to lift 1# away from body (5# close to body), Starting 08/27/21, until 4 months po, lifting 5# away and 10# close, gentle RC progression starting Anastasia IR/ ER & deltoid strengthening; 4- 6 months: 10# away/20# close to body. 6-9 months: aeorbic ex & start ligiht weights for RTC strengthening. Therapeutic ex: SCAPULAR STAB EX'S, L shoulder: PROM, AROM and self care HEP. End with STM as needed. STM: L shoulder/arm and upperback. Strengthening of L wrist, hand , elbow. Modalities for pain and edema as needed. Pt most time chosing to ice at home.
--- NOTE | 2021-10-19 17:59 | PT.OTN ---
Current Diagnoses Muscle weakness (generalized) (10/19/21) Impingement syndrome of left shoulder (10/19/21) Strain of muscle(s) and tendon(s) of the rotator cuff of left shoulder, subsequent encounter (10/19/21) Physical Therapy Treatment Note PT-OP-A Visit Information Start: 09/06/21 18:39 Freq: Status: Active Protocol: Document 10/19/21 09:26 LRN (Rec: 10/19/21 12:48 LRN [id number]) Out-Patient Physical Therapy Visit Information Visit Information Visit Type Treatment Note Visit Start Time 09:45 Visit Stop Time 10:27 Total Visit Minutes 42 Visit Number 11 Evaluation Information Evaluation Date 09/14/21 Precautions Precautions Vertigo, diabetes type II monitoring patch on L posterolateral brachium, controlled high blood pressure controlled by meds, Osteopenia, seizures controlled by meds, fall history (last incident 03/09), neuropathy of feet. PT-OP-B Current Condition Start: 09/06/21 18:39 Freq: Status: Active Protocol: Document 09/14/21 09:48 LRN (Rec: 09/14/21 12:41 LRN [id number]) Current Condition History of Current Condition Onset Date 04/29/21 Current Complaints L shoulder hurts and aches at night. History of Current Condition Pt reports s/p L RC and biceps repair 04/29/21 (post op ~19. 5 weeks). Was given ex's post op and is doing it sometimes . Pain in the back ( bilaterally) and hands ( bilaterally). Rehab protocol received (see referral). Prior Treatments and Tests Post op L shoulder exercises. Future Testing and Treatments Planned F/u with referring physician 2 -3 months after PT referral. Post op protocol issued (see referral information). Treatment Goals Patient/Caregiver Goals Pt goal is to become painfree in back and L shoulder, less pain on waking in morning, less pain dressing, improve L shoulder mobility. Prior Functional Status Baseline Function- ADL's Modified Independent Baseline Function- Mobility Modified Independent Baseline Function- Other L shoulder: AROM: too painful to move arm. PROM (in deg's): Flex 110, AB 70, ER 45 (at 45 deg's AB)) R shldr AROM: Flex is 162, AB is 145, ER (at 90 deg's AB) is 90, IR is 90. L shoulder strength is: Flex, AB, ER is 2-/5; Ext & IR is 2/5 Current Functional Impairments (Reported) Functional Limitations- ADL's L arm: can lift lift a bag of groceries with elbow, can dress with pain at L shoulder, can reach only to shoulder height without difficulty. Not able to personal hygiene ( spritz anal region) with L UE. Personal Factors Other Personal Factors That May Effect Vertigo, diabetes type II Therapy/Recovery monitoring patch on L posterolateral brachium, Osteopenia, seizures controlled by meds, fall history (last incident 03/09), neuropathy of feet. PT-OP-C Subjective Start: 09/06/21 18:39 Freq: Status: Active Protocol: Document 10/19/21 09:26 LRN (Rec: 10/19/21 12:48 LRN [id number]) OP-PT Subjective Patient Comments Patient Comments States she understands all instructions. Pt's daughter in attendance to watch and learn pt's program. PT-OP-E Functional Tests Start: 09/06/21 18:39 Freq: Status: Active Protocol: Document 10/14/21 09:48 LRN (Rec: 10/14/21 10:37 LRN [id number]) Functional Tests Apley's Scratch Test Action 1- Left Opposite shoulder at anterior acromion Action 1- Right Below opposite spine of scapula Action 2- Left C6 Action 2- Right T2 Action 3- Left L lateral border of sacrum Action 3- Right L1 PT-OP-J Posture/Palpation/Skin Start: 09/06/21 18:39 Freq: Status: Active Protocol: Document 09/14/21 09:48 LRN (Rec: 09/14/21 12:41 LRN [id number]) Posture Evaluation Position Standing Head/C-Spine Posture Forward Head T-Spine Posture Increased Kyphosis Shoulder Posture (L) Elevated Comments Posture Comments Sway back, atrophy of L shoulder and arm. Palpation Assessment Location Neck and L UT Palpation Location Neck and L upper shoulder Palpation Findings Soft Tissue Tightness,Muscle Guarding,Tenderness PT-OP-K Range of Motion Start: 09/06/21 18:39 Freq: Status: Active Protocol: Document 10/14/21 09:48 LRN (Rec: 10/14/21 10:37 LRN [id number]) Shoulder Goniometric Range of Motion Shoulder Right Passive Testing Position Supine Flexion 153 Horizontal Adduction 125 Comments Horiz AD is in sitting Left Passive Shoulder ROM WFL No Testing Position Supine Flexion 145 Abduction 90 Horizontal Adduction 88 External Rotation at 90 degrees 47 Abduction Comments Horiz AD is in sitting Right Active Shoulder ROM WFL Yes Testing Position Supine Flexion 142 Extension 65 Abduction 133 External Rotation at 0 degrees Abduction 68 Comments AB in scapular plane is 180 Left Active Shoulder ROM WFL No Testing Position Sitting Flexion 125 External Rotation at 0 degrees Abduction 40 PT-OP-M Strength Start: 09/06/21 18:39 Freq: Status: Active Protocol: Document 09/14/21 09:48 LRN (Rec: 09/14/21 12:41 LRN [id number]) Cervical Spine Strength Cervical Spine Manual Muscle Testing Flexion (C1-2) 5 Normal Extension 5 Normal Lateral Flexion Left (C3) 4+ Good+ Lateral Flexion Right (C3) 5 Normal Comments Pain in L UT near spine with MMT of Left Lateral flexion. Shoulder Strength Shoulder Manual Muscle Testing Right External Rotation 4 Good Comments Generally 5/5 except as indicated above Left Comments Deferred due to recent RC/ Biceps surgery. Pt was not able to fully move her L UE against gravity; therefore strength assessed at 2+/5. PT-OP-Q Treatments Start: 09/06/21 18:39 Freq: Status: Active Protocol: Document 10/19/21 09:26 LRN (Rec: 10/19/21 12:48 LRN [id number]) Cardio Equipment Upper Body Ergometer (UBE) Duration (Minutes) 10 RPM 90 Seat Position 5 Height 6.5 Other Cued for stretch, not ex to L shldr Therapeutic Exercises Supine Exercises L shoulder AB Supine Exercise Name L shoulder AB PROM Side left Comments Extra time for education of DA of pt HEP and her assisting L shoulder IR stretch Supine Exercise Name Passive prolonged positioning hand under buttock, f/b AAROM Side left Reps/Minutes 5' Comments Extra time for education of DA of pt HEP and her assisting L shoulder ER stretch Supine Exercise Name 90 deg's ER f/b AAROM stretch Side left Equipment Used Manual assist Reps/Minutes 5' Comments Extra time for education of DA of pt HEP and her assisting L shoulder Flex stretch Supine Exercise Name PROM f/b AAROM Side right Equipment Used manual assist Standing Exercises Shoulder AD behind back Standing Exercise Name Shoulder AD behind back, f/b AA AD x 10 Side left Equipment Used strap Reps/Minutes 2' Comments Phys assist to get hands in appropriate position for a stretch Codman's Standing Exercise Name Codman's Side left Reps/Minutes throughout stretching Comments Pt needed phys & v cuing with education of DA on proper performance of ex. Shoulder IR Standing Exercise Name Review of IR stretch w/towel f /b AAROM. Side left Equipment Used strap Comments Extra time for education of DA of pt HEP and her assisting Self-Care/Home Management Treatment Education Patient Education Pain Management Caregiver Education Discussed use of ice at home for pain and recommended they bring ice pack for pt to use on the way home. PT-OP-R Modalities Start: 09/06/21 18:39 Freq: Status: Active Protocol: Document 09/30/21 09:46 LRN (Rec: 09/30/21 11:06 LRN [id number]) Hot Pack/Cold Pack Treatment Cold Pack Comments Pt issued disposable take home ice pack for L shoulder. PT-OP-T Assessment and Plan Start: 09/06/21 18:39 Freq: Status: Active Protocol: Document 10/19/21 09:26 LRN (Rec: 10/19/21 12:48 LRN [id number]) Physical Therapy Assessment Goals One Impairment Pt lacks appropriate L shoulder self care HEP Short Term Goal (STG) Pt will be educated in pain management techniques for self care. STG Duration 09/17/21 (09/17/21: MET GOAL) Registered Nurse Cardiovascular Icu Goal (LTG) Pt will be independent with self care HEP for L shoulder ROM and strengthening. (09/17/21: HEP: AAROM shldr flex, ER, AROM shdr ER, AROM: Wrist/Elbow for flex/ext) (09/23/21: HEP: AROM shldr #$ marissa supine 2/cane & AROM shld rot marissa supine w/cane). (09/27/21: HEP - AAROM shldr AB slide on table, IR towel stretch) (09/30/21: HEP - Cane for sup: ER, horiz AB/AD, AB; Standing cane shldr ER, Ext, AB, IR, AD behind back stretch). (10/14/21: I/S pt in sitting shldr horiz AD stretch) (10/19/21: Pt DA present for education in assisting pt in home ex's) LTG Duration 12/13/21 (10/14/21: Progressed) Four Impairment Decreased L UE functional use Impairment Initial UE QuickDASH score 47. 7 (40-59% imipaired) Short Term Goal (STG) Pt will be able to perform personal hygiene (spritz anal region) with L UE. STG Duration 10/29/21 Halfway Goal (LTG) Improve L UE function per UE QuickDASH score of 1-19 (1-19% impaired) LTG Duration 12/13/21 Three Impairment Improve L shoulder mobility. Impairment Sitting L shoulder painfree AROM: Flex 87 deg's, Ext 32 deg's, AB 52 deg's, ER (0 deg' s AB) 32 deg's, reaching behind back-lateral L hip, reaching behind head-L ear, reaching across opposite shoulder-anterior R shoulder. [Sitting R shoulder AROM: Flex 142 deg's, Ext 65 deg'sm, , reaching behind back - T9, reaching behind head - T2, reaching across opposite shoulder-posterior spine of opp scapula]. Short Term Goal (STG) Improve L shoulder mobility to 75% of normal mobility compared to the R shoulder (75 % of R shoulder sitting AROM ( sitting): flex 106 deg's, ext 48 deg's, AB 99 deg's, ER (0 deg's AB) is 51 deg's). (10/08/21: Flex is 120 deg's supine) (10/11/21: Sup Flex is 125 deg 's) STG Duration 10/29/21 (10/11/21: Progressing) Registered Nurse Cardiovascular Icu Goal (LTG) Improve L shoulder mobility with pain no greater than 1/10 dressing. LTG Duration 12/13/21 Two Impairment L shoulder and upper back pain rated 9/10 limiting function and sleep. Short Term Goal (STG) Pt will be educated in sleep positions to minimize L shoulder and upper back pain and decrease shoulder pain to no greater than 5-6/10. STG Duration 10/29/21 (09/27/21: Partially met goal, Pt educated in sleep positions) Halfway Goal (LTG) Decrease L shoulder and upper back pain 1/10 first in the morning and at rest for less pain with sleeping. LTG Duration 12/13/21 Assessment Summary Assessment Pt daughter present during therapy and appears to have greater understanding of how to encourage and assist pt in being consistent with her HEP and the need to do more exercising. The pt continues to have much pain with PROM ex 's with IR<ER<Flex. Physical Therapy Plan Frequency and Duration Frequency of Treatment 2x/Week Plan of Care Start Date 09/14/21 Plan of Care End Date 12/13/21 Next Visit Focus/Plan Next Note Type Treatment Note Next Visit Plan POC: MD rehab protocol at 4-6 months post op. (pt surgery ). ROM: Check sitting and supine . Educ: sleeping positioning for comfort, Posture: cont posture training (sit & stand). Exer: scapular stabilizing and is allowed to lift 1# away from body (5# close to body), Starting 08/27/21 (4 months po) , lifting 5# away and 10# close, gentle RC progression starting Anastasia IR/ER & deltoid strengthening; 4-6 months (05/10-10/27/21): 10# away/20# close to body. 6-9 months (05/10-01/27/22): aeorbic ex & start light weights for RTC strengthening. Therapeutic ex: SCAPULAR STAB EX'S, L shoulder: PROM, AROM and self care HEP. End with STM as needed. STM: L shoulder/arm and upperback. Strengthening of L wrist, hand , elbow. Modalities for pain and edema as needed. Pt most time chosing to ice at home.
--- NOTE | 2021-10-22 12:36 | PT.OTN ---
Current Diagnoses Muscle weakness (generalized) (10/22/21) Impingement syndrome of left shoulder (10/22/21) Strain of muscle(s) and tendon(s) of the rotator cuff of left shoulder, subsequent encounter (10/22/21) Physical Therapy Treatment Note PT-OP-A Visit Information Start: 09/06/21 18:39 Freq: Status: Active Protocol: Document 10/22/21 09:51 LRN (Rec: 10/22/21 12:34 LRN [id number]) Out-Patient Physical Therapy Visit Information Visit Information Visit Type Treatment Note Visit Start Time 09:51 Visit Stop Time 10:33 Total Visit Minutes 42 Visit Number 12 Evaluation Information Evaluation Date 09/14/21 Precautions Precautions Vertigo, diabetes type II monitoring patch on L posterolateral brachium, controlled high blood pressure controlled by meds, Osteopenia, seizures controlled by meds, fall history (last incident 03/09), neuropathy of feet. PT-OP-B Current Condition Start: 09/06/21 18:39 Freq: Status: Active Protocol: Document 09/14/21 09:48 LRN (Rec: 09/14/21 12:41 LRN [id number]) Current Condition History of Current Condition Onset Date 04/29/21 Current Complaints L shoulder hurts and aches at night. History of Current Condition Pt reports s/p L RC and biceps repair 04/29/21 (post op ~19. 5 weeks). Was given ex's post op and is doing it sometimes . Pain in the back ( bilaterally) and hands ( bilaterally). Rehab protocol received (see referral). Prior Treatments and Tests Post op L shoulder exercises. Future Testing and Treatments Planned F/u with referring physician 2 -3 months after PT referral. Post op protocol issued (see referral information). Treatment Goals Patient/Caregiver Goals Pt goal is to become painfree in back and L shoulder, less pain on waking in morning, less pain dressing, improve L shoulder mobility. Prior Functional Status Baseline Function- ADL's Modified Independent Baseline Function- Mobility Modified Independent Baseline Function- Other L shoulder: AROM: too painful to move arm. PROM (in deg's): Flex 110, AB 70, ER 45 (at 45 deg's AB)) R shldr AROM: Flex is 162, AB is 145, ER (at 90 deg's AB) is 90, IR is 90. L shoulder strength is: Flex, AB, ER is 2-/5; Ext & IR is 2/5 Current Functional Impairments (Reported) Functional Limitations- ADL's L arm: can lift lift a bag of groceries with elbow, can dress with pain at L shoulder, can reach only to shoulder height without difficulty. Not able to personal hygiene ( spritz anal region) with L UE. Personal Factors Other Personal Factors That May Effect Vertigo, diabetes type II Therapy/Recovery monitoring patch on L posterolateral brachium, Osteopenia, seizures controlled by meds, fall history (last incident 03/09), neuropathy of feet. PT-OP-C Subjective Start: 09/06/21 18:39 Freq: Status: Active Protocol: Document 10/22/21 09:51 LRN (Rec: 10/22/21 12:34 LRN [id number]) OP-PT Subjective Patient Comments Patient Comments Thinks she has improved her ROM. Sometimes stretches when she is resting, states it hurts. PT-OP-E Functional Tests Start: 09/06/21 18:39 Freq: Status: Active Protocol: Document 10/14/21 09:48 LRN (Rec: 10/14/21 10:37 LRN [id number]) Functional Tests Apley's Scratch Test Action 1- Left Opposite shoulder at anterior acromion Action 1- Right Below opposite spine of scapula Action 2- Left C6 Action 2- Right T2 Action 3- Left L lateral border of sacrum Action 3- Right L1 PT-OP-J Posture/Palpation/Skin Start: 09/06/21 18:39 Freq: Status: Active Protocol: Document 09/14/21 09:48 LRN (Rec: 09/14/21 12:41 LRN [id number]) Posture Evaluation Position Standing Head/C-Spine Posture Forward Head T-Spine Posture Increased Kyphosis Shoulder Posture (L) Elevated Comments Posture Comments Sway back, atrophy of L shoulder and arm. Palpation Assessment Location Neck and L UT Palpation Location Neck and L upper shoulder Palpation Findings Soft Tissue Tightness,Muscle Guarding,Tenderness PT-OP-K Range of Motion Start: 09/06/21 18:39 Freq: Status: Active Protocol: Document 10/22/21 09:51 LRN (Rec: 10/22/21 12:34 LRN [id number]) Shoulder Goniometric Range of Motion Shoulder Left Passive Shoulder ROM WFL No Testing Position Supine Flexion 135 External Rotation at 90 degrees 52 Abduction Left Active Comments Supine ER is 45 deg's PT-OP-M Strength Start: 09/06/21 18:39 Freq: Status: Active Protocol: Document 09/14/21 09:48 LRN (Rec: 09/14/21 12:41 LRN [id number]) Cervical Spine Strength Cervical Spine Manual Muscle Testing Flexion (C1-2) 5 Normal Extension 5 Normal Lateral Flexion Left (C3) 4+ Good+ Lateral Flexion Right (C3) 5 Normal Comments Pain in L UT near spine with MMT of Left Lateral flexion. Shoulder Strength Shoulder Manual Muscle Testing Right External Rotation 4 Good Comments Generally 5/5 except as indicated above Left Comments Deferred due to recent RC/ Biceps surgery. Pt was not able to fully move her L UE against gravity; therefore strength assessed at 2+/5. PT-OP-Q Treatments Start: 09/06/21 18:39 Freq: Status: Active Protocol: Document 10/22/21 09:51 LRN (Rec: 10/22/21 12:34 LRN [id number]) Cardio Equipment Upper Body Ergometer (UBE) Duration (Minutes) 8 RPM 90 Seat Position 5 Height 6 Other Cued for stretch, not ex to L shldr Therapeutic Exercises Supine Exercises L shoulder AB Supine Exercise Name L shoulder AB PROM Side left Comments Extra time for education of DA of pt HEP and her assisting L shoulder IR stretch Supine Exercise Name Passive prolonged positioning hand under buttock, f/b AAROM Side left Reps/Minutes 5' Comments Extra time for education of DA of pt HEP and her assisting L shoulder ER stretch Supine Exercise Name 90 deg's ER f/b AAROM stretch Side left Equipment Used Manual assist Reps/Minutes 5' Comments Extra time for education of DA of pt HEP and her assisting L shoulder Flex stretch Supine Exercise Name PROM f/b AAROM Side right Equipment Used manual assist Standing Exercises Shoulder AD behind back Standing Exercise Name Shoulder AD behind back, f/b AA AD x 10 Side left Equipment Used opposite hand Reps/Minutes 1' Comments Pt able to position self with L hand behind back with assist of Radha Arboleda's Standing Exercise Name Codman's Side left Reps/Minutes throughout stretching Comments Pt needed phys & v cuing with education of DA on proper performance of ex. PT-OP-R Modalities Start: 09/06/21 18:39 Freq: Status: Active Protocol: Document 10/22/21 09:51 LRN (Rec: 10/22/21 12:34 LRN [id number]) Hot Pack/Cold Pack Treatment Cold Pack Location L subacromion Patient Position Supine Treatment Duration (minutes) 2 Patient Tolerance Fair Comments reported numbness isubacromial region. PT-OP-T Assessment and Plan Start: 09/06/21 18:39 Freq: Status: Active Protocol: Document 10/22/21 09:51 LRN (Rec: 10/22/21 12:34 LRN [id number]) Physical Therapy Assessment Goals One Impairment Pt lacks appropriate L shoulder self care HEP Short Term Goal (STG) Pt will be educated in pain management techniques for self care. STG Duration 09/17/21 (09/17/21: MET GOAL) Health Promoter Goal (LTG) Pt will be independent with self care HEP for L shoulder ROM and strengthening. (09/17/21: HEP: AAROM shldr flex, ER, AROM shdr ER, AROM: Wrist/Elbow for flex/ext) (09/23/21: HEP: AROM shldr #$ marissa supine 2/cane & AROM shld rot marissa supine w/cane). (09/27/21: HEP - AAROM shldr AB slide on table, IR towel stretch) (09/30/21: HEP - Cane for sup: ER, horiz AB/AD, AB; Standing cane shldr ER, Ext, AB, IR, AD behind back stretch). (10/14/21: I/S pt in sitting shldr horiz AD stretch) (10/19/21: Pt DA present for education in assisting pt in home ex's) LTG Duration 12/13/21 (10/14/21: Progressed) Four Impairment Decreased L UE functional use Impairment Initial UE QuickDASH score 47. 7 (40-59% imipaired) Short Term Goal (STG) Pt will be able to perform personal hygiene (spritz anal region) with L UE. STG Duration 10/29/21 Nursing Home Goal (LTG) Improve L UE function per UE QuickDASH score of 1-19 (1-19% impaired) LTG Duration 12/13/21 Three Impairment Improve L shoulder mobility. Impairment Sitting L shoulder painfree AROM: Flex 87 deg's, Ext 32 deg's, AB 52 deg's, ER (0 deg' s AB) 32 deg's, reaching behind back-lateral L hip, reaching behind head-L ear, reaching across opposite shoulder-anterior R shoulder. [Sitting R shoulder AROM: Flex 142 deg's, Ext 65 deg'sm, , reaching behind back - T9, reaching behind head - T2, reaching across opposite shoulder-posterior spine of opp scapula]. Short Term Goal (STG) Improve L shoulder mobility to 75% of normal mobility compared to the R shoulder (75 % of R shoulder sitting AROM ( sitting): flex 106 deg's, ext 48 deg's, AB 99 deg's, ER (0 deg's AB) is 51 deg's). (10/08/21: Flex is 120 deg's supine) (10/11/21: Sup Flex is 125 deg 's) STG Duration 10/29/21 (10/11/21: Progressing) Health Promoter Goal (LTG) Improve L shoulder mobility with pain no greater than 1/10 dressing. LTG Duration 12/13/21 Two Impairment L shoulder and upper back pain rated 9/10 limiting function and sleep. Short Term Goal (STG) Pt will be educated in sleep positions to minimize L shoulder and upper back pain and decrease shoulder pain to no greater than 5-6/10. STG Duration 10/29/21 (09/27/21: Partially met goal, Pt educated in sleep positions) Nursing Home Goal (LTG) Decrease L shoulder and upper back pain 1/10 first in the morning and at rest for less pain with sleeping. LTG Duration 12/13/21 Progress Towards Goals Progress Comments Slight improvement in shoulder ER PROM in supine from 45 to 47 deg's. Pt demonstrates in standing ability to place her L hand behind her back with assist of R hand. Assessment Summary Assessment Pt able to return to reach on UBE of 6.5 hgt after warming up at start o 5 hgt. Pt continues to report a lot of pain in lateral deltoid, but now in subacromial position, pt may be too aggressive at home with symptoms of possible subacromial bursitis. Physical Therapy Plan Frequency and Duration Frequency of Treatment 2x/Week Plan of Care Start Date 10/22/21 Plan of Care End Date 01/20/22 Next Visit Focus/Plan Next Note Type Treatment Note Next Visit Plan POC: rehab protocol at 4-6 months post op. (pt surgery ). Assess for subacromial bursitis. ROM: Check sitting . Educ: sleeping positioning for comfort, Posture: cont posture training (sit & stand). Exer: scapular stabilizing and is allowed to lift 1# away from body (5# close to body), Starting 08/27/21 (4 months po) , lifting 5# away and 10# close, gentle RC progression starting Anastasia IR/ER & deltoid strengthening; 4-6 months (05/10-10/27/21): 10# away/20# close to body. 6-9 months (05/10-01/27/22): aeorbic ex & start light weights for RTC strengthening. Therapeutic ex: SCAPULAR STAB EX'S, L shoulder: PROM, AROM and self care HEP. End with STM as needed. STM: L shoulder/arm and upperback. Strengthening of L wrist, hand , elbow. Modalities for pain and edema as needed. Pt most time chosing to ice at home.
--- NOTE | 2021-10-22 13:35 | PT-OP ANOTE ---
Called surgeon, Dr. Mariano's office, message left to request copy of operation report or clearance for ultrasound to be done on pt's L shoulder.
--- NOTE | 2021-10-25 13:31 | PT.OTN ---
Current Diagnoses Muscle weakness (generalized) (10/25/21) Impingement syndrome of left shoulder (10/25/21) Strain of muscle(s) and tendon(s) of the rotator cuff of left shoulder, subsequent encounter (10/25/21) Physical Therapy Treatment Note PT-OP-A Visit Information Start: 09/06/21 18:39 Freq: Status: Active Protocol: Document 10/25/21 09:52 LRN (Rec: 10/25/21 12:46 LRN [id number]) Out-Patient Physical Therapy Visit Information Visit Information Visit Type Treatment Note Visit Start Time 09:52 Visit Stop Time 10:35 Total Visit Minutes 43 Visit Number 13 Evaluation Information Evaluation Date 09/14/21 Precautions Precautions Vertigo, diabetes type II monitoring patch on L posterolateral brachium, controlled high blood pressure controlled by meds, Osteopenia, seizures controlled by meds, fall history (last incident 03/09), neuropathy of feet. PT-OP-B Current Condition Start: 09/06/21 18:39 Freq: Status: Active Protocol: Document 09/14/21 09:48 LRN (Rec: 09/14/21 12:41 LRN [id number]) Current Condition History of Current Condition Onset Date 04/29/21 Current Complaints L shoulder hurts and aches at night. History of Current Condition Pt reports s/p L RC and biceps repair 04/29/21 (post op ~19. 5 weeks). Was given ex's post op and is doing it sometimes . Pain in the back ( bilaterally) and hands ( bilaterally). Rehab protocol received (see referral). Prior Treatments and Tests Post op L shoulder exercises. Future Testing and Treatments Planned F/u with referring physician 2 -3 months after PT referral. Post op protocol issued (see referral information). Treatment Goals Patient/Caregiver Goals Pt goal is to become painfree in back and L shoulder, less pain on waking in morning, less pain dressing, improve L shoulder mobility. Prior Functional Status Baseline Function- ADL's Modified Independent Baseline Function- Mobility Modified Independent Baseline Function- Other L shoulder: AROM: too painful to move arm. PROM (in deg's): Flex 110, AB 70, ER 45 (at 45 deg's AB)) R shldr AROM: Flex is 162, AB is 145, ER (at 90 deg's AB) is 90, IR is 90. L shoulder strength is: Flex, AB, ER is 2-/5; Ext & IR is 2/5 Current Functional Impairments (Reported) Functional Limitations- ADL's L arm: can lift lift a bag of groceries with elbow, can dress with pain at L shoulder, can reach only to shoulder height without difficulty. Not able to personal hygiene ( spritz anal region) with L UE. Personal Factors Other Personal Factors That May Effect Vertigo, diabetes type II Therapy/Recovery monitoring patch on L posterolateral brachium, Osteopenia, seizures controlled by meds, fall history (last incident 03/09), neuropathy of feet. PT-OP-C Subjective Start: 09/06/21 18:39 Freq: Status: Active Protocol: Document 10/25/21 09:52 LRN (Rec: 10/25/21 12:46 LRN [id number]) OP-PT Subjective Patient Comments Patient Comments States she did not do her ex's yesterday because her daughter was admitted into the hospital for surgery. PT-OP-E Functional Tests Start: 09/06/21 18:39 Freq: Status: Active Protocol: Document 10/14/21 09:48 LRN (Rec: 10/14/21 10:37 LRN [id number]) Functional Tests Apley's Scratch Test Action 1- Left Opposite shoulder at anterior acromion Action 1- Right Below opposite spine of scapula Action 2- Left C6 Action 2- Right T2 Action 3- Left L lateral border of sacrum Action 3- Right L1 PT-OP-J Posture/Palpation/Skin Start: 09/06/21 18:39 Freq: Status: Active Protocol: Document 09/14/21 09:48 LRN (Rec: 09/14/21 12:41 LRN [id number]) Posture Evaluation Position Standing Head/C-Spine Posture Forward Head T-Spine Posture Increased Kyphosis Shoulder Posture (L) Elevated Comments Posture Comments Sway back, atrophy of L shoulder and arm. Palpation Assessment Location Neck and L UT Palpation Location Neck and L upper shoulder Palpation Findings Soft Tissue Tightness,Muscle Guarding,Tenderness PT-OP-K Range of Motion Start: 09/06/21 18:39 Freq: Status: Active Protocol: Document 10/25/21 09:52 LRN (Rec: 10/25/21 12:46 LRN [id number]) Shoulder Goniometric Range of Motion Shoulder Left Passive Shoulder ROM WFL No Testing Position Supine Flexion 140 External Rotation at 90 degrees 55 Abduction Internal Rotation 30 Internal Rotation Behind Back (text) L4 PT-OP-M Strength Start: 09/06/21 18:39 Freq: Status: Active Protocol: Document 09/14/21 09:48 LRN (Rec: 09/14/21 12:41 LRN [id number]) Cervical Spine Strength Cervical Spine Manual Muscle Testing Flexion (C1-2) 5 Normal Extension 5 Normal Lateral Flexion Left (C3) 4+ Good+ Lateral Flexion Right (C3) 5 Normal Comments Pain in L UT near spine with MMT of Left Lateral flexion. Shoulder Strength Shoulder Manual Muscle Testing Right External Rotation 4 Good Comments Generally 5/5 except as indicated above Left Comments Deferred due to recent RC/ Biceps surgery. Pt was not able to fully move her L UE against gravity; therefore strength assessed at 2+/5. PT-OP-Q Treatments Start: 09/06/21 18:39 Freq: Status: Active Protocol: Document 10/25/21 09:52 LRN (Rec: 10/25/21 12:46 LRN [id number]) Therapeutic Exercises Supine Exercises L shoulder AB Supine Exercise Name L shoulder AB PROM f/b AAROM Side left Reps/Minutes 5' Comments Extra time for education of DA of pt HEP and her assisting L shoulder IR stretch Supine Exercise Name Passive prolonged positioning hand under buttock, f/b AAROM Side left Reps/Minutes 5' Comments Extra time for education of DA of pt HEP and her assisting L shoulder ER stretch Supine Exercise Name 90 deg's ER f/b AAROM stretch Side left Equipment Used Manual assist Reps/Minutes 5' Comments Extra time for education of DA of pt HEP and her assisting L shoulder Flex stretch Supine Exercise Name PROM f/b AAROM Side right Equipment Used manual assist Reps/Minutes 5' Sidelying Exercises Shoulder IR Sidelying Exercise Name Shoulder IR strengthening Side left Equipment Used 1# in semi sidelie & sidelie Reps/Minutes 15x Shoulder ER Sidelying Exercise Name Shoulder ER strengthening Side left Equipment Used 0#, 1# Reps/Minutes 10-15x Sitting Exercises L shoulder AROM Sitting Exercise Name L shoulder AROM Side left Comments ROM taken Overhead ashley Sitting Exercise Name Overhead ashley for flex/AB stretch & strengthening Side left Reps/Minutes 8' Standing Exercises Codman's Standing Exercise Name Codman's Side left Reps/Minutes after stretching Comments Pt needed phys & v cuing with education of DA on proper performance of ex. Shoulder IR Standing Exercise Name IR stretching with assist f/b AAROM Side left Equipment Used Opposite hand and therapist assist PT-OP-R Modalities Start: 09/06/21 18:39 Freq: Status: Active Protocol: Document 10/25/21 09:52 LRN (Rec: 10/25/21 12:46 LRN [id number]) Hot Pack/Cold Pack Treatment Cold Pack Location L subacromion Patient Position Supine Treatment Duration (minutes) 2 Patient Tolerance Fair Comments reported numbness isubacromial region. PT-OP-T Assessment and Plan Start: 09/06/21 18:39 Freq: Status: Active Protocol: Document 10/25/21 09:52 LRN (Rec: 10/25/21 13:24 LRN [id number]) Physical Therapy Assessment Goals One Impairment Pt lacks appropriate L shoulder self care HEP Short Term Goal (STG) Pt will be educated in pain management techniques for self care. STG Duration 09/17/21 (09/17/21: MET GOAL) Agent Telegrapher Goal (LTG) Pt will be independent with self care HEP for L shoulder ROM and strengthening. (09/17/21: HEP: AAROM shldr flex, ER, AROM shdr ER, AROM: Wrist/Elbow for flex/ext) (09/23/21: HEP: AROM shldr #$ marissa supine 2/cane & AROM shld rot marissa supine w/cane). (09/27/21: HEP - AAROM shldr AB slide on table, IR towel stretch) (09/30/21: HEP - Cane for sup: ER, horiz AB/AD, AB; Standing cane shldr ER, Ext, AB, IR, AD behind back stretch). (10/14/21: I/S pt in sitting shldr horiz AD stretch) (10/19/21: Pt DA present for education in assisting pt in home ex's) LTG Duration 12/13/21 (10/14/21: Progressed) Four Impairment Decreased L UE functional use Impairment Initial UE QuickDASH score 47. 7 (40-59% imipaired) Short Term Goal (STG) Pt will be able to perform personal hygiene (spritz anal region) with L UE. STG Duration 10/29/21 Agent Telegrapher Goal (LTG) Improve L UE function per UE QuickDASH score of 1-19 (1-19% impaired) LTG Duration 12/13/21 Three Impairment Improve L shoulder mobility. Impairment Sitting L shoulder painfree AROM: Flex 87 deg's, Ext 32 deg's, AB 52 deg's, ER (0 deg' s AB) 32 deg's, reaching behind back-lateral L hip, reaching behind head-L ear, reaching across opposite shoulder-anterior R shoulder. [Sitting R shoulder AROM: Flex 142 deg's, Ext 65 deg'sm, , reaching behind back - T9, reaching behind head - T2, reaching across opposite shoulder-posterior spine of opp scapula]. Short Term Goal (STG) Improve L shoulder mobility to 75% of normal mobility compared to the R shoulder (75 % of R shoulder sitting AROM ( sitting): flex 106 deg's, ext 48 deg's, AB 99 deg's, ER (0 deg's AB) is 51 deg's). (10/08/21: Flex is 120 deg's supine) (10/11/21: Sup Flex is 125 deg 's) STG Duration 10/29/21 (10/11/21: Progressing) Agent Telegrapher Goal (LTG) Improve L shoulder mobility with pain no greater than 1/10 dressing. LTG Duration 12/13/21 Two Impairment L shoulder and upper back pain rated 9/10 limiting function and sleep. Short Term Goal (STG) Pt will be educated in sleep positions to minimize L shoulder and upper back pain and decrease shoulder pain to no greater than 5-6/10. STG Duration 10/29/21 (09/27/21: Partially met goal, Pt educated in sleep positions) Agent Telegrapher Goal (LTG) Decrease L shoulder and upper back pain 1/10 first in the morning and at rest for less pain with sleeping. LTG Duration 12/13/21 Assessment Summary Assessment Pt brings herself into therapy today due to her daughter having emergent surgery yesterday. Pt did demonstrate more stoic nature and appears to have improved L shoulder PROM. A click was heard once during therapy. Physical Therapy Plan Frequency and Duration Frequency of Treatment 2x/Week Plan of Care Start Date 10/22/21 Plan of Care End Date 01/20/22 Next Visit Focus/Plan Next Note Type Treatment Note Next Visit Plan POC: MD rehab protocol at 4-6 months post op. (pt surgery ). Contact MD for surgical report . Assess for subacromial bursitis. ROM: Check sitting . Educ: sleeping positioning for comfort, Posture: cont posture training (sit & stand). Exer: scapular stabilizing and is allowed to lift 1# away from body (5# close to body), Starting 08/27/21 (4 months po) , lifting 5# away and 10# close, gentle RC progression starting Anastasia IR/ER & deltoid strengthening; 4-6 months (05/10-10/27/21): 10# away/20# close to body. 6-9 months (05/10-01/27/22): aeorbic ex & start light weights for RTC strengthening. Therapeutic ex: SCAPULAR STAB EX'S, L shoulder: PROM, AROM and self care HEP. End with STM as needed. STM: L shoulder/arm and upperback. Strengthening of L wrist, hand , elbow. Modalities for pain and edema as needed. Pt most time chosing to ice at home.
--- NOTE | 2021-10-28 07:29 | PT-OP ANOTE ---
Pt called later day 10/27 to cancell 10/28 appt, feeling sick and unable attend PT.
--- NOTE | 2021-11-01 09:59 | PT-OP ANOTE ---
Pt attended therapy but sent home due to pt not feeling well, on day 5 of antibiotics, c/o feeling weak, dizzy and not feeling well, coughing, still healing. Pt informed that when she does not feel well she should cancel and per deck supervisor Lila Delacruz pt's would not be charged with cancel fee for sickness.
--- NOTE | 2021-11-04 17:50 | PT.OTN ---
Current Diagnoses Muscle weakness (generalized) (11/04/21) Impingement syndrome of left shoulder (11/04/21) Strain of muscle(s) and tendon(s) of the rotator cuff of left shoulder, subsequent encounter (11/04/21) Physical Therapy Treatment Note PT-OP-A Visit Information Start: 09/06/21 18:39 Freq: Status: Active Protocol: Document 11/04/21 09:51 LRN (Rec: 11/04/21 10:36 LRN [id number]) Out-Patient Physical Therapy Visit Information Visit Information Visit Type Treatment Note Visit Start Time 09:51 Visit Stop Time 10:33 Total Visit Minutes 42 Visit Number 14 Evaluation Information Evaluation Date 09/14/21 Precautions Precautions Vertigo, diabetes type II monitoring patch on L posterolateral brachium, controlled high blood pressure controlled by meds, Osteopenia, seizures controlled by meds, fall history (last incident 03/09), neuropathy of feet. PT-OP-B Current Condition Start: 09/06/21 18:39 Freq: Status: Active Protocol: Document 09/14/21 09:48 LRN (Rec: 09/14/21 12:41 LRN [id number]) Current Condition History of Current Condition Onset Date 04/29/21 Current Complaints L shoulder hurts and aches at night. History of Current Condition Pt reports s/p L RC and biceps repair 04/29/21 (post op ~19. 5 weeks). Was given ex's post op and is doing it sometimes . Pain in the back ( bilaterally) and hands ( bilaterally). Rehab protocol received (see referral). Prior Treatments and Tests Post op L shoulder exercises. Future Testing and Treatments Planned F/u with referring physician 2 -3 months after PT referral. Post op protocol issued (see referral information). Treatment Goals Patient/Caregiver Goals Pt goal is to become painfree in back and L shoulder, less pain on waking in morning, less pain dressing, improve L shoulder mobility. Prior Functional Status Baseline Function- ADL's Modified Independent Baseline Function- Mobility Modified Independent Baseline Function- Other L shoulder: AROM: too painful to move arm. PROM (in deg's): Flex 110, AB 70, ER 45 (at 45 deg's AB)) R shldr AROM: Flex is 162, AB is 145, ER (at 90 deg's AB) is 90, IR is 90. L shoulder strength is: Flex, AB, ER is 2-/5; Ext & IR is 2/5 Current Functional Impairments (Reported) Functional Limitations- ADL's L arm: can lift lift a bag of groceries with elbow, can dress with pain at L shoulder, can reach only to shoulder height without difficulty. Not able to personal hygiene ( spritz anal region) with L UE. Personal Factors Other Personal Factors That May Effect Vertigo, diabetes type II Therapy/Recovery monitoring patch on L posterolateral brachium, Osteopenia, seizures controlled by meds, fall history (last incident 03/09), neuropathy of feet. PT-OP-C Subjective Start: 09/06/21 18:39 Freq: Status: Active Protocol: Document 11/04/21 09:51 LRN (Rec: 11/04/21 10:36 LRN [id number]) OP-PT Subjective Patient Comments Patient Comments Feeling better, was able to do some exercise. Daughter is getting a blood transfusion currently. PT-OP-E Functional Tests Start: 09/06/21 18:39 Freq: Status: Active Protocol: Document 10/14/21 09:48 LRN (Rec: 10/14/21 10:37 LRN [id number]) Functional Tests Apley's Scratch Test Action 1- Left Opposite shoulder at anterior acromion Action 1- Right Below opposite spine of scapula Action 2- Left C6 Action 2- Right T2 Action 3- Left L lateral border of sacrum Action 3- Right L1 PT-OP-J Posture/Palpation/Skin Start: 09/06/21 18:39 Freq: Status: Active Protocol: Document 09/14/21 09:48 LRN (Rec: 09/14/21 12:41 LRN [id number]) Posture Evaluation Position Standing Head/C-Spine Posture Forward Head T-Spine Posture Increased Kyphosis Shoulder Posture (L) Elevated Comments Posture Comments Sway back, atrophy of L shoulder and arm. Palpation Assessment Location Neck and L UT Palpation Location Neck and L upper shoulder Palpation Findings Soft Tissue Tightness,Muscle Guarding,Tenderness PT-OP-K Range of Motion Start: 09/06/21 18:39 Freq: Status: Active Protocol: Document 10/25/21 09:52 LRN (Rec: 10/25/21 12:46 LRN [id number]) Shoulder Goniometric Range of Motion Shoulder Left Passive Shoulder ROM WFL No Testing Position Supine Flexion 140 External Rotation at 90 degrees 55 Abduction Internal Rotation 30 Internal Rotation Behind Back (text) L4 PT-OP-M Strength Start: 09/06/21 18:39 Freq: Status: Active Protocol: Document 09/14/21 09:48 LRN (Rec: 09/14/21 12:41 LRN [id number]) Cervical Spine Strength Cervical Spine Manual Muscle Testing Flexion (C1-2) 5 Normal Extension 5 Normal Lateral Flexion Left (C3) 4+ Good+ Lateral Flexion Right (C3) 5 Normal Comments Pain in L UT near spine with MMT of Left Lateral flexion. Shoulder Strength Shoulder Manual Muscle Testing Right External Rotation 4 Good Comments Generally 5/5 except as indicated above Left Comments Deferred due to recent RC/ Biceps surgery. Pt was not able to fully move her L UE against gravity; therefore strength assessed at 2+/5. PT-OP-Q Treatments Start: 09/06/21 18:39 Freq: Status: Active Protocol: Document 11/04/21 09:51 LRN (Rec: 11/04/21 10:36 LRN [id number]) Cardio Equipment Upper Body Ergometer (UBE) Duration (Minutes) 8 RPM 90 Seat Position 5 Height 1.5' fwd/bkwd each: hgt 4> Other Cued for stretch, not ex to L shldr Therapeutic Exercises Supine Exercises L shoulder AB Supine Exercise Name L shoulder AB PROM f/b AAROM Side left Reps/Minutes 5' Comments Extra time for education of DA of pt HEP and her assisting L shoulder IR stretch Supine Exercise Name Passive prolonged positioning hand under buttock, f/b AAROM Side left Reps/Minutes 3' Comments Extra time for education of DA of pt HEP and her assisting L shoulder ER stretch Supine Exercise Name 90 deg's ER f/b AAROM stretch Side left Equipment Used Manual assist & cane Reps/Minutes 3' Comments Extra time for education of DA of pt HEP and her assisting L shoulder Flex stretch Supine Exercise Name PROM f/b AAROM Side right Equipment Used manual assist & cane Reps/Minutes 3' Sidelying Exercises Sleeper stretch Sidelying Exercise Name Sleeper stretch Side bilateral Reps/Minutes 5' Comments Extra time to teach limits and position of stretch compared to R side Shoulder AB Sidelying Exercise Name Shoulder AB Side left Reps/Minutes 15x Comments phys cuing of scapula for down /retract with AB Shoulder IR Sidelying Exercise Name Shoulder IR strengthening Side left Equipment Used 0#, 1# sidelie Reps/Minutes 30x, 15x respectively Shoulder ER Sidelying Exercise Name Shoulder ER strengthening Side left Equipment Used 0#, 1# Reps/Minutes 10-15x Self-Care/Home Management Treatment Education Patient Education Home Exercise Program Activities Self-Care/Home Management Activities Issued & reviewed HEP: Sleeper stretch and ice pack for use after more stretching while waiting for daughter. PT-OP-R Modalities Start: 09/06/21 18:39 Freq: Status: Active Protocol: Document 11/04/21 09:51 LRN (Rec: 11/04/21 10:36 LRN [id number]) Hot Pack/Cold Pack Treatment Cold Pack Location L subacromion Patient Position Supine Treatment Duration (minutes) 2 Patient Tolerance Fair Comments Ice massage. PT-OP-T Assessment and Plan Start: 09/06/21 18:39 Freq: Status: Active Protocol: Document 11/04/21 09:51 LRN (Rec: 11/04/21 10:36 LRN [id number]) Physical Therapy Assessment Goals One Impairment Pt lacks appropriate L shoulder self care HEP Short Term Goal (STG) Pt will be educated in pain management techniques for self care. STG Duration 09/17/21 (09/17/21: MET GOAL) Clinical Manager Goal (LTG) Pt will be independent with self care HEP for L shoulder ROM and strengthening. (09/17/21: HEP: AAROM shldr flex, ER, AROM shdr ER, AROM: Wrist/Elbow for flex/ext) (09/23/21: HEP: AROM shldr #$ marissa supine 2/cane & AROM shld rot marissa supine w/cane). (09/27/21: HEP - AAROM shldr AB slide on table, IR towel stretch) (09/30/21: HEP - Cane for sup: ER, horiz AB/AD, AB; Standing cane shldr ER, Ext, AB, IR, AD behind back stretch). (10/14/21: I/S pt in sitting shldr horiz AD stretch) (10/19/21: Pt DA present for education in assisting pt in home ex's) LTG Duration 12/13/21 (10/14/21: Progressed) Four Impairment Decreased L UE functional use Impairment Initial UE QuickDASH score 47. 7 (40-59% imipaired) Short Term Goal (STG) Pt will be able to perform personal hygiene (spritz anal region) with L UE. STG Duration 10/29/21 Clinical Manager Goal (LTG) Improve L UE function per UE QuickDASH score of 1-19 (1-19% impaired) LTG Duration 12/13/21 Three Impairment Improve L shoulder mobility. Impairment Sitting L shoulder painfree AROM: Flex 87 deg's, Ext 32 deg's, AB 52 deg's, ER (0 deg' s AB) 32 deg's, reaching behind back-lateral L hip, reaching behind head-L ear, reaching across opposite shoulder-anterior R shoulder. [Sitting R shoulder AROM: Flex 142 deg's, Ext 65 deg'sm, , reaching behind back - T9, reaching behind head - T2, reaching across opposite shoulder-posterior spine of opp scapula]. Short Term Goal (STG) Improve L shoulder mobility to 75% of normal mobility compared to the R shoulder (75 % of R shoulder sitting AROM ( sitting): flex 106 deg's, ext 48 deg's, AB 99 deg's, ER (0 deg's AB) is 51 deg's). (10/08/21: Flex is 120 deg's supine) (10/11/21: Sup Flex is 125 deg 's) STG Duration 10/29/21 (10/11/21: Progressing) Fdc Goal (LTG) Improve L shoulder mobility with pain no greater than 1/10 dressing. LTG Duration 12/13/21 Two Impairment L shoulder and upper back pain rated 9/10 limiting function and sleep. Short Term Goal (STG) Pt will be educated in sleep positions to minimize L shoulder and upper back pain and decrease shoulder pain to no greater than 5-6/10. STG Duration 10/29/21 (09/27/21: Partially met goal, Pt educated in sleep positions) Fdc Goal (LTG) Decrease L shoulder and upper back pain 1/10 first in the morning and at rest for less pain with sleeping. (11/04/21: Pt primary complaint is L shoulder pain with sleeping). LTG Duration 12/13/21 (11/04/21: Improving ) Assessment Summary Assessment Pt L shoulder IR is most restricted with mobility and flex/ER is as expected. She has subacromial tenderness, but MD hasn't sent information on pt surgery to know if any metal in L shoulder. Pt able to do sleeper stretch with fair understanding. Fair tolerance to ROM. Pt ready to progress strengthening with focus still on improving IR/ER ROM. Physical Therapy Plan Frequency and Duration Frequency of Treatment 2x/Week Plan of Care Start Date 10/22/21 Plan of Care End Date 01/20/22 Next Visit Focus/Plan Next Note Type Treatment Note Next Visit Plan POC: MD rehab protocol at 4-6 months post op. (pt surgery ). Review sleeper stretch. Contact MD for surgical report . Assess for subacromial bursitis. ROM: Check sitting . Educ: sleeping positioning for comfort, Posture: cont posture training (sit & stand). Exer: scapular stabilizing and is allowed to lift 1# away from body (5# close to body), Starting 08/27/21 (4 months po) , lifting 5# away and 10# close, gentle RC progression starting Anastasia IR/ER & deltoid strengthening; 4-6 months (05/10-10/27/21): 10# away/20# close to body. 6-9 months (05/10-01/27/22): aeorbic ex & start light weights for RTC strengthening. Therapeutic ex: SCAPULAR STAB EX'S, L shoulder: PROM, AROM and self care HEP. End with STM as needed. STM: L shoulder/arm and upperback. Strengthening of L wrist, hand , elbow. Modalities for pain and edema as needed. Pt most time chosing to ice at home.
--- NOTE | 2021-11-08 11:13 | PT.OTN ---
Current Diagnoses Muscle weakness (generalized) (11/08/21) Impingement syndrome of left shoulder (11/08/21) Strain of muscle(s) and tendon(s) of the rotator cuff of left shoulder, subsequent encounter (11/08/21) Physical Therapy Treatment Note PT-OP-A Visit Information Start: 09/06/21 18:39 Freq: Status: Active Protocol: Document 11/08/21 09:52 LRN (Rec: 11/08/21 11:12 LRN [id number]) Out-Patient Physical Therapy Visit Information Visit Information Visit Type Progress Note Visit Start Time 09:52 Visit Stop Time 10:44 Total Visit Minutes 52 Visit Number 15 Evaluation Information Evaluation Date 09/14/21 Precautions Precautions Vertigo, diabetes type II monitoring patch on L posterolateral brachium, controlled high blood pressure controlled by meds, Osteopenia, seizures controlled by meds, fall history (last incident 03/09), neuropathy of feet. PT-OP-B Current Condition Start: 09/06/21 18:39 Freq: Status: Active Protocol: Document 09/14/21 09:48 LRN (Rec: 09/14/21 12:41 LRN [id number]) Current Condition History of Current Condition Onset Date 04/29/21 Current Complaints L shoulder hurts and aches at night. History of Current Condition Pt reports s/p L RC and biceps repair 04/29/21 (post op ~19. 5 weeks). Was given ex's post op and is doing it sometimes . Pain in the back ( bilaterally) and hands ( bilaterally). Rehab protocol received (see referral). Prior Treatments and Tests Post op L shoulder exercises. Future Testing and Treatments Planned F/u with referring physician 2 -3 months after PT referral. Post op protocol issued (see referral information). Treatment Goals Patient/Caregiver Goals Pt goal is to become painfree in back and L shoulder, less pain on waking in morning, less pain dressing, improve L shoulder mobility. Prior Functional Status Baseline Function- ADL's Modified Independent Baseline Function- Mobility Modified Independent Baseline Function- Other L shoulder: AROM: too painful to move arm. PROM (in deg's): Flex 110, AB 70, ER 45 (at 45 deg's AB)) R shldr AROM: Flex is 162, AB is 145, ER (at 90 deg's AB) is 90, IR is 90. L shoulder strength is: Flex, AB, ER is 2-/5; Ext & IR is 2/5 Current Functional Impairments (Reported) Functional Limitations- ADL's L arm: can lift lift a bag of groceries with elbow, can dress with pain at L shoulder, can reach only to shoulder height without difficulty. Not able to personal hygiene ( spritz anal region) with L UE. Personal Factors Other Personal Factors That May Effect Vertigo, diabetes type II Therapy/Recovery monitoring patch on L posterolateral brachium, Osteopenia, seizures controlled by meds, fall history (last incident 03/09), neuropathy of feet. PT-OP-C Subjective Start: 09/06/21 18:39 Freq: Status: Active Protocol: Document 11/08/21 09:52 LRN (Rec: 11/08/21 11:12 LRN [id number]) OP-PT Subjective Patient Comments Patient Comments Didn't ex Sat (2 days ago), but did ex yesterday and worked in the garden. States she is able to wipe with toileting and is not having trouble with personal hygiene. States she can pull up her pants with both arms but it is difficult with LUE. Sometimes the shoulder hurts with sleeping but can get to sleep okay. PT-OP-E Functional Tests Start: 09/06/21 18:39 Freq: Status: Active Protocol: Document 10/14/21 09:48 LRN (Rec: 10/14/21 10:37 LRN [id number]) Functional Tests Apley's Scratch Test Action 1- Left Opposite shoulder at anterior acromion Action 1- Right Below opposite spine of scapula Action 2- Left C6 Action 2- Right T2 Action 3- Left L lateral border of sacrum Action 3- Right L1 PT-OP-J Posture/Palpation/Skin Start: 09/06/21 18:39 Freq: Status: Active Protocol: Document 09/14/21 09:48 LRN (Rec: 09/14/21 12:41 LRN [id number]) Posture Evaluation Position Standing Head/C-Spine Posture Forward Head T-Spine Posture Increased Kyphosis Shoulder Posture (L) Elevated Comments Posture Comments Sway back, atrophy of L shoulder and arm. Palpation Assessment Location Neck and L UT Palpation Location Neck and L upper shoulder Palpation Findings Soft Tissue Tightness,Muscle Guarding,Tenderness PT-OP-K Range of Motion Start: 09/06/21 18:39 Freq: Status: Active Protocol: Document 11/08/21 09:52 LRN (Rec: 11/08/21 11:12 LRN [id number]) Shoulder Goniometric Range of Motion Shoulder Right Active Shoulder ROM WFL Yes Testing Position Supine Flexion 142 Extension 65 Abduction 133 External Rotation at 0 degrees Abduction 68 Comments AB in scapular plane is 180 Left Active Shoulder ROM WFL No Testing Position Sitting Flexion 142 Extension 52 Abduction 110 External Rotation at 0 degrees Abduction 42 Internal Rotation Behind Back (text) L5 Comments Behind Back: T1 PT-OP-M Strength Start: 09/06/21 18:39 Freq: Status: Active Protocol: Document 09/14/21 09:48 LRN (Rec: 09/14/21 12:41 LRN [id number]) Cervical Spine Strength Cervical Spine Manual Muscle Testing Flexion (C1-2) 5 Normal Extension 5 Normal Lateral Flexion Left (C3) 4+ Good+ Lateral Flexion Right (C3) 5 Normal Comments Pain in L UT near spine with MMT of Left Lateral flexion. Shoulder Strength Shoulder Manual Muscle Testing Right External Rotation 4 Good Comments Generally 5/5 except as indicated above Left Comments Deferred due to recent RC/ Biceps surgery. Pt was not able to fully move her L UE against gravity; therefore strength assessed at 2+/5. PT-OP-Q Treatments Start: 09/06/21 18:39 Freq: Status: Active Protocol: Document 11/08/21 09:52 LRN (Rec: 11/08/21 11:12 LRN [id number]) Cardio Equipment Upper Body Ergometer (UBE) Duration (Minutes) 12 RPM 90 Seat Position 6 > 6.5. last 2 minutes at 3 hgt Height 8' (ROM), then 1' each fwd/ bkwd (Strengthening) at 70 rpm each Other Cued for stretch, not ex to L shldr Therapeutic Exercises Supine Exercises Chest press Supine Exercise Name Chest Press Side left Equipment Used 2# Reps/Minutes 15x L shoulder AB Supine Exercise Name L shoulder AB PROM f/b AAROM Side left Reps/Minutes 5' Comments Extra time for education of DA of pt HEP and her assisting L shoulder IR stretch Supine Exercise Name Passive prolonged positioning hand under buttock, f/b AAROM Side left Reps/Minutes 3' Comments Extra time for education of DA of pt HEP and her assisting L shoulder ER stretch Supine Exercise Name 90 deg's ER f/b AAROM stretch Side left Equipment Used Manual assist & cane Reps/Minutes 3' Comments Extra time for education of DA of pt HEP and her assisting L shoulder Flex stretch Supine Exercise Name PROM f/b AAROM Side right Equipment Used manual assist & cane Reps/Minutes 3' Sidelying Exercises Sleeper stretch Sidelying Exercise Name Sleeper stretch - reviewed HEP Side bilateral Reps/Minutes 1' Comments Extra time to teach limits and position of stretch compared to R side Shoulder AB Sidelying Exercise Name Shoulder AB - with assist Side left Reps/Minutes 15x Comments phys cuing of scapula for down /retract with AB Shoulder IR Sidelying Exercise Name Shoulder IR strengthening Side left Equipment Used 1#. 2# sidelie Reps/Minutes 30x each Shoulder ER Sidelying Exercise Name Shoulder ER strengthening Side left Equipment Used 1# Reps/Minutes 10x 5 Sitting Exercises L shoulder AROM Sitting Exercise Name L shoulder AROM Side left Comments ROM taken PT-OP-R Modalities Start: 09/06/21 18:39 Freq: Status: Active Protocol: Document 11/08/21 09:52 LRN (Rec: 11/08/21 11:12 LRN [id number]) Hot Pack/Cold Pack Treatment Cold Pack Location L subacromion Patient Position Supine Treatment Duration (minutes) 2 Patient Tolerance Fair Comments Ice massage. PT-OP-T Assessment and Plan Start: 09/06/21 18:39 Freq: Status: Active Protocol: Document 11/08/21 09:52 LRN (Rec: 11/08/21 11:12 LRN [id number]) Physical Therapy Assessment Rehab Potential Rehabilitation Potential Good Evaluation Complexity Number of Personal Factors/Comorbidities 3 or More Number of Body Systems Impaired 4 or More Clinical Presentation at Evaluation Evolving Impairments Impairments Activity Tolerance,Pain, Posture,ROM,Soft Tissue Mobility,Strength Goals One Impairment Pt lacks appropriate L shoulder self care HEP Short Term Goal (STG) Pt will be educated in pain management techniques for self care. STG Duration 09/17/21 (09/17/21: MET GOAL) Custodial Goal (LTG) Pt will be independent with self care HEP for L shoulder ROM and strengthening. (09/17/21: HEP: AAROM shldr flex, ER, AROM shdr ER, AROM: Wrist/Elbow for flex/ext) (09/23/21: HEP: AROM shldr #$ marissa supine 2/cane & AROM shld rot marissa supine w/cane). (09/27/21: HEP - AAROM shldr AB slide on table, IR towel stretch) (09/30/21: HEP - Cane for sup: ER, horiz AB/AD, AB; Standing cane shldr ER, Ext, AB, IR, AD behind back stretch). (10/14/21: I/S pt in sitting shldr horiz AD stretch) (10/19/21: Pt DA present for education in assisting pt in home ex's) LTG Duration 12/13/21 (10/14/21: Progressed) Four Impairment Decreased L UE functional use Impairment Initial UE QuickDASH score 47. 7 (40-59% imipaired) Short Term Goal (STG) Pt will be able to perform personal hygiene (spritz anal region) with L UE. STG Duration 10/29/21 (: MET GOAL) Custodial Goal (LTG) Improve L UE function per UE QuickDASH score of 1-19 (1-19% impaired) LTG Duration 12/13/21 Three Impairment Improve L shoulder mobility. Impairment Sitting L shoulder painfree AROM: Flex 87 deg's, Ext 32 deg's, AB 52 deg's, ER (0 deg' s AB) 32 deg's, reaching behind back-lateral L hip, reaching behind head-L ear, reaching across opposite shoulder-anterior R shoulder. [Sitting R shoulder AROM: Flex 142 deg's, Ext 65 deg'sm, , reaching behind back - T9, reaching behind head - T2, reaching across opposite shoulder-posterior spine of opp scapula]. Short Term Goal (STG) Improve L shoulder mobility to 75% of normal mobility compared to the R shoulder (75 % of R shoulder sitting AROM ( sitting): flex 106 deg's, ext 48 deg's, AB 99 deg's, ER (0 deg's AB) is 51 deg's). (10/08/21: Flex is 120 deg's supine) (10/11/21: Sup Flex is 125 deg 's) (11/08/21: Flex 142, Ext 52, AB 110, ER with elbow at side is 42, IR reaching behind back is to L5) STG Duration 10/29/21 (11/08/21: Met except ER) Demolition Specialist Goal (LTG) Improve L shoulder mobility with pain no greater than 1/10 dressing. LTG Duration 12/13/21 Two Impairment L shoulder and upper back pain rated 9/10 limiting function and sleep. Short Term Goal (STG) Pt will be educated in sleep positions to minimize L shoulder and upper back pain and decrease shoulder pain to no greater than 5-6/10. STG Duration 10/29/21 (11/08/21: MET GOAL) Demolition Specialist Goal (LTG) Decrease L shoulder and upper back pain 1/10 first in the morning and at rest for less pain with sleeping. (11/04/21: Pt primary complaint is L shoulder pain with sleeping). LTG Duration 12/13/21 (11/04/21: Improving ) Progress Towards Goals Progress Comments STG #2 MET. Able to go to sleep comfortably, but sometimes L shoulder hurts. STG #4 MET. Able to perform personal hygiene using L arm. Assessment Summary Assessment The pt is ~27.5 weeks post-op L RC and biceps repair. The pt has been very slow to progress from the beginning since she started her therapy ~20 weeks post-operative. She was extremely limited in mobility and pain inhibited her progression until a discussion with her daughter requesting the pt perform her exercises more during the day and training was done for her to help the patient with her exercises. The pt's L shoulder is now comfortable enough to fall asleep, but she sometimes has pain during the night as expected. Her strength is improving and becoming more functional, although the focus on therapy has been mostly on improving her range since she was showing symptoms of a frozen shoulder (since the beginning of therapy). She is now able to use her L arm to dress and her most difficulty motions are L shoulder ER, IR, flex, as expected. With the start of having assist at home she is beginning to have more subacromial pain. The pt was instructed to ice at home after ex and when having pain, but follow through with this is questionable. I would like to use Ultrasound (US) as a treatment subacromially, but I am not sure if it is appropriate without access to her operative report. Attempts to get this information has been unsuccessful; therefore US has not been used. Physician discussion with the pt is needed for expectations of full return of ROM. The pt would benefit from continued physical therapy to encorporate strengthening for return to function, but the pt is still very concerned she is restricted in her shoulder ER, IR mobility. Physical Therapy Plan Frequency and Duration Frequency of Treatment 2x/Week Plan of Care Start Date 10/22/21 Plan of Care End Date 01/20/22 Therapeutic Interventions Therapeutic Interventions Aquatic Therapy,Home Exercise Program,Joint Mobilizations, Manual Therapy,Patient/ Caregiver Education,Self-Care/ Home Management,Soft Tissue Mobilization,Taping, Therapeutic Activities, Therapeutic Exercises Modalities Cold Pack/Ice Massage,Electric Stimulation,Hot Packs, Ultrasound Next Visit Focus/Plan Next Note Type Treatment Note Next Visit Plan POC: MD rehab protocol at 4-6 months post op. (pt surgery ). Review sleeper stretch. Contact MD for surgical report . Assess for subacromial bursitis. ROM: Check supine. Posture: cont posture training (sit & stand). Exer: scapular stabilizing and is allowed to lift 1# away from body (5# close to body), Starting 08/27/21 (4 months po) , lifting 5# away and 10# close, gentle RC progression starting Anastasia IR/ER & deltoid strengthening; 4-6 months (05/10-10/27/21): 10# away/20# close to body. 6-9 months (05/10-01/27/22): aeorbic ex & start light weights for RTC strengthening. Therapeutic ex: SCAPULAR STAB EX'S, L shoulder: PROM, AROM and self care HEP. End with STM as needed. STM: L shoulder/arm and upperback. Strengthening of L wrist, hand , elbow. Modalities for pain and edema as needed. Pt most time chosing to ice at home.
--- NOTE | 2021-11-18 16:29 | PT.OTN ---
Current Diagnoses Muscle weakness (generalized) (11/18/21) Impingement syndrome of left shoulder (11/18/21) Strain of muscle(s) and tendon(s) of the rotator cuff of left shoulder, subsequent encounter (11/18/21) Physical Therapy Treatment Note PT-OP-A Visit Information Start: 09/06/21 18:39 Freq: Status: Active Protocol: Document 11/18/21 15:22 LRN (Rec: 11/18/21 16:28 LRN [id number]) Out-Patient Physical Therapy Visit Information Visit Information Visit Type Treatment Note Visit Start Time 15: Visit Stop Time 16:04 Total Visit Minutes 42 Visit Number 16 Evaluation Information Evaluation Date 09/14/21 Precautions Precautions Vertigo, diabetes type II monitoring patch on L posterolateral brachium, controlled high blood pressure controlled by meds, Osteopenia, seizures controlled by meds, fall history (last incident 03/09), neuropathy of feet. PT-OP-B Current Condition Start: 09/06/21 18:39 Freq: Status: Active Protocol: Document 09/14/21 09:48 LRN (Rec: 09/14/21 12:41 LRN [id number]) Current Condition History of Current Condition Onset Date 04/29/21 Current Complaints L shoulder hurts and aches at night. History of Current Condition Pt reports s/p L RC and biceps repair 04/29/21 (post op ~19. 5 weeks). Was given ex's post op and is doing it sometimes . Pain in the back ( bilaterally) and hands ( bilaterally). Rehab protocol received (see referral). Prior Treatments and Tests Post op L shoulder exercises. Future Testing and Treatments Planned F/u with referring physician 2 -3 months after PT referral. Post op protocol issued (see referral information). Treatment Goals Patient/Caregiver Goals Pt goal is to become painfree in back and L shoulder, less pain on waking in morning, less pain dressing, improve L shoulder mobility. Prior Functional Status Baseline Function- ADL's Modified Independent Baseline Function- Mobility Modified Independent Baseline Function- Other L shoulder: AROM: too painful to move arm. PROM (in deg's): Flex 110, AB 70, ER 45 (at 45 deg's AB)) R shldr AROM: Flex is 162, AB is 145, ER (at 90 deg's AB) is 90, IR is 90. L shoulder strength is: Flex, AB, ER is 2-/5; Ext & IR is 2/5 Current Functional Impairments (Reported) Functional Limitations- ADL's L arm: can lift lift a bag of groceries with elbow, can dress with pain at L shoulder, can reach only to shoulder height without difficulty. Not able to personal hygiene ( spritz anal region) with L UE. Personal Factors Other Personal Factors That May Effect Vertigo, diabetes type II Therapy/Recovery monitoring patch on L posterolateral brachium, Osteopenia, seizures controlled by meds, fall history (last incident 03/09), neuropathy of feet. PT-OP-C Subjective Start: 09/06/21 18:39 Freq: Status: Active Protocol: Document 11/18/21 15:22 LRN (Rec: 11/18/21 16:28 LRN [id number]) OP-PT Subjective Patient Comments Patient Comments States she hasn't exercised much due to going to family's get together for the holiday. States her daughter now has a blood clot in the legs. States she saw her 2 days ago and was told to come to therapy 1x/week. PT-OP-E Functional Tests Start: 09/06/21 18:39 Freq: Status: Active Protocol: Document 11/18/21 15:22 LRN (Rec: 11/18/21 16:28 LRN [id number]) Functional Tests Apley's Scratch Test Action 1- Left Top of opposite shoulder Action 1- Right Below opposite scapular spine Action 2- Left C7 Action 2- Right T3 Action 3- Left L5 Action 3- Right T12 PT-OP-J Posture/Palpation/Skin Start: 09/06/21 18:39 Freq: Status: Active Protocol: Document 09/14/21 09:48 LRN (Rec: 09/14/21 12:41 LRN [id number]) Posture Evaluation Position Standing Head/C-Spine Posture Forward Head T-Spine Posture Increased Kyphosis Shoulder Posture (L) Elevated Comments Posture Comments Sway back, atrophy of L shoulder and arm. Palpation Assessment Location Neck and L UT Palpation Location Neck and L upper shoulder Palpation Findings Soft Tissue Tightness,Muscle Guarding,Tenderness PT-OP-K Range of Motion Start: 09/06/21 18:39 Freq: Status: Active Protocol: Document 11/18/21 15:22 LRN (Rec: 11/18/21 16:28 LRN [id number]) Shoulder Goniometric Range of Motion Shoulder Right Passive Shoulder ROM WFL Yes Testing Position Supine Flexion 153 Abduction 180 External Rotation at 90 degrees 88 Abduction Internal Rotation 63 Left Passive Shoulder ROM WFL No Testing Position Supine Flexion 142 Abduction 100 External Rotation at 90 degrees 60 Abduction Internal Rotation 50 Internal Rotation Behind Back (text) L5 Right Active Shoulder ROM WFL Yes Testing Position Sitting Internal Rotation Behind Back (text) T12 Comments ER behind head: T3 Left Active Shoulder ROM WFL No Testing Position Sitting Internal Rotation Behind Back (text) L5 Comments ER: C7 PT-OP-M Strength Start: 09/06/21 18:39 Freq: Status: Active Protocol: Document 09/14/21 09:48 LRN (Rec: 09/14/21 12:41 LR [id number]) Cervical Spine Strength Cervical Spine Manual Muscle Testing Flexion (C1-2) 5 Normal Extension 5 Normal Lateral Flexion Left (C3) 4+ Good+ Lateral Flexion Right (C3) 5 Normal Comments Pain in L UT near spine with MMT of Left Lateral flexion. Shoulder Strength Shoulder Manual Muscle Testing Right External Rotation 4 Good Comments Generally 5/5 except as indicated above Left Comments Deferred due to recent RC/ Biceps surgery. Pt was not able to fully move her L UE against gravity; therefore strength assessed at 2+/5. PT-OP-Q Treatments Start: 09/06/21 18:39 Freq: Status: Active Protocol: Document 11/18/21 15:22 LRN (Rec: 11/18/21 16:28 LRN [id number]) Cardio Equipment Upper Body Ergometer (UBE) Duration (Minutes) 10 RPM 90 Seat Position 6 Height hgt 6 x 5'; hgt 6.5 x 2'; hgt 7 x 3 Other Cued to work the L shoulder Therapeutic Exercises Supine Exercises R shoulder AROM Supine Exercise Name Active R shoulder IR Side right Comments ROM taken L shoulder AB Supine Exercise Name L shoulder AB PROM f/b AAROM Side left Reps/Minutes 5' Comments Extra time for education of DA of pt HEP and her assisting L shoulder IR stretch Supine Exercise Name Passive prolonged positioning hand under buttock, f/b AAROM Side left Reps/Minutes 3' Comments Extra time for education of DA of pt HEP and her assisting L shoulder AAROM Supine Exercise Name L shoulder AAROM Side left Comments ROM taken L shoulder ER stretch Supine Exercise Name 90 deg's ER f/b AAROM stretch Side left Equipment Used Manual assist & cane Reps/Minutes 3' Comments Extra time for education of DA of pt HEP and her assisting L shoulder Flex stretch Supine Exercise Name PROM f/b AAROM Side right Equipment Used manual assist & cane Reps/Minutes 3' Sitting Exercises R shoulder AROM Sitting Exercise Name R shoulder AROM Side right Comments Functional AROM taken L shoulder AROM Sitting Exercise Name L shoulder AROM Side left Comments Functional ROM taken Self-Care/Home Management Treatment Education Patient Education Home Exercise Program Activities Self-Care/Home Management Activities Reissued complete HEP at patient's request. PT-OP-R Modalities Start: 09/06/21 18:39 Freq: Status: Active Protocol: Document 11/08/21 09:52 LRN (Rec: 11/08/21 11:12 LRN [id number]) Hot Pack/Cold Pack Treatment Cold Pack Location L subacromion Patient Position Supine Treatment Duration (minutes) 2 Patient Tolerance Fair Comments Ice massage. PT-OP-T Assessment and Plan Start: 09/06/21 18:39 Freq: Status: Active Protocol: Document 11/18/21 15:22 LRN (Rec: 11/18/21 16:28 LRN [id number]) Physical Therapy Assessment Goals One Impairment Pt lacks appropriate L shoulder self care HEP Short Term Goal (STG) Pt will be educated in pain management techniques for self care. STG Duration 09/17/21 (09/17/21: MET GOAL) Coat Operator Insulator Goal (LTG) Pt will be independent with self care HEP for L shoulder ROM and strengthening. (09/17/21: HEP: AAROM shldr flex, ER, AROM shdr ER, AROM: Wrist/Elbow for flex/ext) (09/23/21: HEP: AROM shldr #$ marissa supine 2/cane & AROM shld rot marissa supine w/cane). (09/27/21: HEP - AAROM shldr AB slide on table, IR towel stretch) (09/30/21: HEP - Cane for sup: ER, horiz AB/AD, AB; Standing cane shldr ER, Ext, AB, IR, AD behind back stretch). (10/14/21: I/S pt in sitting shldr horiz AD stretch) (10/19/21: Pt DA present for education in assisting pt in home ex's) LTG Duration 12/13/21 (10/14/21: Progressed) Four Impairment Decreased L UE functional use Impairment Initial UE QuickDASH score 47. 7 (40-59% imipaired) Short Term Goal (STG) Pt will be able to perform personal hygiene (spritz anal region) with L UE. STG Duration 10/29/21 (: MET GOAL) Coat Operator Insulator Goal (LTG) Improve L UE function per UE QuickDASH score of 1-19 (1-19% impaired) LTG Duration 12/13/21 Three Impairment Improve L shoulder mobility. Impairment Sitting L shoulder painfree AROM: Flex 87 deg's, Ext 32 deg's, AB 52 deg's, ER (0 deg' s AB) 32 deg's, reaching behind back-lateral L hip, reaching behind head-L ear, reaching across opposite shoulder-anterior R shoulder. [Sitting R shoulder AROM: Flex 142 deg's, Ext 65 deg'sm, , reaching behind back - T9, reaching behind head - T2, reaching across opposite shoulder-posterior spine of opp scapula]. Short Term Goal (STG) Improve L shoulder mobility to 75% of normal mobility compared to the R shoulder (75 % of R shoulder sitting AROM ( sitting): flex 106 deg's, ext 48 deg's, AB 99 deg's, ER (0 deg's AB) is 51 deg's). (10/08/21: Flex is 120 deg's supine) (10/11/21: Sup Flex is 125 deg 's) (11/08/21: Flex 142, Ext 52, AB 110, ER with elbow at side is 42, IR reaching behind back is to L5) STG Duration 10/29/21 (11/08/21: MET GOAL) Fpc Goal (LTG) Improve L shoulder mobility with pain no greater than 1/10 dressing. LTG Duration 12/13/21 Two Impairment L shoulder and upper back pain rated 9/10 limiting function and sleep. Short Term Goal (STG) Pt will be educated in sleep positions to minimize L shoulder and upper back pain and decrease shoulder pain to no greater than 5-6/10. STG Duration 10/29/21 (11/08/21: MET GOAL) Fpc Goal (LTG) Decrease L shoulder and upper back pain 1/10 first in the morning and at rest for less pain with sleeping. (11/04/21: Pt primary complaint is L shoulder pain with sleeping). LTG Duration 12/13/21 (11/04/21: Improving ) Progress Towards Goals Progress Comments STG #3: MET GOAL Assessment Summary Assessment According to pt, says to continue 1x/week. Pt ~29 wks post-op L RC and biceps repair . Pt shows improved functional AROM of L shoulder. She has improved by a couple degress her L shoulder active ROM and improved PROM. Pt appears less tender in subacromial region. Pt hasn't been consistent with her HEP and use of cryotherapy. Physical Therapy Plan Frequency and Duration Frequency of Treatment 2x/Week Plan of Care Start Date 10/22/21 Plan of Care End Date 01/20/22 Next Visit Focus/Plan Next Note Type Treatment Note Next Visit Plan POC: MD rehab protocol at 4-6 months post op. (pt surgery ). Review sleeper stretch. Try to obtain MD surgical report through daughter. Discuss POC of 1x/week vs 2x/ week Monitor for subacromial bursitis. Posture: cont posture training (sit & stand). Start L shoulder/scapular strengthening (lats, RC) Exer: scapular stabilizing and is allowed to lift 1# away from body (5# close to body), Starting 08/27/21 (4 months po) , lifting 5# away and 10# close, gentle RC progression starting Anastasia IR/ER & deltoid strengthening; 4-6 months (05/10-10/27/21): 10# away/20# close to body. 6-9 months (05/10-01/27/22): aeorbic ex & start light weights for RTC strengthening. Therapeutic ex: SCAPULAR STAB EX'S, L shoulder: PROM, AROM and self care HEP. End with STM as needed. STM: L shoulder/arm and upperback. Strengthening of L wrist, hand , elbow. Modalities for pain and edema as needed. Pt most time chosing to ice at home.
--- NOTE | 2021-11-25 19:05 | PT.OTN ---
Current Diagnoses Muscle weakness (generalized) (11/25/21) Impingement syndrome of left shoulder (11/25/21) Strain of muscle(s) and tendon(s) of the rotator cuff of left shoulder, subsequent encounter (11/25/21) Physical Therapy Treatment Note PT-OP-A Visit Information Start: 09/06/21 18:39 Freq: Status: Active Protocol: Document 11/25/21 18:44 [facility] (Rec: 11/25/21 19:05 [facility] [id number]) Out-Patient Physical Therapy Visit Information Visit Information Visit Type Treatment Note Visit Start Time 09:49 Visit Stop Time 10:31 Total Visit Minutes 42 Visit Number 17 Number of TELEVISION REPAIRMAN Visits 0 PT-OP-B Current Condition Start: 09/06/21 18:39 Freq: Status: Active Protocol: Document 09/14/21 09:48 LRN (Rec: 09/14/21 12:41 LRN [id number]) Current Condition History of Current Condition Onset Date 04/29/21 Current Complaints L shoulder hurts and aches at night. History of Current Condition Pt reports s/p L RC and biceps repair 04/29/21 (post op ~19. 5 weeks). Was given ex's post op and is doing it sometimes . Pain in the back ( bilaterally) and hands ( bilaterally). Rehab protocol received (see referral). Prior Treatments and Tests Post op L shoulder exercises. Future Testing and Treatments Planned F/u with referring physician 2 -3 months after PT referral. Post op protocol issued (see referral information). Treatment Goals Patient/Caregiver Goals Pt goal is to become painfree in back and L shoulder, less pain on waking in morning, less pain dressing, improve L shoulder mobility. Prior Functional Status Baseline Function- ADL's Modified Independent Baseline Function- Mobility Modified Independent Baseline Function- Other L shoulder: AROM: too painful to move arm. PROM (in deg's): Flex 110, AB 70, ER 45 (at 45 deg's AB)) R shldr AROM: Flex is 162, AB is 145, ER (at 90 deg's AB) is 90, IR is 90. L shoulder strength is: Flex, AB, ER is 2-/5; Ext & IR is 2/5 Current Functional Impairments (Reported) Functional Limitations- ADL's L arm: can lift lift a bag of groceries with elbow, can dress with pain at L shoulder, can reach only to shoulder height without difficulty. Not able to personal hygiene ( spritz anal region) with L UE. Personal Factors Other Personal Factors That May Effect Vertigo, diabetes type II Therapy/Recovery monitoring patch on L posterolateral brachium, Osteopenia, seizures controlled by meds, fall history (last incident 03/09), neuropathy of feet. PT-OP-C Subjective Start: 09/06/21 18:39 Freq: Status: Active Protocol: Document 11/25/21 18:44 [facility] (Rec: 11/25/21 19:05 [facility] [id number]) OP-PT Subjective Patient Comments Patient Comments Dgt is present w/pt and is upset re: question of how pt bathes. Dgt explains that pt did see MD who said she has frozen shoulder and had a massive RC & biceps tendon repair (see notes in chart) and will require rehab for many months as she will be a very slow healer. Pt reprots she has been compliant w/HEP PT-OP-E Functional Tests Start: 09/06/21 18:39 Freq: Status: Active Protocol: Document 11/18/21 15:22 LRN (Rec: 11/18/21 16:28 LRN [id number]) Functional Tests Apley's Scratch Test Action 1- Left Top of opposite shoulder Action 1- Right Below opposite scapular spine Action 2- Left C7 Action 2- Right T3 Action 3- Left L5 Action 3- Right T12 PT-OP-J Posture/Palpation/Skin Start: 09/06/21 18:39 Freq: Status: Active Protocol: Document 09/14/21 09:48 LRN (Rec: 09/14/21 12:41 LRN [id number]) Posture Evaluation Position Standing Head/C-Spine Posture Forward Head T-Spine Posture Increased Kyphosis Shoulder Posture (L) Elevated Comments Posture Comments Sway back, atrophy of L shoulder and arm. Palpation Assessment Location Neck and L UT Palpation Location Neck and L upper shoulder Palpation Findings Soft Tissue Tightness,Muscle Guarding,Tenderness PT-OP-K Range of Motion Start: 09/06/21 18:39 Freq: Status: Active Protocol: Document 11/18/21 15:22 LRN (Rec: 11/18/21 16:28 LR [id number]) Shoulder Goniometric Range of Motion Shoulder Right Passive Shoulder ROM WFL Yes Testing Position Supine Flexion 153 Abduction 180 External Rotation at 90 degrees 88 Abduction Internal Rotation 63 Left Passive Shoulder ROM WFL No Testing Position Supine Flexion 142 Abduction 100 External Rotation at 90 degrees 60 Abduction Internal Rotation 50 Internal Rotation Behind Back (text) L5 Right Active Shoulder ROM WFL Yes Testing Position Sitting Internal Rotation Behind Back (text) T12 Comments ER behind head: T3 Left Active Shoulder ROM WFL No Testing Position Sitting Internal Rotation Behind Back (text) L5 Comments ER: C7 PT-OP-M Strength Start: 09/06/21 18:39 Freq: Status: Active Protocol: Document 09/14/21 09:48 LR (Rec: 09/14/21 12:41 [facility] [id number]) Cervical Spine Strength Cervical Spine Manual Muscle Testing Flexion (C1-2) 5 Normal Extension 5 Normal Lateral Flexion Left (C3) 4+ Good+ Lateral Flexion Right (C3) 5 Normal Comments Pain in L UT near spine with MMT of Left Lateral flexion. Shoulder Strength Shoulder Manual Muscle Testing Right External Rotation 4 Good Comments Generally 5/5 except as indicated above Left Comments Deferred due to recent RC/ Biceps surgery. Pt was not able to fully move her L UE against gravity; therefore strength assessed at 2+/5. PT-OP-Q Treatments Start: 09/06/21 18:39 Freq: Status: Active Protocol: Document 11/25/21 18:44 [facility] (Rec: 11/25/21 19:05 [facility] [id number]) Cardio Equipment Upper Body Ergometer (UBE) Duration (Minutes) 4 RPM 90 Seat Position 6 Height hgt 6x2', hgt 6.5x 2' Other fwd/back Manual Therapy Treatment Soft Tissue Mobilization pec Body Location L Mobilization Type Rolling,Strumming Intensity/Depth Moderate Comments w/PROm rot Post Body Location L teres/lats Mobilization Type Rolling,Strumming,Sustained Pressure Intensity/Depth Moderate Comments w/PROM flex L UT Body Location L UT Joint Mobilizations GH Direction post, inf & distraction Grade III 1st rib Joint 1st rib Direction Depression Grade II Body Position Supine Self-Care/Home Management Treatment Education Caregiver Education discussed why PTs ask re: bathing and informed that it was likely directed re: how pt is able to reach her hair, back, etc. Discussed pt's MD report and discussed that frozen shoulder does have a long recovery and PT will not be able to get all the ROM back but discussed the manual techniques PT did to wrok on and educated pt on areas PT felt tightness and how that could affect her motion PT-OP-R Modalities Start: 09/06/21 18:39 Freq: Status: Active Protocol: Document 11/08/21 09:52 LRN (Rec: 11/08/21 11:12 LR [id number]) Hot Pack/Cold Pack Treatment Cold Pack Location L subacromion Patient Position Supine Treatment Duration (minutes) 2 Patient Tolerance Fair Comments Ice massage. PT-OP-T Assessment and Plan Start: 09/06/21 18:39 Freq: Status: Active Protocol: Document 11/25/21 18:44 [facility] (Rec: 11/25/21 19:05 [facility] [id number]) Physical Therapy Assessment Goals One Impairment Pt lacks appropriate L shoulder self care HEP Short Term Goal (STG) Pt will be educated in pain management techniques for self care. STG Duration 09/17/21 (09/17/21: MET GOAL) Paper Supervisor Goal (LTG) Pt will be independent with self care HEP for L shoulder ROM and strengthening. (09/17/21: HEP: AAROM shldr flex, ER, AROM shdr ER, AROM: Wrist/Elbow for flex/ext) (09/23/21: HEP: AROM shldr #$ marissa supine 2/cane & AROM shld rot marissa supine w/cane). (09/27/21: HEP - AAROM shldr AB slide on table, IR towel stretch) (09/30/21: HEP - Cane for sup: ER, horiz AB/AD, AB; Standing cane shldr ER, Ext, AB, IR, AD behind back stretch). (10/14/21: I/S pt in sitting shldr horiz AD stretch) (10/19/21: Pt DA present for education in assisting pt in home ex's) LTG Duration 12/13/21 (10/14/21: Progressed) Four Impairment Decreased L UE functional use Impairment Initial UE QuickDASH score 47. 7 (40-59% imipaired) Short Term Goal (STG) Pt will be able to perform personal hygiene (spritz anal region) with L UE. STG Duration 10/29/21 (: MET GOAL) Paper Supervisor Goal (LTG) Improve L UE function per UE QuickDASH score of 1-19 (1-19% impaired) LTG Duration 12/13/21 Three Impairment Improve L shoulder mobility. Impairment Sitting L shoulder painfree AROM: Flex 87 deg's, Ext 32 deg's, AB 52 deg's, ER (0 deg' s AB) 32 deg's, reaching behind back-lateral L hip, reaching behind head-L ear, reaching across opposite shoulder-anterior R shoulder. [Sitting R shoulder AROM: Flex 142 deg's, Ext 65 deg'sm, , reaching behind back - T9, reaching behind head - T2, reaching across opposite shoulder-posterior spine of opp scapula]. Short Term Goal (STG) Improve L shoulder mobility to 75% of normal mobility compared to the R shoulder (75 % of R shoulder sitting AROM ( sitting): flex 106 deg's, ext 48 deg's, AB 99 deg's, ER (0 deg's AB) is 51 deg's). (10/08/21: Flex is 120 deg's supine) (10/11/21: Sup Flex is 125 deg 's) (11/08/21: Flex 142, Ext 52, AB 110, ER with elbow at side is 42, IR reaching behind back is to L5) STG Duration 10/29/21 (11/08/21: MET GOAL) Fci Goal (LTG) Improve L shoulder mobility with pain no greater than 1/10 dressing. LTG Duration 12/13/21 Two Impairment L shoulder and upper back pain rated 9/10 limiting function and sleep. Impairment Lumbar AROM: Flex 80 deg's with 55 deg's hip flexion. Extension is 12 deg's with 10 deg's hip extension. Short Term Goal (STG) Pt will be educated in sleep positions to minimize L shoulder and upper back pain and decrease shoulder pain to no greater than 5-6/10. STG Duration 10/29/21 (11/08/21: MET GOAL) Paper Supervisor Goal (LTG) Decrease L shoulder and upper back pain 1/10 first in the morning and at rest for less pain with sleeping. (11/04/21: Pt primary complaint is L shoulder pain with sleeping). LTG Duration 12/13/21 (11/04/21: Improving ) Assessment Summary Assessment Pt improved w/comfort w/manual passive motion w/manual treatment. She is very slow to progress but dgt did feel that the PROM she saw today was much better than what she had seen in past and MD does expect a slow recovery. Physical Therapy Plan Frequency and Duration Frequency of Treatment 2x/Week Plan of Care Start Date 10/22/21 Plan of Care End Date 01/20/22 Next Visit Focus/Plan Next Note Type Treatment Note Next Visit Plan work on manual treatment for tight teres, lats and scap mm. Work on AC & GH joint mobs to improve ROM, review sleeper stretch; work on ribcage depression w/upper ribs L
--- NOTE | 2021-11-29 12:21 | PT.OTN ---
Current Diagnoses Muscle weakness (generalized) (11/29/21) Impingement syndrome of left shoulder (11/29/21) Strain of muscle(s) and tendon(s) of the rotator cuff of left shoulder, subsequent encounter (11/29/21) Physical Therapy Treatment Note PT-OP-A Visit Information Start: 09/06/21 18:39 Freq: Status: Active Protocol: Document 11/29/21 09:00 [facility] (Rec: 11/29/21 12:21 [facility] [id number]) Out-Patient Physical Therapy Visit Information Visit Information Visit Type Treatment Note Visit Note 09/26 Visit Start Time 09:04 Visit Stop Time 09:46 Total Visit Minutes 42 Visit Number 18 Number of WELDER/FITTER Visits 0 PT-OP-B Current Condition Start: 09/06/21 18:39 Freq: Status: Active Protocol: Document 09/14/21 09:48 LRN (Rec: 09/14/21 12:41 LR [id number]) Current Condition History of Current Condition Onset Date 04/29/21 Current Complaints L shoulder hurts and aches at night. History of Current Condition Pt reports s/p L RC and biceps repair 04/29/21 (post op ~19. 5 weeks). Was given ex's post op and is doing it sometimes . Pain in the back ( bilaterally) and hands ( bilaterally). Rehab protocol received (see referral). Prior Treatments and Tests Post op L shoulder exercises. Future Testing and Treatments Planned F/u with referring physician 2 -3 months after PT referral. Post op protocol issued (see referral information). Treatment Goals Patient/Caregiver Goals Pt goal is to become painfree in back and L shoulder, less pain on waking in morning, less pain dressing, improve L shoulder mobility. Prior Functional Status Baseline Function- ADL's Modified Independent Baseline Function- Mobility Modified Independent Baseline Function- Other L shoulder: AROM: too painful to move arm. PROM (in deg's): Flex 110, AB 70, ER 45 (at 45 deg's AB)) R shldr AROM: Flex is 162, AB is 145, ER (at 90 deg's AB) is 90, IR is 90. L shoulder strength is: Flex, AB, ER is 2-/5; Ext & IR is 2/5 Current Functional Impairments (Reported) Functional Limitations- ADL's L arm: can lift lift a bag of groceries with elbow, can dress with pain at L shoulder, can reach only to shoulder height without difficulty. Not able to personal hygiene ( spritz anal region) with L UE. Personal Factors Other Personal Factors That May Effect Vertigo, diabetes type II Therapy/Recovery monitoring patch on L posterolateral brachium, Osteopenia, seizures controlled by meds, fall history (last incident 03/09), neuropathy of feet. PT-OP-C Subjective Start: 09/06/21 18:39 Freq: Status: Active Protocol: Document 11/29/21 09:00 LR (Rec: 11/29/21 12:21 [facility] [id number]) OP-PT Subjective Patient Comments Patient Comments pt reports she has already done some stretches this morning. reports feeling better after last session even though some manual was uncomfortable. PT-OP-E Functional Tests Start: 09/06/21 18:39 Freq: Status: Active Protocol: Document 11/18/21 15:22 LRN (Rec: 11/18/21 16:28 [facility] [id number]) Functional Tests Apley's Scratch Test Action 1- Left Top of opposite shoulder Action 1- Right Below opposite scapular spine Action 2- Left C7 Action 2- Right T3 Action 3- Left L5 Action 3- Right T12 PT-OP-J Posture/Palpation/Skin Start: 09/06/21 18:39 Freq: Status: Active Protocol: Document 09/14/21 09:48 LRN (Rec: 09/14/21 12:41 [facility] [id number]) Posture Evaluation Position Standing Head/C-Spine Posture Forward Head T-Spine Posture Increased Kyphosis Shoulder Posture (L) Elevated Comments Posture Comments Sway back, atrophy of L shoulder and arm. Palpation Assessment Location Neck and L UT Palpation Location Neck and L upper shoulder Palpation Findings Soft Tissue Tightness,Muscle Guarding,Tenderness PT-OP-K Range of Motion Start: 09/06/21 18:39 Freq: Status: Active Protocol: Document 11/18/21 15:22 LRN (Rec: 11/18/21 16:28 [facility] [id number]) Shoulder Goniometric Range of Motion Shoulder Right Passive Shoulder ROM WFL Yes Testing Position Supine Flexion 153 Abduction 180 External Rotation at 90 degrees 88 Abduction Internal Rotation 63 Left Passive Shoulder ROM WFL No Testing Position Supine Flexion 142 Abduction 100 External Rotation at 90 degrees 60 Abduction Internal Rotation 50 Internal Rotation Behind Back (text) L5 Right Active Shoulder ROM WFL Yes Testing Position Sitting Internal Rotation Behind Back (text) T12 Comments ER behind head: T3 Left Active Shoulder ROM WFL No Testing Position Sitting Internal Rotation Behind Back (text) L5 Comments ER: C7 PT-OP-M Strength Start: 09/06/21 18:39 Freq: Status: Active Protocol: Document 09/14/21 09:48 LRN (Rec: 09/14/21 12:41 LR [id number]) Cervical Spine Strength Cervical Spine Manual Muscle Testing Flexion (C1-2) 5 Normal Extension 5 Normal Lateral Flexion Left (C3) 4+ Good+ Lateral Flexion Right (C3) 5 Normal Comments Pain in L UT near spine with MMT of Left Lateral flexion. Shoulder Strength Shoulder Manual Muscle Testing Right External Rotation 4 Good Comments Generally 5/5 except as indicated above Left Comments Deferred due to recent RC/ Biceps surgery. Pt was not able to fully move her L UE against gravity; therefore strength assessed at 2+/5. PT-OP-Q Treatments Start: 09/06/21 18:39 Freq: Status: Active Protocol: Document 11/29/21 09:00 LR (Rec: 11/29/21 12:21 [facility] [id number]) Therapeutic Exercises Sitting Exercises Overhead ashley Sitting Exercise Name flex, abd, IR Side left Reps/Minutes 5 sec x10 Standing Exercises ER Side left Equipment Used L1 Reps/Minutes 15 Shoulder Ext Side bilateral Equipment Used Lev 2 TB Reps/Minutes 15 Comments Phys & v cuing to move scap in retract/depression & no back arch Shoulder IR Side left Resistance 15 Equipment Used L1 Manual Therapy Treatment Soft Tissue Mobilization pec Body Location L Mobilization Type Rolling,Strumming Intensity/Depth Moderate Comments w/PROm rot Post Body Location L teres/lats & rhomboids Mobilization Type Rolling,Strumming,Sustained Pressure Intensity/Depth Moderate Comments w/scap motion & shoulder flex in s/l & supine L UT Body Location L UT /LS Mobilization Type Rolling Intensity/Depth Moderate Body Position Sidelying Joint Mobilizations ribs Comments rib 5-7 AP FM L GH Direction post, inf & distraction Grade III 1st rib Joint 1st rib Direction Depression Grade II Body Position Supine PT-OP-R Modalities Start: 09/06/21 18:39 Freq: Status: Active Protocol: Document 11/08/21 09:52 LRN (Rec: 05/23/22 11:12 [facility] [id number]) Hot Pack/Cold Pack Treatment Cold Pack Location L subacromion Patient Position Supine Treatment Duration (minutes) 2 Patient Tolerance Fair Comments Ice massage. PT-OP-T Assessment and Plan Start: 09/06/21 18:39 Freq: Status: Active Protocol: Document 11/29/21 09:00 [facility] (Rec: 11/29/21 12:21 [facility] [id number]) Physical Therapy Assessment Goals One Impairment Pt lacks appropriate L shoulder self care HEP Short Term Goal (STG) Pt will be educated in pain management techniques for self care. STG Duration 09/17/21 (09/17/21: MET GOAL) Jail Goal (LTG) Pt will be independent with self care HEP for L shoulder ROM and strengthening. (09/17/21: HEP: AAROM shldr flex, ER, AROM shdr ER, AROM: Wrist/Elbow for flex/ext) (09/23/21: HEP: AROM shldr #$ marissa supine 2/cane & AROM shld rot marissa supine w/cane). (09/27/21: HEP - AAROM shldr AB slide on table, IR towel stretch) (09/30/21: HEP - Cane for sup: ER, horiz AB/AD, AB; Standing cane shldr ER, Ext, AB, IR, AD behind back stretch). (10/14/21: I/S pt in sitting shldr horiz AD stretch) (10/19/21: Pt DA present for education in assisting pt in home ex's) LTG Duration 12/13/21 (10/14/21: Progressed) Four Impairment Decreased L UE functional use Impairment Initial UE QuickDASH score 47. 7 (40-59% imipaired) Short Term Goal (STG) Pt will be able to perform personal hygiene (spritz anal region) with L UE. STG Duration 10/29/21 (: MET GOAL) Sealer Operator Goal (LTG) Improve L UE function per UE QuickDASH score of 1-19 (1-19% impaired) LTG Duration 12/13/21 Three Impairment Improve L shoulder mobility. Impairment Sitting L shoulder painfree AROM: Flex 87 deg's, Ext 32 deg's, AB 52 deg's, ER (0 deg' s AB) 32 deg's, reaching behind back-lateral L hip, reaching behind head-L ear, reaching across opposite shoulder-anterior R shoulder. [Sitting R shoulder AROM: Flex 142 deg's, Ext 65 deg'sm, , reaching behind back - T9, reaching behind head - T2, reaching across opposite shoulder-posterior spine of opp scapula]. Short Term Goal (STG) Improve L shoulder mobility to 75% of normal mobility compared to the R shoulder (75 % of R shoulder sitting AROM ( sitting): flex 106 deg's, ext 48 deg's, AB 99 deg's, ER (0 deg's AB) is 51 deg's). (10/08/21: Flex is 120 deg's supine) (10/11/21: Sup Flex is 125 deg 's) (11/08/21: Flex 142, Ext 52, AB 110, ER with elbow at side is 42, IR reaching behind back is to L5) STG Duration 10/29/21 (11/08/21: MET GOAL) Jail Goal (LTG) Improve L shoulder mobility with pain no greater than 1/10 dressing. LTG Duration 12/13/21 Two Impairment L shoulder and upper back pain rated 9/10 limiting function and sleep. Impairment Lumbar AROM: Flex 80 deg's with 55 deg's hip flexion. Extension is 12 deg's with 10 deg's hip extension. Short Term Goal (STG) Pt will be educated in sleep positions to minimize L shoulder and upper back pain and decrease shoulder pain to no greater than 5-6/10. STG Duration 10/29/21 (11/08/21: MET GOAL) Sealer Operator Goal (LTG) Decrease L shoulder and upper back pain 1/10 first in the morning and at rest for less pain with sleeping. (11/04/21: Pt primary complaint is L shoulder pain with sleeping). LTG Duration 12/13/21 (11/04/21: Improving ) Assessment Summary Assessment Pt improved w/passive motion into IR & overhead (scaption/ flex) w/manual treatment along w/improved abiltiy for scap to go into retraction and start some slight depression, but is very limited in depression mobility. Tolerated strengthening well Physical Therapy Plan Frequency and Duration Frequency of Treatment 2x/Week Plan of Care Start Date 10/22/21 Plan of Care End Date 01/20/22 Next Visit Focus/Plan Next Note Type Treatment Note Next Visit Plan work on manual treatment for tight teres, lats and scap mm. Work on AC & GH joint mobs to improve ROM, review sleeper stretch; work on ribcage depression w/upper ribs L
--- NOTE | 2021-12-06 11:05 | PT.OTN ---
Current Diagnoses Muscle weakness (generalized) (12/06/21) Impingement syndrome of left shoulder (12/06/21) Strain of muscle(s) and tendon(s) of the rotator cuff of left shoulder, subsequent encounter (12/06/21) Physical Therapy Treatment Note PT-OP-A Visit Information Start: 09/06/21 18:39 Freq: Status: Active Protocol: Document 12/06/21 09:52 LRN (Rec: 12/06/21 11:04 LRN [id number]) Out-Patient Physical Therapy Visit Information Visit Information Visit Type Treatment Note Visit Note 10/26 Visit Start Time 09:52 Visit Stop Time 10:44 Total Visit Minutes 52 Visit Number 19 Evaluation Information Evaluation Date 09/14/21 Precautions Precautions Vertigo, diabetes type II monitoring patch on L posterolateral brachium, controlled high blood pressure controlled by meds, Osteopenia, seizures controlled by meds, fall history (last incident 03/09), neuropathy of feet. PT-OP-B Current Condition Start: 09/06/21 18:39 Freq: Status: Active Protocol: Document 09/14/21 09:48 LRN (Rec: 09/14/21 12:41 LRN [id number]) Current Condition History of Current Condition Onset Date 04/29/21 Current Complaints L shoulder hurts and aches at night. History of Current Condition Pt reports s/p L RC and biceps repair 04/29/21 (post op ~19. 5 weeks). Was given ex's post op and is doing it sometimes . Pain in the back ( bilaterally) and hands ( bilaterally). Rehab protocol received (see referral). Prior Treatments and Tests Post op L shoulder exercises. Future Testing and Treatments Planned F/u with referring physician 2 -3 months after PT referral. Post op protocol issued (see referral information). Treatment Goals Patient/Caregiver Goals Pt goal is to become painfree in back and L shoulder, less pain on waking in morning, less pain dressing, improve L shoulder mobility. Prior Functional Status Baseline Function- ADL's Modified Independent Baseline Function- Mobility Modified Independent Baseline Function- Other L shoulder: AROM: too painful to move arm. PROM (in deg's): Flex 110, AB 70, ER 45 (at 45 deg's AB)) R shldr AROM: Flex is 162, AB is 145, ER (at 90 deg's AB) is 90, IR is 90. L shoulder strength is: Flex, AB, ER is 2-/5; Ext & IR is 2/5 Current Functional Impairments (Reported) Functional Limitations- ADL's L arm: can lift lift a bag of groceries with elbow, can dress with pain at L shoulder, can reach only to shoulder height without difficulty. Not able to personal hygiene ( spritz anal region) with L UE. Personal Factors Other Personal Factors That May Effect Vertigo, diabetes type II Therapy/Recovery monitoring patch on L posterolateral brachium, Osteopenia, seizures controlled by meds, fall history (last incident 03/09), neuropathy of feet. PT-OP-C Subjective Start: 09/06/21 18:39 Freq: Status: Active Protocol: Document 12/06/21 09:52 LRN (Rec: 12/06/21 11:04 LRN [id number]) OP-PT Subjective Patient Comments Patient Comments Reports no change. States she felt good after last session. States not doing shoulder rot ex because she is busy doing gardening. PT-OP-E Functional Tests Start: 09/06/21 18:39 Freq: Status: Active Protocol: Document 11/18/21 15:22 LRN (Rec: 11/18/21 16:28 LRN [id number]) Functional Tests Apley's Scratch Test Action 1- Left Top of opposite shoulder Action 1- Right Below opposite scapular spine Action 2- Left C7 Action 2- Right T3 Action 3- Left L5 Action 3- Right T12 PT-OP-J Posture/Palpation/Skin Start: 09/06/21 18:39 Freq: Status: Active Protocol: Document 09/14/21 09:48 LRN (Rec: 09/14/21 12:41 LRN [id number]) Posture Evaluation Position Standing Head/C-Spine Posture Forward Head T-Spine Posture Increased Kyphosis Shoulder Posture (L) Elevated Comments Posture Comments Sway back, atrophy of L shoulder and arm. Palpation Assessment Location Neck and L UT Palpation Location Neck and L upper shoulder Palpation Findings Soft Tissue Tightness,Muscle Guarding,Tenderness PT-OP-K Range of Motion Start: 09/06/21 18:39 Freq: Status: Active Protocol: Document 11/18/21 15:22 LRN (Rec: 11/18/21 16:28 LRN [id number]) Shoulder Goniometric Range of Motion Shoulder Right Passive Shoulder ROM WFL Yes Testing Position Supine Flexion 153 Abduction 180 External Rotation at 90 degrees 88 Abduction Internal Rotation 63 Left Passive Shoulder ROM WFL No Testing Position Supine Flexion 142 Abduction 100 External Rotation at 90 degrees 60 Abduction Internal Rotation 50 Internal Rotation Behind Back (text) L5 Right Active Shoulder ROM WFL Yes Testing Position Sitting Internal Rotation Behind Back (text) T12 Comments ER behind head: T3 Left Active Shoulder ROM WFL No Testing Position Sitting Internal Rotation Behind Back (text) L5 Comments ER: C7 PT-OP-M Strength Start: 09/06/21 18:39 Freq: Status: Active Protocol: Document 09/14/21 09:48 LRN (Rec: 09/14/21 12:41 LRN [id number]) Cervical Spine Strength Cervical Spine Manual Muscle Testing Flexion (C1-2) 5 Normal Extension 5 Normal Lateral Flexion Left (C3) 4+ Good+ Lateral Flexion Right (C3) 5 Normal Comments Pain in L UT near spine with MMT of Left Lateral flexion. Shoulder Strength Shoulder Manual Muscle Testing Right External Rotation 4 Good Comments Generally 5/5 except as indicated above Left Comments Deferred due to recent RC/ Biceps surgery. Pt was not able to fully move her L UE against gravity; therefore strength assessed at 2+/5. PT-OP-Q Treatments Start: 09/06/21 18:39 Freq: Status: Active Protocol: Document 12/06/21 09:52 LRN (Rec: 12/06/21 11:04 LRN [id number]) Cardio Equipment Upper Body Ergometer (UBE) Duration (Minutes) 10 RPM 90 Seat Position 6 Height hgt 3.5 x 2', hgt 5.5x6', hgt 6.5x 2' Other fwd/back. 1' at end of therapy hgt 6.5 w/greater ease of mvmt. Therapeutic Exercises Supine Exercises L shoulder AB Supine Exercise Name Shldr AB Side left Reps/Minutes 3' L shoulder IR stretch Supine Exercise Name Passive prolonged positioning hand under buttock, f/b AAROM Side left Reps/Minutes 3' L shoulder ER stretch Supine Exercise Name 90 deg's ER f/b AAROM stretch Side left Equipment Used Manual assist & cane Reps/Minutes 3' L shoulder Flex stretch Supine Exercise Name PROM f/b AAROM Side right Equipment Used manual assist Reps/Minutes 1' Sidelying Exercises Shoulder AB Sidelying Exercise Name Shoulder AB - with assist Side left Reps/Minutes 15x Comments phys cuing of scapula for down /retract with AB Shoulder ER Sidelying Exercise Name Shoulder ER strengthening - asst end range Side left Reps/Minutes 2' Sitting Exercises L shoulder flex Sitting Exercise Name Flex w/scap manual asst Side left Comments Much manual asst of scap for depression/retraction Standing Exercises ER Side left Equipment Used L1 Reps/Minutes 15 Comments Cuing to hold end range and to slow mvmt down for ecc contraction Shoulder Ext Side bilateral Equipment Used Lev 2 TB Reps/Minutes 15 Comments Phys & v cuing to move scap in retract/depression & no back arch Shoulder IR Side left Resistance 15 Equipment Used L1 Comments Cuing needed to keep upper body from rotation and for slowing mvmt. Manual Therapy Treatment Soft Tissue Mobilization pec Body Location L Mobilization Type Rolling,Strumming Intensity/Depth Moderate Comments w/PROm rot Post Body Location L teres/lats & rhomboids Mobilization Type Rolling,Strumming,Sustained Pressure Intensity/Depth Moderate Comments w/scap motion & shoulder flex in s/l & supine L UT Body Location L UT Mobilization Type Rolling Intensity/Depth Moderate Body Position Sidelying Joint Mobilizations GH Joint L GHJ Direction post, inf & distraction Grade III Manual Techniques UT stretch Type Contract/relax Body Location L UT Body Position Sidelying PT-OP-R Modalities Start: 09/06/21 18:39 Freq: Status: Active Protocol: Document 11/08/21 09:52 LRN (Rec: 11/08/21 11:12 LRN [id number]) Hot Pack/Cold Pack Treatment Cold Pack Location L subacromion Patient Position Supine Treatment Duration (minutes) 2 Patient Tolerance Fair Comments Ice massage. PT-OP-T Assessment and Plan Start: 09/06/21 18:39 Freq: Status: Active Protocol: Document 12/06/21 09:52 LRN (Rec: 12/06/21 11:04 LRN [id number]) Physical Therapy Assessment Goals One Impairment Pt lacks appropriate L shoulder self care HEP Short Term Goal (STG) Pt will be educated in pain management techniques for self care. STG Duration 09/17/21 (09/17/21: MET GOAL) Stretch Press Operator Goal (LTG) Pt will be independent with self care HEP for L shoulder ROM and strengthening. (09/17/21: HEP: AAROM shldr flex, ER, AROM shdr ER, AROM: Wrist/Elbow for flex/ext) (09/23/21: HEP: AROM shldr #$ marissa supine 2/cane & AROM shld rot marissa supine w/cane). (09/27/21: HEP - AAROM shldr AB slide on table, IR towel stretch) (09/30/21: HEP - Cane for sup: ER, horiz AB/AD, AB; Standing cane shldr ER, Ext, AB, IR, AD behind back stretch). (10/14/21: I/S pt in sitting shldr horiz AD stretch) (10/19/21: Pt DA present for education in assisting pt in home ex's) LTG Duration 12/13/21 (10/14/21: Progressed) Four Impairment Decreased L UE functional use Impairment Initial UE QuickDASH score 47. 7 (40-59% imipaired) Short Term Goal (STG) Pt will be able to perform personal hygiene (spritz anal region) with L UE. STG Duration 10/29/21 (: MET GOAL) Stretch Press Operator Goal (LTG) Improve L UE function per UE QuickDASH score of 1-19 (1-19% impaired) LTG Duration 12/13/21 Three Impairment Improve L shoulder mobility. Impairment Sitting L shoulder painfree AROM: Flex 87 deg's, Ext 32 deg's, AB 52 deg's, ER (0 deg' s AB) 32 deg's, reaching behind back-lateral L hip, reaching behind head-L ear, reaching across opposite shoulder-anterior R shoulder. [Sitting R shoulder AROM: Flex 142 deg's, Ext 65 deg'sm, , reaching behind back - T9, reaching behind head - T2, reaching across opposite shoulder-posterior spine of opp scapula]. Short Term Goal (STG) Improve L shoulder mobility to 75% of normal mobility compared to the R shoulder (75 % of R shoulder sitting AROM ( sitting): flex 106 deg's, ext 48 deg's, AB 99 deg's, ER (0 deg's AB) is 51 deg's). (10/08/21: Flex is 120 deg's supine) (10/11/21: Sup Flex is 125 deg 's) (11/08/21: Flex 142, Ext 52, AB 110, ER with elbow at side is 42, IR reaching behind back is to L5) STG Duration 10/29/21 (11/08/21: MET GOAL) Stretch Press Operator Goal (LTG) Improve L shoulder mobility with pain no greater than 1/10 dressing. LTG Duration 12/13/21 Two Impairment L shoulder and upper back pain rated 9/10 limiting function and sleep. Impairment Lumbar AROM: Flex 80 deg's with 55 deg's hip flexion. Extension is 12 deg's with 10 deg's hip extension. Short Term Goal (STG) Pt will be educated in sleep positions to minimize L shoulder and upper back pain and decrease shoulder pain to no greater than 5-6/10. STG Duration 10/29/21 (11/08/21: MET GOAL) Stretch Press Operator Goal (LTG) Decrease L shoulder and upper back pain 1/10 first in the morning and at rest for less pain with sleeping. (11/04/21: Pt primary complaint is L shoulder pain with sleeping). LTG Duration 12/13/21 (11/04/21: Improving ) Assessment Summary Assessment Pt tender in L thoracic paraspinals, Teres minor, subscapularis. Improved ease of mvmt after therapy with pt able to tolerate UBE hgt 6.5 after therapy, but much difficulty at start of therapy . No active trigger point at L lats. Physical Therapy Plan Frequency and Duration Frequency of Treatment 2x/Week Plan of Care Start Date 10/22/21 Plan of Care End Date 01/20/22 Next Visit Focus/Plan Next Note Type Treatment Note Next Visit Plan Check Strength of L wrist, hand, elbow. work on manual treatment for tight teres and scap mm. Work on AC & GH joint mobs to improve ROM, review sleeper stretch; work on ribcage depression w/upper ribs L. POC: MD rehab protocol at 4-6 months post op. (pt surgery ). Try to obtain MD surgical report through daughter. Discuss POC of 1x/week vs 2x/ week Monitor for subacromial bursitis. Posture: cont posture training (sit & stand). Progress L shoulder/scapular strengthening (lats, RC) Exer: scapular stabilizing and is allowed to lift 1# away from body (5# close to body), Starting 3/11/22 (4 months po) , lifting 5# away and 10# close, gentle RC progression starting Anastasia IR/ER & deltoid strengthening; 4-6 months (05/10-10/27/21): 10# away/20# close to body. 6-9 months (05/10-01/27/22): aeorbic ex & start light weights for RTC strengthening. Therapeutic ex: SCAPULAR STAB EX'S, L shoulder: PROM, AROM and self care HEP. End with STM as needed. STM: L shoulder/arm and upperback. Modalities for pain and edema as needed. Pt most time chosing to ice at home.
--- NOTE | 2021-12-13 10:59 | PT.OTN ---
Current Diagnoses Muscle weakness (generalized) (12/13/21) Impingement syndrome of left shoulder (12/13/21) Strain of muscle(s) and tendon(s) of the rotator cuff of left shoulder, subsequent encounter (12/13/21) Physical Therapy Treatment Note PT-OP-A Visit Information Start: 09/06/21 18:39 Freq: Status: Active Protocol: Document 12/13/21 09:51 [facility] (Rec: 12/13/21 10:59 [facility] [id number]) Out-Patient Physical Therapy Visit Information Visit Information Visit Type Treatment Note Visit Note 11/26 Visit Start Time 09:51 Visit Stop Time 10:32 Total Visit Minutes 41 Visit Number 20 Number of RAILWAY PATROL OFFICER Visits 0 PT-OP-B Current Condition Start: 09/06/21 18:39 Freq: Status: Active Protocol: Document 09/14/21 09:48 [facility] (Rec: 09/14/21 12:41 [facility] [id number]) Current Condition History of Current Condition Onset Date 04/29/21 Current Complaints L shoulder hurts and aches at night. History of Current Condition Pt reports s/p L RC and biceps repair 04/29/21 (post op ~19. 5 weeks). Was given ex's post op and is doing it sometimes . Pain in the back ( bilaterally) and hands ( bilaterally). Rehab protocol received (see referral). Prior Treatments and Tests Post op L shoulder exercises. Future Testing and Treatments Planned F/u with referring physician 2 -3 months after PT referral. Post op protocol issued (see referral information). Treatment Goals Patient/Caregiver Goals Pt goal is to become painfree in back and L shoulder, less pain on waking in morning, less pain dressing, improve L shoulder mobility. Prior Functional Status Baseline Function- ADL's Modified Independent Baseline Function- Mobility Modified Independent Baseline Function- Other L shoulder: AROM: too painful to move arm. PROM (in deg's): Flex 110, AB 70, ER 45 (at 45 deg's AB)) R shldr AROM: Flex is 162, AB is 145, ER (at 90 deg's AB) is 90, IR is 90. L shoulder strength is: Flex, AB, ER is 2-/5; Ext & IR is 2/5 Current Functional Impairments (Reported) Functional Limitations- ADL's L arm: can lift lift a bag of groceries with elbow, can dress with pain at L shoulder, can reach only to shoulder height without difficulty. Not able to personal hygiene ( spritz anal region) with L UE. Personal Factors Other Personal Factors That May Effect Vertigo, diabetes type II Therapy/Recovery monitoring patch on L posterolateral brachium, Osteopenia, seizures controlled by meds, fall history (last incident 03/09), neuropathy of feet. PT-OP-C Subjective Start: 09/06/21 18:39 Freq: Status: Active Protocol: Document 12/13/21 09:51 [facility] (Rec: 12/13/21 10:59 [facility] [id number]) OP-PT Subjective Patient Comments Patient Comments Pt reports she hasn't done her exercises much d/t brother passing. PT-OP-E Functional Tests Start: 09/06/21 18:39 Freq: Status: Active Protocol: Document 11/18/21 15:22 [facility] (Rec: 11/18/21 16:28 [facility] [id number]) Functional Tests Apley's Scratch Test Action 1- Left Top of opposite shoulder Action 1- Right Below opposite scapular spine Action 2- Left C7 Action 2- Right T3 Action 3- Left L5 Action 3- Right T12 PT-OP-J Posture/Palpation/Skin Start: 09/06/21 18:39 Freq: Status: Active Protocol: Document 09/14/21 09:48 [facility] (Rec: 09/14/21 12:41 [facility] [id number]) Posture Evaluation Position Standing Head/C-Spine Posture Forward Head T-Spine Posture Increased Kyphosis Shoulder Posture (L) Elevated Comments Posture Comments Sway back, atrophy of L shoulder and arm. Palpation Assessment Location Neck and L UT Palpation Location Neck and L upper shoulder Palpation Findings Soft Tissue Tightness,Muscle Guarding,Tenderness PT-OP-K Range of Motion Start: 09/06/21 18:39 Freq: Status: Active Protocol: Document 11/18/21 15:22 [facility] (Rec: 11/18/21 16:28 [facility] [id number]) Shoulder Goniometric Range of Motion Shoulder Right Passive Shoulder ROM WFL Yes Testing Position Supine Flexion 153 Abduction 180 External Rotation at 90 degrees 88 Abduction Internal Rotation 63 Left Passive Shoulder ROM WFL No Testing Position Supine Flexion 142 Abduction 100 External Rotation at 90 degrees 60 Abduction Internal Rotation 50 Internal Rotation Behind Back (text) L5 Right Active Shoulder ROM WFL Yes Testing Position Sitting Internal Rotation Behind Back (text) T12 Comments ER behind head: T3 Left Active Shoulder ROM WFL No Testing Position Sitting Internal Rotation Behind Back (text) L5 Comments ER: C7 PT-OP-M Strength Start: 09/06/21 18:39 Freq: Status: Active Protocol: Document 09/14/21 09:48 [facility] (Rec: 09/14/21 12:41 [facility] [id number]) Cervical Spine Strength Cervical Spine Manual Muscle Testing Flexion (C1-2) 5 Normal Extension 5 Normal Lateral Flexion Left (C3) 4+ Good+ Lateral Flexion Right (C3) 5 Normal Comments Pain in L UT near spine with MMT of Left Lateral flexion. Shoulder Strength Shoulder Manual Muscle Testing Right External Rotation 4 Good Comments Generally 5/5 except as indicated above Left Comments Deferred due to recent RC/ Biceps surgery. Pt was not able to fully move her L UE against gravity; therefore strength assessed at 2+/5. PT-OP-Q Treatments Start: 09/06/21 18:39 Freq: Status: Active Protocol: Document 12/13/21 09:51 [facility] (Rec: 12/13/21 10:59 [facility] [id number]) Cardio Equipment Upper Body Ergometer (UBE) Duration (Minutes) 6 RPM 90 Seat Position 7 Height hgt 4.5 x 2', hgt 5.5x2', hgt 6.5x 2' Other fwd/back. 1' at end of therapy hgt 6.5 w/greater ease of mvmt. Therapeutic Exercises Standing Exercises stretch Standing Exercise Name flex at counter Side bilateral Reps/Minutes 20 sec Comments pt encouraged to do this during kitchen chores ER Side left Equipment Used L1 Reps/Minutes 15 Comments Cuing to hold end range and to slow mvmt down for ecc contraction Shoulder Ext Side bilateral Equipment Used Lev 2 TB Reps/Minutes 15 Comments Phys & v cuing to move scap in retract/depression & no back arch Shoulder IR Side left Resistance 15 Equipment Used L1 Comments Cuing needed to keep upper body from rotation and for slowing mvmt. Manual Therapy Treatment Soft Tissue Mobilization pec Body Location L Mobilization Type Rolling,Strumming Intensity/Depth Moderate Comments w/PROm rot Post Body Location L teres/lats & rhomboids Mobilization Type Rolling,Strumming,Sustained Pressure Intensity/Depth Moderate Comments w/scap motion & shoulder flex in s/l & supine Joint Mobilizations ribs Comments L rib 5-7 med glide FM ribs 1-2 caudal FM GH Joint L GHJ Direction post, inf & distraction FM Grade III PT-OP-R Modalities Start: 09/06/21 18:39 Freq: Status: Active Protocol: Document 11/08/21 09:52 [facility] (Rec: 11/08/21 11:12 [facility] [id number]) Hot Pack/Cold Pack Treatment Cold Pack Location L subacromion Patient Position Supine Treatment Duration (minutes) 2 Patient Tolerance Fair Comments Ice massage. PT-OP-T Assessment and Plan Start: 09/06/21 18:39 Freq: Status: Active Protocol: Document 12/13/21 09:51 [facility] (Rec: 12/13/21 10:59 [facility] [id number]) Physical Therapy Assessment Goals One Impairment Pt lacks appropriate L shoulder self care HEP Short Term Goal (STG) Pt will be educated in pain management techniques for self care. STG Duration 09/17/21 (09/17/21: MET GOAL) Penitentiary Goal (LTG) Pt will be independent with self care HEP for L shoulder ROM and strengthening. (09/17/21: HEP: AAROM shldr flex, ER, AROM shdr ER, AROM: Wrist/Elbow for flex/ext) (09/23/21: HEP: AROM shldr #$ marissa supine 2/cane & AROM shld rot marissa supine w/cane). (09/27/21: HEP - AAROM shldr AB slide on table, IR towel stretch) (09/30/21: HEP - Cane for sup: ER, horiz AB/AD, AB; Standing cane shldr ER, Ext, AB, IR, AD behind back stretch). (10/14/21: I/S pt in sitting shldr horiz AD stretch) (10/19/21: Pt DA present for education in assisting pt in home ex's) LTG Duration 12/13/21 (10/14/21: Progressed) Four Impairment Decreased L UE functional use Impairment Initial UE QuickDASH score 47. 7 (40-59% imipaired) Short Term Goal (STG) Pt will be able to perform personal hygiene (spritz anal region) with L UE. STG Duration 10/29/21 (: MET GOAL) Kickboxing Instructor Goal (LTG) Improve L UE function per UE QuickDASH score of 1-19 (1-19% impaired) LTG Duration 12/13/21 Three Impairment Improve L shoulder mobility. Impairment Sitting L shoulder painfree AROM: Flex 87 deg's, Ext 32 deg's, AB 52 deg's, ER (0 deg' s AB) 32 deg's, reaching behind back-lateral L hip, reaching behind head-L ear, reaching across opposite shoulder-anterior R shoulder. [Sitting R shoulder AROM: Flex 142 deg's, Ext 65 deg'sm, , reaching behind back - T9, reaching behind head - T2, reaching across opposite shoulder-posterior spine of opp scapula]. Short Term Goal (STG) Improve L shoulder mobility to 75% of normal mobility compared to the R shoulder (75 % of R shoulder sitting AROM ( sitting): flex 106 deg's, ext 48 deg's, AB 99 deg's, ER (0 deg's AB) is 51 deg's). (10/08/21: Flex is 120 deg's supine) (10/11/21: Sup Flex is 125 deg 's) (11/08/21: Flex 142, Ext 52, AB 110, ER with elbow at side is 42, IR reaching behind back is to L5) STG Duration 10/29/21 (11/08/21: MET GOAL) Penitentiary Goal (LTG) Improve L shoulder mobility with pain no greater than 1/10 dressing. LTG Duration 12/13/21 Two Impairment L shoulder and upper back pain rated 9/10 limiting function and sleep. Impairment Lumbar AROM: Flex 80 deg's with 55 deg's hip flexion. Extension is 12 deg's with 10 deg's hip extension. Short Term Goal (STG) Pt will be educated in sleep positions to minimize L shoulder and upper back pain and decrease shoulder pain to no greater than 5-6/10. STG Duration 10/29/21 (11/08/21: MET GOAL) Kickboxing Instructor Goal (LTG) Decrease L shoulder and upper back pain 1/10 first in the morning and at rest for less pain with sleeping. (11/04/21: Pt primary complaint is L shoulder pain with sleeping). LTG Duration 12/13/21 (11/04/21: Improving ) Assessment Summary Assessment pt did improve ROM w/manual therapy, but is very tender w/ this work. She was encouraged heavily do do ROM exercises mult times a day. Physical Therapy Plan Frequency and Duration Frequency of Treatment 2x/Week Plan of Care Start Date 10/22/21 Plan of Care End Date 01/20/22 Next Visit Focus/Plan Next Note Type Treatment Note Next Visit Plan Check Strength of L wrist, hand, elbow. work on manual treatment for tight teres and scap mm. Work on AC & GH joint mobs to improve ROM, review sleeper stretch; work on ribcage depression w/upper ribs L.
--- NOTE | 2021-12-27 16:51 | PT.OTN ---
Current Diagnoses Muscle weakness (generalized) (12/27/21) Impingement syndrome of left shoulder (12/27/21) Strain of muscle(s) and tendon(s) of the rotator cuff of left shoulder, subsequent encounter (12/27/21) Physical Therapy Treatment Note PT-OP-A Visit Information Start: 09/06/21 18:39 Freq: Status: Active Protocol: Document 12/27/21 16:10 [facility] (Rec: 12/27/21 16:50 [facility] [id number]) Out-Patient Physical Therapy Visit Information Visit Information Visit Type Treatment Note Visit Note 12/26 Visit Start Time 16:07 Visit Stop Time 16:45 Total Visit Minutes 38 Visit Number 21 Number of OPERATOR VACUUM Visits 0 PT-OP-B Current Condition Start: 09/06/21 18:39 Freq: Status: Active Protocol: Document 09/14/21 09:48 [facility] (Rec: 09/14/21 12:41 [facility] [id number]) Current Condition History of Current Condition Onset Date 04/29/21 Current Complaints L shoulder hurts and aches at night. History of Current Condition Pt reports s/p L RC and biceps repair 04/29/21 (post op ~19. 5 weeks). Was given ex's post op and is doing it sometimes . Pain in the back ( bilaterally) and hands ( bilaterally). Rehab protocol received (see referral). Prior Treatments and Tests Post op L shoulder exercises. Future Testing and Treatments Planned F/u with referring physician 2 -3 months after PT referral. Post op protocol issued (see referral information). Treatment Goals Patient/Caregiver Goals Pt goal is to become painfree in back and L shoulder, less pain on waking in morning, less pain dressing, improve L shoulder mobility. Prior Functional Status Baseline Function- ADL's Modified Independent Baseline Function- Mobility Modified Independent Baseline Function- Other L shoulder: AROM: too painful to move arm. PROM (in deg's): Flex 110, AB 70, ER 45 (at 45 deg's AB)) R shldr AROM: Flex is 162, AB is 145, ER (at 90 deg's AB) is 90, IR is 90. L shoulder strength is: Flex, AB, ER is 2-/5; Ext & IR is 2/5 Current Functional Impairments (Reported) Functional Limitations- ADL's L arm: can lift lift a bag of groceries with elbow, can dress with pain at L shoulder, can reach only to shoulder height without difficulty. Not able to personal hygiene ( spritz anal region) with L UE. Personal Factors Other Personal Factors That May Effect Vertigo, diabetes type II Therapy/Recovery monitoring patch on L posterolateral brachium, Osteopenia, seizures controlled by meds, fall history (last incident 03/09), neuropathy of feet. PT-OP-C Subjective Start: 09/06/21 18:39 Freq: Status: Active Protocol: Document 12/27/21 16:10 LR (Rec: 12/27/21 16:50 [facility] [id number]) OP-PT Subjective Patient Comments Patient Comments Pt reports not exercising much d/t cataract surgery for her eye and prepping for brother's arrangements. PT-OP-E Functional Tests Start: 09/06/21 18:39 Freq: Status: Active Protocol: Document 11/18/21 15:22 [facility] (Rec: 11/18/21 16:28 [facility] [id number]) Functional Tests Apley's Scratch Test Action 1- Left Top of opposite shoulder Action 1- Right Below opposite scapular spine Action 2- Left C7 Action 2- Right T3 Action 3- Left L5 Action 3- Right T12 PT-OP-J Posture/Palpation/Skin Start: 09/06/21 18:39 Freq: Status: Active Protocol: Document 09/14/21 09:48 [facility] (Rec: 09/14/21 12:41 [facility] [id number]) Posture Evaluation Position Standing Head/C-Spine Posture Forward Head T-Spine Posture Increased Kyphosis Shoulder Posture (L) Elevated Comments Posture Comments Sway back, atrophy of L shoulder and arm. Palpation Assessment Location Neck and L UT Palpation Location Neck and L upper shoulder Palpation Findings Soft Tissue Tightness,Muscle Guarding,Tenderness PT-OP-K Range of Motion Start: 09/06/21 18:39 Freq: Status: Active Protocol: Document 11/18/21 15:22 [facility] (Rec: 11/18/21 16:28 [facility] [id number]) Shoulder Goniometric Range of Motion Shoulder Right Passive Shoulder ROM WFL Yes Testing Position Supine Flexion 153 Abduction 180 External Rotation at 90 degrees 88 Abduction Internal Rotation 63 Left Passive Shoulder ROM WFL No Testing Position Supine Flexion 142 Abduction 100 External Rotation at 90 degrees 60 Abduction Internal Rotation 50 Internal Rotation Behind Back (text) L5 Right Active Shoulder ROM WFL Yes Testing Position Sitting Internal Rotation Behind Back (text) T12 Comments ER behind head: T3 Left Active Shoulder ROM WFL No Testing Position Sitting Internal Rotation Behind Back (text) L5 Comments ER: C7 PT-OP-M Strength Start: 09/06/21 18:39 Freq: Status: Active Protocol: Document 09/14/21 09:48 [facility] (Rec: 09/14/21 12:41 [facility] [id number]) Cervical Spine Strength Cervical Spine Manual Muscle Testing Flexion (C1-2) 5 Normal Extension 5 Normal Lateral Flexion Left (C3) 4+ Good+ Lateral Flexion Right (C3) 5 Normal Comments Pain in L UT near spine with MMT of Left Lateral flexion. Shoulder Strength Shoulder Manual Muscle Testing Right External Rotation 4 Good Comments Generally 5/5 except as indicated above Left Comments Deferred due to recent RC/ Biceps surgery. Pt was not able to fully move her L UE against gravity; therefore strength assessed at 2+/5. PT-OP-Q Treatments Start: 09/06/21 18:39 Freq: Status: Active Protocol: Document 12/27/21 16:10 [facility] (Rec: 12/27/21 16:50 [facility] [id number]) Therapeutic Exercises Sidelying Exercises Sleeper stretch Sidelying Exercise Name Sleeper stretch - reviewed HEP Side bilateral Reps/Minutes 1' Sitting Exercises Overhead ashley Sitting Exercise Name flex, abd, IR Side left Reps/Minutes 5 sec x10 Standing Exercises stretch Standing Exercise Name flex at counter Side bilateral Reps/Minutes 30 sec Comments pt encouraged to do this during kitchen chores ER Side left Equipment Used L2 Reps/Minutes 15 Comments Cuing to hold end range and to slow mvmt down for ecc contraction Shoulder Ext Side bilateral Equipment Used Lev 2 TB Reps/Minutes 15 Comments Phys & v cuing to move scap in retract/depression & no back arch Shoulder IR Side left Resistance 15 Equipment Used L2 Reps/Minutes 15 Comments Cuing needed to keep upper body from rotation and for slowing mvmt. Manual Therapy Treatment Soft Tissue Mobilization pec Body Location L Mobilization Type Rolling,Strumming Intensity/Depth Moderate Comments w/PROm rot Post Body Location L teres/lats & rhomboids Mobilization Type Rolling,Strumming,Sustained Pressure Intensity/Depth Moderate Comments w/scap motion & shoulder flex in s/l & supine Joint Mobilizations Tspine Joint PA T2-4 FM AC Joint L gapping FM ribs Comments ribs 1-2 caudal FM GH Joint L GHJ Direction post, inf & distraction FM Grade III PT-OP-R Modalities Start: 09/06/21 18:39 Freq: Status: Active Protocol: Document 11/08/21 09:52 [facility] (Rec: 11/08/21 11:12 [facility] [id number]) Hot Pack/Cold Pack Treatment Cold Pack Location L subacromion Patient Position Supine Treatment Duration (minutes) 2 Patient Tolerance Fair Comments Ice massage. PT-OP-T Assessment and Plan Start: 09/06/21 18:39 Freq: Status: Active Protocol: Document 12/27/21 16:10 [facility] (Rec: 12/27/21 16:50 [facility] [id number]) Physical Therapy Assessment Goals One Impairment Pt lacks appropriate L shoulder self care HEP Short Term Goal (STG) Pt will be educated in pain management techniques for self care. STG Duration 09/17/21 (09/17/21: MET GOAL) Retirement Goal (LTG) Pt will be independent with self care HEP for L shoulder ROM and strengthening. (09/17/21: HEP: AAROM shldr flex, ER, AROM shdr ER, AROM: Wrist/Elbow for flex/ext) (09/23/21: HEP: AROM shldr #$ marissa supine 2/cane & AROM shld rot marissa supine w/cane). (09/27/21: HEP - AAROM shldr AB slide on table, IR towel stretch) (09/30/21: HEP - Cane for sup: ER, horiz AB/AD, AB; Standing cane shldr ER, Ext, AB, IR, AD behind back stretch). (10/14/21: I/S pt in sitting shldr horiz AD stretch) (10/19/21: Pt DA present for education in assisting pt in home ex's) LTG Duration 12/13/21 (10/14/21: Progressed) Four Impairment Decreased L UE functional use Impairment Initial UE QuickDASH score 47. 7 (40-59% imipaired) Short Term Goal (STG) Pt will be able to perform personal hygiene (spritz anal region) with L UE. STG Duration 10/29/21 (: MET GOAL) [employer] Goal (LTG) Improve L UE function per UE QuickDASH score of 1-19 (1-19% impaired) LTG Duration 12/13/21 Three Impairment Improve L shoulder mobility. Impairment Sitting L shoulder painfree AROM: Flex 87 deg's, Ext 32 deg's, AB 52 deg's, ER (0 deg' s AB) 32 deg's, reaching behind back-lateral L hip, reaching behind head-L ear, reaching across opposite shoulder-anterior R shoulder. [Sitting R shoulder AROM: Flex 142 deg's, Ext 65 deg'sm, , reaching behind back - T9, reaching behind head - T2, reaching across opposite shoulder-posterior spine of opp scapula]. Short Term Goal (STG) Improve L shoulder mobility to 75% of normal mobility compared to the R shoulder (75 % of R shoulder sitting AROM ( sitting): flex 106 deg's, ext 48 deg's, AB 99 deg's, ER (0 deg's AB) is 51 deg's). (10/08/21: Flex is 120 deg's supine) (10/11/21: Sup Flex is 125 deg 's) (11/08/21: Flex 142, Ext 52, AB 110, ER with elbow at side is 42, IR reaching behind back is to L5) STG Duration 10/29/21 (11/08/21: MET GOAL) [employer] Goal (LTG) Improve L shoulder mobility with pain no greater than 1/10 dressing. LTG Duration 12/13/21 Two Impairment L shoulder and upper back pain rated 9/10 limiting function and sleep. Impairment Lumbar AROM: Flex 80 deg's with 55 deg's hip flexion. Extension is 12 deg's with 10 deg's hip extension. Short Term Goal (STG) Pt will be educated in sleep positions to minimize L shoulder and upper back pain and decrease shoulder pain to no greater than 5-6/10. STG Duration 10/29/21 (11/08/21: MET GOAL) [employer] Goal (LTG) Decrease L shoulder and upper back pain 1/10 first in the morning and at rest for less pain with sleeping. (11/04/21: Pt primary complaint is L shoulder pain with sleeping). LTG Duration 12/13/21 (11/04/21: Improving ) Assessment Summary Assessment Pt tolerated inc resistance w/ exercises but requires cues to use full range and go slowly w/eccentrics. Reminded pt importance of HEp at home. Manual cont to help ROM Physical Therapy Plan Frequency and Duration Frequency of Treatment 2x/Week Plan of Care Start Date 10/22/21 Plan of Care End Date 01/20/22 Next Visit Focus/Plan Next Note Type Treatment Note Next Visit Plan Check Strength of L wrist, hand, elbow. work on manual treatment for tight teres and scap mm. Work on AC & GH joint mobs to improve ROM, review sleeper stretch; work on ribcage depression w/upper ribs L.
--- NOTE | 2022-01-03 17:43 | PT.OTN ---
Current Diagnoses Muscle weakness (generalized) (01/03/22) Impingement syndrome of left shoulder (01/03/22) Strain of muscle(s) and tendon(s) of the rotator cuff of left shoulder, subsequent encounter (01/03/22) Physical Therapy Treatment Note PT-OP-A Visit Information Start: 09/06/21 18:39 Freq: Status: Active Protocol: Document 01/03/22 16:11 [facility] (Rec: 01/03/22 17:43 [facility] [id number]) Out-Patient Physical Therapy Visit Information Visit Information Visit Type Treatment Note Visit Note 01/26 Visit Start Time 16:07 Visit Stop Time 16:46 Total Visit Minutes 39 Visit Number 22 Number of [employer]ARD Visits 0 PT-OP-B Current Condition Start: 09/06/21 18:39 Freq: Status: Active Protocol: Document 09/14/21 09:48 LRN (Rec: 09/14/21 12:41 LRN [id number]) Current Condition History of Current Condition Onset Date 04/29/21 Current Complaints L shoulder hurts and aches at night. History of Current Condition Pt reports s/p L RC and biceps repair 04/29/21 (post op ~19. 5 weeks). Was given ex's post op and is doing it sometimes . Pain in the back ( bilaterally) and hands ( bilaterally). Rehab protocol received (see referral). Prior Treatments and Tests Post op L shoulder exercises. Future Testing and Treatments Planned F/u with referring physician 2 -3 months after PT referral. Post op protocol issued (see referral information). Treatment Goals Patient/Caregiver Goals Pt goal is to become painfree in back and L shoulder, less pain on waking in morning, less pain dressing, improve L shoulder mobility. Prior Functional Status Baseline Function- ADL's Modified Independent Baseline Function- Mobility Modified Independent Baseline Function- Other L shoulder: AROM: too painful to move arm. PROM (in deg's): Flex 110, AB 70, ER 45 (at 45 deg's AB)) R shldr AROM: Flex is 162, AB is 145, ER (at 90 deg's AB) is 90, IR is 90. L shoulder strength is: Flex, AB, ER is 2-/5; Ext & IR is 2/5 Current Functional Impairments (Reported) Functional Limitations- ADL's L arm: can lift lift a bag of groceries with elbow, can dress with pain at L shoulder, can reach only to shoulder height without difficulty. Not able to personal hygiene ( spritz anal region) with L UE. Personal Factors Other Personal Factors That May Effect Vertigo, diabetes type II Therapy/Recovery monitoring patch on L posterolateral brachium, Osteopenia, seizures controlled by meds, fall history (last incident 03/09), neuropathy of feet. PT-OP-C Subjective Start: 09/06/21 18:39 Freq: Status: Active Protocol: Document 01/03/22 16:11 LR (Rec: 01/03/22 17:43 [facility] [id number]) OP-PT Subjective Patient Comments Patient Comments Pt reports doing exercises more again PT-OP-E Functional Tests Start: 09/06/21 18:39 Freq: Status: Active Protocol: Document 11/18/21 15:22 LRN (Rec: 11/18/21 16:28 [facility] [id number]) Functional Tests Apley's Scratch Test Action 1- Left Top of opposite shoulder Action 1- Right Below opposite scapular spine Action 2- Left C7 Action 2- Right T3 Action 3- Left L5 Action 3- Right T12 PT-OP-J Posture/Palpation/Skin Start: 09/06/21 18:39 Freq: Status: Active Protocol: Document 09/14/21 09:48 LRN (Rec: 09/14/21 12:41 [facility] [id number]) Posture Evaluation Position Standing Head/C-Spine Posture Forward Head T-Spine Posture Increased Kyphosis Shoulder Posture (L) Elevated Comments Posture Comments Sway back, atrophy of L shoulder and arm. Palpation Assessment Location Neck and L UT Palpation Location Neck and L upper shoulder Palpation Findings Soft Tissue Tightness,Muscle Guarding,Tenderness PT-OP-K Range of Motion Start: 09/06/21 18:39 Freq: Status: Active Protocol: Document 11/18/21 15:22 LRN (Rec: 11/18/21 16:28 [facility] [id number]) Shoulder Goniometric Range of Motion Shoulder Right Passive Shoulder ROM WFL Yes Testing Position Supine Flexion 153 Abduction 180 External Rotation at 90 degrees 88 Abduction Internal Rotation 63 Left Passive Shoulder ROM WFL No Testing Position Supine Flexion 142 Abduction 100 External Rotation at 90 degrees 60 Abduction Internal Rotation 50 Internal Rotation Behind Back (text) L5 Right Active Shoulder ROM WFL Yes Testing Position Sitting Internal Rotation Behind Back (text) T12 Comments ER behind head: T3 Left Active Shoulder ROM WFL No Testing Position Sitting Internal Rotation Behind Back (text) L5 Comments ER: C7 PT-OP-M Strength Start: 09/06/21 18:39 Freq: Status: Active Protocol: Document 09/14/21 09:48 LRN (Rec: 09/14/21 12:41 LR [id number]) Cervical Spine Strength Cervical Spine Manual Muscle Testing Flexion (C1-2) 5 Normal Extension 5 Normal Lateral Flexion Left (C3) 4+ Good+ Lateral Flexion Right (C3) 5 Normal Comments Pain in L UT near spine with MMT of Left Lateral flexion. Shoulder Strength Shoulder Manual Muscle Testing Right External Rotation 4 Good Comments Generally 5/5 except as indicated above Left Comments Deferred due to recent RC/ Biceps surgery. Pt was not able to fully move her L UE against gravity; therefore strength assessed at 2+/5. PT-OP-Q Treatments Start: 09/06/21 18:39 Freq: Status: Active Protocol: Document 01/03/22 16:11 [facility] (Rec: 01/03/22 17:43 [facility] [id number]) Therapeutic Exercises Prone Exercises ext Side left Equipment Used 2# Reps/Minutes 12 Comments CUES FOR SCAP Habd Side left Equipment Used 1# Reps/Minutes 15 scaption Prone Exercise Name comfortable range palm donw Side left Reps/Minutes 15 ER Prone Exercise Name 90/90 Side left Reps/Minutes 2x8 Sidelying Exercises Sleeper stretch Sidelying Exercise Name Sleeper stretch - reviewed HEP Side bilateral Reps/Minutes 1' Shoulder AB Sidelying Exercise Name Shoulder AB Side left Equipment Used 2# Reps/Minutes 15x Comments phys cuing of scapula for down /retract with AB Shoulder ER Side left Equipment Used 2# Reps/Minutes 20 Standing Exercises ER Side left Equipment Used L2 Reps/Minutes 15 Comments Cuing to hold end range and to slow mvmt down for ecc contraction Shoulder Ext Side bilateral Equipment Used Lev 2 TB Reps/Minutes 15 Comments min Phys & v cuing to move scap in retract/depression & no back arch Shoulder IR Side left Resistance 15 Equipment Used L2 Reps/Minutes 15 Comments min cues needed Manual Therapy Treatment Soft Tissue Mobilization UE Body Location L circumfrential w/IR AAROM pec Body Location L pec & biceps Mobilization Type Rolling,Strumming Intensity/Depth Moderate Comments w/PROm rot & abd Joint Mobilizations Tspine Joint transverse T4-7 R FM GH Joint L GHJ Direction post, inf & distraction FM Grade III PT-OP-R Modalities Start: 09/06/21 18:39 Freq: Status: Active Protocol: Document 11/08/21 09:52 LRN (Rec: 11/08/21 11:12 [facility] [id number]) Hot Pack/Cold Pack Treatment Cold Pack Location L subacromion Patient Position Supine Treatment Duration (minutes) 2 Patient Tolerance Fair Comments Ice massage. PT-OP-T Assessment and Plan Start: 09/06/21 18:39 Freq: Status: Active Protocol: Document 01/03/22 16:11 [facility] (Rec: 01/03/22 17:43 [facility] [id number]) Physical Therapy Assessment Goals One Impairment Pt lacks appropriate L shoulder self care HEP Short Term Goal (STG) Pt will be educated in pain management techniques for self care. STG Duration 09/17/21 (09/17/21: MET GOAL) Route Delivery Supervisor Goal (LTG) Pt will be independent with self care HEP for L shoulder ROM and strengthening. (09/17/21: HEP: AAROM shldr flex, ER, AROM shdr ER, AROM: Wrist/Elbow for flex/ext) (09/23/21: HEP: AROM shldr #$ marissa supine 2/cane & AROM shld rot marissa supine w/cane). (09/27/21: HEP - AAROM shldr AB slide on table, IR towel stretch) (09/30/21: HEP - Cane for sup: ER, horiz AB/AD, AB; Standing cane shldr ER, Ext, AB, IR, AD behind back stretch). (10/14/21: I/S pt in sitting shldr horiz AD stretch) (10/19/21: Pt DA present for education in assisting pt in home ex's) LTG Duration 12/13/21 (10/14/21: Progressed) Four Impairment Decreased L UE functional use Impairment Initial UE QuickDASH score 47. 7 (40-59% imipaired) Short Term Goal (STG) Pt will be able to perform personal hygiene (spritz anal region) with L UE. STG Duration 10/29/21 (: MET GOAL) Route Delivery Supervisor Goal (LTG) Improve L UE function per UE QuickDASH score of 1-19 (1-19% impaired) LTG Duration 12/13/21 Three Impairment Improve L shoulder mobility. Impairment Sitting L shoulder painfree AROM: Flex 87 deg's, Ext 32 deg's, AB 52 deg's, ER (0 deg' s AB) 32 deg's, reaching behind back-lateral L hip, reaching behind head-L ear, reaching across opposite shoulder-anterior R shoulder. [Sitting R shoulder AROM: Flex 142 deg's, Ext 65 deg'sm, , reaching behind back - T9, reaching behind head - T2, reaching across opposite shoulder-posterior spine of opp scapula]. Short Term Goal (STG) Improve L shoulder mobility to 75% of normal mobility compared to the R shoulder (75 % of R shoulder sitting AROM ( sitting): flex 106 deg's, ext 48 deg's, AB 99 deg's, ER (0 deg's AB) is 51 deg's). (10/08/21: Flex is 120 deg's supine) (10/11/21: Sup Flex is 125 deg 's) (11/08/21: Flex 142, Ext 52, AB 110, ER with elbow at side is 42, IR reaching behind back is to L5) STG Duration 10/29/21 (11/08/21: MET GOAL) Route Delivery Supervisor Goal (LTG) Improve L shoulder mobility with pain no greater than 1/10 dressing. LTG Duration 12/13/21 Two Impairment L shoulder and upper back pain rated 9/10 limiting function and sleep. Impairment Lumbar AROM: Flex 80 deg's with 55 deg's hip flexion. Extension is 12 deg's with 10 deg's hip extension. Short Term Goal (STG) Pt will be educated in sleep positions to minimize L shoulder and upper back pain and decrease shoulder pain to no greater than 5-6/10. STG Duration 10/29/21 (11/08/21: MET GOAL) Care Home Goal (LTG) Decrease L shoulder and upper back pain 1/10 first in the morning and at rest for less pain with sleeping. (11/04/21: Pt primary complaint is L shoulder pain with sleeping). LTG Duration 12/13/21 (11/04/21: Improving ) Assessment Summary Assessment Pt tolerated progression w/ strengthening exercises well. She is fatigued w/exercises though and does require cues for scap tactilely and VC w/ new exercises. She did well w/ tband exercsies w/min cueing needed only. Slowly improving ROM w/manual. Improved IR w/ manual today Physical Therapy Plan Frequency and Duration Frequency of Treatment 2x/Week Plan of Care Start Date 10/22/21 Plan of Care End Date 01/20/22 Next Visit Focus/Plan Next Note Type Treatment Note Next Visit Plan Check Strength of L wrist, hand, elbow. work on manual treatment for tight teres and scap mm. Work on AC & GH joint mobs to improve ROM, review sleeper stretch; work on ribcage depression w/upper ribs L.
--- NOTE | 2022-01-12 11:18 | PT.OTN ---
Current Diagnoses Muscle weakness (generalized) (01/12/22) Impingement syndrome of left shoulder (01/12/22) Strain of muscle(s) and tendon(s) of the rotator cuff of left shoulder, subsequent encounter (01/12/22) Physical Therapy Treatment Note PT-OP-A Visit Information Start: 09/06/21 18:39 Freq: Status: Active Protocol: Document 01/12/22 10:31 AW (Rec: 01/12/22 11:16 AW [id number]) Out-Patient Physical Therapy Visit Information Visit Information Visit Type Treatment Note Visit Start Time 10:32 Visit Stop Time 11:14 Total Visit Minutes 42 Visit Number 23 Number of [employer] CLERK Visits 0 PT-OP-B Current Condition Start: 09/06/21 18:39 Freq: Status: Active Protocol: Document 09/14/21 09:48 LRN (Rec: 09/14/21 12:41 LRN [id number]) Current Condition History of Current Condition Onset Date 04/29/21 Current Complaints L shoulder hurts and aches at night. History of Current Condition Pt reports s/p L RC and biceps repair 04/29/21 (post op ~19. 5 weeks). Was given ex's post op and is doing it sometimes . Pain in the back ( bilaterally) and hands ( bilaterally). Rehab protocol received (see referral). Prior Treatments and Tests Post op L shoulder exercises. Future Testing and Treatments Planned F/u with referring physician 2 -3 months after PT referral. Post op protocol issued (see referral information). Treatment Goals Patient/Caregiver Goals Pt goal is to become painfree in back and L shoulder, less pain on waking in morning, less pain dressing, improve L shoulder mobility. Prior Functional Status Baseline Function- ADL's Modified Independent Baseline Function- Mobility Modified Independent Baseline Function- Other L shoulder: AROM: too painful to move arm. PROM (in deg's): Flex 110, AB 70, ER 45 (at 45 deg's AB)) R shldr AROM: Flex is 162, AB is 145, ER (at 90 deg's AB) is 90, IR is 90. L shoulder strength is: Flex, AB, ER is 2-/5; Ext & IR is 2/5 Current Functional Impairments (Reported) Functional Limitations- ADL's L arm: can lift lift a bag of groceries with elbow, can dress with pain at L shoulder, can reach only to shoulder height without difficulty. Not able to personal hygiene ( spritz anal region) with L UE. Personal Factors Other Personal Factors That May Effect Vertigo, diabetes type II Therapy/Recovery monitoring patch on L posterolateral brachium, Osteopenia, seizures controlled by meds, fall history (last incident 03/09), neuropathy of feet. PT-OP-C Subjective Start: 09/06/21 18:39 Freq: Status: Active Protocol: Document 01/12/22 10:31 AW (Rec: 01/12/22 11:17 AW [id number]) OP-PT Subjective Patient Comments Patient Comments I sometimes do my exercises two times a day but I've been very busy and now too hot. PT-OP-E Functional Tests Start: 09/06/21 18:39 Freq: Status: Active Protocol: Document 11/18/21 15:22 LRN (Rec: 11/18/21 16:28 LRN [id number]) Functional Tests Apley's Scratch Test Action 1- Left Top of opposite shoulder Action 1- Right Below opposite scapular spine Action 2- Left C7 Action 2- Right T3 Action 3- Left L5 Action 3- Right T12 PT-OP-J Posture/Palpation/Skin Start: 09/06/21 18:39 Freq: Status: Active Protocol: Document 09/14/21 09:48 LRN (Rec: 09/14/21 12:41 LRN [id number]) Posture Evaluation Position Standing Head/C-Spine Posture Forward Head T-Spine Posture Increased Kyphosis Shoulder Posture (L) Elevated Comments Posture Comments Sway back, atrophy of L shoulder and arm. Palpation Assessment Location Neck and L UT Palpation Location Neck and L upper shoulder Palpation Findings Soft Tissue Tightness,Muscle Guarding,Tenderness PT-OP-K Range of Motion Start: 09/06/21 18:39 Freq: Status: Active Protocol: Document 11/18/21 15:22 LRN (Rec: 11/18/21 16:28 LRN [id number]) Shoulder Goniometric Range of Motion Shoulder Right Passive Shoulder ROM WFL Yes Testing Position Supine Flexion 153 Abduction 180 External Rotation at 90 degrees 88 Abduction Internal Rotation 63 Left Passive Shoulder ROM WFL No Testing Position Supine Flexion 142 Abduction 100 External Rotation at 90 degrees 60 Abduction Internal Rotation 50 Internal Rotation Behind Back (text) L5 Right Active Shoulder ROM WFL Yes Testing Position Sitting Internal Rotation Behind Back (text) T12 Comments ER behind head: T3 Left Active Shoulder ROM WFL No Testing Position Sitting Internal Rotation Behind Back (text) L5 Comments ER: C7 PT-OP-M Strength Start: 09/06/21 18:39 Freq: Status: Active Protocol: Document 09/14/21 09:48 LRN (Rec: 09/14/21 12:41 LRN [id number]) Cervical Spine Strength Cervical Spine Manual Muscle Testing Flexion (C1-2) 5 Normal Extension 5 Normal Lateral Flexion Left (C3) 4+ Good+ Lateral Flexion Right (C3) 5 Normal Comments Pain in L UT near spine with MMT of Left Lateral flexion. Shoulder Strength Shoulder Manual Muscle Testing Right External Rotation 4 Good Comments Generally 5/5 except as indicated above Left Comments Deferred due to recent RC/ Biceps surgery. Pt was not able to fully move her L UE against gravity; therefore strength assessed at 2+/5. PT-OP-Q Treatments Start: 09/06/21 18:39 Freq: Status: Active Protocol: Document 01/12/22 10:31 AW (Rec: 01/12/22 11:16 AW [id number]) Therapeutic Exercises Sidelying Exercises Sleeper stretch Sidelying Exercise Name Sleeper stretch - reviewed HEP Side bilateral Reps/Minutes 1' Shoulder AB Sidelying Exercise Name Shoulder AB Side left Equipment Used 2#, 3# Reps/Minutes 15x Comments phys cuing of scapula for down /retract with AB Shoulder ER Side left Equipment Used 2#, 3# Reps/Minutes 12, 12 Standing Exercises stretch Standing Exercise Name flex at counter Side bilateral Reps/Minutes 30 sec Comments pt encouraged to do this during kitchen chores ER Side left Equipment Used L2 Reps/Minutes 15 Comments Cuing to hold end range and to slow mvmt down for ecc contraction Shoulder Ext Side bilateral Equipment Used Lev 2 TB Reps/Minutes 15 Comments min Phys & v cuing to move scap in retract/depression & no back arch Shoulder IR Side left Resistance 15 Equipment Used L2 Reps/Minutes 15 Comments min cues needed Manual Therapy Treatment Soft Tissue Mobilization UE Body Location L circumfrential w/IR AAROM pec Body Location L pec & biceps Mobilization Type Rolling,Strumming Intensity/Depth Moderate Comments w/PROm rot & abd Post Body Location L teres/lats & rhomboids Mobilization Type Rolling,Strumming,Sustained Pressure Intensity/Depth Moderate Comments w/scap motion & shoulder flex in s/l & supine Joint Mobilizations GH Joint L GHJ Direction post, inf & distraction FM Grade III PT-OP-R Modalities Start: 09/06/21 18:39 Freq: Status: Active Protocol: Document 01/12/22 10:31 AW (Rec: 01/12/22 11:18 AW [id number]) Hot Pack/Cold Pack Treatment Cold Pack Location L shoulder Patient Position Sidelying Treatment Duration (minutes) 10 Patient Tolerance Good Comments end of session PT-OP-T Assessment and Plan Start: 09/06/21 18:39 Freq: Status: Active Protocol: Document 01/12/22 10:31 AW (Rec: 01/12/22 11:16 AW [id number]) Physical Therapy Assessment Goals One Impairment Pt lacks appropriate L shoulder self care HEP Short Term Goal (STG) Pt will be educated in pain management techniques for self care. STG Duration 09/17/21 (09/17/21: MET GOAL) Gutter Mouth Cutter Goal (LTG) Pt will be independent with self care HEP for L shoulder ROM and strengthening. (09/17/21: HEP: AAROM shldr flex, ER, AROM shdr ER, AROM: Wrist/Elbow for flex/ext) (09/23/21: HEP: AROM shldr #$ marissa supine 2/cane & AROM shld rot marissa supine w/cane). (09/27/21: HEP - AAROM shldr AB slide on table, IR towel stretch) (09/30/21: HEP - Cane for sup: ER, horiz AB/AD, AB; Standing cane shldr ER, Ext, AB, IR, AD behind back stretch). (10/14/21: I/S pt in sitting shldr horiz AD stretch) (10/19/21: Pt DA present for education in assisting pt in home ex's) LTG Duration 12/13/21 (10/14/21: Progressed) Four Impairment Decreased L UE functional use Impairment Initial UE QuickDASH score 47. 7 (40-59% imipaired) Short Term Goal (STG) Pt will be able to perform personal hygiene (spritz anal region) with L UE. STG Duration 10/29/21 (: MET GOAL) Gutter Mouth Cutter Goal (LTG) Improve L UE function per UE QuickDASH score of 1-19 (1-19% impaired) LTG Duration 12/13/21 Three Impairment Improve L shoulder mobility. Impairment Sitting L shoulder painfree AROM: Flex 87 deg's, Ext 32 deg's, AB 52 deg's, ER (0 deg' s AB) 32 deg's, reaching behind back-lateral L hip, reaching behind head-L ear, reaching across opposite shoulder-anterior R shoulder. [Sitting R shoulder AROM: Flex 142 deg's, Ext 65 deg'sm, , reaching behind back - T9, reaching behind head - T2, reaching across opposite shoulder-posterior spine of opp scapula]. Short Term Goal (STG) Improve L shoulder mobility to 75% of normal mobility compared to the R shoulder (75 % of R shoulder sitting AROM ( sitting): flex 106 deg's, ext 48 deg's, AB 99 deg's, ER (0 deg's AB) is 51 deg's). (10/08/21: Flex is 120 deg's supine) (10/11/21: Sup Flex is 125 deg 's) (11/08/21: Flex 142, Ext 52, AB 110, ER with elbow at side is 42, IR reaching behind back is to L5) STG Duration 10/29/21 (11/08/21: MET GOAL) Gutter Mouth Cutter Goal (LTG) Improve L shoulder mobility with pain no greater than 1/10 dressing. LTG Duration 12/13/21 Two Impairment L shoulder and upper back pain rated 9/10 limiting function and sleep. Impairment Lumbar AROM: Flex 80 deg's with 55 deg's hip flexion. Extension is 12 deg's with 10 deg's hip extension. Short Term Goal (STG) Pt will be educated in sleep positions to minimize L shoulder and upper back pain and decrease shoulder pain to no greater than 5-6/10. STG Duration 10/29/21 (11/08/21: MET GOAL) Residential Goal (LTG) Decrease L shoulder and upper back pain 1/10 first in the morning and at rest for less pain with sleeping. (11/04/21: Pt primary complaint is L shoulder pain with sleeping). LTG Duration 12/13/21 (11/04/21: Improving ) Assessment Summary Assessment Pt able to increase resistance in SL ER and abduction without complaint of increased pain. Continued to work on scapular stability during abduction today and pt required fewer cues. Physical Therapy Plan Frequency and Duration Frequency of Treatment 2x/Week Plan of Care Start Date 10/22/21 Plan of Care End Date 01/20/22 Next Visit Focus/Plan Next Note Type Progress Note Next Visit Plan Check Strength of L wrist, hand, elbow. work on manual treatment for tight teres and scap mm. Work on AC & GH joint mobs to improve ROM, review sleeper stretch; work on ribcage depression w/upper ribs L.
--- NOTE | 2022-01-18 12:16 | PT.OTN ---
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 History of Current Condition Pt reports s/p L RC and biceps repair 04/29/21 (post op ~19. 5 weeks). Was given ex's post op and is doing it sometimes . Pain in the back ( bilaterally) and hands ( bilaterally). Rehab protocol received (see referral). Prior Treatments and Tests Post op L shoulder exercises. Future Testing and Treatments Planned F/u with referring physician 2 -3 months after PT referral. Post op protocol issued (see referral information). Treatment Goals Patient/Caregiver Goals Pt goal is to become painfree in back and L shoulder, less pain on waking in morning, less pain dressing, improve L shoulder mobility. Prior Functional Status Baseline Function- ADL's Modified Independent Baseline Function- Mobility Modified Independent Baseline Function- Other L shoulder: AROM: too painful to move arm. PROM (in deg's): Flex 110, AB 70, ER 45 (at 45 deg's AB)) R shldr AROM: Flex is 162, AB is 145, ER (at 90 deg's AB) is 90, IR is 90. L shoulder strength is: Flex, AB, ER is 2-/5; Ext & IR is 2/5 Current Functional Impairments (Reported) Functional Limitations- ADL's L arm: can lift lift a bag of groceries with elbow, can dress with pain at L shoulder, can reach only to shoulder height without difficulty. Not able to personal hygiene ( spritz anal region) with L UE. Personal Factors Other Personal Factors That May Effect Vertigo, diabetes type II Therapy/Recovery monitoring patch on L posterolateral brachium, Osteopenia, seizures controlled by meds, fall history (last incident 03/09), neuropathy of feet. PT-OP-C Subjective Start: 09/06/21 18:39 Freq: Status: Active Protocol: Document 01/18/22 08:36 AW (Rec: 01/18/22 12:16 AW [id number]) OP-PT Subjective Patient Comments Patient Comments It still hurts in the back of my shoulder. PT-OP-E Functional Tests Start: 09/06/21 18:39 Freq: Status: Active Protocol: Document 11/18/21 15:22 LRN (Rec: 11/18/21 16:28 LRN [id number]) Functional Tests Apley's Scratch Test Action 1- Left Top of opposite shoulder Action 1- Right Below opposite scapular spine Action 2- Left C7 Action 2- Right T3 Action 3- Left L5 Action 3- Right T12 PT-OP-J Posture/Palpation/Skin Start: 09/06/21 18:39 Freq: Status: Active Protocol: Document 09/14/21 09:48 LRN (Rec: 09/14/21 12:41 LRN [id number]) Posture Evaluation Position Standing Head/C-Spine Posture Forward Head T-Spine Posture Increased Kyphosis Shoulder Posture (L) Elevated Comments Posture Comments Sway back, atrophy of L shoulder and arm. Palpation Assessment Location Neck and L UT Palpation Location Neck and L upper shoulder Palpation Findings Soft Tissue Tightness,Muscle Guarding,Tenderness PT-OP-K Range of Motion Start: 09/06/21 18:39 Freq: Status: Active Protocol: Document 11/18/21 15:22 LRN (Rec: 11/18/21 16:28 LRN [id number]) Shoulder Goniometric Range of Motion Shoulder Right Passive Shoulder ROM WFL Yes Testing Position Supine Flexion 153 Abduction 180 External Rotation at 90 degrees 88 Abduction Internal Rotation 63 Left Passive Shoulder ROM WFL No Testing Position Supine Flexion 142 Abduction 100 External Rotation at 90 degrees 60 Abduction Internal Rotation 50 Internal Rotation Behind Back (text) L5 Right Active Shoulder ROM WFL Yes Testing Position Sitting Internal Rotation Behind Back (text) T12 Comments ER behind head: T3 Left Active Shoulder ROM WFL No Testing Position Sitting Internal Rotation Behind Back (text) L5 Comments ER: C7 PT-OP-M Strength Start: 09/06/21 18:39 Freq: Status: Active Protocol: Document 09/14/21 09:48 LRN (Rec: 09/14/21 12:41 LRN [id number]) Cervical Spine Strength Cervical Spine Manual Muscle Testing Flexion (C1-2) 5 Normal Extension 5 Normal Lateral Flexion Left (C3) 4+ Good+ Lateral Flexion Right (C3) 5 Normal Comments Pain in L UT near spine with MMT of Left Lateral flexion. Shoulder Strength Shoulder Manual Muscle Testing Right External Rotation 4 Good Comments Generally 5/5 except as indicated above Left Comments Deferred due to recent RC/ Biceps surgery. Pt was not able to fully move her L UE against gravity; therefore strength assessed at 2+/5. PT-OP-Q Treatments Start: 09/06/21 18:39 Freq: Status: Active Protocol: Document 01/18/22 08:36 AW (Rec: 01/18/22 12:16 AW [id number]) Cardio Equipment Upper Body Ergometer (UBE) Duration (Minutes) 6 RPM 90 Seat Position 7 Height hgt 4.5 x 2', hgt 5.5x2', hgt 6.5x 2' Other fwd/back. 1' at end of therapy hgt 6.5 w/greater ease of mvmt. Therapeutic Exercises Prone Exercises ext Side left Equipment Used 2# Reps/Minutes 12 Comments CUES FOR SCAP scaption Prone Exercise Name comfortable range palm down Side left Reps/Minutes 15 ER Prone Exercise Name 90/90 Side left Reps/Minutes 2x8 Sidelying Exercises Shoulder AB Sidelying Exercise Name Shoulder AB Side left Equipment Used 2#, 3# Reps/Minutes 15x Comments phys cuing of scapula for down /retract with AB Shoulder ER Side left Equipment Used 2#, 3# Reps/Minutes 12, 12 Comments 3# irritating today Standing Exercises stretch Standing Exercise Name flex at counter Side bilateral Reps/Minutes 30 sec Comments pt encouraged to do this during kitchen chores Manual Therapy Treatment Soft Tissue Mobilization UE Body Location L circumfrential w/IR AAROM pec Body Location L pec & biceps Mobilization Type Rolling,Strumming Intensity/Depth Moderate Comments w/PROm rot & abd L Supraspinatus Body Location L Supraspinatus Intensity/Depth Moderate L UT Body Location L UT Mobilization Type Rolling Intensity/Depth Moderate Body Position Sidelying Joint Mobilizations GH Joint L GHJ Direction post, inf & distraction FM Grade III PT-OP-R Modalities Start: 09/06/21 18:39 Freq: Status: Active Protocol: Document 01/18/22 08:36 AW (Rec: 01/18/22 12:16 AW [id number]) Hot Pack/Cold Pack Treatment Cold Pack Location L shoulder Patient Position Sidelying Treatment Duration (minutes) 10 Patient Tolerance Good Comments end of session PT-OP-T Assessment and Plan Start: 09/06/21 18:39 Freq: Status: Active Protocol: Document 01/18/22 08:36 AW (Rec: 01/18/22 12:16 AW [id number]) Physical Therapy Assessment Goals One Impairment Pt lacks appropriate L shoulder self care HEP Short Term Goal (STG) Pt will be educated in pain management techniques for self care. STG Duration 09/17/21 (09/17/21: MET GOAL) Retirement Goal (LTG) Pt will be independent with self care HEP for L shoulder ROM and strengthening. (09/17/21: HEP: AAROM shldr flex, ER, AROM shdr ER, AROM: Wrist/Elbow for flex/ext) (09/23/21: HEP: AROM shldr #$ marissa supine 2/cane & AROM shld rot marissa supine w/cane). (09/27/21: HEP - AAROM shldr AB slide on table, IR towel stretch) (09/30/21: HEP - Cane for sup: ER, horiz AB/AD, AB; Standing cane shldr ER, Ext, AB, IR, AD behind back stretch). (10/14/21: I/S pt in sitting shldr horiz AD stretch) (10/19/21: Pt DA present for education in assisting pt in home ex's) LTG Duration 12/13/21 (10/14/21: Progressed) Four Impairment Decreased L UE functional use Impairment Initial UE QuickDASH score 47. 7 (40-59% imipaired) Short Term Goal (STG) Pt will be able to perform personal hygiene (spritz anal region) with L UE. STG Duration 10/29/21 (: MET GOAL) Hip Hop Dance Instructor Goal (LTG) Improve L UE function per UE QuickDASH score of 1-19 (1-19% impaired) LTG Duration 12/13/21 Three Impairment Improve L shoulder mobility. Impairment Sitting L shoulder painfree AROM: Flex 87 deg's, Ext 32 deg's, AB 52 deg's, ER (0 deg' s AB) 32 deg's, reaching behind back-lateral L hip, reaching behind head-L ear, reaching across opposite shoulder-anterior R shoulder. [Sitting R shoulder AROM: Flex 142 deg's, Ext 65 deg'sm, , reaching behind back - T9, reaching behind head - T2, reaching across opposite shoulder-posterior spine of opp scapula]. Short Term Goal (STG) Improve L shoulder mobility to 75% of normal mobility compared to the R shoulder (75 % of R shoulder sitting AROM ( sitting): flex 106 deg's, ext 48 deg's, AB 99 deg's, ER (0 deg's AB) is 51 deg's). (10/08/21: Flex is 120 deg's supine) (10/11/21: Sup Flex is 125 deg 's) (11/08/21: Flex 142, Ext 52, AB 110, ER with elbow at side is 42, IR reaching behind back is to L5) STG Duration 10/29/21 (11/08/21: MET GOAL) Hip Hop Dance Instructor Goal (LTG) Improve L shoulder mobility with pain no greater than 1/10 dressing. 01/18/22 - Progressing. LTG Duration 12/13/21 Two Impairment L shoulder and upper back pain rated 9/10 limiting function and sleep. Impairment Lumbar AROM: Flex 80 deg's with 55 deg's hip flexion. Extension is 12 deg's with 10 deg's hip extension. Short Term Goal (STG) Pt will be educated in sleep positions to minimize L shoulder and upper back pain and decrease shoulder pain to no greater than 5-6/10. STG Duration 10/29/21 (11/08/21: MET GOAL) Retirement Goal (LTG) Decrease L shoulder and upper back pain 1/10 first in the morning and at rest for less pain with sleeping. (11/04/21: Pt primary complaint is L shoulder pain with sleeping). 01/18/22 - Still pain with left sidelying LTG Duration 12/13/21 (11/04/21: Improving ) Progress Towards Goals Progress Towards Goals Progressing Toward Goals,Slow Progress - Other Progress Comments Pt has made some progress with dressing and sleeping - has less pain with both. She continues to complain of upper back pain with left shoulder movement, especially overhead. Assessment Summary Assessment Pt's pain was slightly more irritable today and she tolerated less load in sidelying exercises. Scapular stabilization remains challenging with all movements . Physical Therapy Plan Frequency and Duration Frequency of Treatment 2x/Week Duration of Treatment 6 weeks Plan of Care Start Date 01/18/22 Plan of Care End Date 03/01/22 Next Visit Focus/Plan Next Note Type Treatment Note Next Visit Plan Reassess HEP.
--- NOTE | 2022-01-18 12:17 | PT.OPPOC ---
Physical, Occupational & Speech Therapy At [facility] Current Diagnoses Muscle weakness (generalized) (01/18/22) Impingement syndrome of left shoulder (01/18/22) Strain of muscle(s) and tendon(s) of the rotator cuff of left shoulder, subsequent encounter (01/18/22) Visit Care Team Role Provider Type [place] MD Family Provider Physician Primary Care Provider Specialty: Family Practice Address: [address] [place] [address], [address], [place], [address] Email: [email or web address] Seamus Mariano MD Attending Provider Non-Staff Referring Provider Specialty: Orthopedic Surgery Address: [address] [place] [address], [address], [place], [address] Email: Plan Of Care PT-OP-T Assessment and Plan Start: 09/06/21 18:39 Freq: Status: Active Protocol: Document 01/18/22 08:36 AW (Rec: 01/18/22 12:16 AW [id number]) Physical Therapy Assessment Goals One Impairment Pt lacks appropriate L shoulder self care HEP Short Term Goal (STG) Pt will be educated in pain management techniques for self care. STG Duration 09/17/21 (09/17/21: MET GOAL) Chief Medical Technologist Goal (LTG) Pt will be independent with self care HEP for L shoulder ROM and strengthening. (09/17/21: HEP: AAROM shldr flex, ER, AROM shdr ER, AROM: Wrist/Elbow for flex/ext) (09/23/21: HEP: AROM shldr #$ marissa supine 2/cane & AROM shld rot marissa supine w/cane). (09/27/21: HEP - AAROM shldr AB slide on table, IR towel stretch) (09/30/21: HEP - Cane for sup: ER, horiz AB/AD, AB; Standing cane shldr ER, Ext, AB, IR, AD behind back stretch). (10/14/21: I/S pt in sitting shldr horiz AD stretch) (10/19/21: Pt DA present for education in assisting pt in home ex's) LTG Duration 12/13/21 (10/14/21: Progressed) Four Impairment Decreased L UE functional use Impairment Initial UE QuickDASH score 47. 7 (40-59% imipaired) Short Term Goal (STG) Pt will be able to perform personal hygiene (spritz anal region) with L UE. STG Duration 10/29/21 (: MET GOAL) Chief Medical Technologist Goal (LTG) Improve L UE function per UE QuickDASH score of 1-19 (1-19% impaired) LTG Duration 12/13/21 Three Impairment Improve L shoulder mobility. Impairment Sitting L shoulder painfree AROM: Flex 87 deg's, Ext 32 deg's, AB 52 deg's, ER (0 deg' s AB) 32 deg's, reaching behind back-lateral L hip, reaching behind head-L ear, reaching across opposite shoulder-anterior R shoulder. [Sitting R shoulder AROM: Flex 142 deg's, Ext 65 deg'sm, , reaching behind back - T9, reaching behind head - T2, reaching across opposite shoulder-posterior spine of opp scapula]. Short Term Goal (STG) Improve L shoulder mobility to 75% of normal mobility compared to the R shoulder (75 % of R shoulder sitting AROM ( sitting): flex 106 deg's, ext 48 deg's, AB 99 deg's, ER (0 deg's AB) is 51 deg's). (10/08/21: Flex is 120 deg's supine) (10/11/21: Sup Flex is 125 deg 's) (11/08/21: Flex 142, Ext 52, AB 110, ER with elbow at side is 42, IR reaching behind back is to L5) STG Duration 10/29/21 (11/08/21: MET GOAL) Mcfp Goal (LTG) Improve L shoulder mobility with pain no greater than 1/10 dressing. 01/18/22 - Progressing. LTG Duration 12/13/21 Two Impairment L shoulder and upper back pain rated 9/10 limiting function and sleep. Impairment Lumbar AROM: Flex 80 deg's with 55 deg's hip flexion. Extension is 12 deg's with 10 deg's hip extension. Short Term Goal (STG) Pt will be educated in sleep positions to minimize L shoulder and upper back pain and decrease shoulder pain to no greater than 5-6/10. STG Duration 10/29/21 (11/08/21: MET GOAL) Chief Medical Technologist Goal (LTG) Decrease L shoulder and upper back pain 1/10 first in the morning and at rest for less pain with sleeping. (11/04/21: Pt primary complaint is L shoulder pain with sleeping). 01/18/22 - Still pain with left sidelying LTG Duration 12/13/21 (11/04/21: Improving ) Progress Towards Goals Progress Towards Goals Progressing Toward Goals,Slow Progress - Other Progress Comments Pt has made some progress with dressing and sleeping - has less pain with both. She continues to complain of upper back pain with left shoulder movement, especially overhead. Assessment Summary Assessment Pt's pain was slightly more irritable today and she tolerated less load in sidelying exercises. Scapular stabilization remains challenging with all movements . Physical Therapy Plan Frequency and Duration Frequency of Treatment 2x/Week Duration of Treatment 6 weeks Plan of Care Start Date 01/18/22 Plan of Care End Date 03/01/22 Next Visit Focus/Plan Next Note Type Treatment Note Next Visit Plan Reassess HEP. Plan of Care Dates Plan of Care Start Date 01/18/22 Plan of Care End Date 03/01/22 Electronically Signed by: Sara Corona, PT 01/18/22 1872 If you are in agreement with this Plan of Care, please return a signed and dated copy. I have reviewed this Plan of Care and certify that the skilled therapy services above are required to meet the patient?s needs. Physician Signature Date Printed Name and Credentials Clinical Instructor Signature Printed Name and Credentials
--- NOTE | 2022-01-26 15:51 | PT.OTN ---
Current Diagnoses Muscle weakness (generalized) (01/26/22) Impingement syndrome of left shoulder (01/26/22) Strain of muscle(s) and tendon(s) of the rotator cuff of left shoulder, subsequent encounter (01/26/22) Physical Therapy Treatment Note PT-OP-A Visit Information Start: 09/06/21 18:39 Freq: Status: Active Protocol: Document 01/26/22 14:46 LR (Rec: 01/26/22 15:51 [facility] [id number]) Out-Patient Physical Therapy Visit Information Visit Information Visit Type Treatment Note Visit Start Time 14:51 Visit Stop Time 15:35 Total Visit Minutes 44 Visit Number 25 Number of AIR CONDITIONING ENGINEER Visits 0 PT-OP-B Current Condition Start: 09/06/21 18:39 Freq: Status: Active Protocol: Document 09/14/21 09:48 LRN (Rec: 09/14/21 12:41 LRN [id number]) Current Condition History of Current Condition Onset Date 04/29/21 Current Complaints L shoulder hurts and aches at night. History of Current Condition Pt reports s/p L RC and biceps repair 04/29/21 (post op ~19. 5 weeks). Was given ex's post op and is doing it sometimes . Pain in the back ( bilaterally) and hands ( bilaterally). Rehab protocol received (see referral). Prior Treatments and Tests Post op L shoulder exercises. Future Testing and Treatments Planned F/u with referring physician 2 -3 months after PT referral. Post op protocol issued (see referral information). Treatment Goals Patient/Caregiver Goals Pt goal is to become painfree in back and L shoulder, less pain on waking in morning, less pain dressing, improve L shoulder mobility. Prior Functional Status Baseline Function- ADL's Modified Independent Baseline Function- Mobility Modified Independent Baseline Function- Other L shoulder: AROM: too painful to move arm. PROM (in deg's): Flex 110, AB 70, ER 45 (at 45 deg's AB)) R shldr AROM: Flex is 162, AB is 145, ER (at 90 deg's AB) is 90, IR is 90. L shoulder strength is: Flex, AB, ER is 2-/5; Ext & IR is 2/5 Current Functional Impairments (Reported) Functional Limitations- ADL's L arm: can lift lift a bag of groceries with elbow, can dress with pain at L shoulder, can reach only to shoulder height without difficulty. Not able to personal hygiene ( spritz anal region) with L UE. Personal Factors Other Personal Factors That May Effect Vertigo, diabetes type II Therapy/Recovery monitoring patch on L posterolateral brachium, Osteopenia, seizures controlled by meds, fall history (last incident 03/09), neuropathy of feet. PT-OP-C Subjective Start: 09/06/21 18:39 Freq: Status: Active Protocol: Document 01/26/22 14:46 [facility] (Rec: 01/26/22 15:51 [facility] [id number]) OP-PT Subjective Patient Comments Patient Comments Pt reprots doing pulleys and bands at home. Notes shoulder is sore PT-OP-E Functional Tests Start: 09/06/21 18:39 Freq: Status: Active Protocol: Document 11/18/21 15:22 LR (Rec: 11/18/21 16:28 [facility] [id number]) Functional Tests Apley's Scratch Test Action 1- Left Top of opposite shoulder Action 1- Right Below opposite scapular spine Action 2- Left C7 Action 2- Right T3 Action 3- Left L5 Action 3- Right T12 PT-OP-J Posture/Palpation/Skin Start: 09/06/21 18:39 Freq: Status: Active Protocol: Document 09/14/21 09:48 LRN (Rec: 09/14/21 12:41 [facility] [id number]) Posture Evaluation Position Standing Head/C-Spine Posture Forward Head T-Spine Posture Increased Kyphosis Shoulder Posture (L) Elevated Comments Posture Comments Sway back, atrophy of L shoulder and arm. Palpation Assessment Location Neck and L UT Palpation Location Neck and L upper shoulder Palpation Findings Soft Tissue Tightness,Muscle Guarding,Tenderness PT-OP-K Range of Motion Start: 09/06/21 18:39 Freq: Status: Active Protocol: Document 01/26/22 14:46 [facility] (Rec: 01/26/22 15:51 [facility] [id number]) Shoulder Goniometric Range of Motion Shoulder Left Passive Shoulder ROM WFL No Testing Position Supine Flexion 154 Abduction 118 External Rotation at 90 degrees 63 Abduction Internal Rotation 63 Right Active Shoulder ROM WFL Yes Testing Position Sitting Left Active Shoulder ROM WFL No Testing Position Sitting Flexion 121 Extension 55 Abduction 100 External Rotation at 0 degrees Abduction 32 Internal Rotation Behind Back (text) L5 Comments ER: T2 PT-OP-M Strength Start: 09/06/21 18:39 Freq: Status: Active Protocol: Document 01/26/22 14:46 [facility] (Rec: 01/26/22 15:51 [facility] [id number]) Shoulder Strength Shoulder Manual Muscle Testing Right Flexion 5 Normal Extension 5 Normal Abduction (C5) 5 Normal External Rotation 4+ Good+ Internal Rotation 5 Normal Left Flexion 4 Good Extension 4+ Good+ Abduction (C5) 4 Good External Rotation 4 Good Internal Rotation 4+ Good+ Elbow/Forearm Strength Elbow and Forearm Manual Muscle Testing Left Flexion (C6) 5 Normal Extension (C7) 5 Normal Pronation 4 Good Supination 5 Normal PT-OP-Q Treatments Start: 09/06/21 18:39 Freq: Status: Active Protocol: Document 01/26/22 14:46 [facility] (Rec: 01/26/22 15:51 [facility] [id number]) Therapeutic Exercises Supine Exercises flex Supine Exercise Name full ROM (able to get 150 deg in supine) Side left Equipment Used 2# Reps/Minutes 12 Chest press Supine Exercise Name chest press to serratus punch Side left Equipment Used 3# Reps/Minutes 10 Prone Exercises Habd Side left Equipment Used 1# Reps/Minutes 10 scaption Prone Exercise Name comfortable range palm down Side left Reps/Minutes 10 ER Prone Exercise Name 90/90 Side left Reps/Minutes 2x8 Sidelying Exercises Sleeper stretch Sidelying Exercise Name Sleeper stretch - reviewed HEP Side bilateral Reps/Minutes 2x30 sec Shoulder AB Sidelying Exercise Name Shoulder AB Side left Equipment Used 3# Reps/Minutes 10 Comments phys cuing of scapula for down /retract with AB Manual Therapy Treatment Soft Tissue Mobilization UE Body Location L circumfrential w/IR AAROM pec Body Location L pec & biceps Mobilization Type Rolling,Strumming Intensity/Depth Moderate Comments w/PROm rot & abd Joint Mobilizations GH Joint L GHJ Direction post, inf & distraction FM Grade III PT-OP-R Modalities Start: 09/06/21 18:39 Freq: Status: Active Protocol: Document 01/18/22 08:36 AW (Rec: 01/18/22 12:16 AW [id number]) Hot Pack/Cold Pack Treatment Cold Pack Location L shoulder Patient Position Sidelying Treatment Duration (minutes) 10 Patient Tolerance Good Comments end of session PT-OP-T Assessment and Plan Start: 09/06/21 18:39 Freq: Status: Active Protocol: Document 01/26/22 14:46 [facility] (Rec: 01/26/22 15:51 [facility] [id number]) Physical Therapy Assessment Goals One Impairment Pt lacks appropriate L shoulder self care HEP Short Term Goal (STG) Pt will be educated in pain management techniques for self care. STG Duration 09/17/21 (09/17/21: MET GOAL) Alarm Operator Goal (LTG) Pt will be independent with self care HEP for L shoulder ROM and strengthening. (09/17/21: HEP: AAROM shldr flex, ER, AROM shdr ER, AROM: Wrist/Elbow for flex/ext) (09/23/21: HEP: AROM shldr #$ marissa supine 2/cane & AROM shld rot marissa supine w/cane). (09/27/21: HEP - AAROM shldr AB slide on table, IR towel stretch) (09/30/21: HEP - Cane for sup: ER, horiz AB/AD, AB; Standing cane shldr ER, Ext, AB, IR, AD behind back stretch). (10/14/21: I/S pt in sitting shldr horiz AD stretch) (10/19/21: Pt DA present for education in assisting pt in home ex's) LTG Duration 12/13/21 (10/14/21: Progressed) Four Impairment Decreased L UE functional use Impairment Initial UE QuickDASH score 47. 7 (40-59% imipaired) Short Term Goal (STG) Pt will be able to perform personal hygiene (spritz anal region) with L UE. STG Duration 10/29/21 (: MET GOAL) Alarm Operator Goal (LTG) Improve L UE function per UE QuickDASH score of 1-19 (1-19% impaired) LTG Duration 12/13/21 Three Impairment Improve L shoulder mobility. Impairment Sitting L shoulder painfree AROM: Flex 87 deg's, Ext 32 deg's, AB 52 deg's, ER (0 deg' s AB) 32 deg's, reaching behind back-lateral L hip, reaching behind head-L ear, reaching across opposite shoulder-anterior R shoulder. [Sitting R shoulder AROM: Flex 142 deg's, Ext 65 deg'sm, , reaching behind back - T9, reaching behind head - T2, reaching across opposite shoulder-posterior spine of opp scapula]. Short Term Goal (STG) Improve L shoulder mobility to 75% of normal mobility compared to the R shoulder (75 % of R shoulder sitting AROM ( sitting): flex 106 deg's, ext 48 deg's, AB 99 deg's, ER (0 deg's AB) is 51 deg's). (10/08/21: Flex is 120 deg's supine) (10/11/21: Sup Flex is 125 deg 's) (11/08/21: Flex 142, Ext 52, AB 110, ER with elbow at side is 42, IR reaching behind back is to L5) STG Duration 10/29/21 (11/08/21: MET GOAL) Mcc Goal (LTG) Improve L shoulder mobility with pain no greater than 1/10 dressing. 01/18/22 - Progressing. LTG Duration 12/13/21 Two Impairment L shoulder and upper back pain rated 9/10 limiting function and sleep. Impairment Lumbar AROM: Flex 80 deg's with 55 deg's hip flexion. Extension is 12 deg's with 10 deg's hip extension. Short Term Goal (STG) Pt will be educated in sleep positions to minimize L shoulder and upper back pain and decrease shoulder pain to no greater than 5-6/10. STG Duration 10/29/21 (11/08/21: MET GOAL) Mcc Goal (LTG) Decrease L shoulder and upper back pain 1/10 first in the morning and at rest for less pain with sleeping. (11/04/21: Pt primary complaint is L shoulder pain with sleeping). 01/18/22 - Still pain with left sidelying LTG Duration 12/13/21 (11/04/21: Improving ) Assessment Summary Assessment pt did well with exercises with cues. She shows slow progress w/ROm but is progressing w/strength now but does still demonstrate weakness. HEP reviewed and reprinted Physical Therapy Plan Next Visit Focus/Plan Next Note Type Treatment Note Next Visit Plan HEP (pulleys 2x/day, tband ext , ER, IR & added sleeper stretch, resisted sup flex & s /l resist abd)
--- NOTE | 2022-01-31 09:56 | PT.OTN ---
Current Diagnoses Muscle weakness (generalized) (01/31/22) Impingement syndrome of left shoulder (01/31/22) Strain of muscle(s) and tendon(s) of the rotator cuff of left shoulder, subsequent encounter (01/31/22) Physical Therapy Treatment Note PT-OP-A Visit Information Start: 09/06/21 18:39 Freq: Status: Active Protocol: Document 01/31/22 09:55 [facility] (Rec: 01/31/22 09:56 [facility] [id number]) Out-Patient Physical Therapy Visit Information Visit Information Visit Type Treatment Note Visit Start Time 09:05 Visit Stop Time 09:45 Total Visit Minutes 40 Visit Number 26 Number of BANQUET LEAD Visits 0 PT-OP-B Current Condition Start: 09/06/21 18:39 Freq: Status: Active Protocol: Document 09/14/21 09:48 LRN (Rec: 09/14/21 12:41 LRN [id number]) Current Condition History of Current Condition Onset Date 04/29/21 Current Complaints L shoulder hurts and aches at night. History of Current Condition Pt reports s/p L RC and biceps repair 04/29/21 (post op ~19. 5 weeks). Was given ex's post op and is doing it sometimes . Pain in the back ( bilaterally) and hands ( bilaterally). Rehab protocol received (see referral). Prior Treatments and Tests Post op L shoulder exercises. Future Testing and Treatments Planned F/u with referring physician 2 -3 months after PT referral. Post op protocol issued (see referral information). Treatment Goals Patient/Caregiver Goals Pt goal is to become painfree in back and L shoulder, less pain on waking in morning, less pain dressing, improve L shoulder mobility. Prior Functional Status Baseline Function- ADL's Modified Independent Baseline Function- Mobility Modified Independent Baseline Function- Other L shoulder: AROM: too painful to move arm. PROM (in deg's): Flex 110, AB 70, ER 45 (at 45 deg's AB)) R shldr AROM: Flex is 162, AB is 145, ER (at 90 deg's AB) is 90, IR is 90. L shoulder strength is: Flex, AB, ER is 2-/5; Ext & IR is 2/5 Current Functional Impairments (Reported) Functional Limitations- ADL's L arm: can lift lift a bag of groceries with elbow, can dress with pain at L shoulder, can reach only to shoulder height without difficulty. Not able to personal hygiene ( spritz anal region) with L UE. Personal Factors Other Personal Factors That May Effect Vertigo, diabetes type II Therapy/Recovery monitoring patch on L posterolateral brachium, Osteopenia, seizures controlled by meds, fall history (last incident 03/09), neuropathy of feet. PT-OP-C Subjective Start: 09/06/21 18:39 Freq: Status: Active Protocol: Document 01/31/22 09:55 LR (Rec: 01/31/22 09:56 [facility] [id number]) OP-PT Subjective Patient Comments Patient Comments Pt reports doing exercises daily PT-OP-E Functional Tests Start: 09/06/21 18:39 Freq: Status: Active Protocol: Document 11/18/21 15:22 LR (Rec: 11/18/21 16:28 [facility] [id number]) Functional Tests Apley's Scratch Test Action 1- Left Top of opposite shoulder Action 1- Right Below opposite scapular spine Action 2- Left C7 Action 2- Right T3 Action 3- Left L5 Action 3- Right T12 PT-OP-J Posture/Palpation/Skin Start: 09/06/21 18:39 Freq: Status: Active Protocol: Document 09/14/21 09:48 LR (Rec: 09/14/21 12:41 [facility] [id number]) Posture Evaluation Position Standing Head/C-Spine Posture Forward Head T-Spine Posture Increased Kyphosis Shoulder Posture (L) Elevated Comments Posture Comments Sway back, atrophy of L shoulder and arm. Palpation Assessment Location Neck and L UT Palpation Location Neck and L upper shoulder Palpation Findings Soft Tissue Tightness,Muscle Guarding,Tenderness PT-OP-K Range of Motion Start: 09/06/21 18:39 Freq: Status: Active Protocol: Document 01/26/22 14:46 LR (Rec: 01/26/22 15:51 [facility] [id number]) Shoulder Goniometric Range of Motion Shoulder Left Passive Shoulder ROM WFL No Testing Position Supine Flexion 154 Abduction 118 External Rotation at 90 degrees 63 Abduction Internal Rotation 63 Right Active Shoulder ROM WFL Yes Testing Position Sitting Left Active Shoulder ROM WFL No Testing Position Sitting Flexion 121 Extension 55 Abduction 100 External Rotation at 0 degrees Abduction 32 Internal Rotation Behind Back (text) L5 Comments ER: T2 PT-OP-M Strength Start: 09/06/21 18:39 Freq: Status: Active Protocol: Document 01/26/22 14:46 [facility] (Rec: 01/26/22 15:51 [facility] [id number]) Shoulder Strength Shoulder Manual Muscle Testing Right Flexion 5 Normal Extension 5 Normal Abduction (C5) 5 Normal External Rotation 4+ Good+ Internal Rotation 5 Normal Left Flexion 4 Good Extension 4+ Good+ Abduction (C5) 4 Good External Rotation 4 Good Internal Rotation 4+ Good+ Elbow/Forearm Strength Elbow and Forearm Manual Muscle Testing Left Flexion (C6) 5 Normal Extension (C7) 5 Normal Pronation 4 Good Supination 5 Normal PT-OP-Q Treatments Start: 09/06/21 18:39 Freq: Status: Active Protocol: Document 01/31/22 09:55 [facility] (Rec: 01/31/22 09:56 [facility] [id number]) Therapeutic Exercises Supine Exercises flex Supine Exercise Name full ROM (able to get 150 deg in supine) Side left Equipment Used 2# Reps/Minutes 12 Prone Exercises Habd Side left Equipment Used 1# Reps/Minutes 10 scaption Prone Exercise Name comfortable range palm down Side left Reps/Minutes 10 ER Prone Exercise Name 90/90 Side left Reps/Minutes 2x8 Sidelying Exercises Sleeper stretch Sidelying Exercise Name Sleeper stretch - reviewed HEP Side bilateral Reps/Minutes 2x30 sec Shoulder AB Sidelying Exercise Name Shoulder AB Side left Equipment Used 3# Reps/Minutes 10 Comments phys cuing of scapula for down /retract with AB Sitting Exercises Overhead ashley Sitting Exercise Name flex, abd, IR Side left Reps/Minutes 10 sec x5 Standing Exercises ER Side left Equipment Used L2 Reps/Minutes 15 Comments Cuing to hold end range and to slow mvmt down for ecc contraction Shoulder Ext Side bilateral Equipment Used Lev 2 TB Reps/Minutes 15 Comments min Phys & v cuing to move scap in retract/depression & no back arch Shoulder IR Side left Resistance 15 Equipment Used L2 Reps/Minutes 15 Comments min cues needed Manual Therapy Treatment Joint Mobilizations AC Joint L gapping FM GH Joint L GHJ Direction post, inf & distraction & lat gap FM Grade III PT-OP-R Modalities Start: 09/06/21 18:39 Freq: Status: Active Protocol: Document 01/18/22 08:36 AW (Rec: 01/18/22 12:16 AW [id number]) Hot Pack/Cold Pack Treatment Cold Pack Location L shoulder Patient Position Sidelying Treatment Duration (minutes) 10 Patient Tolerance Good Comments end of session PT-OP-T Assessment and Plan Start: 09/06/21 18:39 Freq: Status: Active Protocol: Document 01/31/22 09:55 [facility] (Rec: 01/31/22 09:56 [facility] [id number]) Physical Therapy Assessment Goals One Impairment Pt lacks appropriate L shoulder self care HEP Short Term Goal (STG) Pt will be educated in pain management techniques for self care. STG Duration 09/17/21 (09/17/21: MET GOAL) [facility] Goal (LTG) Pt will be independent with self care HEP for L shoulder ROM and strengthening. (09/17/21: HEP: AAROM shldr flex, ER, AROM shdr ER, AROM: Wrist/Elbow for flex/ext) (09/23/21: HEP: AROM shldr #$ marissa supine 2/cane & AROM shld rot marissa supine w/cane). (09/27/21: HEP - AAROM shldr AB slide on table, IR towel stretch) (09/30/21: HEP - Cane for sup: ER, horiz AB/AD, AB; Standing cane shldr ER, Ext, AB, IR, AD behind back stretch). (10/14/21: I/S pt in sitting shldr horiz AD stretch) (10/19/21: Pt DA present for education in assisting pt in home ex's) LTG Duration 12/13/21 (10/14/21: Progressed) Four Impairment Decreased L UE functional use Impairment Initial UE QuickDASH score 47. 7 (40-59% imipaired) Short Term Goal (STG) Pt will be able to perform personal hygiene (spritz anal region) with L UE. STG Duration 10/29/21 (: MET GOAL) Director Of Dementia Operations Goal (LTG) Improve L UE function per UE QuickDASH score of 1-19 (1-19% impaired) LTG Duration 12/13/21 Three Impairment Improve L shoulder mobility. Impairment Sitting L shoulder painfree AROM: Flex 87 deg's, Ext 32 deg's, AB 52 deg's, ER (0 deg' s AB) 32 deg's, reaching behind back-lateral L hip, reaching behind head-L ear, reaching across opposite shoulder-anterior R shoulder. [Sitting R shoulder AROM: Flex 142 deg's, Ext 65 deg'sm, , reaching behind back - T9, reaching behind head - T2, reaching across opposite shoulder-posterior spine of opp scapula]. Short Term Goal (STG) Improve L shoulder mobility to 75% of normal mobility compared to the R shoulder (75 % of R shoulder sitting AROM ( sitting): flex 106 deg's, ext 48 deg's, AB 99 deg's, ER (0 deg's AB) is 51 deg's). (10/08/21: Flex is 120 deg's supine) (10/11/21: Sup Flex is 125 deg 's) (11/08/21: Flex 142, Ext 52, AB 110, ER with elbow at side is 42, IR reaching behind back is to L5) STG Duration 10/29/21 (11/08/21: MET GOAL) Director Of Dementia Operations Goal (LTG) Improve L shoulder mobility with pain no greater than 1/10 dressing. 01/18/22 - Progressing. LTG Duration 12/13/21 Two Impairment L shoulder and upper back pain rated 9/10 limiting function and sleep. Impairment Lumbar AROM: Flex 80 deg's with 55 deg's hip flexion. Extension is 12 deg's with 10 deg's hip extension. Short Term Goal (STG) Pt will be educated in sleep positions to minimize L shoulder and upper back pain and decrease shoulder pain to no greater than 5-6/10. STG Duration 10/29/21 (11/08/21: MET GOAL) [facility] Goal (LTG) Decrease L shoulder and upper back pain 1/10 first in the morning and at rest for less pain with sleeping. (11/04/21: Pt primary complaint is L shoulder pain with sleeping). 01/18/22 - Still pain with left sidelying LTG Duration 12/13/21 (11/04/21: Improving ) Assessment Summary Assessment Pt did well with cueing for more control w/exercises and encourage dto hold w/pully exercises. Pt cont to have capsular tightness but does respond well to manual & c/r. Physical Therapy Plan Frequency and Duration Frequency of Treatment 2x/Week Duration of Treatment 6 weeks Plan of Care Start Date 01/18/22 Plan of Care End Date 03/01/22 Next Visit Focus/Plan Next Note Type Treatment Note Next Visit Plan HEP (pulleys 2x/day, tband ext , ER, IR & added sleeper stretch, resisted sup flex & s /l resist abd) cont to wrok on manually to improve ROM
--- NOTE | 2022-02-08 18:00 | PT.OTN ---
Current Diagnoses Muscle weakness (generalized) (02/08/22) Impingement syndrome of left shoulder (02/08/22) Strain of muscle(s) and tendon(s) of the rotator cuff of left shoulder, subsequent encounter (02/08/22) Physical Therapy Treatment Note PT-OP-A Visit Information Start: 09/06/21 18:39 Freq: Status: Active Protocol: Document 02/08/22 16:54 LR (Rec: 02/08/22 18:00 [facility] [id number]) Out-Patient Physical Therapy Visit Information Visit Information Visit Type Treatment Note Visit Start Time 16:52 Visit Stop Time 17:30 Total Visit Minutes 38 Visit Number 27 Number of NETWORK SYSTEMS ENGINEER Visits 0 PT-OP-B Current Condition Start: 09/06/21 18:39 Freq: Status: Active Protocol: Document 09/14/21 09:48 LRN (Rec: 09/14/21 12:41 LRN [id number]) Current Condition History of Current Condition Onset Date 04/29/21 Current Complaints L shoulder hurts and aches at night. History of Current Condition Pt reports s/p L RC and biceps repair 04/29/21 (post op ~19. 5 weeks). Was given ex's post op and is doing it sometimes . Pain in the back ( bilaterally) and hands ( bilaterally). Rehab protocol received (see referral). Prior Treatments and Tests Post op L shoulder exercises. Future Testing and Treatments Planned F/u with referring physician 2 -3 months after PT referral. Post op protocol issued (see referral information). Treatment Goals Patient/Caregiver Goals Pt goal is to become painfree in back and L shoulder, less pain on waking in morning, less pain dressing, improve L shoulder mobility. Prior Functional Status Baseline Function- ADL's Modified Independent Baseline Function- Mobility Modified Independent Baseline Function- Other L shoulder: AROM: too painful to move arm. PROM (in deg's): Flex 110, AB 70, ER 45 (at 45 deg's AB)) R shldr AROM: Flex is 162, AB is 145, ER (at 90 deg's AB) is 90, IR is 90. L shoulder strength is: Flex, AB, ER is 2-/5; Ext & IR is 2/5 Current Functional Impairments (Reported) Functional Limitations- ADL's L arm: can lift lift a bag of groceries with elbow, can dress with pain at L shoulder, can reach only to shoulder height without difficulty. Not able to personal hygiene ( spritz anal region) with L UE. Personal Factors Other Personal Factors That May Effect Vertigo, diabetes type II Therapy/Recovery monitoring patch on L posterolateral brachium, Osteopenia, seizures controlled by meds, fall history (last incident 03/09), neuropathy of feet. PT-OP-C Subjective Start: 09/06/21 18:39 Freq: Status: Active Protocol: Document 02/08/22 16:54 LR (Rec: 02/08/22 18:00 [facility] [id number]) OP-PT Subjective Patient Comments Patient Comments reports compliance w/HEP PT-OP-E Functional Tests Start: 09/06/21 18:39 Freq: Status: Active Protocol: Document 11/18/21 15:22 LRN (Rec: 11/18/21 16:[address] [facility] [id number]) Functional Tests Apley's Scratch Test Action 1- Left Top of opposite shoulder Action 1- Right Below opposite scapular spine Action 2- Left C7 Action 2- Right T3 Action 3- Left L5 Action 3- Right T12 PT-OP-J Posture/Palpation/Skin Start: 09/06/21 18:39 Freq: Status: Active Protocol: Document 09/14/21 09:48 LR (Rec: 09/14/21 12:[address] [facility] [id number]) Posture Evaluation Position Standing Head/C-Spine Posture Forward Head T-Spine Posture Increased Kyphosis Shoulder Posture (L) Elevated Comments Posture Comments Sway back, atrophy of L shoulder and arm. Palpation Assessment Location Neck and L UT Palpation Location Neck and L upper shoulder Palpation Findings Soft Tissue Tightness,Muscle Guarding,Tenderness PT-OP-K Range of Motion Start: 09/06/21 18:39 Freq: Status: Active Protocol: Document 01/26/22 14:46 LR (Rec: 01/26/22 15:51 [facility] [id number]) Shoulder Goniometric Range of Motion Shoulder Left Passive Shoulder ROM WFL No Testing Position Supine Flexion 154 Abduction 118 External Rotation at 90 degrees 63 Abduction Internal Rotation 63 Right Active Shoulder ROM WFL Yes Testing Position Sitting Left Active Shoulder ROM WFL No Testing Position Sitting Flexion 121 Extension 55 Abduction 100 External Rotation at 0 degrees Abduction 32 Internal Rotation Behind Back (text) L5 Comments ER: T2 PT-OP-M Strength Start: 09/06/21 18:39 Freq: Status: Active Protocol: Document 01/26/22 14:46 [facility] (Rec: 01/26/22 15:51 [facility] [id number]) Shoulder Strength Shoulder Manual Muscle Testing Right Flexion 5 Normal Extension 5 Normal Abduction (C5) 5 Normal External Rotation 4+ Good+ Internal Rotation 5 Normal Left Flexion 4 Good Extension 4+ Good+ Abduction (C5) 4 Good External Rotation 4 Good Internal Rotation 4+ Good+ Elbow/Forearm Strength Elbow and Forearm Manual Muscle Testing Left Flexion (C6) 5 Normal Extension (C7) 5 Normal Pronation 4 Good Supination 5 Normal PT-OP-Q Treatments Start: 09/06/21 18:39 Freq: Status: Active Protocol: Document 02/08/22 16:54 [facility] (Rec: 02/08/22 18:00 [facility] [id number]) Therapeutic Exercises Prone Exercises ext Side left Equipment Used 2# Reps/Minutes 12 Comments CUES FOR SCAP Habd Side left Equipment Used 2# Reps/Minutes 10 scaption Prone Exercise Name comfortable range palm down Side left Reps/Minutes 10 ER Prone Exercise Name 90/90 Side left Reps/Minutes x8 Sidelying Exercises Sleeper stretch Sidelying Exercise Name Sleeper stretch - reviewed HEP Side bilateral Reps/Minutes x30 sec Sitting Exercises Overhead ashley Sitting Exercise Name flex,scaption, abd, IR Side left Reps/Minutes 30 sec x2 ea Standing Exercises ER Side left Equipment Used L2 Reps/Minutes 15 Comments Cuing to hold end range and to slow mvmt down for ecc contraction Manual Therapy Treatment Soft Tissue Mobilization UE Body Location L circumfrential w/IR AAROM pec Body Location L pec & biceps Mobilization Type Rolling,Strumming Intensity/Depth Moderate Comments w/PROm rot & abd L UT Body Location L UT Mobilization Type Rolling Intensity/Depth Moderate Body Position Sidelying Joint Mobilizations AC Joint L gapping FM GH Joint L GHJ Direction post, inf & distraction FM Grade III 1st rib Joint 1st rib Direction Depression Grade II Body Position Supine PT-OP-R Modalities Start: 09/06/21 18:39 Freq: Status: Active Protocol: Document 01/18/22 08:36 AW (Rec: 01/18/22 12:16 AW [id number]) Hot Pack/Cold Pack Treatment Cold Pack Location L shoulder Patient Position Sidelying Treatment Duration (minutes) 10 Patient Tolerance Good Comments end of session PT-OP-T Assessment and Plan Start: 09/06/21 18:39 Freq: Status: Active Protocol: Document 02/08/22 16:54 [facility] (Rec: 02/08/22 18:00 [facility] [id number]) Physical Therapy Assessment Goals One Impairment Pt lacks appropriate L shoulder self care HEP Short Term Goal (STG) Pt will be educated in pain management techniques for self care. STG Duration 09/17/21 (09/17/21: MET GOAL) Usp Goal (LTG) Pt will be independent with self care HEP for L shoulder ROM and strengthening. (09/17/21: HEP: AAROM shldr flex, ER, AROM shdr ER, AROM: Wrist/Elbow for flex/ext) (09/23/21: HEP: AROM shldr #$ marissa supine 2/cane & AROM shld rot marissa supine w/cane). (09/27/21: HEP - AAROM shldr AB slide on table, IR towel stretch) (09/30/21: HEP - Cane for sup: ER, horiz AB/AD, AB; Standing cane shldr ER, Ext, AB, IR, AD behind back stretch). (10/14/21: I/S pt in sitting shldr horiz AD stretch) (10/19/21: Pt DA present for education in assisting pt in home ex's) LTG Duration 12/13/21 (10/14/21: Progressed) Four Impairment Decreased L UE functional use Impairment Initial UE QuickDASH score 47. 7 (40-59% imipaired) Short Term Goal (STG) Pt will be able to perform personal hygiene (spritz anal region) with L UE. STG Duration 10/29/21 (: MET GOAL) Usp Goal (LTG) Improve L UE function per UE QuickDASH score of 1-19 (1-19% impaired) LTG Duration 12/13/21 Three Impairment Improve L shoulder mobility. Impairment Sitting L shoulder painfree AROM: Flex 87 deg's, Ext 32 deg's, AB 52 deg's, ER (0 deg' s AB) 32 deg's, reaching behind back-lateral L hip, reaching behind head-L ear, reaching across opposite shoulder-anterior R shoulder. [Sitting R shoulder AROM: Flex 142 deg's, Ext 65 deg'sm, , reaching behind back - T9, reaching behind head - T2, reaching across opposite shoulder-posterior spine of opp scapula]. Short Term Goal (STG) Improve L shoulder mobility to 75% of normal mobility compared to the R shoulder (75 % of R shoulder sitting AROM ( sitting): flex 106 deg's, ext 48 deg's, AB 99 deg's, ER (0 deg's AB) is 51 deg's). (10/08/21: Flex is 120 deg's supine) (10/11/21: Sup Flex is 125 deg 's) (11/08/21: Flex 142, Ext 52, AB 110, ER with elbow at side is 42, IR reaching behind back is to L5) STG Duration 10/29/21 (11/08/21: MET GOAL) Usp Goal (LTG) Improve L shoulder mobility with pain no greater than 1/10 dressing. 01/18/22 - Progressing. LTG Duration 12/13/21 Two Impairment L shoulder and upper back pain rated 9/10 limiting function and sleep. Impairment Lumbar AROM: Flex 80 deg's with 55 deg's hip flexion. Extension is 12 deg's with 10 deg's hip extension. Short Term Goal (STG) Pt will be educated in sleep positions to minimize L shoulder and upper back pain and decrease shoulder pain to no greater than 5-6/10. STG Duration 10/29/21 (11/08/21: MET GOAL) Usp Goal (LTG) Decrease L shoulder and upper back pain 1/10 first in the morning and at rest for less pain with sleeping. (11/04/21: Pt primary complaint is L shoulder pain with sleeping). 01/18/22 - Still pain with left sidelying LTG Duration 12/13/21 (11/04/21: Improving ) Assessment Summary Assessment Pt required cues w/ER to slow down w/band and cues w/prone exercsies for scap motion & position. Pt still demonstrates evidence for frozen shoulder and notes pain w/movement. Physical Therapy Plan Frequency and Duration Frequency of Treatment 2x/Week Duration of Treatment 6 weeks Plan of Care Start Date 01/18/22 Plan of Care End Date 03/01/22 Next Visit Focus/Plan Next Note Type Treatment Note Next Visit Plan cont to advance strength and ROM
--- NOTE | 2022-02-17 15:04 | PT.OTN ---
Current Diagnoses Muscle weakness (generalized) (02/17/22) Impingement syndrome of left shoulder (02/17/22) Strain of muscle(s) and tendon(s) of the rotator cuff of left shoulder, subsequent encounter (02/17/22) Physical Therapy Treatment Note PT-OP-A Visit Information Start: 09/06/21 18:39 Freq: Status: Active Protocol: Document 02/17/22 14:07 [facility] (Rec: 02/17/22 15:04 [facility] [id number]) Out-Patient Physical Therapy Visit Information Visit Information Visit Type Treatment Note Visit Start Time 14:10 Visit Stop Time 15:05 Total Visit Minutes 55 Visit Number 28 Number of OPERATIONS PLANNER Visits 0 PT-OP-B Current Condition Start: 09/06/21 18:39 Freq: Status: Active Protocol: Document 09/14/21 09:48 LRN (Rec: 09/14/21 12:41 LRN [id number]) Current Condition History of Current Condition Onset Date 04/29/21 Current Complaints L shoulder hurts and aches at night. History of Current Condition Pt reports s/p L RC and biceps repair 04/29/21 (post op ~19. 5 weeks). Was given ex's post op and is doing it sometimes . Pain in the back ( bilaterally) and hands ( bilaterally). Rehab protocol received (see referral). Prior Treatments and Tests Post op L shoulder exercises. Future Testing and Treatments Planned F/u with referring physician 2 -3 months after PT referral. Post op protocol issued (see referral information). Treatment Goals Patient/Caregiver Goals Pt goal is to become painfree in back and L shoulder, less pain on waking in morning, less pain dressing, improve L shoulder mobility. Prior Functional Status Baseline Function- ADL's Modified Independent Baseline Function- Mobility Modified Independent Baseline Function- Other L shoulder: AROM: too painful to move arm. PROM (in deg's): Flex 110, AB 70, ER 45 (at 45 deg's AB)) R shldr AROM: Flex is 162, AB is 145, ER (at 90 deg's AB) is 90, IR is 90. L shoulder strength is: Flex, AB, ER is 2-/5; Ext & IR is 2/5 Current Functional Impairments (Reported) Functional Limitations- ADL's L arm: can lift lift a bag of groceries with elbow, can dress with pain at L shoulder, can reach only to shoulder height without difficulty. Not able to personal hygiene ( spritz anal region) with L UE. Personal Factors Other Personal Factors That May Effect Vertigo, diabetes type II Therapy/Recovery monitoring patch on L posterolateral brachium, Osteopenia, seizures controlled by meds, fall history (last incident 03/09), neuropathy of feet. PT-OP-C Subjective Start: 09/06/21 18:39 Freq: Status: Active Protocol: Document 02/17/22 14:07 LR (Rec: 02/17/22 15:04 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 Pt went to massage when in [place] PT-OP-E Functional Tests Start: 09/06/21 18:39 Freq: Status: Active Protocol: Document 11/18/21 15:22 LR (Rec: 11/18/21 16:28 [facility] [id number]) Functional Tests Apley's Scratch Test Action 1- Left Top of opposite shoulder Action 1- Right Below opposite scapular spine Action 2- Left C7 Action 2- Right T3 Action 3- Left L5 Action 3- Right T12 PT-OP-J Posture/Palpation/Skin Start: 09/06/21 18:39 Freq: Status: Active Protocol: Document 09/14/21 09:48 LR (Rec: 09/14/21 12:41 [facility] [id number]) Posture Evaluation Position Standing Head/C-Spine Posture Forward Head T-Spine Posture Increased Kyphosis Shoulder Posture (L) Elevated Comments Posture Comments Sway back, atrophy of L shoulder and arm. Palpation Assessment Location Neck and L UT Palpation Location Neck and L upper shoulder Palpation Findings Soft Tissue Tightness,Muscle Guarding,Tenderness PT-OP-K Range of Motion Start: 09/06/21 18:39 Freq: Status: Active Protocol: Document 01/26/22 14:46 LR (Rec: 01/26/22 15:51 [facility] [id number]) Shoulder Goniometric Range of Motion Shoulder Left Passive Shoulder ROM WFL No Testing Position Supine Flexion 154 Abduction 118 External Rotation at 90 degrees 63 Abduction Internal Rotation 63 Right Active Shoulder ROM WFL Yes Testing Position Sitting Left Active Shoulder ROM WFL No Testing Position Sitting Flexion 121 Extension 55 Abduction 100 External Rotation at 0 degrees Abduction 32 Internal Rotation Behind Back (text) L5 Comments ER: T2 PT-OP-M Strength Start: 09/06/21 18:39 Freq: Status: Active Protocol: Document 01/26/22 14:46 [facility] (Rec: 01/26/22 15:51 [facility] [id number]) Shoulder Strength Shoulder Manual Muscle Testing Right Flexion 5 Normal Extension 5 Normal Abduction (C5) 5 Normal External Rotation 4+ Good+ Internal Rotation 5 Normal Left Flexion 4 Good Extension 4+ Good+ Abduction (C5) 4 Good External Rotation 4 Good Internal Rotation 4+ Good+ Elbow/Forearm Strength Elbow and Forearm Manual Muscle Testing Left Flexion (C6) 5 Normal Extension (C7) 5 Normal Pronation 4 Good Supination 5 Normal PT-OP-Q Treatments Start: 09/06/21 18:39 Freq: Status: Active Protocol: Document 02/17/22 14:07 [facility] (Rec: 02/17/22 15:04 [facility] [id number]) Therapeutic Exercises Supine Exercises flex Supine Exercise Name full ROM (able to get 150 deg in supine) Side left Equipment Used 2# Reps/Minutes 12 Prone Exercises ext Side left Equipment Used 3# Reps/Minutes 12 Comments CUES FOR SCAP Habd Side left Equipment Used 2# Reps/Minutes 12 scaption Prone Exercise Name comfortable range palm down Side left Reps/Minutes 15 ER Prone Exercise Name 90/90 Side left Reps/Minutes 10 Sidelying Exercises Sleeper stretch Sidelying Exercise Name Sleeper stretch - reviewed HEP Side bilateral Reps/Minutes x30 sec Sitting Exercises Overhead ashley Sitting Exercise Name flex,scaption, abd, IR Side left Reps/Minutes 30 sec x3 ea L shoulder Active ER Sitting Exercise Name 90.90 w/elbow on bed Side left Reps/Minutes 15 Standing Exercises overhead Standing Exercise Name D2 pattern Side left Reps/Minutes 10 Manual Therapy Treatment Soft Tissue Mobilization UE Body Location L circumfrential w/IR AAROM pec Body Location L pec & biceps Mobilization Type Rolling,Strumming Intensity/Depth Moderate Comments w/PROm rot & abd Post Body Location L teres/lats & rhomboids Mobilization Type Rolling,Strumming,Sustained Pressure Intensity/Depth Moderate Joint Mobilizations GH Joint L GHJ Direction post, inf & distraction FM Grade III PT-OP-R Modalities Start: 09/06/21 18:39 Freq: Status: Active Protocol: Document 02/17/22 14:07 [facility] (Rec: 02/17/22 15:04 [facility] [id number]) Hot Pack/Cold Pack Treatment Cold Pack Location L shoulder Patient Position Sidelying Treatment Duration (minutes) 10 Patient Tolerance Good Comments end of session PT-OP-T Assessment and Plan Start: 09/06/21 18:39 Freq: Status: Active Protocol: Document 02/17/22 14:07 [facility] (Rec: 02/17/22 15:04 [facility] [id number]) Physical Therapy Assessment Goals One Impairment Pt lacks appropriate L shoulder self care HEP Short Term Goal (STG) Pt will be educated in pain management techniques for self care. STG Duration 09/17/21 (09/17/21: MET GOAL) Shelter Goal (LTG) Pt will be independent with self care HEP for L shoulder ROM and strengthening. (09/17/21: HEP: AAROM shldr flex, ER, AROM shdr ER, AROM: Wrist/Elbow for flex/ext) (09/23/21: HEP: AROM shldr #$ marissa supine 2/cane & AROM shld rot marissa supine w/cane). (09/27/21: HEP - AAROM shldr AB slide on table, IR towel stretch) (09/30/21: HEP - Cane for sup: ER, horiz AB/AD, AB; Standing cane shldr ER, Ext, AB, IR, AD behind back stretch). (10/14/21: I/S pt in sitting shldr horiz AD stretch) (10/19/21: Pt DA present for education in assisting pt in home ex's) LTG Duration 12/13/21 (10/14/21: Progressed) Four Impairment Decreased L UE functional use Impairment Initial UE QuickDASH score 47. 7 (40-59% imipaired) Short Term Goal (STG) Pt will be able to perform personal hygiene (spritz anal region) with L UE. STG Duration 10/29/21 (: MET GOAL) Road Cutter Goal (LTG) Improve L UE function per UE QuickDASH score of 1-19 (1-19% impaired) LTG Duration 12/13/21 Three Impairment Improve L shoulder mobility. Impairment Sitting L shoulder painfree AROM: Flex 87 deg's, Ext 32 deg's, AB 52 deg's, ER (0 deg' s AB) 32 deg's, reaching behind back-lateral L hip, reaching behind head-L ear, reaching across opposite shoulder-anterior R shoulder. [Sitting R shoulder AROM: Flex 142 deg's, Ext 65 deg'sm, , reaching behind back - T9, reaching behind head - T2, reaching across opposite shoulder-posterior spine of opp scapula]. Short Term Goal (STG) Improve L shoulder mobility to 75% of normal mobility compared to the R shoulder (75 % of R shoulder sitting AROM ( sitting): flex 106 deg's, ext 48 deg's, AB 99 deg's, ER (0 deg's AB) is 51 deg's). (10/08/21: Flex is 120 deg's supine) (10/11/21: Sup Flex is 125 deg 's) (11/08/21: Flex 142, Ext 52, AB 110, ER with elbow at side is 42, IR reaching behind back is to L5) STG Duration 10/29/21 (11/08/21: MET GOAL) Road Cutter Goal (LTG) Improve L shoulder mobility with pain no greater than 1/10 dressing. 01/18/22 - Progressing. LTG Duration 12/13/21 Two Impairment L shoulder and upper back pain rated 9/10 limiting function and sleep. Impairment Lumbar AROM: Flex 80 deg's with 55 deg's hip flexion. Extension is 12 deg's with 10 deg's hip extension. Short Term Goal (STG) Pt will be educated in sleep positions to minimize L shoulder and upper back pain and decrease shoulder pain to no greater than 5-6/10. STG Duration 10/29/21 (11/08/21: MET GOAL) Road Cutter Goal (LTG) Decrease L shoulder and upper back pain 1/10 first in the morning and at rest for less pain with sleeping. (11/04/21: Pt primary complaint is L shoulder pain with sleeping). 01/18/22 - Still pain with left sidelying LTG Duration 12/13/21 (11/04/21: Improving ) Assessment Summary Assessment Pt did well with exercises w/ cues for scap motion still and encouragement o push a little bit w/range. She is still most limited in IR. Physical Therapy Plan Frequency and Duration Frequency of Treatment 2x/Week Duration of Treatment 6 weeks Plan of Care Start Date 01/18/22 Plan of Care End Date 03/01/22 Next Visit Focus/Plan Next Note Type Treatment Note Next Visit Plan PN on 03/01, cont to advance strength and ROM for pt
--- NOTE | 2022-02-24 13:08 | PT.OTN ---
Current Diagnoses Muscle weakness (generalized) (02/24/22) Impingement syndrome of left shoulder (02/24/22) Strain of muscle(s) and tendon(s) of the rotator cuff of left shoulder, subsequent encounter (02/24/22) Physical Therapy Treatment Note PT-OP-A Visit Information Start: 09/06/21 18:39 Freq: Status: Active Protocol: Document 02/24/22 12:09 SP (Rec: 02/24/22 13:10 SP [id number]) Out-Patient Physical Therapy Visit Information Visit Information Visit Type Treatment Note Visit Start Time 12:10 Visit Stop Time 13:08 Total Visit Minutes 58 Visit Number 29 Number of GUN FITTER Visits 1 Evaluation Information Evaluation Date 09/14/21 Precautions Precautions Vertigo, diabetes type II monitoring patch on L posterolateral brachium, controlled high blood pressure controlled by meds, Osteopenia, seizures controlled by meds, fall history (last incident 03/09), neuropathy of feet. PT-OP-B Current Condition Start: 09/06/21 18:39 Freq: Status: Active Protocol: Document 09/14/21 09:48 LRN (Rec: 09/14/21 12:41 LRN [id number]) Current Condition History of Current Condition Onset Date 04/29/21 Current Complaints L shoulder hurts and aches at night. History of Current Condition Pt reports s/p L RC and biceps repair 04/29/21 (post op ~19. 5 weeks). Was given ex's post op and is doing it sometimes . Pain in the back ( bilaterally) and hands ( bilaterally). Rehab protocol received (see referral). Prior Treatments and Tests Post op L shoulder exercises. Future Testing and Treatments Planned F/u with referring physician 2 -3 months after PT referral. Post op protocol issued (see referral information). Treatment Goals Patient/Caregiver Goals Pt goal is to become painfree in back and L shoulder, less pain on waking in morning, less pain dressing, improve L shoulder mobility. Prior Functional Status Baseline Function- ADL's Modified Independent Baseline Function- Mobility Modified Independent Baseline Function- Other L shoulder: AROM: too painful to move arm. PROM (in deg's): Flex 110, AB 70, ER 45 (at 45 deg's AB)) R shldr AROM: Flex is 162, AB is 145, ER (at 90 deg's AB) is 90, IR is 90. L shoulder strength is: Flex, AB, ER is 2-/5; Ext & IR is 2/5 Current Functional Impairments (Reported) Functional Limitations- ADL's L arm: can lift lift a bag of groceries with elbow, can dress with pain at L shoulder, can reach only to shoulder height without difficulty. Not able to personal hygiene ( spritz anal region) with L UE. Personal Factors Other Personal Factors That May Effect Vertigo, diabetes type II Therapy/Recovery monitoring patch on L posterolateral brachium, Osteopenia, seizures controlled by meds, fall history (last incident 03/09), neuropathy of feet. PT-OP-C Subjective Start: 09/06/21 18:39 Freq: Status: Active Protocol: Document 02/24/22 12:09 SP (Rec: 02/24/22 13:10 SP [id number]) OP-PT Subjective Patient Comments Patient Comments Pt reports dong better, just hurts when reaching back and behind back w/ LUE. Pt states uses voltarian and massages L bicep at night before bed for comfort hoping doesn't wake her. PT-OP-E Functional Tests Start: 09/06/21 18:39 Freq: Status: Active Protocol: Document 11/18/21 15:22 LRN (Rec: 11/18/21 16:28 LRN [id number]) Functional Tests Apley's Scratch Test Action 1- Left Top of opposite shoulder Action 1- Right Below opposite scapular spine Action 2- Left C7 Action 2- Right T3 Action 3- Left L5 Action 3- Right T12 PT-OP-J Posture/Palpation/Skin Start: 09/06/21 18:39 Freq: Status: Active Protocol: Document 09/14/21 09:48 LRN (Rec: 09/14/21 12:41 LRN [id number]) Posture Evaluation Position Standing Head/C-Spine Posture Forward Head T-Spine Posture Increased Kyphosis Shoulder Posture (L) Elevated Comments Posture Comments Sway back, atrophy of L shoulder and arm. Palpation Assessment Location Neck and L UT Palpation Location Neck and L upper shoulder Palpation Findings Soft Tissue Tightness,Muscle Guarding,Tenderness PT-OP-K Range of Motion Start: 09/06/21 18:39 Freq: Status: Active Protocol: Document 02/24/22 12:09 SP (Rec: 02/24/22 13:10 SP [id number]) Shoulder Goniometric Range of Motion Shoulder Left Passive Shoulder ROM WFL No Testing Position Supine Flexion 142 Abduction 125 External Rotation at 90 degrees 58 Abduction Comments L shld PROM: FF decrease 12 deg, ABD same 125 deg, ER at 90 deg ABD decrease be 5 deg. Left Active Shoulder ROM WFL No Testing Position Sitting Flexion 121 Extension 43 Abduction 80 External Rotation at 0 degrees Abduction 49 Internal Rotation Behind Back (text) L5 Comments ER: T2 02/24/22: LUE AROM: FF 99 dec by 23 deg, ABD 80 decrease by 20 deg, Extension decrease by 12 deg, ER improved by 10 deg. PT-OP-M Strength Start: 09/06/21 18:39 Freq: Status: Active Protocol: Document 01/26/22 14:46 [facility] (Rec: 01/26/22 15:51 [facility] [id number]) Shoulder Strength Shoulder Manual Muscle Testing Right Flexion 5 Normal Extension 5 Normal Abduction (C5) 5 Normal External Rotation 4+ Good+ Internal Rotation 5 Normal Left Flexion 4 Good Extension 4+ Good+ Abduction (C5) 4 Good External Rotation 4 Good Internal Rotation 4+ Good+ Elbow/Forearm Strength Elbow and Forearm Manual Muscle Testing Left Flexion (C6) 5 Normal Extension (C7) 5 Normal Pronation 4 Good Supination 5 Normal PT-OP-Q Treatments Start: 09/06/21 18:39 Freq: Status: Active Protocol: Document 02/24/22 12:09 SP (Rec: 02/24/22 13:10 SP [id number]) Therapeutic Exercises Supine Exercises L shoulder AAROM Supine Exercise Name L shoulder AAROM: FF, ABD Side left Resistance RUE help LUE Comments PROM retaken 02/24 Sidelying Exercises Sleeper stretch Sidelying Exercise Name Sleeper stretch - reviewed HEP Side bilateral Reps/Minutes x30 sec Comments discomfort over distal deloid Sitting Exercises L shoulder AROM Sitting Exercise Name L shoulder AROM Side left Comments Functional AROM retaken 02/24 Overhead ashley Sitting Exercise Name flex,scaption, abd, IR Side left Reps/Minutes 30 sec x3 ea Comments cued no UT, slow pacing, breath end feel tension- painfree Standing Exercises overhead Standing Exercise Name D2 pattern Side left Reps/Minutes 10 Shoulder Ext Side bilateral Equipment Used Lev 2 TB Reps/Minutes 3 s hold x15 Comments min cues for scap retract con/ ecc and head look forward Shoulder IR Side left Resistance Tb #3 Reps/Minutes 15 Comments min cues needed head up Manual Therapy Treatment Soft Tissue Mobilization UE Body Location L circumfrential w/IR AAROM pec Body Location L pec & biceps Mobilization Type Rolling,Strumming Intensity/Depth Moderate Comments w/PROm rot & abd L UT Body Location L UT Mobilization Type Rolling Intensity/Depth Moderate Body Position Sidelying Joint Mobilizations GH Joint L GHJ Direction post, inf & distraction FM Grade II Manual Techniques PROM L shoulder Type PROM (flex, ER, IR, AB) Body Location L shoulder Body Position Supine Reps/Duration 10' Comments with ROM measurements PT-OP-R Modalities Start: 09/06/21 18:39 Freq: Status: Active Protocol: Document 02/24/22 12:09 SP (Rec: 02/24/22 13:10 SP [id number]) Hot Pack/Cold Pack Treatment Hot Pack Location L shoulder Patient Position Supine Treatment Duration (minutes) 10 Patient Tolerance Good Comments seated best to keep against post shld and anterior shld held strap. PT-OP-T Assessment and Plan Start: 09/06/21 18:39 Freq: Status: Active Protocol: Document 02/24/22 12:09 SP (Rec: 02/24/22 13:10 SP [id number]) Physical Therapy Assessment Goals One Impairment Pt lacks appropriate L shoulder self care HEP Short Term Goal (STG) Pt will be educated in pain management techniques for self care. STG Duration 09/17/21 (09/17/21: MET GOAL) Healthcare Technician Goal (LTG) Pt will be independent with self care HEP for L shoulder ROM and strengthening. (09/17/21: HEP: AAROM shldr flex, ER, AROM shdr ER, AROM: Wrist/Elbow for flex/ext) (09/23/21: HEP: AROM shldr #$ marissa supine 2/cane & AROM shld rot marissa supine w/cane). (09/27/21: HEP - AAROM shldr AB slide on table, IR towel stretch) (09/30/21: HEP - Cane for sup: ER, horiz AB/AD, AB; Standing cane shldr ER, Ext, AB, IR, AD behind back stretch). (10/14/21: I/S pt in sitting shldr horiz AD stretch) (10/19/21: Pt DA present for education in assisting pt in home ex's) LTG Duration 12/13/21 (10/14/21: Progressed) Four Impairment Decreased L UE functional use Impairment Initial UE QuickDASH score 47. 7 (40-59% imipaired) Short Term Goal (STG) Pt will be able to perform personal hygiene (spritz anal region) with L UE. STG Duration 10/29/21 (: MET GOAL) Healthcare Technician Goal (LTG) Improve L UE function per UE QuickDASH score of 1-19 (1-19% impaired) LTG Duration 12/13/21 Three Impairment Improve L shoulder mobility. Impairment Sitting L shoulder painfree AROM: Flex 87 deg's, Ext 32 deg's, AB 52 deg's, ER (0 deg' s AB) 32 deg's, reaching behind back-lateral L hip, reaching behind head-L ear, reaching across opposite shoulder-anterior R shoulder. [Sitting R shoulder AROM: Flex 142 deg's, Ext 65 deg'sm, , reaching behind back - T9, reaching behind head - T2, reaching across opposite shoulder-posterior spine of opp scapula]. Short Term Goal (STG) Improve L shoulder mobility to 75% of normal mobility compared to the R shoulder (75 % of R shoulder sitting AROM ( sitting): flex 106 deg's, ext 48 deg's, AB 99 deg's, ER (0 deg's AB) is 51 deg's). (10/08/21: Flex is 120 deg's supine) (10/11/21: Sup Flex is 125 deg 's) (11/08/21: Flex 142, Ext 52, AB 110, ER with elbow at side is 42, IR reaching behind back is to L5) STG Duration 10/29/21 (11/08/21: MET GOAL) Healthcare Technician Goal (LTG) Improve L shoulder mobility with pain no greater than 1/10 dressing. 01/18/22 - Progressing. LTG Duration 12/13/21 Two Impairment L shoulder and upper back pain rated 9/10 limiting function and sleep. Impairment Lumbar AROM: Flex 80 deg's with 55 deg's hip flexion. Extension is 12 deg's with 10 deg's hip extension. Short Term Goal (STG) Pt will be educated in sleep positions to minimize L shoulder and upper back pain and decrease shoulder pain to no greater than 5-6/10. STG Duration 10/29/21 (11/08/21: MET GOAL) Healthcare Technician Goal (LTG) Decrease L shoulder and upper back pain 1/10 first in the morning and at rest for less pain with sleeping. (11/04/21: Pt primary complaint is L shoulder pain with sleeping). 01/18/22 - Still pain with left sidelying LTG Duration 12/13/21 (11/04/21: Improving ) Progress Towards Goals Progress Comments 02/24/22: LUE AROM seated: FF 99 dec by 23 deg, ABD 80 decrease by 20 deg, Extension decrease by 12 deg, ER improved by 10 deg. L shld PROM: supine FF decrease 12 deg, ABD same 125 deg, ER at 90 deg ABD decrease be 5 deg. Assessment Summary Assessment Pt reports can lift LUE little more but not able to reach putting things away [place] in cupboard. Pt decreased AROM L shld seated, supine PROM, see measurements. Pt required cuing for slow pacing ashley in PT to decreas e UT recruitment and pain, with feedback decrease but still discomfort over L deltoid end feel. Physical Therapy Plan Frequency and Duration Frequency of Treatment 2x/Week Duration of Treatment 6 weeks Plan of Care Start Date 01/18/22 Plan of Care End Date 03/01/22 Therapeutic Interventions Therapeutic Interventions Aquatic Therapy,Home Exercise Program,Joint Mobilizations, Manual Therapy,Patient/ Caregiver Education,Self-Care/ Home Management,Soft Tissue Mobilization,Taping, Therapeutic Activities, Therapeutic Exercises Modalities Cold Pack/Ice Massage,Electric Stimulation,Hot Packs, Ultrasound Next Visit Focus/Plan Next Note Type Progress Note Next Visit Plan PN/POC update on 03/01, POC: cont to advance strength and ROM for pt
--- NOTE | 2022-03-01 18:03 | PT.OTN ---
Current Diagnoses Muscle weakness (generalized) (03/01/22) Impingement syndrome of left shoulder (03/01/22) Strain of muscle(s) and tendon(s) of the rotator cuff of left shoulder, subsequent encounter (03/01/22) Physical Therapy Treatment Note PT-OP-A Visit Information Start: 09/06/21 18:39 Freq: Status: Active Protocol: Document 03/01/22 14:34 LR (Rec: 03/01/22 15:15 [facility] [id number]) Out-Patient Physical Therapy Visit Information Visit Information Visit Type Progress Note Visit Start Time 14:33 Visit Stop Time 15:28 Total Visit Minutes 55 Visit Number 30 Number of CLAY PLANT TREATER Visits 0 PT-OP-B Current Condition Start: 09/06/21 18:39 Freq: Status: Active Protocol: Document 09/14/21 09:48 LRN (Rec: 09/14/21 12:41 LRN [id number]) Current Condition History of Current Condition Onset Date 04/29/21 Current Complaints L shoulder hurts and aches at night. History of Current Condition Pt reports s/p L RC and biceps repair 04/29/21 (post op ~19. 5 weeks). Was given ex's post op and is doing it sometimes . Pain in the back ( bilaterally) and hands ( bilaterally). Rehab protocol received (see referral). Prior Treatments and Tests Post op L shoulder exercises. Future Testing and Treatments Planned F/u with referring physician 2 -3 months after PT referral. Post op protocol issued (see referral information). Treatment Goals Patient/Caregiver Goals Pt goal is to become painfree in back and L shoulder, less pain on waking in morning, less pain dressing, improve L shoulder mobility. Prior Functional Status Baseline Function- ADL's Modified Independent Baseline Function- Mobility Modified Independent Baseline Function- Other L shoulder: AROM: too painful to move arm. PROM (in deg's): Flex 110, AB 70, ER 45 (at 45 deg's AB)) R shldr AROM: Flex is 162, AB is 145, ER (at 90 deg's AB) is 90, IR is 90. L shoulder strength is: Flex, AB, ER is 2-/5; Ext & IR is 2/5 Current Functional Impairments (Reported) Functional Limitations- ADL's L arm: can lift lift a bag of groceries with elbow, can dress with pain at L shoulder, can reach only to shoulder height without difficulty. Not able to personal hygiene ( spritz anal region) with L UE. Personal Factors Other Personal Factors That May Effect Vertigo, diabetes type II Therapy/Recovery monitoring patch on L posterolateral brachium, Osteopenia, seizures controlled by meds, fall history (last incident 03/09), neuropathy of feet. PT-OP-C Subjective Start: 09/06/21 18:39 Freq: Status: Active Protocol: Document 03/01/22 14:34 [facility] (Rec: 03/01/22 15:15 [facility] [id number]) OP-PT Subjective Patient Comments Patient Comments Pt reports still sore when lay on shoulder and when cooking and using shoulder PT-OP-E Functional Tests Start: 09/06/21 18:39 Freq: Status: Active Protocol: Document 11/18/21 15:22 LR (Rec: 11/18/21 16:28 [facility] [id number]) Functional Tests Apley's Scratch Test Action 1- Left Top of opposite shoulder Action 1- Right Below opposite scapular spine Action 2- Left C7 Action 2- Right T3 Action 3- Left L5 Action 3- Right T12 PT-OP-J Posture/Palpation/Skin Start: 09/06/21 18:39 Freq: Status: Active Protocol: Document 09/14/21 09:48 LR (Rec: 09/14/21 12:41 [facility] [id number]) Posture Evaluation Position Standing Head/C-Spine Posture Forward Head T-Spine Posture Increased Kyphosis Shoulder Posture (L) Elevated Comments Posture Comments Sway back, atrophy of L shoulder and arm. Palpation Assessment Location Neck and L UT Palpation Location Neck and L upper shoulder Palpation Findings Soft Tissue Tightness,Muscle Guarding,Tenderness PT-OP-K Range of Motion Start: 09/06/21 18:39 Freq: Status: Active Protocol: Document 03/01/22 14:34 [facility] (Rec: 03/01/22 15:15 [facility] [id number]) Shoulder Goniometric Range of Motion Shoulder Left Passive Flexion 139 Abduction 113 External Rotation at 90 degrees 75 Abduction Internal Rotation 60 Comments IR at 90 deg Left Active Flexion 112 Extension 59 Abduction 85 External Rotation at 0 degrees Abduction 50 Internal Rotation Behind Back (text) L5 Comments ER: T2 PT-OP-M Strength Start: 09/06/21 18:39 Freq: Status: Active Protocol: Document 03/01/22 14:34 [facility] (Rec: 03/01/22 15:15 [facility] [id number]) Shoulder Strength Shoulder Manual Muscle Testing Right Flexion 5 Normal Extension 5 Normal Abduction (C5) 5 Normal External Rotation 5 Normal Internal Rotation 5 Normal Left Flexion 4+ Good+ Extension 5 Normal Abduction (C5) 4 Good External Rotation 4 Good Internal Rotation 4+ Good+ PT-OP-Q Treatments Start: 09/06/21 18:39 Freq: Status: Active Protocol: Document 03/01/22 14:34 [facility] (Rec: 03/01/22 15:15 [facility] [id number]) Therapeutic Exercises Sitting Exercises Overhead ashley Sitting Exercise Name flex,scaption, abd, IR Side left Reps/Minutes 30 sec x3 ea Comments cued no UT, slow pacing, breath end feel tension- painfree Standing Exercises overhead Standing Exercise Name D2 pattern Side left Reps/Minutes 8 stretch Standing Exercise Name walk away standing cihlds pose at counter Side bilateral Reps/Minutes 30 sec Manual Therapy Treatment Soft Tissue Mobilization pec Body Location L pec & biceps Mobilization Type Rolling,Strumming Intensity/Depth Moderate Comments w/PROm rot & abd Post Body Location L teres/lats & rhomboids Mobilization Type Rolling,Strumming,Sustained Pressure Intensity/Depth Moderate L UT Body Location L UT Mobilization Type Rolling Intensity/Depth Moderate Body Position Sidelying Joint Mobilizations GH Joint L GHJ Direction post, inf & distraction FM Grade III PT-OP-R Modalities Start: 09/06/21 18:39 Freq: Status: Active Protocol: Document 03/01/22 14:34 [facility] (Rec: 03/01/22 15:15 [facility] [id number]) Hot Pack/Cold Pack Treatment Hot Pack Location L shoulder Patient Position Supine Treatment Duration (minutes) 15 Patient Tolerance Good PT-OP-T Assessment and Plan Start: 09/06/21 18:39 Freq: Status: Active Protocol: Document 03/01/22 14:34 [facility] (Rec: 03/01/22 15:15 [facility] [id number]) Physical Therapy Assessment Goals One Impairment Pt lacks appropriate L shoulder self care HEP Short Term Goal (STG) Pt will be educated in pain management techniques for self care. STG Duration MET GOAL 09/17/21: Senior Living Goal (LTG) Pt will be independent with self care HEP for L shoulder ROM and strengthening. (09/17/21: HEP: AAROM shldr flex, ER, AROM shdr ER, AROM: Wrist/Elbow for flex/ext) (09/23/21: HEP: AROM shldr #$ marissa supine 2/cane & AROM shld rot marissa supine w/cane). (09/27/21: HEP - AAROM shldr AB slide on table, IR towel stretch) (09/30/21: HEP - Cane for sup: ER, horiz AB/AD, AB; Standing cane shldr ER, Ext, AB, IR, AD behind back stretch). (10/14/21: I/S pt in sitting shldr horiz AD stretch) (10/19/21: Pt DA present for education in assisting pt in home ex's) 03/01-still requiers cues and encouragement LTG Duration 04/12 Four Impairment Decreased L UE functional use Impairment Initial UE QuickDASH score 47. 7 (40-59% imipaired) Short Term Goal (STG) Pt will be able to perform personal hygiene (spritz anal region) with L UE. STG Duration MET GOAL 11/08 Senior Living Goal (LTG) Improve L UE function per UE QuickDASH score of 1-19 (1-19% impaired) 03/01-.36 LTG Duration achieved 03/01 Three Impairment Improve L shoulder mobility. Impairment Sitting L shoulder painfree AROM: Flex 87 deg's, Ext 32 deg's, AB 52 deg's, ER (0 deg' s AB) 32 deg's, reaching behind back-lateral L hip, reaching behind head-L ear, reaching across opposite shoulder-anterior R shoulder. [Sitting R shoulder AROM: Flex 142 deg's, Ext 65 deg'sm, , reaching behind back - T9, reaching behind head - T2, reaching across opposite shoulder-posterior spine of opp scapula]. Short Term Goal (STG) Improve L shoulder mobility to 75% of normal mobility compared to the R shoulder (75 % of R shoulder sitting AROM ( sitting): flex 106 deg's, ext 48 deg's, AB 99 deg's, ER (0 deg's AB) is 51 deg's). (10/08/21: Flex is 120 deg's supine) (10/11/21: Sup Flex is 125 deg 's) (11/08/21: Flex 142, Ext 52, AB 110, ER with elbow at side is 42, IR reaching behind back is to L5) STG Duration MET GOAL)= 11/08/21 Organizational Effectiveness Director Goal (LTG) Improve L shoulder mobility with pain no greater than 1/10 dressing. 01/18/22 - Progressing. LTG Duration achieved 03/01 Two Impairment L shoulder and upper back pain rated 9/10 limiting function and sleep. Impairment Lumbar AROM: Flex 80 deg's with 55 deg's hip flexion. Extension is 12 deg's with 10 deg's hip extension. Short Term Goal (STG) Pt will be educated in sleep positions to minimize L shoulder and upper back pain and decrease shoulder pain to no greater than 5-6/10. STG Duration MET GOAL 11/08/21 Senior Living Goal (LTG) Decrease L shoulder and upper back pain 1/10 first in the morning and at rest for less pain with sleeping. (11/04/21: Pt primary complaint is L shoulder pain with sleeping). 01/18/22 - Still pain with left sidelying 03/01-no pain in AM, no pian at rest, pain only L S/L LTG Duration 04/12 Assessment Summary Assessment Pt is making slow progress with therapy. She requires a lot of encouragement for doing HEP more often especially ROM exercises. She has made some imrpovements in some ROM and strength but is not making large gains. Shes does show improved functional ability w/ Quick Dash measure. Pt still reports pain w/use of sholder w/ocoking and exercises and laying on it. Plan to call MD to discuss pt reports of cont pain and slow prrogress. COnt PT to set up w/indep HEP Physical Therapy Plan Frequency and Duration Frequency of Treatment 1x/Week Duration of Treatment 6 weeks Plan of Care Start Date 03/01/22 Plan of Care End Date 04/12/22 Therapeutic Interventions Therapeutic Interventions Aquatic Therapy,Home Exercise Program,Joint Mobilizations, Manual Therapy,Patient/ Caregiver Education,Self-Care/ Home Management,Soft Tissue Mobilization,Taping, Therapeutic Activities, Therapeutic Exercises Modalities Cold Pack/Ice Massage,Electric Stimulation,Hot Packs, Ultrasound Next Visit Focus/Plan Next Note Type Treatment Note Next Visit Plan review HEP and try to progress ROM
--- NOTE | 2022-03-01 18:03 | PT.OPPOC ---
Physical, Occupational & Speech Therapy At [facility] Current Diagnoses Muscle weakness (generalized) (03/01/22) Impingement syndrome of left shoulder (03/01/22) Strain of muscle(s) and tendon(s) of the rotator cuff of left shoulder, subsequent encounter (03/01/22) Visit Care Team Role Provider Type [place] MD Family Provider Physician Primary Care Provider Specialty: Family Practice Address: [address] [place] [address], [address], [place], [address] Email: [email or web address] Seamus Mariano MD Attending Provider Non-Staff Referring Provider Specialty: Orthopedic Surgery Address: [address] [place] [address], [address], [place], [address] Email: Plan Of Care PT-OP-T Assessment and Plan Start: 09/06/21 18:39 Freq: Status: Active Protocol: Document 03/01/22 14:34 [facility] (Rec: 03/01/22 15:15 [facility] [id number]) Physical Therapy Assessment Goals One Impairment Pt lacks appropriate L shoulder self care HEP Short Term Goal (STG) Pt will be educated in pain management techniques for self care. STG Duration MET GOAL 09/17/21: Assisted Goal (LTG) Pt will be independent with self care HEP for L shoulder ROM and strengthening. (09/17/21: HEP: AAROM shldr flex, ER, AROM shdr ER, AROM: Wrist/Elbow for flex/ext) (09/23/21: HEP: AROM shldr #$ marissa supine 2/cane & AROM shld rot marissa supine w/cane). (09/27/21: HEP - AAROM shldr AB slide on table, IR towel stretch) (09/30/21: HEP - Cane for sup: ER, horiz AB/AD, AB; Standing cane shldr ER, Ext, AB, IR, AD behind back stretch). (10/14/21: I/S pt in sitting shldr horiz AD stretch) (10/19/21: Pt DA present for education in assisting pt in home ex's) 03/01-still requiers cues and encouragement LTG Duration 04/12 Four Impairment Decreased L UE functional use Impairment Initial UE QuickDASH score 47. 7 (40-59% imipaired) Short Term Goal (STG) Pt will be able to perform personal hygiene (spritz anal region) with L UE. STG Duration MET GOAL 11/08 Grief Counsellor Goal (LTG) Improve L UE function per UE QuickDASH score of 1-19 (1-19% impaired) 03/01-11.36 LTG Duration achieved 03/01 Three Impairment Improve L shoulder mobility. Impairment Sitting L shoulder painfree AROM: Flex 87 deg's, Ext 32 deg's, AB 52 deg's, ER (0 deg' s AB) 32 deg's, reaching behind back-lateral L hip, reaching behind head-L ear, reaching across opposite shoulder-anterior R shoulder. [Sitting R shoulder AROM: Flex 142 deg's, Ext 65 deg'sm, , reaching behind back - T9, reaching behind head - T2, reaching across opposite shoulder-posterior spine of opp scapula]. Short Term Goal (STG) Improve L shoulder mobility to 75% of normal mobility compared to the R shoulder (75 % of R shoulder sitting AROM ( sitting): flex 106 deg's, ext 48 deg's, AB 99 deg's, ER (0 deg's AB) is 51 deg's). (10/08/21: Flex is 120 deg's supine) (10/11/21: Sup Flex is 125 deg 's) (11/08/21: Flex 142, Ext 52, AB 110, ER with elbow at side is 42, IR reaching behind back is to L5) STG Duration MET GOAL)= 11/08/21 Assisted Goal (LTG) Improve L shoulder mobility with pain no greater than 1/10 dressing. 01/18/22 - Progressing. LTG Duration achieved 03/01 Two Impairment L shoulder and upper back pain rated 9/10 limiting function and sleep. Impairment Lumbar AROM: Flex 80 deg's with 55 deg's hip flexion. Extension is 12 deg's with 10 deg's hip extension. Short Term Goal (STG) Pt will be educated in sleep positions to minimize L shoulder and upper back pain and decrease shoulder pain to no greater than 5-6/10. STG Duration MET GOAL 11/08/21 Grief Counsellor Goal (LTG) Decrease L shoulder and upper back pain 06/28 first in the morning and at rest for less pain with sleeping. (11/04/21: Pt primary complaint is L shoulder pain with sleeping). 01/18/22 - Still pain with left sidelying 03/01-no pain in AM, no pian at rest, pain only L S/L LTG Duration 04/12 Assessment Summary Assessment Pt is making slow progress with therapy. She requires a lot of encouragement for doing HEP more often especially ROM exercises. She has made some imrpovements in some ROM and strength but is not making large gains. Shes does show improved functional ability w/ Quick Dash measure. Pt still reports pain w/use of sholder w/ocoking and exercises and laying on it. Plan to call MD to discuss pt reports of cont pain and slow prrogress. COnt PT to set up w/indep HEP Physical Therapy Plan Frequency and Duration Frequency of Treatment 1x/Week Duration of Treatment 6 weeks Plan of Care Start Date 03/01/22 Plan of Care End Date 04/12/22 Therapeutic Interventions Therapeutic Interventions Aquatic Therapy,Home Exercise Program,Joint Mobilizations, Manual Therapy,Patient/ Caregiver Education,Self-Care/ Home Management,Soft Tissue Mobilization,Taping, Therapeutic Activities, Therapeutic Exercises Modalities Cold Pack/Ice Massage,Electric Stimulation,Hot Packs, Ultrasound Next Visit Focus/Plan Next Note Type Treatment Note Next Visit Plan review HEP and try to progress ROM Plan of Care Dates Plan of Care Start Date 03/01/22 Plan of Care End Date 04/12/22 Electronically Signed by: Jenn Menendez, PT 03/01/22 6621 If you are in agreement with this Plan of Care, please return a signed and dated copy. I have reviewed this Plan of Care and certify that the skilled therapy services above are required to meet the patient?s needs. Physician Signature Date Printed Name and Credentials Clinical Instructor Signature Printed Name and Credentials
--- NOTE | 2022-03-09 12:28 | PT.OTN ---
Current Diagnoses Muscle weakness (generalized) (03/09/22) Impingement syndrome of left shoulder (03/09/22) Strain of muscle(s) and tendon(s) of the rotator cuff of left shoulder, subsequent encounter (03/09/22) Physical Therapy Treatment Note PT-OP-A Visit Information Start: 09/06/21 18:39 Freq: Status: Active Protocol: Document 03/09/22 08:55 AW (Rec: 03/09/22 10:31 AW [id number]) Out-Patient Physical Therapy Visit Information Visit Information Visit Type Treatment Note Visit Start Time 09:45 Visit Stop Time 10:40 Total Visit Minutes 55 Visit Number 31 Number of PERSONAL LINES SALES REP Visits 0 Evaluation Information Evaluation Date 09/14/21 Precautions Precautions Vertigo, diabetes type II monitoring patch on L posterolateral brachium, controlled high blood pressure controlled by meds, Osteopenia, seizures controlled by meds, fall history (last incident 03/09), neuropathy of feet. PT-OP-B Current Condition Start: 09/06/21 18:39 Freq: Status: Active Protocol: Document 09/14/21 09:48 [facility] (Rec: 09/14/21 12:41 [facility] [id number]) Current Condition History of Current Condition Onset Date 04/29/21 Current Complaints L shoulder hurts and aches at night. History of Current Condition Pt reports s/p L RC and biceps repair 04/29/21 (post op ~19. 5 weeks). Was given ex's post op and is doing it sometimes . Pain in the back ( bilaterally) and hands ( bilaterally). Rehab protocol received (see referral). Prior Treatments and Tests Post op L shoulder exercises. Future Testing and Treatments Planned F/u with referring physician 2 -3 months after PT referral. Post op protocol issued (see referral information). Treatment Goals Patient/Caregiver Goals Pt goal is to become painfree in back and L shoulder, less pain on waking in morning, less pain dressing, improve L shoulder mobility. Prior Functional Status Baseline Function- ADL's Modified Independent Baseline Function- Mobility Modified Independent Baseline Function- Other L shoulder: AROM: too painful to move arm. PROM (in deg's): Flex 110, AB 70, ER 45 (at 45 deg's AB)) R shldr AROM: Flex is 162, AB is 145, ER (at 90 deg's AB) is 90, IR is 90. L shoulder strength is: Flex, AB, ER is 2-/5; Ext & IR is 2/5 Current Functional Impairments (Reported) Functional Limitations- ADL's L arm: can lift lift a bag of groceries with elbow, can dress with pain at L shoulder, can reach only to shoulder height without difficulty. Not able to personal hygiene ( spritz anal region) with L UE. Personal Factors Other Personal Factors That May Effect Vertigo, diabetes type II Therapy/Recovery monitoring patch on L posterolateral brachium, Osteopenia, seizures controlled by meds, fall history (last incident 03/09), neuropathy of feet. PT-OP-C Subjective Start: 09/06/21 18:39 Freq: Status: Active Protocol: Document 03/09/22 08:55 AW (Rec: 03/09/22 10:31 AW [id number]) OP-PT Subjective Patient Comments Patient Comments Still sore. Doing more exercise at home. PT-OP-E Functional Tests Start: 09/06/21 18:39 Freq: Status: Active Protocol: Document 11/18/21 15:22 [facility] (Rec: 11/18/21 16:28 [facility]N [id number]) Functional Tests Apley's Scratch Test Action 1- Left Top of opposite shoulder Action 1- Right Below opposite scapular spine Action 2- Left C7 Action 2- Right T3 Action 3- Left L5 Action 3- Right T12 PT-OP-J Posture/Palpation/Skin Start: 09/06/21 18:39 Freq: Status: Active Protocol: Document 09/14/21 09:48 [facility] (Rec: 09/14/21 12:41 LRN [id number]) Posture Evaluation Position Standing Head/C-Spine Posture Forward Head T-Spine Posture Increased Kyphosis Shoulder Posture (L) Elevated Comments Posture Comments Sway back, atrophy of L shoulder and arm. Palpation Assessment Location Neck and L UT Palpation Location Neck and L upper shoulder Palpation Findings Soft Tissue Tightness,Muscle Guarding,Tenderness PT-OP-K Range of Motion Start: 09/06/21 18:39 Freq: Status: Active Protocol: Document 03/01/22 14:34 [facility] (Rec: 03/01/22 15:15 [facility] [id number]) Shoulder Goniometric Range of Motion Shoulder Left Passive Flexion 139 Abduction 113 External Rotation at 90 degrees 75 Abduction Internal Rotation 60 Comments IR at 90 deg Left Active Flexion 112 Extension 59 Abduction 85 External Rotation at 0 degrees Abduction 50 Internal Rotation Behind Back (text) L5 Comments ER: T2 PT-OP-M Strength Start: 09/06/21 18:39 Freq: Status: Active Protocol: Document 03/01/22 14:34 [facility] (Rec: 03/01/22 15:15 [facility] [id number]) Shoulder Strength Shoulder Manual Muscle Testing Right Flexion 5 Normal Extension 5 Normal Abduction (C5) 5 Normal External Rotation 5 Normal Internal Rotation 5 Normal Left Flexion 4+ Good+ Extension 5 Normal Abduction (C5) 4 Good External Rotation 4 Good Internal Rotation 4+ Good+ PT-OP-Q Treatments Start: 09/06/21 18:39 Freq: Status: Active Protocol: Document 03/09/22 08:55 AW (Rec: 03/09/22 10:31 AW [id number]) Therapeutic Exercises Sidelying Exercises Sleeper stretch Sidelying Exercise Name Sleeper stretch - reviewed HEP Side bilateral Reps/Minutes x30 sec Comments discomfort over distal deloid Sitting Exercises Overhead ashley Sitting Exercise Name flex,scaption, abd, IR Side left Reps/Minutes 30 sec x3 ea Comments cued no UT, slow pacing, breath end feel tension- painfree Standing Exercises abduction Standing Exercise Name abduction Equipment Used 1# Reps/Minutes x5 overhead Standing Exercise Name D2 pattern Side left Reps/Minutes 8 Comments verbal and tactile cues for form stretch Standing Exercise Name walk away standing chidi pose at counter Side bilateral Reps/Minutes 30 sec ER Side left Equipment Used L2>L3 Reps/Minutes 2x15 Comments Cuing to hold end range and to slow mvmt down for ecc contraction Shoulder AD behind back Standing Exercise Name Shoulder AD behind back, f/b AA AD x 10 Side left Equipment Used opposite hand Reps/Minutes 1' Comments Pt able to position self with L hand behind back with assist of R. Shoulder Ext Side bilateral Equipment Used Lev 2 TB Reps/Minutes 3 s hold x15; 2 sets Comments min cues for scap retract con/ ecc Shoulder IR Side left Resistance Tb #3 Reps/Minutes 2x15 Comments min cues needed head up Manual Therapy Treatment Soft Tissue Mobilization pec Body Location L pec & biceps Mobilization Type Rolling,Strumming Intensity/Depth Moderate Comments w/PROm rot & abd Post Body Location L teres/lats & rhomboids Mobilization Type Rolling,Strumming,Sustained Pressure Intensity/Depth Moderate Joint Mobilizations GH Joint L GHJ Direction post, inf & distraction FM Grade III PT-OP-R Modalities Start: 09/06/21 18:39 Freq: Status: Active Protocol: Document 03/09/22 08:55 AW (Rec: 03/09/22 10:31 AW [id number]) Hot Pack/Cold Pack Treatment Cold Pack Location L shoulder Patient Position Hooklying Treatment Duration (minutes) 10 Patient Tolerance Good Comments end of session PT-OP-T Assessment and Plan Start: 09/06/21 18:39 Freq: Status: Active Protocol: Document 03/09/22 08:55 AW (Rec: 03/09/22 10:31 AW [id number]) Physical Therapy Assessment Goals One Impairment Pt lacks appropriate L shoulder self care HEP Short Term Goal (STG) Pt will be educated in pain management techniques for self care. STG Duration MET GOAL 09/17/21: Network Design Architect Goal (LTG) Pt will be independent with self care HEP for L shoulder ROM and strengthening. (09/17/21: HEP: AAROM shldr flex, ER, AROM shdr ER, AROM: Wrist/Elbow for flex/ext) (09/23/21: HEP: AROM shldr #$ marissa supine 2/cane & AROM shld rot marissa supine w/cane). (09/27/21: HEP - AAROM shldr AB slide on table, IR towel stretch) (09/30/21: HEP - Cane for sup: ER, horiz AB/AD, AB; Standing cane shldr ER, Ext, AB, IR, AD behind back stretch). (10/14/21: I/S pt in sitting shldr horiz AD stretch) (10/19/21: Pt DA present for education in assisting pt in home ex's) 03/01-still requiers cues and encouragement LTG Duration 04/12 Four Impairment Decreased L UE functional use Impairment Initial UE QuickDASH score 47. 7 (40-59% imipaired) Short Term Goal (STG) Pt will be able to perform personal hygiene (spritz anal region) with L UE. STG Duration MET GOAL 11/08 Network Design Architect Goal (LTG) Improve L UE function per UE QuickDASH score of 1-19 (1-19% impaired) 03/01-11.36 LTG Duration achieved 03/01 Three Impairment Improve L shoulder mobility. Impairment Sitting L shoulder painfree AROM: Flex 87 deg's, Ext 32 deg's, AB 52 deg's, ER (0 deg' s AB) 32 deg's, reaching behind back-lateral L hip, reaching behind head-L ear, reaching across opposite shoulder-anterior R shoulder. [Sitting R shoulder AROM: Flex 142 deg's, Ext 65 deg'sm, , reaching behind back - T9, reaching behind head - T2, reaching across opposite shoulder-posterior spine of opp scapula]. Short Term Goal (STG) Improve L shoulder mobility to 75% of normal mobility compared to the R shoulder (75 % of R shoulder sitting AROM ( sitting): flex 106 deg's, ext 48 deg's, AB 99 deg's, ER (0 deg's AB) is 51 deg's). (10/08/21: Flex is 120 deg's supine) (10/11/21: Sup Flex is 125 deg 's) (11/08/21: Flex 142, Ext 52, AB 110, ER with elbow at side is 42, IR reaching behind back is to L5) STG Duration MET GOAL)= 11/08/21 Network Design Architect Goal (LTG) Improve L shoulder mobility with pain no greater than 1/10 dressing. 01/18/22 - Progressing. LTG Duration achieved 03/01 Two Impairment L shoulder and upper back pain rated 9/10 limiting function and sleep. Impairment Lumbar AROM: Flex 80 deg's with 55 deg's hip flexion. Extension is 12 deg's with 10 deg's hip extension. Short Term Goal (STG) Pt will be educated in sleep positions to minimize L shoulder and upper back pain and decrease shoulder pain to no greater than 5-6/10. STG Duration MET GOAL 11/08/21 Network Design Architect Goal (LTG) Decrease L shoulder and upper back pain 1/10 first in the morning and at rest for less pain with sleeping. (11/04/21: Pt primary complaint is L shoulder pain with sleeping). 01/18/22 - Still pain with left sidelying 03/01-no pain in AM, no pian at rest, pain only L S/L LTG Duration 04/12 Assessment Summary Assessment [place] tolerated increase in resistance in standing ER today with minimal complaint. She also tolerates joint mobs well. Plan to continue aggressively mobilizing shoulder joint for improved ROM. Physical Therapy Plan Frequency and Duration Frequency of Treatment 1x/Week Duration of Treatment 6 weeks Plan of Care Start Date 03/01/22 Plan of Care End Date 04/12/22 Therapeutic Interventions Therapeutic Interventions Aquatic Therapy,Home Exercise Program,Joint Mobilizations, Manual Therapy,Patient/ Caregiver Education,Self-Care/ Home Management,Soft Tissue Mobilization,Taping, Therapeutic Activities, Therapeutic Exercises Modalities Cold Pack/Ice Massage,Electric Stimulation,Hot Packs, Ultrasound Next Visit Focus/Plan Next Note Type Treatment Note Next Visit Plan review HEP and try to progress ROM
--- NOTE | 2022-03-15 10:31 | PT.OTN ---
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 PT-OP-B Current Condition Start: 09/06/21 18:39 Freq: Status: Active Protocol: Document 09/14/21 09:48 LRN (Rec: 09/14/21 12:41 LRN [id number]) Current Condition History of Current Condition Onset Date 04/29/21 Current Complaints L shoulder hurts and aches at night. History of Current Condition Pt reports s/p L RC and biceps repair 04/29/21 (post op ~19. 5 weeks). Was given ex's post op and is doing it sometimes . Pain in the back ( bilaterally) and hands ( bilaterally). Rehab protocol received (see referral). Prior Treatments and Tests Post op L shoulder exercises. Future Testing and Treatments Planned F/u with referring physician 2 -3 months after PT referral. Post op protocol issued (see referral information). Treatment Goals Patient/Caregiver Goals Pt goal is to become painfree in back and L shoulder, less pain on waking in morning, less pain dressing, improve L shoulder mobility. Prior Functional Status Baseline Function- ADL's Modified Independent Baseline Function- Mobility Modified Independent Baseline Function- Other L shoulder: AROM: too painful to move arm. PROM (in deg's): Flex 110, AB 70, ER 45 (at 45 deg's AB)) R shldr AROM: Flex is 162, AB is 145, ER (at 90 deg's AB) is 90, IR is 90. L shoulder strength is: Flex, AB, ER is 2-/5; Ext & IR is 2/5 Current Functional Impairments (Reported) Functional Limitations- ADL's L arm: can lift lift a bag of groceries with elbow, can dress with pain at L shoulder, can reach only to shoulder height without difficulty. Not able to personal hygiene ( spritz anal region) with L UE. Personal Factors Other Personal Factors That May Effect Vertigo, diabetes type II Therapy/Recovery monitoring patch on L posterolateral brachium, Osteopenia, seizures controlled by meds, fall history (last incident 03/09), neuropathy of feet. PT-OP-C Subjective Start: 09/06/21 18:39 Freq: Status: Active Protocol: Document 03/15/22 09:48 AW (Rec: 03/15/22 10:30 AW [id number]) OP-PT Subjective Patient Comments Patient Comments No changes. Pt still feels sore in her shoulder. PT-OP-E Functional Tests Start: 09/06/21 18:39 Freq: Status: Active Protocol: Document 11/18/21 15:22 LRN (Rec: 11/18/21 16:28 LRN [id number]) Functional Tests Apley's Scratch Test Action 1- Left Top of opposite shoulder Action 1- Right Below opposite scapular spine Action 2- Left C7 Action 2- Right T3 Action 3- Left L5 Action 3- Right T12 PT-OP-J Posture/Palpation/Skin Start: 09/06/21 18:39 Freq: Status: Active Protocol: Document 09/14/21 09:48 LRN (Rec: 09/14/21 12:41 LRN [id number]) Posture Evaluation Position Standing Head/C-Spine Posture Forward Head T-Spine Posture Increased Kyphosis Shoulder Posture (L) Elevated Comments Posture Comments Sway back, atrophy of L shoulder and arm. Palpation Assessment Location Neck and L UT Palpation Location Neck and L upper shoulder Palpation Findings Soft Tissue Tightness,Muscle Guarding,Tenderness PT-OP-K Range of Motion Start: 09/06/21 18:39 Freq: Status: Active Protocol: Document 03/01/22 14:34 [facility] (Rec: 03/01/22 15:15 [facility] [id number]) Shoulder Goniometric Range of Motion Shoulder Left Passive Flexion 139 Abduction 113 External Rotation at 90 degrees 75 Abduction Internal Rotation 60 Comments IR at 90 deg Left Active Flexion 112 Extension 59 Abduction 85 External Rotation at 0 degrees Abduction 50 Internal Rotation Behind Back (text) L5 Comments ER: T2 PT-OP-M Strength Start: 09/06/21 18:39 Freq: Status: Active Protocol: Document 03/01/22 14:34 LR (Rec: 03/01/22 15:15 [facility] [id number]) Shoulder Strength Shoulder Manual Muscle Testing Right Flexion 5 Normal Extension 5 Normal Abduction (C5) 5 Normal External Rotation 5 Normal Internal Rotation 5 Normal Left Flexion 4+ Good+ Extension 5 Normal Abduction (C5) 4 Good External Rotation 4 Good Internal Rotation 4+ Good+ PT-OP-Q Treatments Start: 09/06/21 18:39 Freq: Status: Active Protocol: Document 03/15/22 09:48 AW (Rec: 03/15/22 10:30 AW [id number]) Cardio Equipment Upper Body Ergometer (UBE) Duration (Minutes) 4 RPM 90 Seat Position 8 Height 4.5 Therapeutic Exercises Sidelying Exercises Sleeper stretch Sidelying Exercise Name Sleeper stretch - reviewed HEP Side bilateral Reps/Minutes x30 sec Comments discomfort over distal deloid Sitting Exercises Overhead ashley Sitting Exercise Name flex,scaption, abd, IR Side left Reps/Minutes 30 sec x3 ea Comments cued no UT, slow pacing, breath end feel tension- painfree Standing Exercises overhead Standing Exercise Name D2 pattern Side left Reps/Minutes 8 Comments verbal and tactile cues for form stretch Standing Exercise Name walk away standing chidi pose at counter Side bilateral Reps/Minutes 30 sec ER Side left Equipment Used L2>L3 Reps/Minutes 2x15 Comments Cuing to hold end range and to slow mvmt down for ecc contraction Shoulder Ext Side bilateral Equipment Used Lev 2 TB Reps/Minutes 3 s hold x15; 2 sets Comments min cues for scap retract con/ ecc Shoulder IR Side left Resistance Tb #3 Reps/Minutes 2x15 Comments min cues needed head up Manual Therapy Treatment Soft Tissue Mobilization pec Body Location L pec & biceps Mobilization Type Rolling,Strumming Intensity/Depth Moderate Comments w/PROm rot & abd Joint Mobilizations GH Joint L GHJ Direction post, inf & distraction FM Grade III PT-OP-R Modalities Start: 09/06/21 18:39 Freq: Status: Active Protocol: Document 03/15/22 09:48 AW (Rec: 03/15/22 10:30 AW [id number]) Hot Pack/Cold Pack Treatment Cold Pack Location L shoulder Patient Position Hooklying Treatment Duration (minutes) 10 Patient Tolerance Good Comments end of session PT-OP-T Assessment and Plan Start: 09/06/21 18:39 Freq: Status: Active Protocol: Document 03/15/22 09:48 AW (Rec: 03/15/22 10:30 AW [id number]) Physical Therapy Assessment Goals One Impairment Pt lacks appropriate L shoulder self care HEP Short Term Goal (STG) Pt will be educated in pain management techniques for self care. STG Duration MET GOAL 09/17/21: Design Assistant Goal (LTG) Pt will be independent with self care HEP for L shoulder ROM and strengthening. (09/17/21: HEP: AAROM shldr flex, ER, AROM shdr ER, AROM: Wrist/Elbow for flex/ext) (09/23/21: HEP: AROM shldr #$ marissa supine 2/cane & AROM shld rot marissa supine w/cane). (09/27/21: HEP - AAROM shldr AB slide on table, IR towel stretch) (09/30/21: HEP - Cane for sup: ER, horiz AB/AD, AB; Standing cane shldr ER, Ext, AB, IR, AD behind back stretch). (10/14/21: I/S pt in sitting shldr horiz AD stretch) (10/19/21: Pt DA present for education in assisting pt in home ex's) 03/01-still requiers cues and encouragement LTG Duration 04/12 Four Impairment Decreased L UE functional use Impairment Initial UE QuickDASH score 47. 7 (40-59% imipaired) Short Term Goal (STG) Pt will be able to perform personal hygiene (spritz anal region) with L UE. STG Duration MET GOAL 11/08 Nursing Home Goal (LTG) Improve L UE function per UE QuickDASH score of 1-19 (1-19% impaired) 03/01-.36 LTG Duration achieved 03/01 Three Impairment Improve L shoulder mobility. Impairment Sitting L shoulder painfree AROM: Flex 87 deg's, Ext 32 deg's, AB 52 deg's, ER (0 deg' s AB) 32 deg's, reaching behind back-lateral L hip, reaching behind head-L ear, reaching across opposite shoulder-anterior R shoulder. [Sitting R shoulder AROM: Flex 142 deg's, Ext 65 deg'sm, , reaching behind back - T9, reaching behind head - T2, reaching across opposite shoulder-posterior spine of opp scapula]. Short Term Goal (STG) Improve L shoulder mobility to 75% of normal mobility compared to the R shoulder (75 % of R shoulder sitting AROM ( sitting): flex 106 deg's, ext 48 deg's, AB 99 deg's, ER (0 deg's AB) is 51 deg's). (10/08/21: Flex is 120 deg's supine) (10/11/21: Sup Flex is 125 deg 's) (11/08/21: Flex 142, Ext 52, AB 110, ER with elbow at side is 42, IR reaching behind back is to L5) STG Duration MET GOAL)= 11/08/21 Design Assistant Goal (LTG) Improve L shoulder mobility with pain no greater than 1/10 dressing. 01/18/22 - Progressing. LTG Duration achieved 03/01 Two Impairment L shoulder and upper back pain rated 9/10 limiting function and sleep. Impairment Lumbar AROM: Flex 80 deg's with 55 deg's hip flexion. Extension is 12 deg's with 10 deg's hip extension. Short Term Goal (STG) Pt will be educated in sleep positions to minimize L shoulder and upper back pain and decrease shoulder pain to no greater than 5-6/10. STG Duration MET GOAL 11/08/21 Design Assistant Goal (LTG) Decrease L shoulder and upper back pain 1/10 first in the morning and at rest for less pain with sleeping. (11/04/21: Pt primary complaint is L shoulder pain with sleeping). 01/18/22 - Still pain with left sidelying 03/01-no pain in AM, no pian at rest, pain only L S/L LTG Duration 04/12 Assessment Summary Assessment Kourtney is tolerating aggressive mobilization of her left shoulder joint well. She is using her arm more functionally but continues to complain of soreness. Physical Therapy Plan Frequency and Duration Frequency of Treatment 1x/Week Plan of Care Start Date 03/01/22 Plan of Care End Date 04/09/22
--- NOTE | 2022-03-24 12:20 | PT.OTN ---
Current Diagnoses Muscle weakness (generalized) (03/24/22) Impingement syndrome of left shoulder (03/24/22) Strain of muscle(s) and tendon(s) of the rotator cuff of left shoulder, subsequent encounter (03/24/22) Physical Therapy Treatment Note PT-OP-A Visit Information Start: 09/06/21 18:39 Freq: Status: Active Protocol: Document 03/24/22 11:15 [facility] (Rec: 03/24/22 11:40 [facility] [id number]) Out-Patient Physical Therapy Visit Information Visit Information Visit Type Progress Note Visit Start Time 11:16 Visit Stop Time 12:06 Total Visit Minutes 50 Visit Number [address] 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 History of Current Condition Pt reports s/p L RC and biceps repair 04/29/21 (post op ~19. 5 weeks). Was given ex's post op and is doing it sometimes . Pain in the back ( bilaterally) and hands ( bilaterally). Rehab protocol received (see referral). Prior Treatments and Tests Post op L shoulder exercises. Future Testing and Treatments Planned F/u with referring physician 2 -3 months after PT referral. Post op protocol issued (see referral information). Treatment Goals Patient/Caregiver Goals Pt goal is to become painfree in back and L shoulder, less pain on waking in morning, less pain dressing, improve L shoulder mobility. Prior Functional Status Baseline Function- ADL's Modified Independent Baseline Function- Mobility Modified Independent Baseline Function- Other L shoulder: AROM: too painful to move arm. PROM (in deg's): Flex 110, AB 70, ER 45 (at 45 deg's AB)) R shldr AROM: Flex is 162, AB is 145, ER (at 90 deg's AB) is 90, IR is 90. L shoulder strength is: Flex, AB, ER is 2-/5; Ext & IR is 2/5 Current Functional Impairments (Reported) Functional Limitations- ADL's L arm: can lift lift a bag of groceries with elbow, can dress with pain at L shoulder, can reach only to shoulder height without difficulty. Not able to personal hygiene ( spritz anal region) with L UE. Personal Factors Other Personal Factors That May Effect Vertigo, diabetes type II Therapy/Recovery monitoring patch on L posterolateral brachium, Osteopenia, seizures controlled by meds, fall history (last incident 03/09), neuropathy of feet. PT-OP-C Subjective Start: 09/06/21 18:39 Freq: Status: Active Protocol: Document 03/24/22 11:15 [facility] (Rec: 03/24/22 11:40 [facility] [id number]) OP-PT Subjective Patient Comments Patient Comments Pt reports she has not been doing her exercises. Sees her MD tomorrow. PT-OP-E Functional Tests Start: 09/06/21 18:39 Freq: Status: Active Protocol: Document 11/18/21 15:22 LRN (Rec: 11/18/21 16:28 [facility] [id number]) Functional Tests Apley's Scratch Test Action 1- Left Top of opposite shoulder Action 1- Right Below opposite scapular spine Action 2- Left C7 Action 2- Right T3 Action 3- Left L5 Action 3- Right T12 PT-OP-J Posture/Palpation/Skin Start: 09/06/21 18:39 Freq: Status: Active Protocol: Document 09/14/21 09:48 LRN (Rec: 09/14/21 12:41 [facility] [id number]) Posture Evaluation Position Standing Head/C-Spine Posture Forward Head T-Spine Posture Increased Kyphosis Shoulder Posture (L) Elevated Comments Posture Comments Sway back, atrophy of L shoulder and arm. Palpation Assessment Location Neck and L UT Palpation Location Neck and L upper shoulder Palpation Findings Soft Tissue Tightness,Muscle Guarding,Tenderness PT-OP-K Range of Motion Start: 09/06/21 18:39 Freq: Status: Active Protocol: Document 03/24/22 11:15 [facility] (Rec: 03/24/22 11:45 [facility] [id number]) Shoulder Goniometric Range of Motion Shoulder Left Passive Flexion 140 Abduction 112 External Rotation at 90 degrees 67 Abduction Internal Rotation 54 Left Active Flexion 122 Extension 45 Abduction 90 External Rotation at 0 degrees Abduction 40 Internal Rotation Behind Back (text) L4 PT-OP-M Strength Start: 09/06/21 18:39 Freq: Status: Active Protocol: Document 03/24/22 11:15 [facility] (Rec: 03/24/22 11:45 [facility] [id number]) Shoulder Strength Shoulder Manual Muscle Testing Left Flexion 4 Good Extension 5 Normal Abduction (C5) 3+ Fair+ External Rotation 4+ Good+ Internal Rotation 5 Normal PT-OP-Q Treatments Start: 09/06/21 18:39 Freq: Status: Active Protocol: Document 03/24/22 11:15 [facility] (Rec: 03/24/22 11:40 [facility] [id number]) Therapeutic Exercises Sitting Exercises Overhead ashley Sitting Exercise Name flex,scaption, abd, IR Side left Reps/Minutes 15 sec x5 ea Comments cued no UT, slow pacing, breath end feel tension- painfree L shoulder ER Sitting Exercise Name 90/90 Side left Reps/Minutes 15 Comments on plinth Standing Exercises abduction Standing Exercise Name abduction Equipment Used 1# Reps/Minutes x5 overhead Standing Exercise Name D2 pattern Side left Reps/Minutes 8 Comments verbal and tactile cues for form ER Side left Equipment Used L2 Reps/Minutes x15 Comments Cuing to hold end range and to slow mvmt down for ecc contraction Shoulder Ext Side bilateral Equipment Used Lev 3 TB Reps/Minutes 3 s hold x15 Comments min cues for scap retract con/ ecc Shoulder IR Side left Resistance Tb #3 Reps/Minutes x15 Comments min cues needed head up Manual Therapy Treatment Soft Tissue Mobilization pec Body Location L pec & biceps Mobilization Type Rolling,Strumming Intensity/Depth Moderate Comments w/PROm rot & abd Joint Mobilizations GH Joint L GHJ Direction post, inf & distraction FM Grade III PT-OP-R Modalities Start: 09/06/21 18:39 Freq: Status: Active Protocol: Document 03/24/22 11:15 [facility] (Rec: 03/24/22 11:40 [facility] [id number]) Hot Pack/Cold Pack Treatment Cold Pack Location L shoulder Patient Position Hooklying Treatment Duration (minutes) 10 Patient Tolerance Good Comments end of session PT-OP-T Assessment and Plan Start: 09/06/21 18:39 Freq: Status: Active Protocol: Document 03/24/22 11:15 [facility] (Rec: 03/24/22 11:40 [facility] [id number]) Physical Therapy Assessment Goals One Impairment Pt lacks appropriate L shoulder self care HEP Short Term Goal (STG) Pt will be educated in pain management techniques for self care. STG Duration MET GOAL 09/17/21: Nursing Home Goal (LTG) Pt will be independent with self care HEP for L shoulder ROM and strengthening. (09/17/21: HEP: AAROM shldr flex, ER, AROM shdr ER, AROM: Wrist/Elbow for flex/ext) (09/23/21: HEP: AROM shldr #$ marissa supine 2/cane & AROM shld rot marissa supine w/cane). (09/27/21: HEP - AAROM shldr AB slide on table, IR towel stretch) (09/30/21: HEP - Cane for sup: ER, horiz AB/AD, AB; Standing cane shldr ER, Ext, AB, IR, AD behind back stretch). (10/14/21: I/S pt in sitting shldr horiz AD stretch) (10/19/21: Pt DA present for education in assisting pt in home ex's) 03/01-still requiers cues and encouragement 03/24-poor compliance LTG Duration 05/08 Four Impairment Decreased L UE functional use Impairment Initial UE QuickDASH score 47. 7 (40-59% imipaired) Short Term Goal (STG) Pt will be able to perform personal hygiene (spritz anal region) with L UE. STG Duration MET GOAL 11/08 Nursing Home Goal (LTG) Improve L UE function per UE QuickDASH score of 1-19 (1-19% impaired) 03/01-.36 LTG Duration achieved 03/01 Three Impairment Improve L shoulder mobility. Impairment Sitting L shoulder painfree AROM: Flex 87 deg's, Ext 32 deg's, AB 52 deg's, ER (0 deg' s AB) 32 deg's, reaching behind back-lateral L hip, reaching behind head-L ear, reaching across opposite shoulder-anterior R shoulder. [Sitting R shoulder AROM: Flex 142 deg's, Ext 65 deg'sm, , reaching behind back - T9, reaching behind head - T2, reaching across opposite shoulder-posterior spine of opp scapula]. Short Term Goal (STG) Improve L shoulder mobility to 75% of normal mobility compared to the R shoulder (75 % of R shoulder sitting AROM ( sitting): flex 106 deg's, ext 48 deg's, AB 99 deg's, ER (0 deg's AB) is 51 deg's). (10/08/21: Flex is 120 deg's supine) (10/11/21: Sup Flex is 125 deg 's) (11/08/21: Flex 142, Ext 52, AB 110, ER with elbow at side is 42, IR reaching behind back is to L5) STG Duration MET GOAL)= 11/08/21 Edger Runner Goal (LTG) Improve L shoulder mobility with pain no greater than 1/10 dressing. 01/18/22 - Progressing. LTG Duration achieved 03/01 Two Impairment L shoulder and upper back pain rated 9/10 limiting function and sleep. Impairment Lumbar AROM: Flex 80 deg's with 55 deg's hip flexion. Extension is 12 deg's with 10 deg's hip extension. Short Term Goal (STG) Pt will be educated in sleep positions to minimize L shoulder and upper back pain and decrease shoulder pain to no greater than 5-6/10. STG Duration MET GOAL 11/08/21 Edger Runner Goal (LTG) Decrease L shoulder and upper back pain 1/10 first in the morning and at rest for less pain with sleeping. (11/04/21: Pt primary complaint is L shoulder pain with sleeping). 01/18/22 - Still pain with left sidelying 03/01-no pain in AM, no pian at rest, pain only L S/L 03/24-pain if rolls on L shoulder LTG Duration 05/08 Assessment Summary Assessment Pt is making limited progress at this time but has not been compliant w/HEP. At this time, pt sees MD tomorrow and will be re-assessed there. Plan to do a few more PT visits to solidify HEP and DC pt from PT d/t no longer making big gains. Physical Therapy Plan Frequency and Duration Frequency of Treatment 1x/Week Duration of treatment (weeks) 6 Plan of Care Start Date 03/24/22 Plan of Care End Date 05/08/22 Next Visit Focus/Plan Next Note Type Progress Note Next Visit Plan review HEP and try to progress ROM
--- NOTE | 2022-03-24 12:20 | PT.OPPOC ---
Physical, Occupational & Speech Therapy At [facility] Current Diagnoses Muscle weakness (generalized) (03/24/22) Impingement syndrome of left shoulder (03/24/22) Strain of muscle(s) and tendon(s) of the rotator cuff of left shoulder, subsequent encounter (03/24/22) Visit Care Team Role Provider Type [place] MD Family Provider Physician Primary Care Provider Specialty: Family Practice Address: [address] [place] [address], [address], [place], [address] Email: [email or web address] Seamus Mariano MD Attending Provider Non-Staff Referring Provider Specialty: Orthopedic Surgery Address: [address] [place] [address], [address], [place], [address] Email: Plan Of Care PT-OP-T Assessment and Plan Start: 09/06/21 18:39 Freq: Status: Active Protocol: Document 03/24/22 11:15 [facility] (Rec: 03/24/22 11:40 [facility] [id number]) Physical Therapy Assessment Goals One Impairment Pt lacks appropriate L shoulder self care HEP Short Term Goal (STG) Pt will be educated in pain management techniques for self care. STG Duration MET GOAL 09/17/21: Jail Goal (LTG) Pt will be independent with self care HEP for L shoulder ROM and strengthening. (09/17/21: HEP: AAROM shldr flex, ER, AROM shdr ER, AROM: Wrist/Elbow for flex/ext) (09/23/21: HEP: AROM shldr #$ marissa supine 2/cane & AROM shld rot marissa supine w/cane). (09/27/21: HEP - AAROM shldr AB slide on table, IR towel stretch) (09/30/21: HEP - Cane for sup: ER, horiz AB/AD, AB; Standing cane shldr ER, Ext, AB, IR, AD behind back stretch). (10/14/21: I/S pt in sitting shldr horiz AD stretch) (10/19/21: Pt DA present for education in assisting pt in home ex's) 03/01-still requiers cues and encouragement 03/24-poor compliance LTG Duration 05/08 Four Impairment Decreased L UE functional use Impairment Initial UE QuickDASH score 47. 7 (40-59% imipaired) Short Term Goal (STG) Pt will be able to perform personal hygiene (spritz anal region) with L UE. STG Duration MET GOAL 11/08 Jail Goal (LTG) Improve L UE function per UE QuickDASH score of 1-19 (1-19% impaired) 03/01-.36 LTG Duration achieved 03/01 Three Impairment Improve L shoulder mobility. Impairment Sitting L shoulder painfree AROM: Flex 87 deg's, Ext 32 deg's, AB 52 deg's, ER (0 deg' s AB) 32 deg's, reaching behind back-lateral L hip, reaching behind head-L ear, reaching across opposite shoulder-anterior R shoulder. [Sitting R shoulder AROM: Flex 142 deg's, Ext 65 deg'sm, , reaching behind back - T9, reaching behind head - T2, reaching across opposite shoulder-posterior spine of opp scapula]. Short Term Goal (STG) Improve L shoulder mobility to 75% of normal mobility compared to the R shoulder (75 % of R shoulder sitting AROM ( sitting): flex 106 deg's, ext 48 deg's, AB 99 deg's, ER (0 deg's AB) is 51 deg's). (10/08/21: Flex is 120 deg's supine) (10/11/21: Sup Flex is 125 deg 's) (11/08/21: Flex 142, Ext 52, AB 110, ER with elbow at side is 42, IR reaching behind back is to L5) STG Duration MET GOAL)= 11/08/21 Jail Goal (LTG) Improve L shoulder mobility with pain no greater than 1/10 dressing. 01/18/22 - Progressing. LTG Duration achieved 03/01 Two Impairment L shoulder and upper back pain rated 9/10 limiting function and sleep. Impairment Lumbar AROM: Flex 80 deg's with 55 deg's hip flexion. Extension is 12 deg's with 10 deg's hip extension. Short Term Goal (STG) Pt will be educated in sleep positions to minimize L shoulder and upper back pain and decrease shoulder pain to no greater than 5-6/10. STG Duration MET GOAL 11/08/21 Jail Goal (LTG) Decrease L shoulder and upper back pain 06/28 first in the morning and at rest for less pain with sleeping. (11/04/21: Pt primary complaint is L shoulder pain with sleeping). 01/18/22 - Still pain with left sidelying 03/01-no pain in AM, no pian at rest, pain only L S/L 03/24-pain if rolls on L shoulder LTG Duration 05/08 Assessment Summary Assessment Pt is making limited progress at this time but has not been compliant w/HEP. At this time, pt sees MD tomorrow and will be re-assessed there. Plan to do a few more PT visits to solidify HEP and DC pt from PT d/t no longer making big gains. Physical Therapy Plan Frequency and Duration Frequency of Treatment 1x/Week Duration of treatment (weeks) 6 Plan of Care Start Date 03/24/22 Plan of Care End Date 05/08/22 Next Visit Focus/Plan Next Note Type Progress Note Next Visit Plan review HEP and try to progress ROM Plan of Care Dates Plan of Care Start Date 03/24/22 Plan of Care End Date 05/08/22 Electronically Signed by: Jenn Menendez, PT 03/24/22 [id number] If you are in agreement with this Plan of Care, please return a signed and dated copy. I have reviewed this Plan of Care and certify that the skilled therapy services above are required to meet the patient?s needs. Physician Signature Date Printed Name and Credentials Clinical Instructor Signature Printed Name and Credentials
--- NOTE | 2022-03-28 09:52 | PT.OTN ---
Current Diagnoses Muscle weakness (generalized) (03/28/22) Impingement syndrome of left shoulder (03/28/22) Strain of muscle(s) and tendon(s) of the rotator cuff of left shoulder, subsequent encounter (03/28/22) Physical Therapy Treatment Note PT-OP-A Visit Information Start: 09/06/21 18:39 Freq: Status: Active Protocol: Document 03/28/22 09:08 [facility] (Rec: 03/28/22 09:51 [facility] [id number]) Out-Patient Physical Therapy Visit Information Visit Information Visit Type Treatment Note Visit Start Time 09:06 Visit Stop Time 09:59 Total Visit Minutes 53 Visit Number 34 Number of [employer] Visits 0 PT-OP-B Current Condition Start: 09/06/21 18:39 Freq: Status: Active Protocol: Document 09/14/21 09:48 [facility] (Rec: 09/14/21 12:41 [facility] [id number]) Current Condition History of Current Condition Onset Date 04/29/21 Current Complaints L shoulder hurts and aches at night. History of Current Condition Pt reports s/p L RC and biceps repair 04/29/21 (post op ~19. 5 weeks). Was given ex's post op and is doing it sometimes . Pain in the back ( bilaterally) and hands ( bilaterally). Rehab protocol received (see referral). Prior Treatments and Tests Post op L shoulder exercises. Future Testing and Treatments Planned F/u with referring physician 2 -3 months after PT referral. Post op protocol issued (see referral information). Treatment Goals Patient/Caregiver Goals Pt goal is to become painfree in back and L shoulder, less pain on waking in morning, less pain dressing, improve L shoulder mobility. Prior Functional Status Baseline Function- ADL's Modified Independent Baseline Function- Mobility Modified Independent Baseline Function- Other L shoulder: AROM: too painful to move arm. PROM (in deg's): Flex 110, AB 70, ER 45 (at 45 deg's AB)) R shldr AROM: Flex is 162, AB is 145, ER (at 90 deg's AB) is 90, IR is 90. L shoulder strength is: Flex, AB, ER is 2-/5; Ext & IR is 2/5 Current Functional Impairments (Reported) Functional Limitations- ADL's L arm: can lift lift a bag of groceries with elbow, can dress with pain at L shoulder, can reach only to shoulder height without difficulty. Not able to personal hygiene ( spritz anal region) with L UE. Personal Factors Other Personal Factors That May Effect Vertigo, diabetes type II Therapy/Recovery monitoring patch on L posterolateral brachium, Osteopenia, seizures controlled by meds, fall history (last incident 03/09), neuropathy of feet. PT-OP-C Subjective Start: 09/06/21 18:39 Freq: Status: Active Protocol: Document 03/28/22 09:08 [facility] (Rec: 03/28/22 09:51 [facility] [id number]) OP-PT Subjective Patient Comments Patient Comments Pt was given TENs unit and told to cont exercises at home . Given rx for 1-2x PT PT-OP-E Functional Tests Start: 09/06/21 18:39 Freq: Status: Active Protocol: Document 11/18/21 15:22 [facility] (Rec: 11/18/21 16:28 [facility] [id number]) Functional Tests Apley's Scratch Test Action 1- Left Top of opposite shoulder Action 1- Right Below opposite scapular spine Action 2- Left C7 Action 2- Right T3 Action 3- Left L5 Action 3- Right T12 PT-OP-J Posture/Palpation/Skin Start: 09/06/21 18:39 Freq: Status: Active Protocol: Document 09/14/21 09:48 [facility] (Rec: 09/14/21 12:41 [facility] [id number]) Posture Evaluation Position Standing Head/C-Spine Posture Forward Head T-Spine Posture Increased Kyphosis Shoulder Posture (L) Elevated Comments Posture Comments Sway back, atrophy of L shoulder and arm. Palpation Assessment Location Neck and L UT Palpation Location Neck and L upper shoulder Palpation Findings Soft Tissue Tightness,Muscle Guarding,Tenderness PT-OP-K Range of Motion Start: 09/06/21 18:39 Freq: Status: Active Protocol: Document 03/24/22 11:15 [facility] (Rec: 03/24/22 11:45 [facility] [id number]) Shoulder Goniometric Range of Motion Shoulder Left Passive Flexion 140 Abduction 112 External Rotation at 90 degrees 67 Abduction Internal Rotation 54 Left Active Flexion 122 Extension 45 Abduction 90 External Rotation at 0 degrees Abduction 40 Internal Rotation Behind Back (text) L4 PT-OP-M Strength Start: 09/06/21 18:39 Freq: Status: Active Protocol: Document 03/24/22 11:15 [facility] (Rec: 03/24/22 11:45 [facility] [id number]) Shoulder Strength Shoulder Manual Muscle Testing Left Flexion 4 Good Extension 5 Normal Abduction (C5) 3+ Fair+ External Rotation 4+ Good+ Internal Rotation 5 Normal PT-OP-Q Treatments Start: 09/06/21 18:39 Freq: Status: Active Protocol: Document 03/28/22 09:08 [facility] (Rec: 03/28/22 09:51 [facility] [id number]) Therapeutic Exercises Supine Exercises flex Supine Exercise Name full ROM (able to get 150 deg in supine) Side left Equipment Used 2# Reps/Minutes 15 Prone Exercises Habd Side left Equipment Used 2# Reps/Minutes 15 scaption Prone Exercise Name comfortable range thumb up Side left Reps/Minutes 15 Sidelying Exercises Shoulder AB Sidelying Exercise Name Shoulder AB Side left Equipment Used 2# Reps/Minutes 15 Comments phys cuing of scapula for down /retract with AB Sitting Exercises Overhead ashley Sitting Exercise Name flex,scaption, abd, IR Side left Reps/Minutes 30 sec x2 ea Comments cued no UT, slow pacing, breath end feel tension- painfree L shoulder ER Sitting Exercise Name 90/90 Side left Equipment Used 2# Reps/Minutes 15 Comments on plinth Manual Therapy Treatment Soft Tissue Mobilization pec Body Location L pec & biceps Mobilization Type Rolling,Strumming Intensity/Depth Moderate Comments w/PROm rot & abd Joint Mobilizations GH Joint L GHJ Direction post, inf & distraction FM Grade III Self-Care/Home Management Treatment Education Other Education edu to pt re: how to use Tens unit PT-OP-R Modalities Start: 09/06/21 18:39 Freq: Status: Active Protocol: Document 03/28/22 09:08 [facility] (Rec: 03/28/22 09:51 [facility] [id number]) Electric Stimulation Electric Stimulation TENs Duration (Minutes) 15 Combined With Heat/Cold Cold Pack Comments home TENs unit PT-OP-T Assessment and Plan Start: 09/06/21 18:39 Freq: Status: Active Protocol: Document 03/28/22 09:08 [facility] (Rec: 03/28/22 09:51 [facility] [id number]) Physical Therapy Assessment Goals One Impairment Pt lacks appropriate L shoulder self care HEP Short Term Goal (STG) Pt will be educated in pain management techniques for self care. STG Duration MET GOAL 09/17/21: Group Home Goal (LTG) Pt will be independent with self care HEP for L shoulder ROM and strengthening. (09/17/21: HEP: AAROM shldr flex, ER, AROM shdr ER, AROM: Wrist/Elbow for flex/ext) (09/23/21: HEP: AROM shldr #$ marissa supine 2/cane & AROM shld rot marissa supine w/cane). (09/27/21: HEP - AAROM shldr AB slide on table, IR towel stretch) (09/30/21: HEP - Cane for sup: ER, horiz AB/AD, AB; Standing cane shldr ER, Ext, AB, IR, AD behind back stretch). (10/14/21: I/S pt in sitting shldr horiz AD stretch) (10/19/21: Pt DA present for education in assisting pt in home ex's) 03/01-still requiers cues and encouragement 03/24-poor compliance LTG Duration 05/08 Four Impairment Decreased L UE functional use Impairment Initial UE QuickDASH score 47. 7 (40-59% imipaired) Short Term Goal (STG) Pt will be able to perform personal hygiene (spritz anal region) with L UE. STG Duration MET GOAL 11/08 Group Home Goal (LTG) Improve L UE function per UE QuickDASH score of 1-19 (1-19% impaired) 03/01-.36 LTG Duration achieved 03/01 Three Impairment Improve L shoulder mobility. Impairment Sitting L shoulder painfree AROM: Flex 87 deg's, Ext 32 deg's, AB 52 deg's, ER (0 deg' s AB) 32 deg's, reaching behind back-lateral L hip, reaching behind head-L ear, reaching across opposite shoulder-anterior R shoulder. [Sitting R shoulder AROM: Flex 142 deg's, Ext 65 deg'sm, , reaching behind back - T9, reaching behind head - T2, reaching across opposite shoulder-posterior spine of opp scapula]. Short Term Goal (STG) Improve L shoulder mobility to 75% of normal mobility compared to the R shoulder (75 % of R shoulder sitting AROM ( sitting): flex 106 deg's, ext 48 deg's, AB 99 deg's, ER (0 deg's AB) is 51 deg's). (10/08/21: Flex is 120 deg's supine) (10/11/21: Sup Flex is 125 deg 's) (11/08/21: Flex 142, Ext 52, AB 110, ER with elbow at side is 42, IR reaching behind back is to L5) STG Duration MET GOAL)= 11/08/21 Group Home Goal (LTG) Improve L shoulder mobility with pain no greater than 1/10 dressing. 01/18/22 - Progressing. LTG Duration achieved 03/01 Two Impairment L shoulder and upper back pain rated 9/10 limiting function and sleep. Impairment Lumbar AROM: Flex 80 deg's with 55 deg's hip flexion. Extension is 12 deg's with 10 deg's hip extension. Short Term Goal (STG) Pt will be educated in sleep positions to minimize L shoulder and upper back pain and decrease shoulder pain to no greater than 5-6/10. STG Duration MET GOAL 11/08/21 Prison Officer Goal (LTG) Decrease L shoulder and upper back pain 1/10 first in the morning and at rest for less pain with sleeping. (11/04/21: Pt primary complaint is L shoulder pain with sleeping). 01/18/22 - Still pain with left sidelying 03/01-no pain in AM, no pian at rest, pain only L S/L 03/24-pain if rolls on L shoulder LTG Duration 05/08 Assessment Summary Assessment Pt did well with cues during exercises. Discussed how to adjust her pully so it does give her stretch at home. Reviewed exercises for cont at home with focus on stretching along w/use of TENs unit. Physical Therapy Plan Frequency and Duration Frequency of Treatment 1x/Week Duration of treatment (weeks) 6 Plan of Care Start Date 03/24/22 Plan of Care End Date 05/08/22 Next Visit Focus/Plan Next Note Type Discharge Summary Next Visit Plan review HEP and TENs unit use
--- NOTE | 2022-04-13 14:49 | PT.OTN ---
Current Diagnoses Muscle weakness (generalized) (04/13/22) Impingement syndrome of left shoulder (04/13/22) Strain of muscle(s) and tendon(s) of the rotator cuff of left shoulder, subsequent encounter (04/13/22) Physical Therapy Treatment Note PT-OP-A Visit Information Start: 09/06/21 18:39 Freq: Status: Active Protocol: Document 04/13/22 13:58 [facility] (Rec: 04/13/22 14:38 [facility] [id number]) Out-Patient Physical Therapy Visit Information Visit Information Visit Type Discharge Summary Visit Start Time 13:50 Visit Stop Time 14:40 Total Visit Minutes 50 Visit Number 35 Number of SIDE GUIDER Visits 0 PT-OP-B Current Condition Start: 09/06/21 18:39 Freq: Status: Active Protocol: Document 09/14/21 09:48 [facility] (Rec: 09/14/21 12:41 [facility] [id number]) Current Condition History of Current Condition Onset Date 04/29/21 Current Complaints L shoulder hurts and aches at night. History of Current Condition Pt reports s/p L RC and biceps repair 04/29/21 (post op ~19. 5 weeks). Was given ex's post op and is doing it sometimes . Pain in the back ( bilaterally) and hands ( bilaterally). Rehab protocol received (see referral). Prior Treatments and Tests Post op L shoulder exercises. Future Testing and Treatments Planned F/u with referring physician 2 -3 months after PT referral. Post op protocol issued (see referral information). Treatment Goals Patient/Caregiver Goals Pt goal is to become painfree in back and L shoulder, less pain on waking in morning, less pain dressing, improve L shoulder mobility. Prior Functional Status Baseline Function- ADL's Modified Independent Baseline Function- Mobility Modified Independent Baseline Function- Other L shoulder: AROM: too painful to move arm. PROM (in deg's): Flex 110, AB 70, ER 45 (at 45 deg's AB)) R shldr AROM: Flex is 162, AB is 145, ER (at 90 deg's AB) is 90, IR is 90. L shoulder strength is: Flex, AB, ER is 2-/5; Ext & IR is 2/5 Current Functional Impairments (Reported) Functional Limitations- ADL's L arm: can lift lift a bag of groceries with elbow, can dress with pain at L shoulder, can reach only to shoulder height without difficulty. Not able to personal hygiene ( spritz anal region) with L UE. Personal Factors Other Personal Factors That May Effect Vertigo, diabetes type II Therapy/Recovery monitoring patch on L posterolateral brachium, Osteopenia, seizures controlled by meds, fall history (last incident 03/09), neuropathy of feet. PT-OP-C Subjective Start: 09/06/21 18:39 Freq: Status: Active Protocol: Document 04/13/22 13:58 LR (Rec: 04/13/22 14:38 [facility] [id number]) OP-PT Subjective Patient Comments Patient Comments pt reports she has used her tens unit at home. Still achey PT-OP-E Functional Tests Start: 09/06/21 18:39 Freq: Status: Active Protocol: Document 11/18/21 15:22 [facility] (Rec: 11/18/21 16:28 [facility] [id number]) Functional Tests Apley's Scratch Test Action 1- Left Top of opposite shoulder Action 1- Right Below opposite scapular spine Action 2- Left C7 Action 2- Right T3 Action 3- Left L5 Action 3- Right T12 PT-OP-J Posture/Palpation/Skin Start: 09/06/21 18:39 Freq: Status: Active Protocol: Document 09/14/21 09:48 LR (Rec: 09/14/21 12:41 [facility] [id number]) Posture Evaluation Position Standing Head/C-Spine Posture Forward Head T-Spine Posture Increased Kyphosis Shoulder Posture (L) Elevated Comments Posture Comments Sway back, atrophy of L shoulder and arm. Palpation Assessment Location Neck and L UT Palpation Location Neck and L upper shoulder Palpation Findings Soft Tissue Tightness,Muscle Guarding,Tenderness PT-OP-K Range of Motion Start: 09/06/21 18:39 Freq: Status: Active Protocol: Document 03/24/22 11:15 LR (Rec: 03/24/22 11:45 [facility] [id number]) Shoulder Goniometric Range of Motion Shoulder Left Passive Flexion 140 Abduction 112 External Rotation at 90 degrees 67 Abduction Internal Rotation 54 Left Active Flexion 122 Extension 45 Abduction 90 External Rotation at 0 degrees Abduction 40 Internal Rotation Behind Back (text) L4 PT-OP-M Strength Start: 09/06/21 18:39 Freq: Status: Active Protocol: Document 03/24/22 11:15 [facility] (Rec: 03/24/22 11:45 [facility] [id number]) Shoulder Strength Shoulder Manual Muscle Testing Left Flexion 4 Good Extension 5 Normal Abduction (C5) 3+ Fair+ External Rotation 4+ Good+ Internal Rotation 5 Normal PT-OP-Q Treatments Start: 09/06/21 18:39 Freq: Status: Active Protocol: Document 04/13/22 13:58 [facility] (Rec: 04/13/22 14:38 [facility] [id number]) Therapeutic Exercises Supine Exercises flex Supine Exercise Name full ROM (able to get 150 deg in supine) Side left Equipment Used 3# Reps/Minutes 20 Sidelying Exercises Sleeper stretch Sidelying Exercise Name Sleeper stretch - reviewed HEP Side bilateral Reps/Minutes x30 sec Shoulder AB Sidelying Exercise Name Shoulder AB Side left Equipment Used 3# Reps/Minutes 15 Comments phys cuing of scapula for down /retract with AB Standing Exercises ER Side left Equipment Used L2 Reps/Minutes x15 Comments Cuing to hold end range and to slow mvmt down for ecc contraction Shoulder Ext Side bilateral Equipment Used Lev 3 TB Reps/Minutes 3 s hold x15 Comments min cues for scap retract con/ ecc Shoulder IR Side left Resistance Tb #3 Reps/Minutes x15 Comments min cues needed head up Manual Therapy Treatment Soft Tissue Mobilization pec Body Location L pec & biceps, sub scap, teres Mobilization Type Rolling,Strumming Intensity/Depth Moderate Comments w/PROm rot & abd Joint Mobilizations GH Joint L GHJ Direction post, inf & distraction FM Grade III PT-OP-R Modalities Start: 09/06/21 18:39 Freq: Status: Active Protocol: Document 04/13/22 13:58 [facility] (Rec: 04/13/22 14:38 [facility] [id number]) Hot Pack/Cold Pack Treatment Cold Pack Location L shoulder Patient Position Hooklying Treatment Duration (minutes) 10 Patient Tolerance Good Comments end of session PT-OP-T Assessment and Plan Start: 09/06/21 18:39 Freq: Status: Active Protocol: Document 04/13/22 13:58 [facility] (Rec: 04/13/22 14:38 [facility] [id number]) Physical Therapy Assessment Goals One Impairment Pt lacks appropriate L shoulder self care HEP Short Term Goal (STG) Pt will be educated in pain management techniques for self care. STG Duration MET GOAL 09/17/21: Panel Edge Sealer Goal (LTG) Pt will be independent with self care HEP for L shoulder ROM and strengthening. (09/17/21: HEP: AAROM shldr flex, ER, AROM shdr ER, AROM: Wrist/Elbow for flex/ext) (09/23/21: HEP: AROM shldr #$ marissa supine 2/cane & AROM shld rot marissa supine w/cane). (09/27/21: HEP - AAROM shldr AB slide on table, IR towel stretch) (09/30/21: HEP - Cane for sup: ER, horiz AB/AD, AB; Standing cane shldr ER, Ext, AB, IR, AD behind back stretch). (10/14/21: I/S pt in sitting shldr horiz AD stretch) (10/19/21: Pt DA present for education in assisting pt in home ex's) 03/01-still requiers cues and encouragement 03/24-poor compliance LTG Duration 05/08 Four Impairment Decreased L UE functional use Impairment Initial UE QuickDASH score 47. 7 (40-59% imipaired) Short Term Goal (STG) Pt will be able to perform personal hygiene (spritz anal region) with L UE. STG Duration MET GOAL 11/08 Panel Edge Sealer Goal (LTG) Improve L UE function per UE QuickDASH score of 1-19 (1-19% impaired) 03/01-11.36 LTG Duration achieved 03/01 Three Impairment Improve L shoulder mobility. Impairment Sitting L shoulder painfree AROM: Flex 87 deg's, Ext 32 deg's, AB 52 deg's, ER (0 deg' s AB) 32 deg's, reaching behind back-lateral L hip, reaching behind head-L ear, reaching across opposite shoulder-anterior R shoulder. [Sitting R shoulder AROM: Flex 142 deg's, Ext 65 deg'sm, , reaching behind back - T9, reaching behind head - T2, reaching across opposite shoulder-posterior spine of opp scapula]. Short Term Goal (STG) Improve L shoulder mobility to 75% of normal mobility compared to the R shoulder (75 % of R shoulder sitting AROM ( sitting): flex 106 deg's, ext 48 deg's, AB 99 deg's, ER (0 deg's AB) is 51 deg's). (10/08/21: Flex is 120 deg's supine) (10/11/21: Sup Flex is 125 deg 's) (11/08/21: Flex 142, Ext 52, AB 110, ER with elbow at side is 42, IR reaching behind back is to L5) STG Duration MET GOAL)= 11/08/21 Panel Edge Sealer Goal (LTG) Improve L shoulder mobility with pain no greater than 1/10 dressing. 01/18/22 - Progressing. LTG Duration achieved 03/01 Two Impairment L shoulder and upper back pain rated 9/10 limiting function and sleep. Impairment Lumbar AROM: Flex 80 deg's with 55 deg's hip flexion. Extension is 12 deg's with 10 deg's hip extension. Short Term Goal (STG) Pt will be educated in sleep positions to minimize L shoulder and upper back pain and decrease shoulder pain to no greater than 5-6/10. STG Duration MET GOAL 11/08/21 Panel Edge Sealer Goal (LTG) Decrease L shoulder and upper back pain 1/10 first in the morning and at rest for less pain with sleeping. (11/04/21: Pt primary complaint is L shoulder pain with sleeping). 01/18/22 - Still pain with left sidelying 03/01-no pain in AM, no pian at rest, pain only L S/L 03/24-pain if rolls on L shoulder LTG Duration 05/08 Assessment Summary Assessment At this time, pt has met most of her goals and has plateaued w/progress. Conferred w/Dgt a few sessions ago and she was agreeable re: pt discharge. She has HEP and has been encouraged to work on this at home to cont building strength and use estim and ice pack at home. Physical Therapy Plan Discharge Physical Therapy Discharge Reasons Plateau in Progress
== END 2022-04-19 11:25 | disposition home or self-care (01) ==
LOC: PHYS 13:45
PROVIDERS: Family Provider Family Medicine; PCP Family Medicine; Referring Provider Orthopaedic Surgery; Visit Provider Orthopaedic Surgery
DX: S46.012D Strain of muscle(s) and tendon(s) of the rotator cuff of left shoulder, subsequent encounter (principal); M75.42 Impingement syndrome of left shoulder; M62.81 Muscle weakness (generalized)
CPT/HCPCS: 97010; 97014; 97110; 97140; 97162; 97535; G0283

== ENCOUNTER → 2022-07-18 16:36 | Outpatient (CLI) | payer MEDICARE, OTHER, SELFPAY ==
[2022-07-18 17:47] LABS: Hemoglobin A1C% w Est Avg Glu 8.4 % (4.0-6.0)
== END ==
PROVIDERS: Family Provider Family Medicine; PCP Family Medicine; Referring Provider Student in an Organized Health Care Education/Training Program; Visit Provider Student in an Organized Health Care Education/Training Program
DX: E11.9 Type 2 diabetes mellitus without complications (principal); Z79.4 Long term (current) use of insulin
CPT/HCPCS: 36415; 83036

== ENCOUNTER → 2022-07-20 09:29 | Outpatient (CLI) | payer MEDICARE, OTHER, SELFPAY ==
--- NOTE | 2022-07-20 | DI.MRI.S_ITS ---
PROCEDURE: MR HEAD/BRAIN WO CON INDICATIONS: Other amnesia TECHNIQUE: Non-contrast axial T1 spin echo, axial T2 fast spin echo, sagittal and axial FLAIR, coronal T2 fast spin echo, axial gradient echo, axial diffusion and ADC through the brain. COMPARISON: [facility], MR, MR STROKE, 10/13/2020, 8:19. [facility], CT, CT HEAD/BRAIN WO CON, 10/12/2020, 19:33. [facility], CT, HEAD WITHOUT CONTRAST, 05/27/2013, 11:51. FINDINGS: Image quality: Diagnostic. CSF spaces: Ventricles appear symmetric in size and shape. Basal cisterns are patent. No extra-axial fluid collections. Brain: No intracranial bleeds or mass effects. There is cerebral volume loss for age. There are periventricular and deep white matter chronic small vessel ischemic changes. Brainstem appears normal. Diffusion-weighted images show no acute ischemic insults. No chronic ischemic insults. Normal intravascular flow voids are present. Skull and face: Calvarial bone marrow is normal in signal. Orbits are normal. Note is made of bilateral lens replacements. Sinuses: Sinuses and mastoids are clear. IMPRESSION: Brain MRI within normal limits for age, with note made of brain parenchymal volume loss and chronic small vessel ischemic change. Dictated by: Deep Mercado M.D. on 07/20/2022 at 9:50 Approved by: Deep Mercado M.D. on 07/20/2022 at 10:01
== END ==
PROVIDERS: Family Provider Family Medicine; PCP Family Medicine; Referring Provider Psychiatry & Neurology Neuromuscular Medicine; Visit Provider Psychiatry & Neurology Neuromuscular Medicine
DX: R41.3 Other amnesia (principal)
CPT/HCPCS: 70551

== ENCOUNTER → 2022-11-24 10:16 | Outpatient (CLI) | payer MEDICARE, OTHER, SELFPAY ==
[2022-11-24 12:41] LABS: Creatinine Urine Random 86.8 mg/dL
[2022-11-24 12:45] LABS: Microalbumi Creatinin Ratio Ur 9.2 ug/mg CR (<30); Microalbumin Urine Random 0.8 mg/dL (0-1.6)
[2022-11-24 13:47] LABS: Albumin 4.4 g/dL (3.5-5.0); BUN Creatinine Ratio 20.6 (6-22); Blood Urea Nitrogen 20 mg/dL (7-17); Calcium 9.1 mg/dL (8.4-10.2); Carbon Dioxide 29 mmol/L (22-32); Chloride 102 mmol/L (98-107); Cholesterol 159 mg/dL (140-199); Estimated Glomerular Filt Rate > 60 mL/min (>60); Glucose 101 mg/dL (80-110); HDL Cholesterol 51 mg/dL (40-60); HEMOLYSIS < 15 (0-50); LDL Cholesterol Calculated 55 mg/dL (<100); Phosphorous 3.5 mg/dL (2.8-4.1); Potassium 4.4 mmol/L (3.4-5.1); Sodium 140 mmol/L (137-145); Triglycerides 264 mg/dL (35-150)
[2022-11-25 08:44] LABS: x Labcorp Estim. Avg Glu (eAG) 157 mg/dL (.); x Labcorp Hemoglobin A1c 7.1 % (4.8-5.6)
== END ==
PROVIDERS: Family Provider Family Medicine; PCP Family Medicine; Referring Provider Student in an Organized Health Care Education/Training Program; Visit Provider Student in an Organized Health Care Education/Training Program
DX: E11.9 Type 2 diabetes mellitus without complications (principal); Z79.4 Long term (current) use of insulin
CPT/HCPCS: 36415; 80061; 80069; 82043; 82570; 83036

== ENCOUNTER → 2023-03-24 10:46 | Outpatient (CLI) | payer MEDICARE, OTHER, SELFPAY ==
[2023-03-24 13:13] LABS: Hemoglobin A1C% w Est Avg Glu 7.4 % (4.0-6.0)
== END ==
PROVIDERS: Family Provider Family Medicine; PCP Family Medicine; Referring Provider Student in an Organized Health Care Education/Training Program; Visit Provider Student in an Organized Health Care Education/Training Program
DX: E11.9 Type 2 diabetes mellitus without complications (principal); Z79.4 Long term (current) use of insulin
CPT/HCPCS: 36415; 83036

== ENCOUNTER → 2023-05-26 12:30 | Outpatient (CLI) | payer MEDICARE, OTHER, SELFPAY ==
--- NOTE | 2023-05-26 | DI.MG.S_ITS ---
BILATERAL DIGITAL SCREENING MAMMOGRAM 3D/2D WITH CAD: 05/26/2023 CLINICAL: Routine screening. Family history of breast cancer. Comparison is made to exams dated: 03/31/2022 mammogram, 03/26/2021 mammogram, and 03/03/2020 mammogram - [facility]. There are scattered areas of fibroglandular density in both breasts (category b / 25%-50% glandular tissue). Current study was also evaluated with a Computer Aided Detection (CAD) system. No significant masses, calcifications, or other findings are seen in either breast. There has been no significant interval change. IMPRESSION: NEGATIVE There is no mammographic evidence of malignancy. A 1 year screening mammogram is recommended. Based on the Tyrer Cuzick model (a risk assessment model) the patient's lifetime risk is 2.4% and her 10 year risk is 2.4%. According to the ACR, ACS, and NCCN guidelines, an annual breast MRI exam along with mammogram is recommended if the patient's lifetime risk is 20% or greater. This exam was interpreted at Station ID: [id number]. NOTE: For mammograms, a report in lay terms will be sent to the patient. Approximately 15% of breast malignancies will not be visualized mammographically. In the management of a palpable breast mass, a negative mammogram must not discourage biopsy of a clinically suspicious lesion. Electronically Signed By: Jennifer Shannon M.D., PH.D cesar/ryan:05/26/2023 23:59:14 letter sent: Normal Exam ACR BI-RADS Category 1: Negative [id number]
== END ==
PROVIDERS: Family Provider Family Medicine; PCP Family Medicine; Referring Provider Family Medicine; Visit Provider Family Medicine
DX: Z12.31 Encounter for screening mammogram for malignant neoplasm of breast (principal); Z80.3 Family history of malignant neoplasm of breast
CPT/HCPCS: 77063; 77067

== ENCOUNTER → 2023-08-14 14:40 | Outpatient (CLI) | payer MEDICARE, OTHER, SELFPAY ==
[2023-08-14 17:12] LABS: Hemoglobin A1C% w Est Avg Glu 6.4 % (4.0-6.0)
== END ==
PROVIDERS: Family Provider Family Medicine; PCP Family Medicine; Referring Provider Student in an Organized Health Care Education/Training Program; Visit Provider Student in an Organized Health Care Education/Training Program
DX: E11.9 Type 2 diabetes mellitus without complications (principal); Z79.4 Long term (current) use of insulin
CPT/HCPCS: 36415; 83036

== ENCOUNTER → 2023-10-20 14:52 | Outpatient (CLI) | payer MEDICARE, OTHER, SELFPAY ==
--- NOTE | 2023-10-20 14:56 | DI.RAD.S_ITS ---
PROCEDURE: XR THORACIC SPINE 3V INDICATIONS: PAIN TECHNIQUE: 3 views of the thoracic spine were acquired. COMPARISON: None. FINDINGS: Bones: Mild anterior wedging of multiple vertebral bodies, notably of T7, T12 and L1. Moderate multilevel degenerative changes with disc height loss and anterior osteophytosis. No suspicious bony lesions. 12 pairs of ribs are noted, and appear intact where visualized. Slight dextroconvex curvature of the thoracic spine. Soft tissues: No paravertebral stripe thickening. Calcification of the abdominal aorta. Visualized lungs are clear. IMPRESSION: 1. Mild anterior wedging of multiple vertebral bodies, notably of T7, T12 and L1. Findings may represent sequela of degenerative change versus age-indeterminate wedge fractures. Correlate for point tenderness. If clinically warranted, an MRI can be performed for further evaluation. 2. Moderate multilevel degenerative changes of the spine. Dictated by: Corrina Emerson M.D. on 10/20/2023 at 17:08 Approved by: Corrina Emerson M.D. on 10/20/2023 at 17:10
== END ==
PROVIDERS: Family Provider Family Medicine; PCP Family Medicine; Referring Provider Family Medicine; Visit Provider Family Medicine
DX: M25.512 Pain in left shoulder (principal); M54.6 Pain in thoracic spine; M48.54XA Collapsed vertebra, not elsewhere classified, thoracic region, initial encounter for fracture; M48.55XA Collapsed vertebra, not elsewhere classified, thoracolumbar region, initial encounter for fracture; M47.814 Spondylosis without myelopathy or radiculopathy, thoracic region
CPT/HCPCS: 72072

== ENCOUNTER 2024-03-17 17:18 | Emergency (ER) | payer MEDICARE, OTHER, SELFPAY ==
[2024-03-17 17:28] VITALS: BP 141/68; PULSE 97; RESP 16; O2SAT 98; BMI 23.0
--- NOTE | 2024-03-17 17:33 | DI.RAD.S_ITS ---
PROCEDURE: XR WRIST LT MIN 3V INDICATIONS: GLF, wrist swelling/pain TECHNIQUE: 4 views of the wrist were acquired. COMPARISON: None. FINDINGS: Bones: Chronic appearing avulsion fractures of the ulnar styloid. No acute, displaced fracture. Soft tissues: No suspicious soft tissue calcifications. IMPRESSION: No displaced fracture. If there remains a high clinical suspicion, or there is anatomic snuffbox tenderness, consider splinting and repeat radiographs in 10-14 days or cross-sectional imaging. Dictated by: Noah Guerrero M.D. on 03/17/2024 at 18:11 Approved by: Noah Guerrero M.D. on 03/17/2024 at 18:12
--- NOTE | 2024-03-17 18:41 | ED.GENADULT ---
HPI - General Adult General Chief complaint: Extremity Injury, Upper Stated complaint: GLF, swelling lt wrist Time Seen by Provider: 03/17/24 17:58 Source: patient and family Mode of arrival: Ambulatory History of Present Illness HPI narrative: Patient is a 78-year-old female here for evaluation of swelling to her left wrist. She had a fall at home and bracing her fall at her left wrist extended. Did not hit her head. No loss of consciousness. No other injuries from the event. Is able to flex and extend the wrist. Because of the swelling in the bruising decided to come in to be evaluated. Related Data Home Medications Medication Instructions Recorded Confirmed azithromycin 250 mg tablet 250 mg PO 3XW 10/13/20 10/13/20 (Zithromax) brimonidine 0.15 % eye drops 1 drp EYE-BOTH BID 10/13/20 10/13/20 cetirizine 10 mg tablet 10 mg PO DAILY 10/13/20 10/13/20 fluticasone propionate 230 2 puff inhalation BID 10/13/20 10/13/20 mcg-salmeterol 21 mcg/actuation HFA inhaler (Advair HFA) gabapentin 100 mg capsule 200 mg PO BID 10/13/20 10/13/20 (Neurontin) glimepiride 4 mg tablet (Amaryl) 4 mg PO QACBREAK 10/13/20 10/13/20 insulin aspart U-100 100 unit/mL 10 unit SUBCUT TID 10/13/20 10/13/20 (3 mL) subcutaneous pen (Novolog FlexPen U-100 Insulin aspart) insulin glargine 100 unit/mL (3 40 unit SUBCUT DAILY 10/13/20 10/13/20 mL) subcutaneous pen (Lantus Solostar U-100 Insulin) lamotrigine 25 mg tablet (Lamictal) 25 mg PO DAILY 10/13/20 10/13/20 latanoprost 0.005 % eye drops 1 drp EYE-BOTH BEDTIME 10/13/20 10/13/20 (Xalatan) metformin 500 mg tablet 500 mg PO DAILY 10/13/20 10/13/20 (Glucophage) omeprazole magnesium 20 mg 40 mg PO BID 10/13/20 10/13/20 capsule,delayed release ([employer] (omeprazole)) simvastatin 20 mg tablet (Zocor) 20 mg PO BEDTIME 10/13/20 10/13/20 Previous Rx's Medication Instructions Recorded meclizine 25 mg tablet 25 mg PO BID-TID PRN dizziness #14 10/12/20 tabs losartan 25 mg tablet 25 mg PO DAILY #90 tabs 10/14/20 meclizine 12.5 mg tablet 25 mg (2 x 12.5 mg) PO Q6HR PRN 10/14/20 Vertigo #30 tabs ondansetron 4 mg disintegrating 4 mg sublingual Q6HR PRN Nausea 10/14/20 tablet #30 tabs Allergies Allergy/AdvReac Type Severity Reaction Status Date / Time amoxicillin [From Augmentin] Allergy Verified 03/17/24 17:32 clavulanic acid Allergy Verified 03/17/24 17:32 [From Augmentin] ABX Allergy Unknown Uncoded 09/27/17 13:08 Review of Systems Constitutional Constitutional: Reports system reviewed and no additional complaints, except as documented Musculoskeletal Musculoskeletal: Reports system reviewed and no additional complaints, except as documented Integumentary/Breasts Skin/Breast: Reports system reviewed and no additional complaints, except as documented Neurologic Neurologic: Reports system reviewed and no additional complaints, except as documented Patient History Social History household members: children Smoking Status: Never smoker alcohol intake: never Smoking Status: Never smoker alcohol intake frequency: holidays/special occasions only Substance Use Type: does not use Exam Initial Vital Signs Initial Vital Signs: Vital Signs Pulse Rate 97 H 03/17/24 17:28 Respiratory Rate 16 03/17/24 17:28 Blood Pressure 141/68 H 03/17/24 17:28 Pulse Oximetry 98 03/17/24 17:28 Oxygen Delivery Method Room Air 03/17/24 17:28 HENWY Head: normal to inspection and normocephalic Cardio Pulses: radial pulses present on the left Skin General: no rashes or lesions noted Neuro Sensory Exam: no sensory deficits noted Extrem Other: Patient is able to flex and extend the left wrist. Is able to pronate and supinate. Left elbows unremarkable. Left shoulder is unremarkable. Course Orders Ordered: ED Orders 03/17/24 17:33 XR wrist LT min 3V Stat Vital Signs Vital signs: Vital Signs - 8 hr 03/17/24 17:28 Pulse Rate 97 H Respiratory Rate 16 Blood Pressure 141/68 H Pulse Oximetry 98 Oxygen Delivery Method Room Air Medical Decision Making Imaging Data Extremity x-ray #1: Radiologist's Impression: PROCEDURE: XR WRIST LT MIN 3V INDICATIONS: GLF, wrist swelling/pain TECHNIQUE: 4 views of the wrist were acquired. COMPARISON: None. FINDINGS: Bones: Chronic appearing avulsion fractures of the ulnar styloid. No acute, displaced fracture. Soft tissues: No suspicious soft tissue calcifications. IMPRESSION: No displaced fracture. If there remains a high clinical suspicion, or there is anatomic snuffbox tenderness, consider splinting and repeat radiographs in 10-14 days or cross-sectional imaging. MDM Narrative Medical decision making narrative: X-ray shows no fractures or dislocations. Seems to have full range of motion of the left wrist and left elbow. She was given a removable wrist splint for her comfort. Discussed return precautions. Discussed things she can do at home to help with the discomfort. She expressed understanding and agreement plan Discharge Plan Departure Patient Disposition: Home Clinical Impression: Sprain and strain of wrist Instructions: DI for Wrist Sprain, How To Perform RICE (Rest, Ice, Compress, Elevate) Activity Restrictions/Additional Instructions: The wrist splint can be worn for the next couple days. You can take it off to shower and to wash your hands. I also recommend taking it off and icing your wrist. You can take Tylenol and/or ibuprofen for discomfort. Return to the emergency department for new symptoms. Prescriptions: No Action meclizine 25 mg tablet 25 mg PO BID-TID PRN (Reason: dizziness) Qty: 14 0RF Advair HFA 230-21 mcg/actuation HFA aerosol inhaler 2 puff INHALATION BID azithromycin [Zithromax] 250 mg tablet 250 mg PO 3XW cetirizine 10 mg Tablet 10 mg PO DAILY gabapentin [Neurontin] 100 mg capsule 200 mg PO BID glimepiride [Amaryl] 4 mg tablet 4 mg PO QACBREAK lamotrigine [Lamictal] 25 mg tablet 25 mg PO DAILY Lantus Solostar U-100 Insulin 100 unit/mL (3 mL) insulin pen 40 unit SUBCUT DAILY latanoprost [Xalatan] 0.005 % drops 1 drp EYE-BOTH BEDTIME insulin aspart U-100 [Novolog FlexPen U-100 Insulin] 100 unit/mL (3 mL) insulin pen 10 unit SUBCUT TID omeprazole magnesium [[employer] (omeprazole)] 20 mg Capsule,Delayed Release(Dr/Ec) 40 mg PO BID metformin [Glucophage] 500 mg tablet 500 mg PO DAILY brimonidine 0.15 % drops 1 drp EYE-BOTH BID simvastatin [Zocor] 20 mg tablet 20 mg PO BEDTIME meclizine 12.5 mg Tablet 25 mg PO Q6HR PRN (Reason: Vertigo) Qty: 30 0RF losartan 25 mg Tablet 25 mg PO DAILY Qty: 90 0RF ondansetron 4 mg Tablet,Disintegrating 4 mg sublingual Q6HR PRN (Reason: Nausea) Qty: 30 0RF Referrals: Teofilo Morton MD [Primary Care Provider] - Stand Alone Forms: Patient Portal/API
== END 2024-03-17 19:00 | disposition home or self-care (01) ==
PROVIDERS: Emergency Provider Emergency Medicine; Family Provider Family Medicine; PCP Family Medicine
DX: S63.502A Unspecified sprain of left wrist, initial encounter (principal); S66.912A Strain of unspecified muscle, fascia and tendon at wrist and hand level, left hand, initial encounter; W18.30XA Fall on same level, unspecified, initial encounter; Z79.899 Other long term (current) drug therapy
CPT/HCPCS: 73110; 99282; 99283

== ENCOUNTER → 2024-04-25 14:53 | Outpatient (CLI) | payer MEDICARE, OTHER, SELFPAY ==
--- NOTE | 2024-04-25 14:59 | DI.RAD.S_ITS ---
PROCEDURE: XR WRIST LT 2V INDICATIONS: Pain in left wrist TECHNIQUE: Two views of the wrist were acquired. COMPARISON: [facility], CR, XR WRIST LT MIN 3V, 03/17/2024, 17:33. FINDINGS: Bones: Unifying transverse fracture through the distal radial epiphysis shows near anatomic alignment with slight dorsal reversal of the articular surface. Ununited fracture ulnar styloid process tip again noted. There appears to to be a small nondisplaced avulsion fracture off the radial surface of the distal scaphoid noted-suboptimal visualization. Ulnar positive variance noted. Joints: Mild STT and 1st CMC degeneration. Soft tissues: No soft tissue abnormality. IMPRESSION: Minimally angulated healing transverse fracture distal radial epiphysis. Probable avulsion fracture of the radial surface of the distal scaphoid. Suggest patient return for scaphoid views for better evaluation. Mild STT and 1st CMC degeneration Dictated by: Pk Gaspar M.D. on 04/26/2024 at 9:28 Approved by: Pk Gaspar M.D. on 04/26/2024 at 9:31
== END ==
PROVIDERS: Family Provider Family Medicine; PCP Family Medicine; Referring Provider Family Medicine; Visit Provider Family Medicine
DX: S52.592D Other fractures of lower end of left radius, subsequent encounter for closed fracture with routine healing (principal); M18.12 Unilateral primary osteoarthritis of first carpometacarpal joint, left hand; M19.032 Primary osteoarthritis, left wrist; M25.532 Pain in left wrist
CPT/HCPCS: 73100

== ENCOUNTER → 2024-04-30 16:55 | Outpatient (CLI) | payer MEDICARE, OTHER, SELFPAY ==
--- NOTE | 2024-04-30 16:59 | DI.RAD.S_ITS ---
PROCEDURE: XR WRIST LT MIN 3V INDICATIONS: WRIST FRACTURE TECHNIQUE: 4 views of the wrist were acquired. COMPARISON: [facility], CR, XR WRIST LT 2V, 04/25/2024, 15:10. FINDINGS: Bones: Stable alignment distal radial fracture. There remains impaction intra-articular extension without interval change. Old displaced ulna styloid fracture. Previously identified avulsion fragment at the radial surface of the distal scaphoid is unchanged. Mild STT and 1st CMC arthritic change. Soft tissues: No suspicious soft tissue calcifications. IMPRESSION: Stable appearance of distal radial fracture. Suspected avulsion fracture of the radial surface of the distal scaphoid, unchanged. Dictated by: Tiny Caldera M.D. on 05/01/2024 at 16:50 Approved by: Tiny Caldera M.D. on 05/01/2024 at 16:51
== END ==
LOC: RAD 16:57
PROVIDERS: Family Provider Family Medicine; PCP Family Medicine; Referring Provider Family Medicine; Visit Provider Family Medicine
DX: S52.502D Unspecified fracture of the lower end of left radius, subsequent encounter for closed fracture with routine healing (principal); Z87.81 Personal history of (healed) traumatic fracture; X58.XXXA Exposure to other specified factors, initial encounter
CPT/HCPCS: 73110

== ENCOUNTER → 2024-07-27 09:24 | Outpatient (CLI) | payer MEDICARE, OTHER, SELFPAY ==
--- NOTE | 2024-07-27 | DI.MG.S_ITS ---
BILATERAL DIGITAL SCREENING MAMMOGRAM 3D/2D WITH CAD: 07/27/2024 CLINICAL: Routine screening. Family history of breast cancer. Comparison is made to exams dated: 05/26/2023 mammogram, 03/31/2022 mammogram, and 03/26/2021 mammogram - [facility]. There are scattered areas of fibroglandular density (category b / 25%-50% glandular tissue). Current study was also evaluated with a Computer Aided Detection (CAD) system. No significant masses, calcifications, or other findings are seen in either breast. There has been no significant interval change. IMPRESSION: NEGATIVE There is no mammographic evidence of malignancy. A 1 year screening mammogram is recommended. Based on the Tyrer Cuzick model (a risk assessment model) the patient's lifetime risk is 2.2% and her 10 year risk is 0.0%. According to the ACR, ACS, and NCCN guidelines, an annual breast MRI exam along with mammogram is recommended if the patient's lifetime risk is 20% or greater. This exam was interpreted at Station ID: [id number]. NOTE: For mammograms, a report in lay terms will be sent to the patient. Approximately 15% of breast malignancies will not be visualized mammographically. In the management of a palpable breast mass, a negative mammogram must not discourage biopsy of a clinically suspicious lesion. Electronically Signed By: Efrain sanon/ryan:07/29/2024 07:29:51 letter sent: Normal Exam ACR BI-RADS Category 1: Negative
== END ==
PROVIDERS: Family Provider Family Medicine; PCP Family Medicine; Referring Provider Family Medicine; Visit Provider Family Medicine
DX: Z12.31 Encounter for screening mammogram for malignant neoplasm of breast (principal); Z80.3 Family history of malignant neoplasm of breast
CPT/HCPCS: 77063; 77067

== ENCOUNTER → 2024-09-25 16:58 | Outpatient (CLI) | payer MEDICARE, OTHER, SELFPAY ==
--- NOTE | 2024-09-25 17:03 | DI.RAD.S_ITS ---
PROCEDURE: XR WRIST LT MIN 3V INDICATIONS: WRIST FRACTURE TECHNIQUE: 4 views of the wrist were acquired. COMPARISON: [facility], CR, XR WRIST LT MIN 3V, 04/30/2024, 17:01. FINDINGS: Bones: Prior Colles fracture of the distal radius, is now solidly unified with mild deformity. Tiny avulsion fracture of the ulnar styloid process tip again seen Joints: Mild degenerative change seen in the STT and 1st CMC joints. Soft tissues: There is mild mild diffuse soft tissue swelling IMPRESSION: Malunified Colles fracture distal radius Degeneration Dictated by: Pk Gaspar M.D. on 09/26/2024 at 12:46 Approved by: Pk Gaspar M.D. on 09/26/2024 at 12:48
== END ==
PROVIDERS: Family Provider Family Medicine; PCP Family Medicine; Referring Provider Family Medicine; Visit Provider Family Medicine
DX: S52.532P Colles' fracture of left radius, subsequent encounter for closed fracture with malunion (principal)
CPT/HCPCS: 73110

== ENCOUNTER → 2024-12-23 13:04 | Outpatient (CLI) | payer MEDICARE, OTHER, SELFPAY ==
--- NOTE | 2024-12-23 13:07 | DI.RAD.S_ITS ---
PROCEDURE: XR HAND LT MIN 3V INDICATIONS: Evaluate thumb and wrist for new fracture TECHNIQUE: 3 views of the hand acquired. COMPARISON: [facility], CR, XR WRIST LT MIN 3V, 09/25/2024, 17:00. FINDINGS: Bones: Nondisplaced transverse fracture is seen at the 1st distal phalangeal base without definite extension into the interphalangeal joint. Mild chronic fracture deformity again seen at the distal radius and ulnar styloid. Multifocal arthritic changes throughout the fingers bilaterally with central erosions suspicious for erosive osteoarthritis. Soft tissues: No suspicious soft tissue calcifications. IMPRESSION: 1. Suspected nondisplaced transverse fracture at the 1st distal phalangeal base without definite intra-articular extension. 2. 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 Approved by: Jose Lyle M.D. on 12/23/2024 at 13:30
== END ==
PROVIDERS: Family Provider Family Medicine; PCP Family Medicine; Referring Provider Chiropractor; Visit Provider Chiropractor
DX: S62.102G Fracture of unspecified carpal bone, left wrist, subsequent encounter for fracture with delayed healing (principal); M79.645 Pain in left finger(s); X58.XXXD Exposure to other specified factors, subsequent encounter
CPT/HCPCS: 73130